=== PATIENT | male | born 1950 | race Caucasian/White ===

== ENCOUNTER → 2020-05-18 11:05 | Outpatient (BNVA) | payer MEDICARE, SELFPAY | PROVIDERS: PCP Physician Assistant; Visit Provider Internal Medicine | DX: G47.33 Obstructive sleep apnea (adult) (pediatric) (principal); E66.9 Obesity, unspecified; Z68.29 Body mass index [BMI] 29.0-29.9, adult; T88.8XXA Other specified complications of surgical and medical care, not elsewhere classified, initial encounter | CPT/HCPCS: 99213 ==

== ENCOUNTER 2020-06-15 12:21 | Outpatient (REF) | payer MEDICARE, SELFPAY ==
[2020-06-15 12:59] LABS: MANUAL DIFF FLAG NO
[2020-06-15 13:19] LABS: Basophils Percent Auto 0.3 % (0-2); Eosinophils Absolute Auto 0.1 X10*3/uL (0.0-0.4); Eosinophils Percent Auto 1.5 % (0-4); Hematocrit 42.6 % (42-52); Hemoglobin 13.9 g/dl (14.0-18.0); Imm Gran Abs Auto 0.02 X10*3/uL (0.00-0.03); Imm Gran Pct Auto 0.3 % (0.0-0.4); Lymphocytes Absolute Auto 1.6 X10*3/uL (1.2-4.9); Lymphocytes Percent Auto 21.9 % (20-40); Mean Corpuscular HGB Conc 32.6 g/dl (31.0-36.0); Mean Corpuscular Hemoglobin 27.3 pg (27.0-33.0); Mean Corpuscular Volume 83.7 fL (80-98); Mean Platelet Volume 10.2 fL (9.4-12.4); Monocytes Absolute Auto 0.9 X10*3/uL (0.1-1.2); Monocytes Percent Auto 12.4 % (2-11); Neutrophils Absolute Auto 4.8 X10*3/uL (2.0-8.3); Neutrophils Percent Auto 63.6 % (45-73); Platelet Count 249 X10*3/uL (160-400); Red Blood Count 5.09 X10*6/uL (4.60-5.80); Red Cell Distribution Width 13.2 % (11.0-16.0); White Blood Count 7.5 X10*3/uL (4.8-10.8)
[2020-06-15 13:34] LABS: Alanine Aminotransferase 20 U/L (0-40); Albumin Level 4.5 g/dL (3.5-5.0); Alkaline Phosphatase 122 U/L (39-117); Anion Gap 14 (12-20); Aspartate Amino Transferase 20 U/L (5-37); Bilirubin Total 0.6 mg/dL (0.0-1.0); Blood Urea Nitrogen 17 mg/dL (9-16); Carbon Dioxide 28 mmol/L (22-29); Chloride 106 mmol/L (96-108); Cholesterol 199 mg/dL; Estimated Glomerular Filt Rate > 60; Glucose Fasting 91 mg/dL (60-99); HDL Cholesterol 59 mg/dL; LDL Cholesterol Calculated 85 mg/dl; Potassium 4.2 mmol/l (3.3-5.1); Sodium 144 mmol/L (135-145); Total Protein 7.2 g/dL (6.5-8.0); Triglycerides 276 mg/dL
[2020-06-15 14:27] LABS: Creatinine Urine 320.39 mg/dL; Microalbum/Creatinine Ratio Ur 9.3 ug/mg cr
[2020-06-15 14:43] LABS: Folate > 20.0 ng/mL (> or = 4.0); Vitamin B12 > 2000 pg/mL (200-900)
== END 2020-06-15 12:22 | disposition home or self-care (01) ==
LOC: HO.LAB 12:21
PROVIDERS: Visit Provider Physician Assistant
DX: G70.00 Myasthenia gravis without (acute) exacerbation (principal); E78.2 Mixed hyperlipidemia; I10 Essential (primary) hypertension; D51.0 Vitamin B12 deficiency anemia due to intrinsic factor deficiency
CPT/HCPCS: 36415; 80053; 80061; 82043; 82550; 82607; 82746; 85025

== ENCOUNTER → 2020-06-22 11:05 | Outpatient (REF) | payer MEDICARE, SELFPAY | LOC: HO.SL 11:05 | PROVIDERS: Visit Provider Internal Medicine | DX: G47.33 Obstructive sleep apnea (adult) (pediatric) (principal) | CPT/HCPCS: 95806 ==

== ENCOUNTER → 2020-08-17 11:09 | Outpatient (BNVA) | payer MEDICARE, OTHER, SELFPAY | PROVIDERS: PCP Physician Assistant; Visit Provider Internal Medicine Gastroenterology | DX: K59.01 Slow transit constipation (principal); G70.00 Myasthenia gravis without (acute) exacerbation | CPT/HCPCS: Q3014 ==

== ENCOUNTER 2020-11-21 09:19 | Outpatient (REF) | payer MEDICARE, OTHER, SELFPAY ==
[2020-11-21 10:53] LABS: MANUAL DIFF FLAG NO
[2020-11-21 11:02] LABS: Basophils Percent Auto 0.3 % (0-2); Eosinophils Absolute Auto 0.3 X10*3/uL (0.0-0.4); Eosinophils Percent Auto 4.4 % (0-4); Imm Gran Abs Auto 0.03 X10*3/uL (0.00-0.03); Imm Gran Pct Auto 0.5 % (0.0-0.4); Lymphocytes Absolute Auto 1.6 X10*3/uL (1.2-4.9); Lymphocytes Percent Auto 23.7 % (20-40); Mean Corpuscular HGB Conc 33.3 g/dl (31.0-36.0); Mean Corpuscular Hemoglobin 27.2 pg (27.0-33.0); Mean Corpuscular Volume 81.6 fL (80-98); Mean Platelet Volume 9.8 fL (9.4-12.4); Monocytes Absolute Auto 0.9 X10*3/uL (0.1-1.2); Monocytes Percent Auto 14.1 % (2-11); Neutrophils Absolute Auto 3.7 X10*3/uL (2.0-8.3); Platelet Count 289 X10*3/uL (160-400); Red Blood Count 4.41 X10*6/uL (4.60-5.80); Red Cell Distribution Width 13.9 % (11.0-16.0); White Blood Count 6.5 X10*3/uL (4.8-10.8)
[2020-11-21 11:25] LABS: Alanine Aminotransferase 21 U/L (0-40); Albumin Level 4.3 g/dL (3.5-5.0); Alkaline Phosphatase 107 U/L (39-117); Anion Gap 14 (12-20); Aspartate Amino Transferase 20 U/L (5-37); Bilirubin Total 0.6 mg/dL (0.0-1.0); Blood Urea Nitrogen 19 mg/dL (9-16); Calcium 9.2 mg/dL (8.4-10.2); Carbon Dioxide 25 mmol/L (22-29); Chloride 107 mmol/L (96-108); Estimated Glomerular Filt Rate > 60; Gamma Glutamyl Transpeptidase 31 U/L (11-51); Glucose Random 103 mg/dL (60-115); Magnesium 2.2 mg/dL (1.6-2.6); Potassium 4.1 mmol/L (3.3-5.1); Sodium 142 mmol/L (135-145); Total Protein 7.1 g/dL (6.5-8.0)
[2020-11-21 11:34] LABS: TSH reflex Free T4 0.54 uIU/mL (0.32-4.0); Vitamin D 25-OH Total 25.7 ng/mL (>30)
== END 2020-11-21 09:20 | disposition home or self-care (01) ==
LOC: HO.LAB 09:19
PROVIDERS: PCP Physician Assistant; Visit Provider Internal Medicine Gastroenterology
DX: K59.01 Slow transit constipation (principal); G47.33 Obstructive sleep apnea (adult) (pediatric); Z86.16 Personal history of COVID-19; Z87.01 Personal history of pneumonia (recurrent)
CPT/HCPCS: 36415; 80053; 82306; 82977; 83735; 84443; 85025; 99212

== ENCOUNTER → 2020-12-21 14:02 | Outpatient (BNVA) | payer MEDICARE, OTHER, SELFPAY | PROVIDERS: PCP Physician Assistant; Visit Provider Internal Medicine | DX: G47.33 Obstructive sleep apnea (adult) (pediatric) (principal); Z86.16 Personal history of COVID-19; Z99.81 Dependence on supplemental oxygen; Z99.89 Dependence on other enabling machines and devices | CPT/HCPCS: 99212 ==

== ENCOUNTER → 2021-05-23 10:55 | Outpatient (BNVA) | payer MEDICARE, OTHER, SELFPAY | PROVIDERS: PCP Physician Assistant; Visit Provider Internal Medicine | DX: G47.33 Obstructive sleep apnea (adult) (pediatric) (principal); U07.1 COVID-19; J12.82 Pneumonia due to coronavirus disease 2019; Z86.16 Personal history of COVID-19 | CPT/HCPCS: 99212 ==

== ENCOUNTER → 2021-09-25 12:13 | Outpatient (BNVA) | payer MEDICARE, OTHER, SELFPAY | PROVIDERS: PCP Physician Assistant; Referring Provider Physician Assistant; Visit Provider Internal Medicine Cardiovascular Disease | DX: G47.33 Obstructive sleep apnea (adult) (pediatric) (principal); E66.9 Obesity, unspecified; Z68.31 Body mass index [BMI] 31.0-31.9, adult; R06.02 Shortness of breath | CPT/HCPCS: 93005; 99202; 99212 ==

== ENCOUNTER → 2021-11-02 07:26 | Outpatient (REF) | payer MEDICARE, OTHER, SELFPAY ==
--- NOTE | ~2021-11-02 | NM_ITS ---
Myocardial perfusion study Indication: Shortness of breath evaluate for myocardial ischemia Technique: The patient was brought in for a Lexiscan perfusion study on 11/02/2021. Patient performed low-level exercise and was injected 0.4 mg of Lexiscan intravenously. Within a minute of injection, 30 mCi of sestamibi was given intravenously. Images were obtained using the SPECT gamma camera interlaced with the gating device. Images were obtained in supine position. Resting perfusion study was performed on 11/03/2021. Patient was administered 30 mCi of sestamibi intravenously at rest. Images were then obtained in supine position. Images obtained with and without CT attenuation. Total DLP 158 mGy-cm. Images were processed with the software and compared side to side in short axis, horizontal long axis and vertical long axis views. Findings: The stress perfusion study showed non attenuated images show normal uptake of radiotracer in all segments of LV myocardium. Attenuation corrected images show mildly reduced uptake in the apex of the LV myocardium.. The gated study shows normal LV systolic function with visually estimated LVEF of greater than 60%. LV cavity is normal in size. The gated study shows normal systolic wall thickening and contraction of segments. Resting study shows no change in perfusion pattern compared to stress perfusion study. Gating at rest reveals normal systolic wall motion with ejection fraction at 71%. The findings are consistent with normal myocardial perfusion. NM/NM melida perf SPECT rest & str Impression: 1. Myocardial perfusion imaging study shows normal myocardial perfusion 2. Gated LVEF is 71% 3. Transient ischemic dilatation not present EKG is nondiagnostic for ischemia
--- NOTE | 2021-11-02 07:29 | CA_ITS ---
Transthoracic Echocardiogram Patient (Last, First, Middle): Kareem Fletcher M Gender: Male Date of : 1950 Age: 70 Procedure Date: 11/02/2021 Procedure Type: Transthoracic Echocardiogram Location: OP Height: 170.18 cm Weight: 88.45 kg BSA: 2.00 m2 Heart Rate: bpm BP: 150 / 100 mmHg Color Consultant: VIJAY Lugo MD: Geovanni Haq MD Warp Yarn Sorter: Geovanni Haq MD Symptoms: R06.02 - Shortness of breath Study Quality: Fair ECG Rhythm: Sinus Conclusions: - 1. Normal LV systolic function with impaired relaxation filling pattern 2. Heavily calcified mitral valve with moderate mitral stenosis 3. Normal RV systolic pressure 4. No gross pericardial effusion Findings Left Ventricle Normal left ventricular size, thickness, and systolic function. The visually estimated ejection fraction is between 60-65%. Spectral Doppler is indicative of an impaired relaxation filling pattern. Right Ventricle Normal right ventricular cavity size and systolic function. Atria The left atrium is normal in size. There is no evidence of interatrial shunt. The right atrium is normal in size. Aortic Valve There is moderate calcification of the aortic valve. There is mild thickening of the aortic valve. There is no aortic valve stenosis. There is no aortic valve regurgitation. Mitral Valve There is moderate anterior and severe posterior mitral leaflet thickening. The anterior mitral leaflet has restricted mobility and the posterior mitral leaflet has restricted mobility. There is moderate mitral annular calcification. There is no mitral valve regurgitation. There is moderate mitral valve stenosis. The calculated mitral valve area by pressure half time is 1.75 cm2. Pulmonic Valve The pulmonic valve was not well visualized. Tricuspid Valve Likely normal tricuspid valve structure and function. There is trace tricuspid valve regurgitation. The right ventricular systolic pressure is normal. The right ventricular systolic pressure is 15 mmHg. Normal right atrial pressure. There is no evidence of pulmonary hypertension. Great Vessels All visible segments of the aorta are normal in size. The pulmonary artery was not well visualized. Venous The inferior vena cava is normal in size and collapses greater than 50% with inspiration. Pericardium/Pleural There is no evidence of pericardial effusion. Prior Study Comparison no previous study in the last 5 years for comparison Measurements 2D Linear Measurements IVSd: 1.18 0.6-0.9/0.6-1.0 cm LVIDd: 3.68 3.9-5.3/4.2-5.9 cm LVIDd Index: 1.84 2.4-3.2/2.2-3.1 cm/m2 LVIDs: 2.40 2.0-3.6 cm LVPWd: 1.04 0.7-1.1 cm LA Diam: 3.80 2.7-3.8/3.0-4.0 cm LAIDs Index: 1.90 1.5-2.3 cm/m2 LV Mass: 161.76 67-162/88-224 g LV Mass Index: 80.88 43-95/49-115 g/m2 LVOT Diam: 2.10 3.0+(-)1.3 cm 2D Systolic Function EF 4C: 63.90 >55% EF 2C: 66.50 >55% EF BiP: 63.10 >55% Mitral Valve MV VTI: 0.55 MV Pk Colt: 1.95 MV Mn Colt: 1.14 MV Pk Grad: 15.00 MV Mn Grad: 6.00 MV Pk E: 1.26 MV PK A: 1.55 MV Decel Time: 372.00 E/A: 0.80 E'Lateral: 3.92 E'Medial: 4.13 E/E' Med: 30.50 E/E' Lat: 32.10 PHT: 126.00 MVA PHT: 1.75 MVA Continuity: 1.43 Decel [place]: 3.55 Aortic Valve AoV Pk Colt: 2.01 AoV Mn Colt: 1.36 AoV VTI: 0.38 AoV Pk Grad: 16.00 Aov Mn Grad: 8.00 PENNY Cont.VTI: 2.10 LVOT LVOT Pk Colt: 1.19 LVOT Mn Colt: 0.78 LVOT VTI: 0.23 LVOT Pk Grad: 6.00 LVOT Mn Grad: 3.00 LVOT Diam: 2.10 LVOT Area: 3.46 Diastolic Function MV Pk E: 1.26 MV Pk A: 1.55 E/A: 0.80 E'Medial: 4.13 E/E' Med: 30.50 E' Laterial: 3.92 E/E' Lat: 32.10 Right Ventricle TAPSE (mm): 19.50 TVS' Colt: 13.30 Tricuspid Valve TR Pk Colt: 1.74 TR Pk Grad: 12.00 RA Press: 3.00 RVSP: 15.00 Great Vessels Aorta Sinus of Valsalva: 3.49 2.0-3.[address] [place]: 3.20 1.7-3.4 cm Ao Asc: 3.20 2.1-3.4 cm Ao Arch: 3.00 Updated in Other Vendor System with Status of Final Geovanni Haq MD electronically signed on 11/03/2021 1:54:01 PM with status of Final
--- NOTE | 2021-11-02 07:29 | CA_ITS ---
Acquisition Time: 2021-11-02 08:18:47 Total Exercise Time: 00:02:00 Test Indications: Dyspnea Medications: ASA ATORVASTATIN CLOPIDOGREL LEVOTHYROXINE OLMESARTAN PYRIDOSTIGMINE BROMIDE Protocol: LEXISCAN Max HR: 139 BPM 93% of Pred: 148 BPM Max BP: 152/084 mmHG Max Work Load: 1.6 METS Pharmacological stress test with Lexiscan injection, while walking on treadmill without anginal symptoms, without arrythmia, with normotensive response to injection, with nondiagnostic EKG for ischemia. In recovery he had nausea and headache which was treated with Aminophylline 75mg IVP to reverse Lexiscan with resolution of symptoms. Nuclear images pending. Test reviewed with Dr Melo. Referred By: Geovanni Haq Overread By: EDITH MCDONNELL
== END ==
LOC: HO.CARD 07:26
PROVIDERS: PCP Physician Assistant; Visit Provider Internal Medicine Cardiovascular Disease
DX: R06.02 Shortness of breath (principal)
CPT/HCPCS: 78452; 93017; 93306; A9500; J0280; J2785

== ENCOUNTER → 2021-11-28 13:58 | Outpatient (BNVA) | payer MEDICARE, OTHER, SELFPAY | PROVIDERS: PCP Physician Assistant; Referring Provider Physician Assistant; Visit Provider Internal Medicine Cardiovascular Disease | DX: R06.02 Shortness of breath (principal); I05.0 Rheumatic mitral stenosis; I10 Essential (primary) hypertension; G47.33 Obstructive sleep apnea (adult) (pediatric); Z79.82 Long term (current) use of aspirin; Z99.89 Dependence on other enabling machines and devices | CPT/HCPCS: 99212 ==

== ENCOUNTER → 2021-12-27 10:50 | Outpatient (REF) | payer MEDICARE, OTHER, SELFPAY ==
--- NOTE | 2021-12-27 10:53 | CA_ITS ---
Acquisition Time: 2021-12-27 11:12:22 Total Exercise Time: 00:03:58 Test Indications: sob Medications: see chart Protocol: ECHO Max HR: 166 BPM 112% of Pred: 147 BPM Max BP: 144/080 mmHG Max Work Load: 5.7 METS Exercise stress test with exercise 3 min 58 sec of Echo protocol, achieving 102% MPHR, with moderate shortness of breath, no chest discomfort, with frequent isolated PACs, with normotensive resposne to exercise, without EKG changes meeting criteria for ischemia. Echo images obtained by tech at rest and immediately post peak exercise. In recovery his breathing normalized. Test reviewed with Dr Marin. Referred By: Geovanni Haq Overread By: EDITH MCDONNELL
== END ==
LOC: HO.CARD 10:50
PROVIDERS: PCP Physician Assistant; Visit Provider Internal Medicine Cardiovascular Disease
DX: R06.02 Shortness of breath (principal)
CPT/HCPCS: 93017; 93350; Q9957

== ENCOUNTER → 2022-02-06 12:40 | Outpatient (BNVA) | payer MEDICARE, OTHER, SELFPAY | PROVIDERS: PCP Physician Assistant; Referring Provider Physician Assistant; Visit Provider Internal Medicine Cardiovascular Disease | DX: I05.0 Rheumatic mitral stenosis (principal) | CPT/HCPCS: 99212 ==

== ENCOUNTER → 2022-03-14 13:11 | Outpatient (BNVA) | payer MEDICARE, OTHER, SELFPAY | PROVIDERS: PCP Physician Assistant; Referring Provider Physician Assistant; Visit Provider Internal Medicine Cardiovascular Disease | DX: I25.10 Atherosclerotic heart disease of native coronary artery without angina pectoris (principal); I05.0 Rheumatic mitral stenosis | CPT/HCPCS: 99212 ==

== ENCOUNTER 2022-03-30 11:26 | Day surgery (SDC) | payer MEDICARE, OTHER, SELFPAY ==
[2022-03-26 13:19] VITALS: BMI 30.7
--- NOTE | 2022-03-29 08:53 | HO.ANESPROP2 ---
Documented by User: Beth Awan NP 03/29/22 09:12 HPI - Anesthesia Eval Consult details Narrative: 71yo M for Transesophageal Echocardiogram Significant CAD, referred for CABG after cardiac cath. Need to assess degree of preop. *Myesthenia Gravis - Occular* PMFSH Active Problems Active Problems: All Active Problems (Updated 03/26/22 @ 13:16 by Izabela Parra, FIORELLA) Pernicious anemia (Acute) HTN (hypertension) (Acute) HLD (hyperlipidemia) (Acute) Ocular myasthenia (Acute) Carotid stenosis (Acute) DMII (diabetes mellitus, type 2) (Acute) Pneumonia due to COVID-19 virus (Acute) Hospital discharge follow-up (Acute) Lower extremity edema (Acute) Prostate cancer screening (Acute) SOB (shortness of breath) on exertion (Acute) Memory impairment (Acute) Mitral stenosis (Acute) Atherosclerosis of coronary artery (Acute) Obesity (BMI 30.0-34.9) (Acute) BARRY (obstructive sleep apnea) (Acute) Malfunction of continuous positive airway pressure (CPAP) or bilevel positive airway pressure (BPAP) machine (Acute) BARRY (obstructive sleep apnea) (Acute) Constipation by delayed colonic transit (Acute) Myasthenia gravis (Acute) Personal history of COVID-19 (Acute) Diabetes mellitus screening (Acute) Past Medical History Medical History Atherosclerosis of coronary artery Constipation by delayed colonic transit Diabetes mellitus screening Malfunction of continuous positive airway pressure (CPAP) or bilevel positive airway pressure (BPAP) machine Mitral stenosis Myasthenia gravis Obesity (BMI 30.0-34.9) BARRY (obstructive sleep apnea) BARRY (obstructive sleep apnea) Personal history of COVID-19 Family History Family History Father No problems noted. Mother No problems noted. Maternal Grandmother Medical history unknown Brother AA (aortic aneurysm) Maternal Grandmother No problems noted. Mother AA (aortic aneurysm) Sister Primary cancer of shoulder Other Family history of hypercholesterolemia Family history of hypertension Surgical History Surgical History History of appendectomy History of cholecystectomy History of shoulder surgery History of tonsillectomy and adenoidectomy Hx of colonoscopy Total knee replacement status Social History Social History Household Members: Significant Other Housing: House Alcohol intake: never Patient Tobacco Use Status: Never used Tobacco Use of substances other than those prescribed or required for medical reasons: No Are you DNR?: No Advance Directives: No Advance Directives Information Provided: Yes Recently lost weight without trying: No Nutrition Risks: No Nutritional Risk service: Yes Current occupational status: retired Meds Allergies Allergy/AdvReac Type Severity Reaction Status Date / Time codeine [CODEINE] Allergy Intermediate VOMITING Verified 09/25/21 16:06 Home Medications Medication Instructions Recorded Confirmed Last Taken Type aspirin 81 mg tablet,delayed 81 mg PO DAILY 06/15/20 03/26/22 Unknown History release pyridostigmine bromide 60 mg tablet 60 mg PO TID 06/15/20 03/26/22 03/30/22 History nitroglycerin 0.4 mg sublingual 0.4 mg sublingual TID PRN angina 07/14/20 03/26/22 Unknown History tablet levothyroxine 125 mcg tablet 125 mcg PO DAILY 03/14/22 03/26/22 03/30/22 History Exam Exam Date and Time: March 29, 2022 0853 Height,Weight and Vital Signs: Height 5 ft 7 in Weight 89 kg Narrative Narrative: Cardiac Cath Significant three-vessel coronary artery disease along with presence of mitral stenosis and also gradient across aortic valve which was not expected suggestive aortic stenosis. EKG 09/2021 normal sinus rhythm with minimal voltage criteria for LVH, without acute changes ECHO 10/2021 Conclusions: - 1.? Normal LV systolic function with impaired relaxation ? ? ? filling pattern? 2. Heavily calcified mitral valve with moderate mitral stenosis? 3.? Normal RV systolic pressure? 4. No gross pericardial effusion ?? NM melida perf SPECT rest & str 10/2021 Impression: ? 1.? Myocardial perfusion imaging study shows normal myocardial perfusion 2.? Gated LVEF is 71% 3. Transient ischemic dilatation not present ? EKG is nondiagnostic for ischemia Stress ECHO 12/2021 Protocol: BUDDY ? Max HR: 166 BPM? 112% of? Pred: 147 BPM Max BP: 144/080 mmHG Max Work Load: 5.7 METS ? Exercise stress test with exercise 3 min 58 sec of Buddy protocol, achieving ?102% MPHR, with moderate shortness of breath, no chest discomfort, with ?frequent isolated PACs, with normotensive resposne to exercise, without EKG ?changes meeting criteria for ischemia. Echo images obtained by tech at rest and ?immediately post peak exercise. In recovery his breathing normalized. Test ?reviewed with Dr Marin. Exercise echocardiogram was performed to assess mitral valve gradients with exercise. Baseline echocardiogram shows normal? LVEF, normal RV systolic function. Mitral annulus appears moderately calcified.? Resting mean gradient across the mitral? valve was 5mmHg (peak 13mmHg)? at 82/min.? Immediately post exercise, the gradient increased to mean 11mmHg (peak 21mmHg) at? 96/min. This could? indicate calcific mitral stenosis as potential etiology for patient's shortness of breath with activity.? Assessment and Plan Assessment Anesthesia Assessment: Chart Reviewed Documented by User: Garcia Ferris MD 03/30/22 12:27 [facility] [place] Active Problems Active Problems: All Active Problems (Updated 03/26/22 @ 13:16 by Izabela Parra RN) Pernicious anemia (Acute) HTN (hypertension) (Acute) HLD (hyperlipidemia) (Acute) Ocular myasthenia (Acute) Carotid stenosis (Acute) DMII (diabetes mellitus, type 2) (Acute) Pneumonia due to COVID-19 virus (Acute) Hospital discharge follow-up (Acute) Lower extremity edema (Acute) Prostate cancer screening (Acute) SOB (shortness of breath) on exertion (Acute) Memory impairment (Acute) Mitral stenosis (Acute) Atherosclerosis of coronary artery (Acute) Obesity (BMI 30.0-34.9) (Acute) BARRY (obstructive sleep apnea) (Acute) Malfunction of continuous positive airway pressure (CPAP) or bilevel positive airway pressure (BPAP) machine (Acute) BARRY (obstructive sleep apnea) (Acute) Constipation by delayed colonic transit (Acute) Myasthenia gravis (Acute) Personal history of COVID-19 (Acute) Diabetes mellitus screening (Acute) hypothyroidism Past Medical History Medical History Atherosclerosis of coronary artery Constipation by delayed colonic transit Diabetes mellitus screening Malfunction of continuous positive airway pressure (CPAP) or bilevel positive airway pressure (BPAP) machine Mitral stenosis Myasthenia gravis Obesity (BMI 30.0-34.9) BARRY (obstructive sleep apnea) BARRY (obstructive sleep apnea) Personal history of COVID-19 Family History Family History Father No problems noted. Mother No problems noted. Maternal Grandmother Medical history unknown Brother AA (aortic aneurysm) Maternal Grandmother No problems noted. Mother AA (aortic aneurysm) Sister Primary cancer of shoulder Other Family history of hypercholesterolemia Family history of hypertension Family history of problems with anesthesia: No Surgical History Surgical History History of appendectomy History of cholecystectomy History of shoulder surgery History of tonsillectomy and adenoidectomy Hx of colonoscopy Total knee replacement status History of Problems with Anesthesia: No Social History Social History Household Members: Significant Other Housing: House Alcohol intake: never Patient Tobacco Use Status: Never used Tobacco Use of substances other than those prescribed or required for medical reasons: No Are you DNR?: No Advance Directives: No Advance Directives Information Provided: Yes Recently lost weight without trying: No Nutrition Risks: No Nutritional Risk service: Yes Current occupational status: retired [employer] Allergies Allergy/AdvReac Type Severity Reaction Status Date / Time codeine [CODEINE] Allergy Intermediate VOMITING Verified 09/25/21 16:06 Home Medications Medication Instructions Recorded Confirmed Last Taken Type aspirin 81 mg tablet,delayed 81 mg PO DAILY 06/15/20 03/26/22 Unknown History release pyridostigmine bromide 60 mg tablet 60 mg PO TID 06/15/20 03/26/22 03/30/22 History nitroglycerin 0.4 mg sublingual 0.4 mg sublingual TID PRN angina 07/14/20 03/26/22 Unknown History tablet levothyroxine 125 mcg tablet 125 mcg PO DAILY 03/14/22 03/26/22 03/30/22 History Assessment and Plan Final Anesthetic Review Family History of Problems with Anesthesia: No History of Problems with Anesthesia: No
[2022-03-30 12:01] VITALS: BP 134/76; PULSE 75; RESP 16; TEMP 36.2; O2SAT 97
[2022-03-30 12:07] LABS: Hematocrit 40.8 % (42.0-52.0); Hemoglobin 13.4 g/dl (14.0-18.0); Mean Corpuscular HGB Conc 32.8 g/dl (31.0-36.0); Mean Corpuscular Hemoglobin 26.3 pg (27.0-33.0); Platelet Count 255 X10*3/uL (160-400); Red Cell Distribution Width 13.7 % (11.0-16.0); White Blood Count 8.1 X10*3/uL (4.8-10.8)
[2022-03-30] MEDS: Lactated Ringers 1,000 ML 50 ML IVCONT (12:36)
[2022-03-30 13:07] LABS: Anion Gap 17 (12-20); Blood Urea Nitrogen 17 mg/dL (9-16); Calcium 9.5 mg/dL (8.4-10.2); Carbon Dioxide 22 mmol/L (22-29); Chloride 109 mmol/L (96-108); Creatinine Clr Calc Pharmacy 59.8; Estimated Glomerular Filt Rate > 60; Glucose Fasting 93 mg/dL (60-99); Potassium 4.4 mmol/L (3.3-5.1); Sodium 144 mmol/L (135-145)
--- NOTE | 2022-03-30 13:16 | CA_ITS ---
Transesophageal Echocardiogram Patient (Last, First, Middle): Kareem Fletcher M Gender: Male Date of : 1950 Age: 71 Procedure Date: 03/30/2022 Procedure Type: Transesophageal Echocardiogram Location: OP Height: 170.18 cm Weight: 88.91 kg BSA: 2.00 m2 Heart Rate: 90 bpm BP: 114 / 75 mmHg Sba Underwriter: ALIYAH Referring MD: Geovanni Haq MD Peripheral Equipment Operator: Geovanni Haq MD Symptoms: Evaluate mitral valve Conclusion: ??? 1. Normal LV systolic function with impaired relaxation filling pattern next 2. At worst mild aortic stenosis 3. Severe mitral calcification with [id number] mitral stenosis 4. No intracardiac shunting 5. No intracardiac thrombi or masses or vegetations 6. [id number]-[id number] atherosclerotic changes noted in the descending thoracic an arch of the aorta Findings Procedure Information Consent was obtained prior to the procedure. Pre BINA oral cavity was checked and revealed no overcrowding. The adult 3D probe was passed with no difficulty. Left Ventricle Normal left ventricular size and systolic function. The visually estimated ejection fraction is between 55-60%. There is no systolic anterior motion of the mitral valve. Spectral Doppler is indicative of an impaired relaxation filling pattern. There is no evidence of a thrombus in the left ventricle. parts of lateral left ventricular wall were not well visualized due to shadowing artifact due to heavy mitral calcification. Right Ventricle Normal right ventricular cavity size and systolic function. Atria The left atrium is mildly dilated. There is lipomatous hypertrophy of the interatrial septum. There is no evidence of interatrial shunt by color Doppler. the left atrial appendage was identified in multiple views. There are no clots or thrombi seen with the left atrial appendage. The left upper, right upper and right lower pulmonary vein drain normally into the left atrium. The right atrium is normal in size. Right atrium was normal size. IVC and SVC drain normally into the right atrium. The of normal size with normal collapsibility suggestive of normal filling pressures. Aortic Valve There is mild calcification of the aortic valve. There is mild thickening of the aortic valve. There is mild aortic valve stenosis. There is no evidence of a mass on the aortic valve. There is no aortic valve regurgitation. gradients across aortic wall could not be obtained however direct planimetry of the valve suggest at worst mild stenosis. Mitral Valve There is mild anterior and severe posterior mitral leaflet thickening. There is severe mitral annular calcification. There is mild mitral valve regurgitation. There is mild mitral valve stenosis. the posterior leaflet is heavily calcified with limited mobility, although anterior leaflet is widely open. at worst there is luyx-ie-guxwvwmu mitral stenosis. Pulmonic Valve The pulmonic valve is normal. There is no mass noted on the pulmonic valve. There is trace pulmonic valve regurgitation. Tricuspid Valve Normal tricuspid valve structure. There is trace tricuspid valve regurgitation. There is no evidence of a mass on the tricuspid valve. Great Vessels All visible segments of the aorta are normal in size. The visualized portions of the pulmonary artery and branches are normal. [id number] atherosclerotic changes noted in the descending thoracic as well as arch of the aorta Venous The inferior vena cava is normal in size and collapses greater than 50% with inspiration. Pericardium/Pleural There is no evidence of pericardial effusion. Measurements Mitral Valve MV VTI: 0.35 MV Pk Colt: 1.59 MV Mn Colt: 1.13 MV Pk Grad: 10.00 MV Mn Grad: 6.00 MV Pk E: 1.30 MV PK A: 1.63 MV Decel Time: 312.00 E/A: 0.80 PHT: 98.00 MVA PHT: 2.24 Decel [place]: 3.77 Diastolic Function MV Pk E: 1.30 MV Pk A: 1.63 E/A: 0.80 Great Vessels Aorta Ao Asc: 3.20 2.1-3.4 cm Pulmonary Veins Pulm Vein S/D 1.90 Updated by Geovanni Haq on 02:06 PM with Status of Final Geovanni Haq MD electronically signed on 04/05/2022 2:06:46 PM with status of Final
--- NOTE | 2022-03-30 13:17 | MHC.SHP ---
Pre-Procedural Eval Section A Date of Service: 03/30/22 The patient is an INPATIENT: No Changes since office visit: Yes Patient answered all questions; No Cold of Flu in the past 2 weeks, No New Medical Problems and No Changes in Medication The History & Physical has been completed within 30 days and I have reviewed it.: Yes Section B Chief Complaint: mitral stenosis Allergies: Allergies Allergy/AdvReac Type Severity Reaction Status Date / Time codeine [CODEINE] Allergy Intermediate VOMITING Verified 09/25/21 16:06 Plan I have reviewed the history and physical and performed a pertinent physical examination on my patient. No changes have occurred unless specified.
[2022-03-30 14:26] VITALS: BP 124/72; PULSE 84; RESP 20; TEMP 36.6; O2SAT 97
[2022-03-30 14:41] VITALS: BP 138/78; PULSE 68; RESP 16; O2SAT 96
== END 2022-03-30 15:12 | disposition home or self-care (01) ==
PROVIDERS: Nurse Practitioner; PCP Physician Assistant; Visit Provider Internal Medicine Cardiovascular Disease
PROC: (CPT 93312; principal; 2022-03-30 13:30)
DX: I05.0 Rheumatic mitral stenosis (principal); I25.10 Atherosclerotic heart disease of native coronary artery without angina pectoris; R06.02 Shortness of breath; G70.00 Myasthenia gravis without (acute) exacerbation; G47.33 Obstructive sleep apnea (adult) (pediatric); Z79.82 Long term (current) use of aspirin; Z88.8 Allergy status to other drugs, medicaments and biological substances; Z79.899 Other long term (current) drug therapy; Z86.16 Personal history of COVID-19; Z96.653 Presence of artificial knee joint, bilateral
CPT/HCPCS: 93312; 36415; 80048; 85027; J2250

== ENCOUNTER 2022-06-26 10:33 | Outpatient (REF) | payer MEDICARE, OTHER, SELFPAY ==
[2022-06-26 11:56] LABS: Hemoglobin 10.9 g/dl (14.0-18.0); Mean Corpuscular HGB Conc 31.1 g/dl (31.0-36.0); Mean Corpuscular Hemoglobin 25.8 pg (27.0-33.0); Mean Corpuscular Volume 82.7 fL (80.0-98.0); Mean Platelet Volume 10.6 fL (9.4-12.4); Platelet Count 290 X10*3/uL (160-400); Red Blood Count 4.23 X10*6/uL (4.60-5.80); White Blood Count 7.9 X10*3/uL (4.8-10.8)
[2022-06-26 12:49] LABS: Alanine Aminotransferase 37 U/L (0-40); Albumin Level 4.1 g/dL (3.5-5.0); Alkaline Phosphatase 128 U/L (39-117); Anion Gap 15 (12-20); Aspartate Amino Transferase 46 U/L (5-37); Bilirubin Total 0.5 mg/dL (0.0-1.0); Blood Urea Nitrogen 27 mg/dL (9-16); Calcium 9.7 mg/dL (8.4-10.2); Carbon Dioxide 25 mmol/L (22-29); Chloride 107 mmol/L (96-108); Cholesterol 175 mg/dL; Estimated Glomerular Filt Rate 48; Glucose Fasting 88 mg/dL (60-99); Glucose Random 87 mg/dL (60-115); HDL Cholesterol 46 mg/dL; LDL Cholesterol Calculated 77 mg/dl; Potassium 4.3 mmol/L (3.3-5.1); Prostate Specific Antigen Scr < 0.10 ng/mL (<0.05-4.0); Sodium 143 mmol/L (135-145); TSH reflex Free T4 0.14 uIU/mL (0.32-4.0); Triglycerides 263 mg/dL
[2022-06-26 13:38] LABS: Free T4 (Free Thyroxine) 1.83 ng/dL (0.71-1.85)
[2022-06-26 15:26] LABS: Vitamin B12 720 pg/mL (200-900)
== END 2022-06-26 10:34 | disposition home or self-care (01) ==
LOC: HO.HMGCLDS 10:33
PROVIDERS: Absent Provider Internal Medicine Cardiovascular Disease; PCP Physician Assistant; Visit Provider Physician Assistant
DX: Z12.5 Encounter for screening for malignant neoplasm of prostate (principal); D51.0 Vitamin B12 deficiency anemia due to intrinsic factor deficiency; I05.0 Rheumatic mitral stenosis; I25.118 Atherosclerotic heart disease of native coronary artery with other forms of angina pectoris
CPT/HCPCS: 36415; 80048; 80053; 80061; 82607; 82746; 84153; 84439; 84443; 85027; 85610; 99212

== ENCOUNTER 2022-07-09 11:22 | Outpatient (REF) | payer MEDICARE, OTHER, SELFPAY ==
[2022-07-09 14:29] LABS: Cholesterol 200 mg/dL; HDL Cholesterol 49 mg/dL; LDL Cholesterol Calculated 104 mg/dl; Triglycerides 239 mg/dL
== END 2022-07-09 11:23 | disposition home or self-care (01) ==
LOC: HO.HMGCLDS 11:22
PROVIDERS: PCP Physician Assistant; Visit Provider Internal Medicine Cardiovascular Disease
DX: I25.10 Atherosclerotic heart disease of native coronary artery without angina pectoris (principal)
CPT/HCPCS: 36415; 80061

== ENCOUNTER 2022-07-10 11:38 | Outpatient (REF) | payer MEDICARE, OTHER, SELFPAY ==
--- NOTE | ~2022-07-10 | XR_ITS ---
EXAMINATION: XR SHOULDER, RIGHT CLINICAL INFORMATION: Unspecified disorder COMPARISON: 07/23/2018 TECHNIQUE: AP external rotation, Grashey, scapular Y, and axillary views of the right shoulder. FINDINGS: No acute fracture or dislocation. Severe glenohumeral arthrosis with flattening of the humeral head and bulky marginal osteophytes. Chronic ossific density projects superior to the glenohumeral joint, possibly an intra-articular body versus calcification associated with the rotator cuff tendon. Orthopedic screws present in the anterior-inferior glenoid. Soft tissues unremarkable. XR/XR shoulder RT min 2V IMPRESSION: Stable exam showing severe degenerative change of the glenohumeral joint with flattening of the humeral head and likely intra-articular debris.
== END 2022-07-10 11:39 | disposition home or self-care (01) ==
LOC: HO.XRAY 11:38
PROVIDERS: PCP Physician Assistant; Visit Provider Physician Assistant
DX: M67.911 Unspecified disorder of synovium and tendon, right shoulder (principal)
CPT/HCPCS: 73030

== ENCOUNTER 2022-09-25 08:31 | Outpatient (REF) | payer MEDICARE, OTHER, SELFPAY ==
--- NOTE | ~2022-09-25 | XR_ITS ---
EXAMINATION: XR SHOULDER, LEFT CLINICAL INFORMATION: Shoulder pain. COMPARISON: Chest radiograph 03/18/2018, right shoulder radiographs 07/10/2022. TECHNIQUE: Three views of the left shoulder. FINDINGS: The left humeral head is deformed and there are marked degenerative change is seen with sclerosis, osteophytes and subchondral cyst formation. Intra-articular osseous bodies are probably present as well. There is no glenohumeral dislocation. Very similar appearances were seen at the right shoulder joint on 07/10/2022. The AC joint is unremarkable. No calcifications are seen in the supraspinatus tendon. Incidental note made of median sternotomy and clips denoting a CABG. XR/XR shoulder LT min 2V IMPRESSION: Marked degenerative changes in the left shoulder with deformity of the humeral head and intra-articular osseous bodies.
== END 2022-09-25 08:32 | disposition home or self-care (01) ==
LOC: HO.HOSX 08:31
PROVIDERS: Visit Provider Physician Assistant
DX: M19.011 Primary osteoarthritis, right shoulder (principal); M19.012 Primary osteoarthritis, left shoulder; I10 Essential (primary) hypertension; I25.118 Atherosclerotic heart disease of native coronary artery with other forms of angina pectoris
CPT/HCPCS: 20610; 73030; 99202; 99212; J1040

== ENCOUNTER 2022-12-19 07:05 | Outpatient (REF) | payer MEDICARE, OTHER, SELFPAY ==
[2022-12-19 11:42] LABS: Hematocrit 38.6 % (42.0-52.0); Hemoglobin 12.8 g/dl (14.0-18.0); Mean Corpuscular HGB Conc 33.2 g/dl (31.0-36.0); Mean Corpuscular Hemoglobin 26.3 pg (27.0-33.0); Mean Corpuscular Volume 79.4 fL (80.0-98.0); Mean Platelet Volume 11.4 fL (9.4-12.4); Platelet Count 225 X10*3/uL (160-400); Red Blood Count 4.86 X10*6/uL (4.60-5.80); Red Cell Distribution Width 16.1 % (11.0-16.0); White Blood Count 12.5 X10*3/uL (4.8-10.8)
[2022-12-19 12:36] LABS: Alanine Aminotransferase 32 U/L (0-40); Albumin Level 3.7 g/dL (3.5-5.0); Alkaline Phosphatase 104 U/L (39-117); Anion Gap 13 (12-20); Aspartate Amino Transferase 17 U/L (5-37); Bilirubin Total 0.7 mg/dL (0.0-1.0); Blood Urea Nitrogen 30 mg/dL (9-16); Calcium 9.7 mg/dL (8.4-10.2); Carbon Dioxide 29 mmol/L (22-29); Chloride 102 mmol/L (96-108); Cholesterol 188 mg/dL; Estimated Glomerular Filt Rate 55; Folate 10.6 ng/mL (> or = 4.0); Glucose Fasting 394 mg/dL (60-99); HDL Cholesterol 64 mg/dL; LDL Cholesterol Calculated 70 mg/dl; Sodium 139 mmol/L (135-145); TSH reflex Free T4 0.15 uIU/mL (0.32-4.0); Total Protein 6.4 g/dL (6.5-8.0); Triglycerides 270 mg/dL; Vitamin B12 1409 pg/mL (200-900)
[2022-12-19 12:41] LABS: Creatinine Urine 121.55 mg/dL; Microalbum/Creatinine Ratio Ur 17.2 ug/mg cr
[2022-12-19 13:30] LABS: Free T4 (Free Thyroxine) 1.26 ng/dL (0.71-1.85)
[2022-12-19 21:49] LABS: Prostate Specific Antigen Scr < 0.10 ng/mL (<0.05-4.0)
== END 2022-12-19 07:06 | disposition home or self-care (01) ==
LOC: HO.HMGCLDS 07:05
PROVIDERS: PCP Physician Assistant; Visit Provider Physician Assistant
DX: Z12.5 Encounter for screening for malignant neoplasm of prostate (principal); I25.118 Atherosclerotic heart disease of native coronary artery with other forms of angina pectoris; I10 Essential (primary) hypertension; D50.9 Iron deficiency anemia, unspecified; E53.8 Deficiency of other specified B group vitamins; E03.9 Hypothyroidism, unspecified; Z95.1 Presence of aortocoronary bypass graft
CPT/HCPCS: 36415; 80053; 80061; 82043; 82607; 82746; 84153; 84439; 84443; 85027

== ENCOUNTER 2022-12-31 10:20 | Outpatient (REF) | payer MEDICARE, OTHER, SELFPAY ==
--- NOTE | ~2022-12-31 | XR_ITS ---
Examination: Right knee, left hand and wrist, right RIBS with chest x-ray. Clinical indications: Fall. Pain. COMPARISON: Right shoulder 07/10/2022. TECHNIQUE: Chest and right RIBS 4 views. Left hand/wrist 3 views. Right knee 4 views. FINDINGS: The right knee: There is a total knee prosthesis with the prosthetic components in satisfactory alignment. No periprosthetic loosening or fracture. No abnormal joint effusion. The soft tissues are normal. Left hand/wrist: There is mild loss of PIP and DIP joint space with periarticular enthesophytes.. No visible acute fracture or dislocation seen. There is mild soft tissue swelling PIP joints all digits. The MCP joints, intercarpal joints and radioulnar carpal joints are preserved. There is moderate loss of first carpometacarpal joint space. Right RIBS and chest: The lungs are well-expanded and clear. The heart size and pulmonary vascularity is normal. There are median sternotomy sutures and mediastinal roddy from previous CABG. There is moderate loss of bilateral shoulders a large enthesophyte along the right inferior right shoulder joint. Multiple views of right ribs reveal no visible rib fracture. XR/XR ribs RT min 3V w CXR1V IMPRESSION: 1. No acute fracture or dislocation right knee. There is a total knee prosthesis in satisfactory alignment. No periprosthetic loosening or fracture. 2. Degenerative arthritic changes PIP and DIP joints left hand with mild soft tissue swelling PIP joints all digits. No visible acute fracture or dislocation. 3. Unremarkable chest exam. No visible right rib fracture seen.
--- NOTE | ~2022-12-31 | XR_ITS ---
Examination: Right knee, left hand and wrist, right RIBS with chest x-ray. Clinical indications: Fall. Pain. COMPARISON: Right shoulder 07/10/2022. TECHNIQUE: Chest and right RIBS 4 views. Left hand/wrist 3 views. Right knee 4 views. FINDINGS: The right knee: There is a total knee prosthesis with the prosthetic components in satisfactory alignment. No periprosthetic loosening or fracture. No abnormal joint effusion. The soft tissues are normal. Left hand/wrist: There is mild loss of PIP and DIP joint space with periarticular enthesophytes.. No visible acute fracture or dislocation seen. There is mild soft tissue swelling PIP joints all digits. The MCP joints, intercarpal joints and radioulnar carpal joints are preserved. There is moderate loss of first carpometacarpal joint space. Right RIBS and chest: The lungs are well-expanded and clear. The heart size and pulmonary vascularity is normal. There are median sternotomy sutures and mediastinal roddy from previous CABG. There is moderate loss of bilateral shoulders a large enthesophyte along the right inferior right shoulder joint. Multiple views of right ribs reveal no visible rib fracture. XR/XR knee RT 4V IMPRESSION: 1. No acute fracture or dislocation right knee. There is a total knee prosthesis in satisfactory alignment. No periprosthetic loosening or fracture. 2. Degenerative arthritic changes PIP and DIP joints left hand with mild soft tissue swelling PIP joints all digits. No visible acute fracture or dislocation. 3. Unremarkable chest exam. No visible right rib fracture seen.
--- NOTE | ~2022-12-31 | XR_ITS ---
Examination: Right knee, left hand and wrist, right RIBS with chest x-ray. Clinical indications: Fall. Pain. COMPARISON: Right shoulder 07/10/2022. TECHNIQUE: Chest and right RIBS 4 views. Left hand/wrist 3 views. Right knee 4 views. FINDINGS: The right knee: There is a total knee prosthesis with the prosthetic components in satisfactory alignment. No periprosthetic loosening or fracture. No abnormal joint effusion. The soft tissues are normal. Left hand/wrist: There is mild loss of PIP and DIP joint space with periarticular enthesophytes.. No visible acute fracture or dislocation seen. There is mild soft tissue swelling PIP joints all digits. The MCP joints, intercarpal joints and radioulnar carpal joints are preserved. There is moderate loss of first carpometacarpal joint space. Right RIBS and chest: The lungs are well-expanded and clear. The heart size and pulmonary vascularity is normal. There are median sternotomy sutures and mediastinal roddy from previous CABG. There is moderate loss of bilateral shoulders a large enthesophyte along the right inferior right shoulder joint. Multiple views of right ribs reveal no visible rib fracture. XR/XR hand wrist LT IMPRESSION: 1. No acute fracture or dislocation right knee. There is a total knee prosthesis in satisfactory alignment. No periprosthetic loosening or fracture. 2. Degenerative arthritic changes PIP and DIP joints left hand with mild soft tissue swelling PIP joints all digits. No visible acute fracture or dislocation. 3. Unremarkable chest exam. No visible right rib fracture seen.
== END 2022-12-31 10:21 | disposition home or self-care (01) ==
LOC: HO.HMGCX 10:20
PROVIDERS: PCP Physician Assistant; Visit Provider Nurse Practitioner Family
DX: I25.10 Atherosclerotic heart disease of native coronary artery without angina pectoris (principal); I05.0 Rheumatic mitral stenosis; R07.81 Pleurodynia; M25.561 Pain in right knee; M25.532 Pain in left wrist; M79.642 Pain in left hand; W19.XXXA Unspecified fall, initial encounter
CPT/HCPCS: 71101; 73110; 73130; 73564; 99212

== ENCOUNTER 2023-01-23 12:15 | Outpatient (REF) | payer MEDICARE, OTHER, SELFPAY ==
--- NOTE | ~2023-01-23 | XR_ITS ---
EXAMINATION: XR CHEST CLINICAL INFORMATION: Shortness of breath COMPARISON: Shoulder 07/10/2022, chest radiograph 12/31/2022 and 03/18/2018 TECHNIQUE: 2 views of the chest were obtained. FINDINGS: Again seen are changes of median sternotomy. Severe bilateral degenerative changes are present in the shoulders, right greater than left with 2 orthopedic screws overlying the glenoid. Heart size is normal. No infiltrates, effusions or lung masses. No pneumothorax. XR/XR chest 2V IMPRESSION: No acute intrathoracic disease. Cause for the patient's acute shortness of breath has not been found.
[2023-01-23 14:08] LABS: Basophils Percent Auto 0.1 % (0-2); Eosinophils Percent Auto 0.1 % (0-4); Hematocrit 35.7 % (42.0-52.0); Hemoglobin 11.4 g/dl (14.0-18.0); Imm Gran Abs Auto 0.04 X10*3/uL (0.00-0.03); Imm Gran Pct Auto 0.5 % (0.0-0.4); Lymphocytes Absolute Auto 0.9 X10*3/uL (1.2-4.9); Lymphocytes Percent Auto 12.2 % (20-40); MANUAL DIFF FLAG SCAN; Mean Corpuscular HGB Conc 31.9 g/dl (31.0-36.0); Mean Corpuscular Hemoglobin 26.9 pg (27.0-33.0); Mean Corpuscular Volume 84.2 fL (80.0-98.0); Monocytes Absolute Auto 0.3 X10*3/uL (0.1-1.2); Monocytes Percent Auto 3.9 % (2-11); Neutrophils Absolute Auto 6.4 x10*3/uL (2.0-8.3); Neutrophils Percent Auto 83.2 % (45-73); PLT CLUMP 1; Red Blood Count 4.24 X10*6/uL (4.60-5.80); Red Cell Distribution Width 15.3 % (11.0-16.0); SCAN SMEAR FLAG 1
[2023-01-23 14:14] LABS: White Blood Count 7.7 X10*3/uL (4.8-10.8)
[2023-01-23 14:26] LABS: Alanine Aminotransferase 18 U/L (0-40); Alkaline Phosphatase 94 U/L (39-117); Anion Gap 13 (12-20); Aspartate Amino Transferase 23 U/L (5-37); Bilirubin Total 0.7 mg/dL (0.0-1.0); Blood Urea Nitrogen 23 mg/dL (9-16); Calcium 9.8 mg/dL (8.4-10.2); Carbon Dioxide 25 mmol/L (22-29); Chloride 110 mmol/L (96-108); Estimated Glomerular Filt Rate > 60; Glucose Fasting 189 mg/dL (60-99); Glucose Random 188 mg/dL (60-115); Potassium 4.3 mmol/L (3.3-5.1); Sodium 144 mmol/L (135-145); Total Protein 7.1 g/dL (6.5-8.0)
[2023-01-23 14:41] LABS: Mean Platelet Volume 11.5 fL (9.4-12.4); Platelet Count 234 X10*3/uL (160-400)
[2023-01-23 14:42] LABS: SLIDE REVIEW VERIFIED
== END 2023-01-23 12:16 | disposition home or self-care (01) ==
LOC: HO.HMGCX 12:15
PROVIDERS: PCP Physician Assistant; Visit Provider Nurse Practitioner Family
DX: E11.9 Type 2 diabetes mellitus without complications (principal); R53.83 Other fatigue; R06.02 Shortness of breath
CPT/HCPCS: 36415; 71046; 80048; 80053; 85025; 85027

== ENCOUNTER 2023-01-31 09:16 | Outpatient (REF) | payer MEDICARE, OTHER, SELFPAY ==
--- NOTE | ~2023-01-31 | XR_ITS ---
EXAMINATION: XR KNEE, RIGHT XR KNEE, LEFT XR KNEES, STANDING BILATERAL CLINICAL INFORMATION: Bilateral knee pain. COMPARISON: Right knee 12/31/2022. TECHNIQUE: [place] right knee, sunrise and lateral left knee and AP standing view of bilateral knee presented for interpretation. FINDINGS: Right Knee: Right total knee prosthesis with prosthetic components in satisfactory alignment. Hardware appears intact. Left Knee: Left total knee prosthesis with prosthetic components in satisfactory alignment. Hardware appears intact. XR/XR knee standing BI IMPRESSION: Bilateral total knee prosthesis. Hardware appears intact.
--- NOTE | ~2023-01-31 | XR_ITS ---
EXAMINATION: XR KNEE, RIGHT XR KNEE, LEFT XR KNEES, STANDING BILATERAL CLINICAL INFORMATION: Bilateral knee pain. COMPARISON: Right knee 12/31/2022. TECHNIQUE: [place] right knee, sunrise and lateral left knee and AP standing view of bilateral knee presented for interpretation. FINDINGS: Right Knee: Right total knee prosthesis with prosthetic components in satisfactory alignment. Hardware appears intact. Left Knee: Left total knee prosthesis with prosthetic components in satisfactory alignment. Hardware appears intact. XR/XR knee LT 2V IMPRESSION: Bilateral total knee prosthesis. Hardware appears intact.
--- NOTE | ~2023-01-31 | XR_ITS ---
EXAMINATION: XR KNEE, RIGHT XR KNEE, LEFT XR KNEES, STANDING BILATERAL CLINICAL INFORMATION: Bilateral knee pain. COMPARISON: Right knee 12/31/2022. TECHNIQUE: [place] right knee, sunrise and lateral left knee and AP standing view of bilateral knee presented for interpretation. FINDINGS: Right Knee: Right total knee prosthesis with prosthetic components in satisfactory alignment. Hardware appears intact. Left Knee: Left total knee prosthesis with prosthetic components in satisfactory alignment. Hardware appears intact. XR/XR knee RT 1V IMPRESSION: Bilateral total knee prosthesis. Hardware appears intact.
== END 2023-01-31 09:17 | disposition home or self-care (01) ==
LOC: HO.HOSX 09:16
PROVIDERS: Visit Provider Physician Assistant
DX: S80.01XA Contusion of right knee, initial encounter (principal); M25.562 Pain in left knee; S63.502A Unspecified sprain of left wrist, initial encounter
CPT/HCPCS: 73560; 73565; 99212

== ENCOUNTER 2023-02-01 07:28 | Outpatient (REF) | payer MEDICARE, OTHER, SELFPAY ==
[2023-02-01 11:38] LABS: Hematocrit 35.5 % (42.0-52.0); Hemoglobin 11.4 g/dl (14.0-18.0); Mean Corpuscular HGB Conc 32.1 g/dl (31.0-36.0); Mean Corpuscular Hemoglobin 27.5 pg (27.0-33.0); Mean Corpuscular Volume 85.7 fL (80.0-98.0); Mean Platelet Volume 11.1 fL (9.4-12.4); Platelet Count 274 X10*3/uL (160-400); Red Blood Count 4.14 X10*6/uL (4.60-5.80); Red Cell Distribution Width 14.9 % (11.0-16.0); White Blood Count 10.3 X10*3/uL (4.8-10.8)
[2023-02-01 12:01] LABS: Estimated Average Glucose 157 mg/dL; Hemoglobin A1c % 7.1 %
[2023-02-01 12:45] LABS: Alanine Aminotransferase 18 U/L (0-40); Albumin Level 3.8 g/dL (3.5-5.0); Alkaline Phosphatase 93 U/L (39-117); Anion Gap 10 (12-20); Aspartate Amino Transferase 20 U/L (5-37); Bilirubin Total 0.5 mg/dL (0.0-1.0); Blood Urea Nitrogen 22 mg/dL (9-16); Calcium 9.6 mg/dL (8.4-10.2); Carbon Dioxide 28 mmol/L (22-29); Chloride 111 mmol/L (96-108); Estimated Glomerular Filt Rate > 60; Glucose Fasting 76 mg/dL (60-99); Potassium 3.8 mmol/L (3.3-5.1); Sodium 145 mmol/L (135-145); Total Protein 6.7 g/dL (6.5-8.0)
[2023-02-01 13:03] LABS: TSH reflex Free T4 0.02 uIU/mL (0.32-4.0)
== END 2023-02-01 07:29 | disposition home or self-care (01) ==
LOC: HO.HMGCLDS 07:28
PROVIDERS: PCP Physician Assistant; Visit Provider Physician Assistant
DX: I10 Essential (primary) hypertension (principal); E11.9 Type 2 diabetes mellitus without complications; E03.9 Hypothyroidism, unspecified
CPT/HCPCS: 36415; 80053; 83036; 84439; 84443; 85027

== ENCOUNTER 2023-03-19 14:33 | Outpatient (AMB) | payer MEDICARE, OTHER, SELFPAY ==
--- NOTE | 2023-03-19 14:35 | MHC.PC.OV ---
Vital Signs 03/19/23 14:41 Height 5 ft 7 in Weight 178 lb BMI 27.9 BP 128/70 Blood Pressure Location Lt brachial Position Sitting Pulse 82 Pulse Source Pulse Oximeter Pulse Oximetry (%) 98 Intake Visit Reasons: Med review Intake Note: pt is here for med review Steam Room Attendant Required: No Accompanied by: Self / Same As Patient Allergies codeine [CODEINE] Allergy (Intermediate, Verified 03/19/23 14:47) VOMITING Medication List - Last Reconciled 03/19/23 by Clement Alaniz PA-C albuterol sulfate 90 mcg/actuation 2 puffs inhalation QID PRN amlodipine 5 mg PO QPM 90 days aspirin 81 mg PO DAILY atorvastatin 80 mg PO DAILY blood sugar diagnostic (FreeStyle Lite Strips) As directed blood-glucose meter (FreeStyle Lite Meter kit) As directed cholecalciferol (vitamin D3) 50 mcg PO DAILY 90 days ezetimibe (Zetia) 10 mg PO DAILY ferrous sulfate 325 mg PO DAILY fluticasone propionate 50 mcg/actuation (Flonase Allergy Relief) 1 spray intranasal BID 30 days lancets (FreeStyle Lancets) As directed levothyroxine 100 mcg PO DAILY 90 days loratadine 10 mg PO DAILY PRN metformin 500 mg PO BID 90 days metoprolol tartrate 25 mg PO BID 90 days pyridostigmine bromide 60 mg PO TID spirometers and accessories As directed Tobacco use date assessed: 09/04/22 Fall risk assessment: No Falls in past year Last assessed Fall Risk: 03/19/23 Dental Screening Dental Screen Date: 03/19/23 Did you have a dental visit in the last 12 months?: Yes Did you have a dental problem in the last 6 months where you did not have access to dental care?: No Was dental information given to patient?: Patient has dentist HPI Med review HPI Details Patient is a 72 year-old male here today for follow-up visit.? Patient has a past medical history significant for hypertension, hyperlipidemia, CVA, BARRY, ocular myasthenia, carotid stenosis, type 2 diabetes,, , CAD CAD :? Still in [facility] therapy in [place] . Patient is status post 4 vessel bypass.? 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 Continues to were medical compression socks. He reports he is still due for valve replacements as well. .. Type 2 diabetes: Patient now on metformin 500 b.i.d. and blood sugars have improved. Most recent A1c at 7.1. Unfortunately on steroid taper at this time due to ocular myasthenia flare. Will continue to follow fasting blood sugars and A1c and consider disc continuing metformin in near future. .. CHRONIC MEDICAL CONDITIONS--> Hypertension:? Patient is followed by Cardiology is started patient on? olmesartan and hydrochlorothiazide.? Today's blood pressure appropriate today in office. .. Ocular myasthenia:? Followed by neurologist at [facility].? Continues pyridostigmine with good effect on reducing his ptosis. .. Hyperlipidemia:? Patient continues on high potency statin and Zetia. .? Most recent LDL slightly above 100. Will continue working on lifestyle modifications to reduce his cholesterol .. BARRY: IS followed by pulmonology, uses CPAP on a nightly basis with good effect. .. History of CVA:? Was on dual anti-platelet therapy for many years.? Recently taken off of clopidogrel due to skilled nursing bleeding risk.? Continues on aspirin daily .. Hypothyroid:? Continues on levothyroxine 100 mcg.? Most recent TSH low thus we decreased her is levothyroxine dose Laboratory Tests 02/01/23 02/01/23 02/01/23 07:35 07:35 07:35 RBC 4.14 L Hgb 11.4 L Creatinine 0.83 Fasting Glucose 76 Hemoglobin A1c % 7.1 TSH 0.02 L [facility] Medical History (Updated 03/20/23 @ 07:46 by Clement Alaniz PA-C) Atherosclerosis of coronary artery Carotid stenosis Constipation by delayed colonic transit Hypokalemia Mitral stenosis Myasthenia gravis Obesity (BMI 30.0-34.9) BARRY (obstructive sleep apnea) BARRY (obstructive sleep apnea) Osteoarthritis of left shoulder Pernicious anemia Personal history of COVID-19 Surgical History History of appendectomy History of cholecystectomy History of shoulder surgery History of tonsillectomy and adenoidectomy Hx of colonoscopy S/P CABG x 4 Total knee replacement status Family History Father No problems noted. Mother No problems noted. Maternal Grandmother Medical history unknown Brother AA (aortic aneurysm) Maternal Grandmother No problems noted. Mother AA (aortic aneurysm) Sister Primary cancer of shoulder Other Family history of hypercholesterolemia Family history of hypertension Social History Household Members: Significant Other Housing: House Alcohol intake: never Patient Tobacco Use Status: Never used Tobacco e-Cigarette/Vaping Use: Never Used Second Hand Smoke Exposure: No service: Yes Current occupational status: retired Cognitive needs: No Hearing needs: No Vision needs: No Questionnaire Thrive Questionnaire Date Thrive assessed: 09/04/22 DISHA-7 AMB Questionnaire DISHA-7 Date DISHA - 7 assessed: 09/04/22 Source: Developed by Drs. Ken Bagley, Tarsha Grant, Maikel Nation and colleagues, with an educational kellie from [email or web address]. Review of Systems Const Denies headache(s) Eyes Denies loss of vision ENT Denies vertigo, Denies dizziness, Denies headache(s) and Denies sore throat Card Denies chest pain, Denies leg edema and Denies lightheadedness Resp Denies cough, Denies hemoptysis and Denies wheezing GI Denies abdominal pain, Denies melena, Denies constipation, Denies diarrhea and Denies vomiting Denies dysuria, Denies urinary frequency and Denies urinary urgency Musc Denies arthralgias, Denies joint swelling, Denies numbness and Denies tingling Neuro Denies Abnormal speech present, Denies behavioral changes, Denies vertigo, Denies dizziness, Denies headache(s), Denies loss of vision, Denies memory loss, Denies numbness and Denies tingling Psych Denies anxiety, Denies behavioral changes, Denies depression, Denies memory loss and Denies panic attacks David/Lymph Denies easy bleeding and Denies easy bruising Aller/Immun Denies wheezing Physical exam (Primary Care) Vital Signs: Last Vital Signs Pulse 82 03/19/23 14:41 BP 128/70 03/19/23 14:41 Pulse Ox 98 03/19/23 14:41 BMI result Body Mass Index 27.9 Tobacco/Smoking Status: Tobacco use Status Tobacco use date assessed 09/04/22 03/19/23 14:37 Patient Tobacco Use Status Never used Tobacco 03/19/23 14:37 e-Cigarette/Vaping Use Never Used 03/19/23 14:37 Thrive Assessment: Date of Thrive Assessment Date Thrive assessed 09/04/22 03/19/23 14:37 Const General: healthy appearing, no acute distress, alert and awake Nutritional Appearance: well nourished Orientation/consciousness: oriented to person, oriented to place and oriented to time HENMT Ears: TM's normal bilaterally General nose exam: Normal nasal mucous membranes and turbinates present Eyes Conjunctivae: conjunctivae normal Sclerae: sclerae normal Pupils: Equal, round and reactive pupils present Neck Neck: Yes no lymphadenopathy and Yes no JVD Thyroid: Thyroid normal Carotids: no bruits Resp Effort & Inspection: normal respiratory effort and not tachypneic Auscultation: no crackles, no rales, no rhonchi and no wheezes Cardio Rate: regular rate Rhythm: regular rhythm Heart sounds: no murmurs and normal S1 and S2 GI Palpation (GI): Soft to palpation, nontender, no hepatomegaly and no splenomegaly Auscultation: normal bowel sounds Skin General skin exam: no rashes or lesions noted and dry skin Neuro General: oriented to person, oriented to place and oriented to time Cranial nerves: Yes Equal, round and reactive pupils present Speech: No Abnormal speech present Gait exam (Neuro): Normal gait present Motor exam (neuro): no tremor noted Extrem Right upper extremity: full ROM Left upper extremity: full ROM Right lower extremity: full ROM; no edema Left lower extremity: full ROM; no edema Psych Mental Status: mental status grossly normal Speech and movement: Normal speech and movement present Affect: normal affect Attitude: cooperative Thought process: Normal thought process present Assessment and Plan Assessment & Plan (1) HTN (hypertension): Code(s): I10 - Essential (primary) hypertension Qualifiers: Hypertension type: essential hypertension Qualified Code(s): I10 - Essential (primary) hypertension Plan: Patient's blood pressure acceptable today in office. Will continue his current dose of antihypertensive medication with goal blood pressure to be below 140/90 (2) HLD (hyperlipidemia): Code(s): E78.5 - Hyperlipidemia, unspecified Qualifiers: Hyperlipidemia type: mixed hyperlipidemia Qualified Code(s): E78.2 - Mixed hyperlipidemia Plan: Patient continues on high potency statin and most recent lipid panel showing proper it total cholesterol and LDL. 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 Currently type 2 diabetes suboptimally controlled with A1c slightly above 7.0. No side effect reported by his metformin. Goal A1c is to be below 7.0. Will continue working on lifestyle modifications to reduce his high carbohydrate foods in being more physically active. (4) Coronary artery disease: Code(s): I25.10 - Atherosclerotic heart disease of [place] coronary artery without angina pectoris Qualifiers: Coronary Disease-Associated Artery/Lesion type: [place] artery [place] vs. transplanted heart: [place] heart Associated angina: with stable angina Qualified Code(s): I25.118 - Atherosclerotic heart disease of [place] coronary artery with other forms of angina pectoris Plan: Patient continues to follow cardiology. He is status post triple bypass open heart surgery. He reports he does need valve replacement as well. He continues on high potency statin with acetamide, aspirin at this time. Most recent lipid panel showing appropriate LDL at 70. (5) BARRY (obstructive sleep apnea): Comment: Continue to use CPAP regularly . Code(s): G47.33 - Obstructive sleep apnea (adult) (pediatric) Plan: Continues on CPAP on a nightly basis with good effect. (6) Hypothyroid: Code(s): E03.9 - Hypothyroidism, unspecified Qualifiers: Hypothyroidism type: unspecified Qualified Code(s): E03.9 - Hypothyroidism, unspecified Plan: Patient continues on levothyroxine 100 mcg. Most recent TSH slightly low thus had reduce his dose of levothyroxine. Orders: Orders Comprehensive [place]. Panel Fast 2 Months I10 - Essential (primary) hypertension Lipid Panel 2 Months E78.2 - Mixed hyperlipidemia TSH reflex Free T4 2 Months E03.9 - Hypothyroidism, unspecified Hemoglobin A1c 2 Months E11.9 - Type 2 diabetes mellitus without complications Medications: Changed From albuterol sulfate 90 mcg/actuation 2 puffs inhalation QID PRN 8.5 ea 1RF for wheezing J12.82 - Pneumonia due to coronavirus disease 2019, U07.1 - COVID-19 To albuterol sulfate 90 mcg/actuation 2 puffs inhalation QID 30 days PRN 8.5 ea 3RF for wheezing J12.82 - Pneumonia due to coronavirus disease 2019, U07.1 - COVID-19 Coding Level of Care Code Est Pt Level 4 (34269) Diagnoses HTN (hypertension) I10 Hypertension type: essential hypertension HLD (hyperlipidemia) E78.2 Hyperlipidemia type: mixed hyperlipidemia DMII (diabetes mellitus, type 2) E11.9 Diabetes mellitus complication status: without complication Diabetes mellitus long wall mining machine tender insulin use: without long wall mining machine tender use Coronary artery disease I25.118 Coronary Disease-Associated Artery/Lesion type: [place] artery [place] vs. transplanted heart: [place] heart Associated angina: with stable angina BARRY (obstructive sleep apnea) G47.33 Hypothyroid E03.9 Hypothyroidism type: unspecified
[2023-03-19 14:41] VITALS: BP 128/70; PULSE 82; O2SAT 98; BMI 27.9
== END 2023-03-19 15:01 | disposition home or self-care (01) ==
PROVIDERS: PCP Physician Assistant; Visit Provider Physician Assistant
DX: I10 Essential (primary) hypertension (principal); E11.9 Type 2 diabetes mellitus without complications; I25.118 Atherosclerotic heart disease of native coronary artery with other forms of angina pectoris; E03.9 Hypothyroidism, unspecified; E78.2 Mixed hyperlipidemia; G47.33 Obstructive sleep apnea (adult) (pediatric)
CPT/HCPCS: 99214

== ENCOUNTER 2023-05-18 08:13 | Outpatient (REF) | payer MEDICARE, OTHER, SELFPAY | END 2023-05-18 08:14 | disposition home or self-care (01) | LOC: HO.HMGCLDS 08:13 | PROVIDERS: PCP Physician Assistant; Visit Provider Physician Assistant | DX: E78.2 Mixed hyperlipidemia (principal); E03.9 Hypothyroidism, unspecified; I10 Essential (primary) hypertension; E11.9 Type 2 diabetes mellitus without complications | CPT/HCPCS: 36415; 80053; 80061; 83036; 84443 ==

== ENCOUNTER 2023-06-10 10:56 | Outpatient (AMB) | payer MEDICARE, OTHER, SELFPAY ==
--- NOTE | 2023-06-10 10:59 | A.OFFPC_ITS ---
Vital Signs 06/10/23 11:00 Height 5 ft 7 in Weight 168 lb 6 oz BMI 26.4 BP 120/64 Blood Pressure Location Lt brachial Position Sitting Pulse 70 Pulse Source Pulse Oximeter Pulse Oximetry (%) 97 Oxygen Delivery Method Room Air Intake Visit Reasons: f/u CAD/ HTN Intake Note: Patient is here to follow up on CAD, HTN. Wide Area Network Engineer Required: No Carpet Technician: Not Required per policy Accompanied by: Self / Same As Patient Allergies codeine [CODEINE] Allergy (Intermediate, Verified 06/10/23 11:35) VOMITING Medication List - Last Reconciled 06/10/23 by Clement Alaniz PA-C albuterol sulfate 90 mcg/actuation 2 puffs inhalation QID PRN 30 days amlodipine 5 mg PO QPM 90 days aspirin 81 mg PO DAILY atorvastatin 80 mg PO DAILY blood sugar diagnostic (FreeStyle Lite Strips) As directed blood-glucose meter (FreeStyle Lite Meter kit) As directed cholecalciferol (vitamin D3) 50 mcg PO DAILY 90 days ezetimibe (Zetia) 10 mg PO DAILY ferrous sulfate 325 mg PO DAILY fluticasone propionate 50 mcg/actuation (Flonase Allergy Relief) 1 spray intranasal BID 30 days lancets (FreeStyle Lancets) As directed levothyroxine 100 mcg PO DAILY 90 days loratadine 10 mg PO DAILY PRN metformin 1,000 mg PO BID 30 days metoprolol tartrate 25 mg PO BID 90 days prednisone 10 mg PO BID pyridostigmine bromide 60 mg PO TID spirometers and accessories As directed Tobacco use date assessed: 06/10/23 Fall risk assessment: No Falls in past year Last assessed Fall Risk: 06/10/23 Dental Screening Dental Screen Date: 06/10/23 Did you have a dental visit in the last 12 months?: Yes Did you have a dental problem in the last 6 months where you did not have access to dental care?: No Was dental information given to patient?: Patient has dentist HPI f/u CAD/ HTN HPI Details Patient is a 72 year-old male here today for follow-up visit.? Patient has a past medical history significant for hypertension, hyperlipidemia, CVA, BARRY, ocular myasthenia, carotid stenosis, type 2 diabetes,, , CAD CAD :? Still in CArdiac therapy in [place] . Patient is status post 4 vessel bypass.? 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 Continues to were medical compression socks. He reports he is still due for valve replacements as well. .. Type 2 diabetes: Patient now on metformin 1000 b.i.d., unfortunately has been taking prednisone 20 mg a day which has increased his blood sugars and A1c-->. Most recent A1c - 10.2 . He does report noting some diarrhea, polydipsia polyuria on some headaches, likely related to hyperglycemia = .. CHRONIC MEDICAL CONDITIONS--> Hypertension:? Patient is followed by Cardiology is started patient on? olmesartan and hydrochlorothiazide.? Today's blood pressure appropriate today in office. .. Ocular myasthenia:? Followed by neurologist at [facility].? Recently had a [place] grav[place] flare was placed on prednisone 10 mg b.i.d. over the past few months. Unfortunately blood sugars elevated in A1c now at 10.2. Also Continues pyridostigmine with good effect on reducing his ptosis. .. Hyperlipidemia:? Patient continues on high potency statin and Zetia. .? Most recent LDL slightly above 100. Will continue working on lifestyle modifications to reduce his cholesterol .. BARRY: IS followed by pulmonology, uses CPAP on a nightly basis with good effect. .. History of CVA:? Was on dual anti-platelet therapy for many years.? Recently taken off of clopidogrel due to long-term bleeding risk.? Continues on aspirin daily .. Hypothyroid:? Continues on levothyroxine 100 mcg.? Most recent TSH low thus we decreased her is levothyroxine dose [facility] Medical History (Updated 03/20/23 @ 07:46 by Clement Alaniz PA-C) Osteoarthritis of left shoulder Hypokalemia Mitral stenosis Atherosclerosis of coronary artery Personal history of COVID-19 Myasthenia gravis Constipation by delayed colonic transit BARRY (obstructive sleep apnea) Carotid stenosis BARRY (obstructive sleep apnea) Obesity (BMI 30.0-34.9) Pernicious anemia Surgical History S/P CABG x 4 Hx of colonoscopy History of appendectomy History of cholecystectomy Total knee replacement status History of shoulder surgery History of tonsillectomy and adenoidectomy Family History Father No problems noted. Mother No problems noted. Maternal Grandmother Medical history unknown Brother AA (aortic aneurysm) Maternal Grandmother No problems noted. Mother AA (aortic aneurysm) Sister Primary cancer of shoulder Other Family history of hypercholesterolemia Family history of hypertension Social History Household Members: Significant Other Housing: House Alcohol intake: never Patient Tobacco Use Status: Never used Tobacco e-Cigarette/Vaping Use: Never Used Second Hand Smoke Exposure: No service: Yes Current occupational status: retired Cognitive needs: No Hearing needs: No Vision needs: No Questionnaire Thrive Questionnaire Date Thrive assessed: 09/04/22 DISHA-7 AMB Questionnaire DISHA-7 Date DISHA - 7 assessed: 09/04/22 Source: Developed by Drs. Kne Bagley, Tarsha Grant, Maikel Nation and colleagues, with an educational kellie from [employer]. Review of Systems Const Denies headache(s) Eyes Denies loss of vision ENT Denies vertigo, Denies dizziness, Denies headache(s) and Denies sore throat Card Denies chest pain, Denies leg edema and Denies lightheadedness Resp Denies cough, Denies hemoptysis and Denies wheezing GI Denies abdominal pain, Denies melena, Denies constipation, Denies diarrhea and Denies vomiting Denies dysuria, Denies urinary frequency and Denies urinary urgency Musc Denies arthralgias, Denies joint swelling, Denies numbness and Denies tingling Neuro Denies Abnormal speech present, Denies behavioral changes, Denies vertigo, Denies dizziness, Denies headache(s), Denies loss of vision, Denies memory loss, Denies numbness and Denies tingling Psych Denies anxiety, Denies behavioral changes, Denies depression, Denies memory loss and Denies panic attacks David/Lymph Denies easy bleeding and Denies easy bruising Aller/Immun Denies wheezing Physical exam (Primary Care) Vital Signs: Last Vital Signs Pulse 70 06/10/23 11:00 BP 120/64 06/10/23 11:00 Pulse Ox 97 06/10/23 11:00 Oxygen Delivery Method Room Air 06/10/23 11:00 BMI result Body Mass Index 26.4 Tobacco/Smoking Status: Tobacco use Status Tobacco use date assessed 06/10/23 06/10/23 11:06 Patient Tobacco Use Status Never used Tobacco 06/10/23 11:06 e-Cigarette/Vaping Use Never Used 06/10/23 11:06 Thrive Assessment: Date of Thrive Assessment Date Thrive assessed 09/04/22 06/10/23 11:06 Const General: healthy appearing, no acute distress, alert and awake Nutritional Appearance: well nourished Orientation/consciousness: oriented to person, oriented to place and oriented to time HENMT Ears: TM's normal bilaterally General nose exam: Normal nasal mucous membranes and turbinates present Eyes Conjunctivae: conjunctivae normal Sclerae: sclerae normal Pupils: Equal, round and reactive pupils present Neck Neck: Yes no lymphadenopathy and Yes no JVD Thyroid: Thyroid normal Carotids: no bruits Resp Effort & Inspection: normal respiratory effort and not tachypneic Auscultation: no crackles, no rales, no rhonchi and no wheezes Cardio Rate: regular rate Rhythm: regular rhythm Heart sounds: no murmurs and normal S1 and S2 GI Palpation (GI): Soft to palpation, nontender, no hepatomegaly and no splenomegaly Auscultation: normal bowel sounds Skin General skin exam: no rashes or lesions noted and dry skin Neuro General: oriented to person, oriented to place and oriented to time Cranial nerves: Yes Equal, round and reactive pupils present Speech: No Abnormal speech present Gait exam (Neuro): Normal gait present Motor exam (neuro): no tremor noted Extrem Right upper extremity: full ROM Left upper extremity: full ROM Right lower extremity: full ROM; no edema Left lower extremity: full ROM; no edema Psych Mental Status: mental status grossly normal Speech and movement: Normal speech and movement present Affect: normal affect Attitude: cooperative Thought process: Normal thought process present Office Procedures Flu Questionnaire Does the patient have a severe egg allergy?: No Does the patient have severe life threatening allergies?: No Does the patient have a fever or illness today?: No Has the patient ever had Guillain-[place]ox Syndrome?: No Has the patient ever had any past reaction to a flu shot?: No Immunizations flu vacc [id number] 6mos up(PF) 60 mcg(15 mcgx4)/0.5 mL IM syringe Performing Provider: Clement Alaniz PA-C [facility] Administered by: NICOLETTE Vega on 06/10/23 11:08 Dose Route Admin Location Dispensed Lot Number Expiration Date NDC Telemetry Tech 0.5 mL IM Left Deltoid 0.5 mL [id number] 02/09/24 [id number] [employer] VIS Given Date VIS Provided VIS Publication Date 06/10/23 Single Vaccine 21 Eligibility Eligibility Date Funding Source Not [facility] Eligible 06/10/23 Private Assessment and Plan Assessment & Plan (1) DMII (diabetes mellitus, type 2): Code(s): E11.9 - Type 2 diabetes mellitus without complications Qualifiers: Diabetes mellitus complication status: without complication Diabetes mellitus long-term insulin use: without long-term use Qualified Code(s): E11.9 - Type 2 diabetes mellitus without complications Plan: Patient continues on metformin for his type 2 diabetes. Currently type 2 diabetes suboptimally controlled with A1c slightly above 7.0. Now at 10.2. Has suspect that this is due to his prednisone(20 mg daily) for his myasthenia gravis. Will reduce his dose to 10 mg daily and further reduction as per response. No side effect reported by his metformin (a 1000 mg b.i.d.). Goal A1c is to be below 7.0. Will continue working on lifestyle modifications to reduce his high carbohydrate foods in being more physically active. (2) HLD (hyperlipidemia): Code(s): E78.5 - Hyperlipidemia, unspecified Qualifiers: Hyperlipidemia type: mixed hyperlipidemia Qualified Code(s): E78.2 - Mixed hyperlipidemia Plan: Patient continues on high potency statin and most recent lipid panel showing proper it total cholesterol and LDL. Goal LDL to remain below 70 (3) Coronary artery disease: Code(s): I25.10 - Atherosclerotic heart disease of [place] coronary artery without angina pectoris Qualifiers: Associated angina: with stable angina Coronary Disease-Associated Artery/Lesion type: [place] artery [place] vs. transplanted heart: [place] heart Qualified Code(s): I25.118 - Atherosclerotic heart disease of [place] coronary artery with other forms of angina pectoris Plan: Patient continues to follow cardiology. He is status post triple bypass open heart surgery. He reports he does need valve replacement as well. He continues on high potency statin with acetamide, aspirin at this time. Most recent lipid panel showing appropriate LDL at 70. (4) BARRY (obstructive sleep apnea): Comment: Continue to use CPAP regularly . Code(s): G47.33 - Obstructive sleep apnea (adult) (pediatric) Plan: Continues on CPAP on a nightly basis with good effect. (5) Hypothyroid: Code(s): E03.9 - Hypothyroidism, unspecified Qualifiers: Hypothyroidism type: unspecified Qualified Code(s): E03.9 - Hypothyroidism, unspecified Plan: Patient continues on levothyroxine 100 mcg. Most recent TSH slightly low thus had reduce his dose of levothyroxine. (6) Ocular myasthenia: Code(s): G70.00 - Myasthenia gravis without (acute) exacerbation Plan: As above patient recently placed on steroid for his myasthenia gravis flare. Has now continued for a few months on 20 mg prednisone daily. Unfortunately exp eriencing hyperglycemia and A1c now opted 10.2. In the setting of coronary artery disease hypertension hyperlipidemia he is at higher risk for reinfarction due to his uncontrolled diabetes. Will take the liberty on reducing his prednisone to 5 mg b.i.d. and thus continue reducing dose. Orders: Orders Hemoglobin A1c 3 Months E11.9 - Type 2 diabetes mellitus without complications Influenza [id number] Immunization Today Z23 - Encounter for immunization Comprehensive [place]. Panel Fast 3 Months E11.9 - Type 2 diabetes mellitus without complications Lipid Panel 3 Months E78.2 - Mixed hyperlipidemia Medications: New prednisone 5 mg PO BID 21 days 42 tabs 0RF G70.00 - Myasthenia gravis without (acute) exacerbation Coding Level of Care Code Est Pt Level 4 (74719) Diagnoses Type 2 diabetes mellitus without complication, without long-term current use of insulin E11.9 Diabetes mellitus complication status: without complication Diabetes mellitus terminal worker insulin use: without long-term use Mixed hyperlipidemia E78.2 Hyperlipidemia type: mixed hyperlipidemia Coronary artery disease of [place] artery of [place] heart with stable angina pectoris I25.118 Associated angina: with stable angina Coronary Disease-Associated Artery/Lesion type: [place] artery [place] vs. transplanted heart: [place] heart BARRY (obstructive sleep apnea) G47.33 Hypothyroidism, unspecified type E03.9 Hypothyroidism type: unspecified Ocular myasthenia G70.00
[2023-06-10 11:00] VITALS: BP 120/64; PULSE 70; O2SAT 97; BMI 26.4
== END 2023-06-10 11:56 | disposition home or self-care (01) ==
PROVIDERS: Visit Provider Physician Assistant
DX: E11.9 Type 2 diabetes mellitus without complications (principal); I25.118 Atherosclerotic heart disease of native coronary artery with other forms of angina pectoris; G70.00 Myasthenia gravis without (acute) exacerbation; E78.2 Mixed hyperlipidemia; Z23 Encounter for immunization; G47.33 Obstructive sleep apnea (adult) (pediatric); E03.9 Hypothyroidism, unspecified
CPT/HCPCS: 90471; 90686; 99214

== ENCOUNTER → 2023-06-12 12:40 | Outpatient (REF) | payer MEDICARE, OTHER, SELFPAY ==
--- NOTE | 2023-06-12 12:45 | CA_ITS ---
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 Normal LV ejection fraction of 60 65% with impaired relaxation filling pattern 2. Mildly dilated left atrium 3. Moderate calcific mitral stenosis and early mild aortic stenosis 4. Normal RV systolic pressure 5. No gross pericardial effusion Findings Left Ventricle Normal left ventricular size, thickness, and systolic function. The visually estimated ejection fraction is between 60-65%. Spectral Doppler is indicative of an impaired relaxation filling pattern. Right Ventricle Normal right ventricular cavity size and systolic function. Atria The left atrium is mildly dilated. There is no evidence of interatrial shunt. The right atrium is likely dilated. Aortic Valve There is mild calcification of the aortic valve. There is mild aortic valve stenosis. The mean gradient is 9 mmHg. The aortic valve area is 2.02 cm2. There is mild aortic valve regurgitation. Mitral Valve There is moderate anterior and posterior mitral leaflet thickening. The anterior mitral leaflet has restricted mobility and the posterior mitral leaflet has restricted mobility. There is moderate mitral annular calcification. There is trace mitral valve regurgitation. There is moderate mitral valve stenosis. calculated mitral valve area of 1.29 centimeters sq Pulmonic Valve The pulmonic valve is likely normal. Tricuspid Valve Normal tricuspid valve structure. There is mild tricuspid valve regurgitation. The right ventricular systolic pressure is normal. The right ventricular systolic pressure is 24 mmHg. Normal right atrial pressure. There is no evidence of pulmonary hypertension. Great Vessels All visible segments of the aorta are normal in size. The pulmonary artery was not well visualized. There is no dilatation of the ascending aorta measuring 3.40 cm. Venous The inferior vena cava is normal in size and collapses greater than 50% with inspiration. Pericardium/Pleural There is no evidence of pericardial effusion. Prior Study Comparison No significant change compared to prior study dated: 03/30/2022. Measurements 2D Linear Measurements IVSd: 1.28 0.6-0.9/0.6-1.0 cm LVIDd: 3.69 3.9-5.3/4.2-5.9 cm LVIDd Index: 1.97 2.4-3.2/2.2-3.1 cm/m2 LVIDs: 2.13 2.0-3.6 cm LVPWd: 1.00 0.7-1.1 cm LA Diam: 4.00 2.7-3.8/3.0-4.0 cm LAIDs Index: 2.14 1.5-2.3 cm/m2 LV Mass: 168.81 67-162/88-224 g LV Mass Index: 90.27 43-95/49-115 g/m2 LVOT Diam: 2.00 3.0+(-)1.3 cm 2D Systolic Function EF 2C: 66.80 >55% Mitral Valve MV VTI: 0.69 MV Pk Colt: 1.85 MV Mn Colt: 1.13 MV Pk Grad: 14.00 MV Mn Grad: 6.00 MV Pk E: 1.66 MV PK A: 1.28 MV Decel Time: 436.00 E/A: 1.30 E'Lateral: 3.92 E'Medial: 3.37 E/E' Med: 49.30 E/E' Lat: 42.30 PHT: 128.00 MVA PHT: 1.72 MVA Continuity: 1.23 Decel [place]: 3.80 Aortic Valve AoV Pk Colt: 1.90 AoV Mn Colt: 1.40 AoV VTI: 0.42 AoV Pk Grad: 14.00 Aov Mn Grad: 9.00 PENNY Cont.VTI: 2.02 LVOT LVOT Pk Colt: 1.13 LVOT Mn Colt: 0.76 LVOT VTI: 0.27 LVOT Pk Grad: 5.00 LVOT Mn Grad: 3.00 LVOT Diam: 2.00 LVOT Area: 3.14 Diastolic Function MV Pk E: 1.66 MV Pk A: 1.28 E/A: 1.30 E'Medial: 3.37 E/E' Med: 49.30 E' Laterial: 3.92 E/E' Lat: 42.30 Right Ventricle TAPSE (mm): 17.80 TVS' Colt: 9.03 Tricuspid Valve TR Pk Colt: 2.28 TR Pk Grad: 21.00 RA Press: 3.00 RVSP: 24.00 Great Vessels Aorta Sinus of Valsalva: 3.42 2.0-3.[address] [place]: 2.88 1.7-3.4 cm Ao Asc: 3.40 2.1-3.4 cm Updated in Other Vendor System with Status of Final Geovanni Haq MD electronically signed on 06/13/2023 12:26:30 PM with status of Final
== END ==
LOC: HO.CARD 12:40
PROVIDERS: PCP Physician Assistant; Visit Provider Internal Medicine Cardiovascular Disease
DX: I05.0 Rheumatic mitral stenosis (principal)
CPT/HCPCS: 93306

== ENCOUNTER → 2023-06-12 12:45 | Outpatient (BNV) | payer MEDICARE, OTHER, SELFPAY | PROVIDERS: PCP Physician Assistant; Visit Provider Internal Medicine Cardiovascular Disease | DX: I35.0 Nonrheumatic aortic (valve) stenosis (principal) | CPT/HCPCS: 93306 ==

== ENCOUNTER 2023-06-21 13:48 | Outpatient (REF) | payer MEDICARE, OTHER, SELFPAY ==
--- NOTE | ~2023-06-21 | US_ITS ---
EXAMINATION: US EXTRACRANIAL CAROTID DUPLEX, BILATERAL CLINICAL INFORMATION: Atherosclerotic disease COMPARISON: Carotid duplex on 09/15/2019 TECHNIQUE: Real-time ultrasound and Doppler techniques (integrating B-mode 2-D vascular images, Doppler spectral analysis and color-flow Doppler imaging) were utilized to interrogate the extracranial carotid arteries, the vertebral arteries and proximal subclavian arteries bilaterally. The degree of stenosis is determined by criteria similar to NASCET. FINDINGS: Right Side: 1. There is no significant atherosclerotic plaque seen in the bifurcation/proximal ICA region. 2. The common carotid artery PSV proximally is 81 cm/s and distally 66 cm/s. 3. The proximal internal carotid artery velocities are 211 cm/s systolic and 57 cm/s diastolic. 4. The proximal external carotid artery PSV is 70 cm/s. 5. The vertebral artery shows antegrade flow. 6. The subclavian artery waveforms are normal. Left Side: 1. There is mild atherosclerotic plaque seen in the bifurcation/proximal ICA region. 2. The common carotid artery PSV proximally is 102 cm/s and distally 75 cm/s. 3. The proximal internal carotid artery velocities are 109 cm/s systolic and 28 cm/s diastolic. 4. The proximal external carotid artery PSV is 64 cm/s. 5. The vertebral artery shows antegrade flow. 6. The subclavian artery waveforms are normal. US/US carotid duplex BI IMPRESSION: 1. RIGHT: Normal right internal carotid artery without atherosclerotic plaque or hemodynamically significant stenosis. Elevated velocities in the proximal internal carotid artery are likely artifact secondary to vessel tortuosity. 2. LEFT: Minimal, non-hemodynamically significant stenosis of the proximal left internal carotid artery corresponding to a 0-49% stenosis by velocity criteria. 3. Mild progression in category of disease on the left compared to 2020.
== END 2023-06-21 13:49 | disposition home or self-care (01) ==
LOC: HO.HMGCX 13:48
PROVIDERS: PCP Physician Assistant; Visit Provider Internal Medicine Cardiovascular Disease
DX: I25.118 Atherosclerotic heart disease of native coronary artery with other forms of angina pectoris (principal); I65.22 Occlusion and stenosis of left carotid artery
CPT/HCPCS: 93880

== ENCOUNTER 2023-07-09 13:03 | Outpatient (AMB) | payer MEDICARE, OTHER, SELFPAY ==
--- NOTE | 2023-07-09 13:23 | MHC.OFFVIS ---
Intake Vital Signs 07/09/23 13:24 Height 5 ft 7 in Weight 165 lb 5.547 oz BMI 25.9 BP 116/66 Blood Pressure Location Lt brachial Position Sitting Pulse 65 Intake Visit Reasons: 6 month follow up after echo Intake Note: 6 month follow-up after echo and carotid u/s c/o sob Corporate Administrator Required: No Metal Alloy Scientist: Metal Alloy Scientist Present Accompanied by: Spouse Allergies codeine [CODEINE] Allergy (Intermediate, Verified 06/10/23 11:35) VOMITING Medication List - Last Reconciled 07/09/23 by Geovanni Haq MD albuterol sulfate 90 mcg/actuation 2 puffs inhalation QID PRN 30 days amlodipine 5 mg PO QPM 90 days aspirin 81 mg PO DAILY atorvastatin 80 mg PO DAILY blood sugar diagnostic (FreeStyle Lite Strips) As directed blood-glucose meter (FreeStyle Lite Meter kit) As directed cholecalciferol (vitamin D3) 50 mcg PO DAILY 90 days ezetimibe 10 mg PO DAILY ferrous sulfate 325 mg PO DAILY fluticasone propionate 50 mcg/actuation (Flonase Allergy Relief) 1 spray intranasal BID 30 days lancets (FreeStyle Lancets) As directed levothyroxine 125 mcg PO DAILY loratadine 10 mg PO DAILY PRN metformin 250 mg PO BID metoprolol tartrate 25 mg PO BID 90 days prednisone 2.5 mg PO BID 21 days pyridostigmine bromide 60 mg PO TID spirometers and accessories As directed HPI HPI Comments History of Present Illness Details Kareem comes for follow-up. He has been doing very well overall. Denies any worsening symptoms of shortness of breath. He says when he goes up and down stairs he does get short of breath. However he does not exercise on a regular basis as per the . Recent carotid duplex suggest mild carotid disease. Echocardiogram shows moderate calcific mitral stenosis. Normal LV ejection fraction. He denies any shortness of breath, orthopnea, PND. No lightheadedness, syncope. Takes all his medications. Most recent LDL in the 50s. COUNTS INCLUDE 234 BEDS AT THE [facility] Medical History Osteoarthritis of left shoulder Hypokalemia Mitral stenosis Atherosclerosis of coronary artery Personal history of COVID-19 Myasthenia gravis Constipation by delayed colonic transit BARRY (obstructive sleep apnea) Carotid stenosis BARRY (obstructive sleep apnea) Obesity (BMI 30.0-34.9) Pernicious anemia Surgical History S/P CABG x 4 Hx of colonoscopy History of appendectomy History of cholecystectomy Total knee replacement status History of shoulder surgery History of tonsillectomy and adenoidectomy Family History Father No problems noted. Mother No problems noted. Maternal Grandmother Medical history unknown Brother AA (aortic aneurysm) Maternal Grandmother No problems noted. Mother AA (aortic aneurysm) Sister Primary cancer of shoulder Other Family history of hypercholesterolemia Family history of hypertension Social History Household Members: Significant Other Housing: House Alcohol intake: never Patient Tobacco Use Status: Never used Tobacco e-Cigarette/Vaping Use: Never Used Second Hand Smoke Exposure: No service: Yes Current occupational status: retired Cognitive needs: No Hearing needs: No Vision needs: No Review of Systems Const Denies chills, Denies fatigue, Denies fever(s), Denies frequent falls, Denies weakness, Denies weight gain and Denies weight loss ENT Denies dizziness Card Denies chest pain, Denies leg edema, Denies lightheadedness, Denies palpitations, Denies dyspnea, Denies dyspnea on exertion, Denies orthopnea and Denies other (loss of consciousness) Resp Denies cough, Denies dyspnea and Denies dyspnea on exertion GI Denies hematochezia and Denies change in stool character Musc Denies abnormal gait, Denies muscle weakness, Denies numbness, Denies radiating pain into limb and Denies tingling Neuro Denies abnormal gait, Denies dizziness, Denies frequent falls, Denies numbness, Denies tingling and Denies weakness Endo Denies fatigue and Denies palpitations Physical Exam Vital Signs: Last Vital Signs Pulse 65 07/09/23 13:24 BP 116/66 07/09/23 13:24 BMI result Body Mass Index 25.9 Const General: cooperative, comfortable, no acute distress, alert and awake Nutritional Appearance: overweight Orientation/consciousness: patient oriented x3 Neck Neck: Yes trachea midline, Yes supple and Yes no JVD Chest Chest palpation & inspection: other (Well-healed sternotomy scar) Resp Effort & Inspection: normal respiratory effort Auscultation: clear to auscultation bilaterally and diminished lung sounds Cardio Jugular venous distension: no JVD Palpation: normal PMI Rate: regular rate Rhythm: regular rhythm Heart sounds: S1 normal heart sound present, S2 normal heart sound present, no click, no gallops and Murmur heart sound present systolic early GI Auscultation: normal bowel sounds Neuro General: patient oriented x3 Extrem General: Yes no clubbing, cyanosis or edema Office Procedures EKG Details: EKG shows normal sinus rhythm with normal EKG 92155-[id number], Complete Assessment & Plan Assessment & Plan (1) Coronary artery disease: Code(s): I25.10 - Atherosclerotic heart disease of [place] coronary artery without angina pectoris Qualifiers: Coronary Disease-Associated Artery/Lesion type: [place] artery [place] vs. transplanted heart: [place] heart Associated angina: with stable angina Qualified Code(s): I25.118 - Atherosclerotic heart disease of [place] coronary artery with other forms of angina pectoris Plan: Diffuse atherosclerotic disease in patient with coronary disease requiring coronary artery bypass grafting. No current symptoms. Doing extremely well since coronary artery bypass grafting with improved symptoms we discussed about improving his exercise activity and participate in regular physical activity at least half an are aerobic activity on a daily basis. His LDL is extremely well optimized on current therapy. Blood pressure is well optimized. Continue low-dose aspirin therapy for life. (2) Mitral stenosis: Code(s): I05.0 - Rheumatic mitral stenosis Qualifiers: Cardiac valve disease etiology: rheumatic Qualified Code(s): I05.0 - Rheumatic mitral stenosis Plan: Moderate mitral stenosis, due to calcified mitral valve. Clinically not likely to cause any symptoms. Will continue monitor by echocardiogram in near daily basis. Continue aggressive risk factor modification aspirin therapy as above. Will follow up in the clinic in 1 year's time, sooner p.r.n.. Thank you for allowing me to partake in his care Orders: Orders CA echo transthoracic complete 50 Weeks I05.0 - Rheumatic mitral stenosis US carotid duplex BI 50 Weeks I65.29 - Occlusion and stenosis of unspecified carotid artery Medications: Changed From metformin 1,000 mg PO BID 30 days 60 tabs 3RF E11.9 - Type 2 diabetes mellitus without complications To metformin 250 mg PO BID E11.9 - Type 2 diabetes mellitus without complications Coding Level of Care Code Est Pt Level 4 (50882) Diagnoses Coronary artery disease of [place] artery of [place] heart with stable angina pectoris I25.118 Coronary Disease-Associated Artery/Lesion type: [place] artery [place] vs. transplanted heart: [place] heart Associated angina: with stable angina Rheumatic mitral stenosis I05.0 Cardiac valve disease etiology: rheumatic CPT Codes EKG - CPT: 39423-[id number], Complete ([id number])
[2023-07-09 13:24] VITALS: BP 116/66; PULSE 65; BMI 25.9
== END 2023-07-09 13:52 | disposition home or self-care (01) ==
PROVIDERS: Visit Provider Internal Medicine Cardiovascular Disease
DX: I25.118 Atherosclerotic heart disease of native coronary artery with other forms of angina pectoris (principal); I05.0 Rheumatic mitral stenosis
CPT/HCPCS: 93010; 99214

== ENCOUNTER → 2023-07-09 13:03 | Outpatient (BNVA) | payer MEDICARE, OTHER, SELFPAY | PROVIDERS: Visit Provider Internal Medicine Cardiovascular Disease | DX: I05.0 Rheumatic mitral stenosis (principal); I25.118 Atherosclerotic heart disease of native coronary artery with other forms of angina pectoris; I10 Essential (primary) hypertension | CPT/HCPCS: 93005; 99212 ==

== ENCOUNTER 2023-09-10 11:22 | Outpatient (AMB) | payer MEDICARE, OTHER, SELFPAY ==
--- NOTE | 2023-09-10 11:30 | MHC.PC.OV ---
Vital Signs 09/10/23 11:31 Height 5 ft 7 in Weight 167 lb 2 oz BMI 26.2 BP 122/72 Blood Pressure Location Lt brachial Position Sitting Pulse 62 Pulse Source Pulse Oximeter Pulse Oximetry (%) 98 Oxygen Delivery Method Room Air Intake Visit Reasons: f/u DMII Intake Note: Patient is here to follow up on DMII. Pain Medicine Physician Required: No Accompanied by: Self / Same As Patient Allergies codeine [CODEINE] Allergy (Intermediate, Verified 09/11/23 07:49) VOMITING Medication List - Last Reconciled 09/11/23 by Clement Alaniz PA-C albuterol sulfate 90 mcg/actuation 2 puffs inhalation QID PRN 30 days amlodipine 5 mg PO QPM 90 days aspirin 81 mg PO DAILY atorvastatin 80 mg PO DAILY blood sugar diagnostic (FreeStyle Lite Strips) As directed blood-glucose meter (FreeStyle Lite Meter kit) As directed cholecalciferol (vitamin D3) 50 mcg PO DAILY 90 days ezetimibe 10 mg PO DAILY ferrous sulfate 325 mg PO DAILY fluticasone propionate 50 mcg/actuation (Flonase Allergy Relief) 1 spray intranasal BID 30 days lancets (FreeStyle Lancets) As directed levothyroxine 125 mcg PO DAILY loratadine 10 mg PO DAILY PRN metformin 500 mg (1/2 x 1,000 mg) PO BID 90 days metoprolol tartrate 25 mg PO BID 90 days prednisone 1 mg PO BID 90 days pyridostigmine bromide 60 mg PO TID spirometers and accessories As directed Tobacco use date assessed: 09/10/23 HPI f/u DMII HPI Details Patient is a 72 year-old male here today for follow-up visit.? Patient has a past medical history significant for hypertension, hyperlipidemia, CVA, BARRY, ocular myasthenia, carotid stenosis, type 2 diabetes,, , CAD CAD :? Still in CArdiac therapy in [place] . Patient is status post 4 vessel bypass.? He has followed up with his air brush decorator and has been taken off of olmesartan and furosemide.? Continues to were medical compression socks. He reports he is still due for valve replacements as well. .. Type 2 diabetes: Most recent A1c is 6.6 which has much improved. Has been reducing his dose of prednisone down to 2.5 mg b.i.d.. Continues on metformin 500 b.i.d.. PLAN: Will further reduce his prednisone to 1 mg b.i.d. = .. CHRONIC MEDICAL CONDITIONS--> Hypertension:? Patient is followed by Cardiology is started patient on? olmesartan and hydrochlorothiazide.? Today's blood pressure appropriate today in office. .. 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 Recently had a [place] gravis flare was placed on prednisone 10 mg b.i.d. over the past few months. Unfortunately he was noted to have uncontrolled diabetes. Also Continues pyridostigmine with good effect on reducing his ptosis. .. Hyperlipidemia:? Patient continues on high potency statin and Zetia. .? Most recent LDL slightly above 100. Will continue working on lifestyle modifications to reduce his cholesterol .. BARRY: IS followed by pulmonology, uses CPAP on a nightly basis with good effect. .. History of CVA:? Was on dual anti-platelet therapy for many years.? Recently taken off of clopidogrel due to ad terminal makeup operator bleeding risk.? Continues on aspirin daily .. Hypothyroid:? Continues on levothyroxine 100 mcg.? Most recent TSH low thus we decreased her is levothyroxine dose [facility] Medical History (Updated 09/11/23 @ 07:53 by Clement Alaniz PA-C) Osteoarthritis of left shoulder Hypokalemia Mitral stenosis Atherosclerosis of coronary artery Personal history of COVID-19 Constipation by delayed colonic transit BARRY (obstructive sleep apnea) Carotid stenosis BARRY (obstructive sleep apnea) Obesity (BMI 30.0-34.9) Pernicious anemia Surgical History S/P CABG x 4 Hx of colonoscopy History of appendectomy History of cholecystectomy Total knee replacement status History of shoulder surgery History of tonsillectomy and adenoidectomy Family History Father No problems noted. Mother No problems noted. Maternal Grandmother Medical history unknown Brother AA (aortic aneurysm) Maternal Grandmother No problems noted. Mother AA (aortic aneurysm) Sister Primary cancer of shoulder Other Family history of hypercholesterolemia Family history of hypertension Social History Household Members: Significant Other Housing: House Alcohol intake: never Patient Tobacco Use Status: Never used Tobacco e-Cigarette/Vaping Use: Never Used Second Hand Smoke Exposure: No service: Yes Current occupational status: retired Cognitive needs: No Hearing needs: No Vision needs: No Questionnaire PHQ-9 Over the last 2 weeks, how often have you been bothered by any of the following problems? 1. Little interest or pleasure in doing things: not at all 2. Feeling down, depressed, or hopeless: not at all 3. Trouble falling or staying asleep, or sleeping too much: not at all 4. Feeling tired or having little energy: not at all 5. Poor appetite or overeating: not at all 6. Feeling bad about yourself - or that you are a failure or have let yourself or your family down: not at all 7. Trouble concentrating on things, such as reading the newspaper or watching television: not at all 8. Moving or speaking so slowly that other people could have noticed. Or the opposite - being so fidgety or restless that you have been moving around a lot more than usual: not at all 9. Thoughts that you would be better off or of hurting yourself in some way: not at all Total score: 0 Depression Screening Interpretation: Negative Depression Screening Done: Yes 53465 - PHQ-9 Billing: Yes Source: Developed by Drs. Ken Bagley, Tarsha Grant, Maikel Nation and colleagues, with an educational kellie from [employer]. Thrive Questionnaire Date Thrive assessed: 09/10/23 I am a: Patient What is your living situation today?: I have a steady place to live Within the past 12 months, did the food you bought not last and you didn't have the money to get more?: Never true Within the past 12 months, did you worry whether your food would run out before you got money to buy more?: Never true Do you have trouble paying for medicines?: No Do you have trouble getting transportation to medical appointments?: No Do you have trouble paying your heating and electricity bill?: No Do you have trouble taking care of your child, family member or friend?: No Do you have trouble with day-to-day activities such as bathing, preparing meals, shopping, managing finances, etc.?: No Are you currently unemployed and looking for a job?: No Are you interested in more education?: No Please select the resources that you would like help with: None Currently or been in a relationship where the following occur: no concerns reported THRIVE Score: 0 AUDIT C Alcohol Use Questionnaire (AUDIT-C) 1. How often do you have a drink containing alcohol?: Never 3. How often do you have six or more drinks on one occasion?: Never Total Score: 0 DISHA-7 AMB Questionnaire DISHA-7 Date DISHA - 7 assessed: 09/10/23 Feeling nervous, anxious, or on edge: 0 = Not at all Not being able to stop or control worryin = Not at all Worrying too much about different things: 0 = Not at all Trouble relaxin = Not at all Being so restless that it is hard to sit still: 0 = Not at all Becoming easily annoyed or irritable: 0 = Not at all Feeling afraid as if something awful might happen: 0 = Not at all Total DISHA-7 score (0-4 normal; 5-9 mild; 10-14 moderate; 15-21 severe): 0 Source: Developed by Drs. Ken Bagley, Tarsha Grant, Maikel Nation and colleagues, with an educational kellie from [employer]. DISHA-7 Assessment Billing DISHA-7 Assessment Tool: DISHA-7 Assessment 17375 Review of Systems Const Denies headache(s) Eyes Denies loss of vision ENT Denies vertigo, Denies dizziness, Denies headache(s) and Denies sore throat Card Denies chest pain, Denies leg edema and Denies lightheadedness Resp Denies cough, Denies hemoptysis and Denies wheezing GI Denies abdominal pain, Denies melena, Denies constipation, Denies diarrhea and Denies vomiting Denies dysuria, Denies urinary frequency and Denies urinary urgency Musc Denies arthralgias, Denies joint swelling, Denies numbness and Denies tingling Neuro Denies Abnormal speech present, Denies behavioral changes, Denies vertigo, Denies dizziness, Denies headache(s), Denies loss of vision, Denies memory loss, Denies numbness and Denies tingling Psych Denies anxiety, Denies behavioral changes, Denies depression, Denies memory loss and Denies panic attacks David/Lymph Denies easy bleeding and Denies easy bruising Aller/Immun Denies wheezing Physical exam (Primary Care) Vital Signs: Last Vital Signs Pulse 62 09/10/23 11:31 BP 122/72 09/10/23 11:31 Pulse Ox 98 09/10/23 11:31 Oxygen Delivery Method Room Air 09/10/23 11:31 BMI result Body Mass Index 26.2 Tobacco/Smoking Status: Tobacco use Status Tobacco use date assessed 09/10/23 09/10/23 11:39 Patient Tobacco Use Status Never used Tobacco 09/10/23 11:31 e-Cigarette/Vaping Use Never Used 09/10/23 11:31 PHQ-9: PHQ-9 Score PHQ-9: Total score 0 09/10/23 11:47 Depression Screening Interpretation: Negative Thrive Assessment: Date of Thrive Assessment Date Thrive assessed 09/10/23 09/10/23 11:39 Currently or been in a relationship where the following occur: no concerns reported Const General: healthy appearing, no acute distress, alert and awake Nutritional Appearance: well nourished Orientation/consciousness: oriented to person, oriented to place and oriented to time HENMT Ears: TM's normal bilaterally General nose exam: Normal nasal mucous membranes and turbinates present Eyes Conjunctivae: conjunctivae normal Sclerae: sclerae normal Pupils: Equal, round and reactive pupils present Neck Neck: Yes no lymphadenopathy and Yes no JVD Thyroid: Thyroid normal Carotids: no bruits Resp Effort & Inspection: normal respiratory effort and not tachypneic Auscultation: no crackles, no rales, no rhonchi and no wheezes Cardio Rate: regular rate Rhythm: regular rhythm Heart sounds: no murmurs and normal S1 and S2 GI Palpation (GI): Soft to palpation, nontender, no hepatomegaly and no splenomegaly Auscultation: normal bowel sounds Skin General skin exam: no rashes or lesions noted and dry skin Neuro General: oriented to person, oriented to place and oriented to time Cranial nerves: Yes Equal, round and reactive pupils present Speech: No Abnormal speech present Gait exam (Neuro): Normal gait present Motor exam (neuro): no tremor noted Extrem Right upper extremity: full ROM Left upper extremity: full ROM Right lower extremity: full ROM; no edema Left lower extremity: full ROM; no edema Psych Mental Status: mental status grossly normal Speech and movement: Normal speech and movement present Affect: normal affect Attitude: cooperative Thought process: Normal thought process present Results AMB Hemoglobin A1c AMB Hemoglobin A1c 6.3 % Last Edit by CLAUDIA Jamison on 09/10/23 11:39 Results Reviewed Results Reviewed: Laboratory Last Values Hgb A1c (Clinic) 6.3 % (4.0-6.0) H 09/10/23 11:28 Assessment and Plan Assessment & Plan (1) DMII (diabetes mellitus, type 2): Code(s): E11.9 - Type 2 diabetes mellitus without complications Qualifiers: Diabetes mellitus complication status: without complication Diabetes mellitus ad terminal makeup operator insulin use: without ad terminal makeup operator use Qualified Code(s): E11.9 - Type 2 diabetes mellitus without complications Plan: Patient continues on metformin for his type 2 diabetes. Patient's type 2 diabetes much better controlled. Today's A1c is 6.6 from 10.2. Has been reducing his prednisone dose. Will reduce his prednisone to 1 mg b.i.d. the next 90 days. He will continue metformin 500 b.i.d.. Goal A1c is to remain below 7.0 (2) HLD (hyperlipidemia): Code(s): E78.5 - Hyperlipidemia, unspecified Qualifiers: Hyperlipidemia type: mixed hyperlipidemia Qualified Code(s): E78.2 - Mixed hyperlipidemia Plan: Patient continues on high potency statin and most recent lipid panel showing proper it total cholesterol and LDL. Goal LDL to remain below 70 He is wondering about the cost/ need for ezetimibe , the discuss the need to keep his LDL below 70 due to his coronary artery disease. (3) Coronary artery disease: Code(s): I25.10 - Atherosclerotic heart disease of [place] coronary artery without angina pectoris Qualifiers: Associated angina: with stable angina Coronary Disease-Associated Artery/Lesion type: [place] artery [place] vs. transplanted heart: [place] heart Qualified Code(s): I25.118 - Atherosclerotic heart disease of [place] coronary artery with other forms of angina pectoris Plan: Patient continues to follow cardiology. He is status post triple bypass open heart surgery. He reports he does need valve replacement as well. He continues on high potency statin with acetamide, aspirin at this time. Most recent lipid panel showing appropriate LDL at 70. (4) Hypothyroid: Code(s): E03.9 - Hypothyroidism, unspecified Qualifiers: Hypothyroidism type: unspecified Qualified Code(s): E03.9 - Hypothyroidism, unspecified Plan: Patient continues on levothyroxine 100 mcg. Most recent TSH slightly low thus had reduce his dose of levothyroxine. (5) Ocular myasthenia: Code(s): G70.00 - Myasthenia gravis without (acute) exacerbation Plan: As above patient recently placed on steroid for his myasthenia gravis flare. We have been reducing his prednisone dose due to losing control over his diabetes. Diabetes much improved since reducing prednisone dose and will continue to further reduce his dose down to 1 mg b.i.d. for the next 90 days. He does have follow-up with his neurologist in near future. (6) Right hip pain: Code(s): M25.551 - Pain in right hip Plan: Reports having right groin/hip pain. Will get x-ray to evaluate for any advanced arthritis. Orders: Orders AMB Hemoglobin A1c 09/10/23 E11.9 - Type 2 diabetes mellitus without complications XR hip RT 1V 09/10/23 M25.551 - Pain in right hip Medications: New prednisone 1 mg PO BID 180 tabs 0RF 90 days G70.00 - Myasthenia gravis without (acute) exacerbation Changed From metformin 250 mg (1/4 x 1,000 mg) PO BID 60 tabs 0RF E11.9 - Type 2 diabetes mellitus without complications To metformin 500 mg (1/2 x 1,000 mg) PO BID 90 tabs 1RF 90 days E11.9 - Type 2 diabetes mellitus without complications Discontinued prednisone Discontinued Reason: Doctor's Order 2.5 mg PO BID 42 tabs 0RF 21 days G70.00 - Myasthenia gravis without (acute) exacerbation Coding Level of Care Code Est Pt Level 4 (58706) Diagnoses Type 2 diabetes mellitus without complication, without long-term current use of insulin E11.9 Diabetes mellitus complication status: without complication Diabetes mellitus ad terminal makeup operator insulin use: without ad terminal makeup operator use Mixed hyperlipidemia E78.2 Hyperlipidemia type: mixed hyperlipidemia Coronary artery disease of [place] artery of [place] heart with stable angina pectoris I25.118 Associated angina: with stable angina Coronary Disease-Associated Artery/Lesion type: [place] artery [place] vs. transplanted heart: [place] heart Hypothyroidism, unspecified type E03.9 Hypothyroidism type: unspecified Ocular myasthenia G70.00 Right hip pain M25.551 Additional Codes DISHA-7 Assessment Billing - DISHA-7 Assessment Tool: DISHA-7 Assessment 21942 ([id number])
[2023-09-10 11:31] VITALS: BP 122/72; PULSE 62; O2SAT 98; BMI 26.2
== END 2023-09-10 12:06 | disposition home or self-care (01) ==
PROVIDERS: PCP Physician Assistant; Visit Provider Physician Assistant
DX: E11.9 Type 2 diabetes mellitus without complications (principal)
CPT/HCPCS: 83036; 99214

== ENCOUNTER 2023-09-11 07:44 | Outpatient (REF) | payer MEDICARE, OTHER, SELFPAY ==
--- NOTE | ~2023-09-11 | XR_ITS ---
EXAMINATION: XR HIP, RIGHT CLINICAL INFORMATION: Pain. COMPARISON: None available. TECHNIQUE: AP and frog-leg lateral views of the right hip. FINDINGS: Bony alignment and mineralization are normal. There is moderate narrowing of the superior right acetabular joint space. There is mild peripheral osteophyte formation of the articular surfaces of the hip. The right femoral head is smooth. No fracture or dislocation is seen. There are pelvic phleboliths. No foreign body is seen. XR/XR hip RT min 2V IMPRESSION: There is mild to moderate osteoarthritic change of the right hip. No fracture or dislocation is seen.
[2023-09-11 12:00] LABS: Alanine Aminotransferase 16 U/L (0-40); Albumin Level 3.9 g/dL (3.5-5.0); Alkaline Phosphatase 69 U/L (39-117); Anion Gap 12 (12-20); Aspartate Amino Transferase 17 U/L (5-37); Bilirubin Total 0.3 mg/dL (0.0-1.0); Blood Urea Nitrogen 21 mg/dL (9-16); Calcium 9.3 mg/dL (8.4-10.2); Carbon Dioxide 28 mmol/L (22-29); Chloride 110 mmol/L (96-108); Cholesterol 153 mg/dL (<200); Estimated Glomerular Filt Rate > 60; Glucose Fasting 91 mg/dL (60-99); HDL Cholesterol 67 mg/dL (>40); LDL Cholesterol Calculated 61 mg/dL (<100); Potassium 3.8 mmol/L (3.3-5.1); Sodium 146 mmol/L (135-145); Total Protein 6.6 g/dL (6.5-8.0); Triglycerides 126 mg/dL (<150)
[2023-09-11 12:02] LABS: Estimated Average Glucose 131 mg/dL; Hemoglobin A1c % 6.2 % (<6.0)
== END 2023-09-11 07:45 | disposition home or self-care (01) ==
LOC: HO.HMGCX 07:44
PROVIDERS: PCP Physician Assistant; Visit Provider Physician Assistant
DX: E11.9 Type 2 diabetes mellitus without complications (principal); E78.2 Mixed hyperlipidemia; M25.551 Pain in right hip
CPT/HCPCS: 36415; 73502; 80053; 80061; 83036

== ENCOUNTER 2023-11-13 08:51 | Outpatient (REF) | payer MEDICARE, OTHER, SELFPAY ==
[2023-11-13 10:35] LABS: Hematocrit 40.8 % (42.0-52.0); Hemoglobin 13.4 g/dl (14.0-18.0); Mean Corpuscular HGB Conc 32.8 g/dl (31.0-36.0); Mean Corpuscular Hemoglobin 26.9 pg (27.0-33.0); Mean Corpuscular Volume 81.8 fL (80.0-98.0); Mean Platelet Volume 10.6 fL (9.4-12.4); Platelet Count 220 X10*3/uL (160-400); Red Blood Count 4.99 X10*6/uL (4.60-5.80); Red Cell Distribution Width 14.2 % (11.0-16.0); White Blood Count 12.4 X10*3/uL (4.8-10.8)
[2023-11-13 11:13] LABS: Erythrocyte Sedimentation Rate 2 MM/HR (0-15)
[2023-11-13 11:20] LABS: Alanine Aminotransferase 23 U/L (0-40); Albumin Level 3.7 g/dL (3.5-5.0); Alkaline Phosphatase 69 U/L (39-117); Anion Gap 12 (12-20); Aspartate Amino Transferase 14 U/L (5-37); Bilirubin Direct 0.2 mg/dL (0.0-0.5); Bilirubin Total 0.6 mg/dL (0.0-1.0); Blood Urea Nitrogen 24 mg/dL (9-16); Calcium 9.1 mg/dL (8.4-10.2); Carbon Dioxide 27 mmol/L (22-29); Chloride 107 mmol/L (96-108); Estimated Glomerular Filt Rate > 60; Glucose Random 126 mg/dL (60-115); Potassium 3.6 mmol/L (3.3-5.1); Sodium 142 mmol/L (135-145); Total Protein 6.2 g/dL (6.5-8.0)
[2023-11-13 11:21] LABS: TSH reflex Free T4 0.04 uIU/mL (0.32-4.0)
[2023-11-13 11:51] LABS: Free T4 (Free Thyroxine) 1.17 ng/dL (0.71-1.85)
== END 2023-11-13 08:52 | disposition home or self-care (01) ==
LOC: HO.HMGCLDS 08:51
PROVIDERS: PCP Physician Assistant; Visit Provider Physician Assistant
DX: Z13.89 Encounter for screening for other disorder (principal)
CPT/HCPCS: 36415; 80048; 80076; 84439; 84443; 85027; 85652

== ENCOUNTER 2023-11-13 15:53 | Outpatient (REF) | payer MEDICARE, OTHER, SELFPAY ==
[2023-11-14 14:38] LABS: Leukocytes Stool Qualitative NEGATIVE (NEGATIVE)
[2023-11-14 15:06] LABS: CDiff Gene PCR NEGATIVE (Negative)
== END 2023-11-13 15:54 | disposition home or self-care (01) ==
LOC: HO.HMGCLNP 15:53
PROVIDERS: PCP Physician Assistant; Visit Provider Physician Assistant
DX: E03.9 Hypothyroidism, unspecified (principal); K52.9 Noninfective gastroenteritis and colitis, unspecified
CPT/HCPCS: 36415; 80048; 80076; 84439; 84443; 85027; 85652; 87015; 87207; 87329; 87493; 89055

== ENCOUNTER 2023-12-16 14:11 | Outpatient (AMB) | payer MEDICARE, OTHER, SELFPAY ==
[2023-12-16 14:20] VITALS: BP 112/72; PULSE 67; BMI 25.2
--- NOTE | 2023-12-16 14:20 | MHC.OFFVIS ---
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 c/o sob very tried in the last 2 week Examiner Rating Clerk Required: No Gambling Monitor: Gambling Monitor Present Accompanied by: Spouse Allergies codeine [CODEINE] Allergy (Intermediate, Verified 09/11/23 07:49) VOMITING Medication List - Last Reconciled 12/16/23 by Geovanni Haq MD albuterol sulfate 90 mcg/actuation 2 puffs inhalation QID PRN 30 days amlodipine 5 mg PO QPM 90 days aspirin 81 mg PO DAILY atorvastatin 80 mg PO DAILY blood sugar diagnostic (FreeStyle Lite Strips) As directed blood-glucose meter (FreeStyle Lite Meter kit) As directed cholecalciferol (vitamin D3) 50 mcg PO DAILY 90 days ezetimibe 10 mg PO DAILY ferrous sulfate 325 mg PO DAILY fluticasone propionate 50 mcg/actuation (Flonase Allergy Relief) 1 spray intranasal BID 30 days lancets (FreeStyle Lancets) As directed levothyroxine 100 mcg PO DAILY 90 days loperamide (Anti-Diarrheal (loperamide)) 2 mg PO Q6H PRN 10 days metformin 500 mg (1/2 x 1,000 mg) PO BID 90 days metoprolol tartrate 25 mg PO BID 90 days prednisone 1 mg PO BID 90 days pyridostigmine bromide 60 mg PO TID spirometers and accessories As directed HPI Comments Details: Kareem comes for follow-up, accompanied by his . He said more recently over the last few weeks he has been noticing increasing exertional shortness of breath like climbing a flight of stairs. Denies any orthopnea, PND, leg edema. He was at [facility] Emergency room due to significantly elevated sugars. He was told that his EKG was abnormal at that time, do not have the copy of the same. Comes for urgent follow-up visit today. No exertional chest pain. No prolonged palpitations. No lightheadedness, syncope. EKG done today shows normal sinus rhythm with normal EKG. [facility] Medical History Osteoarthritis of left shoulder Hypokalemia Mitral stenosis Atherosclerosis of coronary artery Personal history of COVID-19 Constipation by delayed colonic transit BARRY (obstructive sleep apnea) Carotid stenosis BARRY (obstructive sleep apnea) Obesity (BMI 30.0-34.9) Pernicious anemia Surgical History S/P CABG x 4 Hx of colonoscopy History of appendectomy History of cholecystectomy Total knee replacement status History of shoulder surgery History of tonsillectomy and adenoidectomy Family History Father No problems noted. Mother No problems noted. Maternal Grandmother Medical history unknown Brother AA (aortic aneurysm) Maternal Grandmother No problems noted. Mother AA (aortic aneurysm) Sister Primary cancer of shoulder Other Family history of hypercholesterolemia Family history of hypertension Social History Household Members: Significant Other Housing: House Alcohol intake: never Patient Tobacco Use Status: Never used Tobacco e-Cigarette/Vaping Use: Never Used Second Hand Smoke Exposure: No service: Yes Current occupational status: retired Cognitive needs: No Hearing needs: No Vision needs: No Review of Systems Const Denies chills, Denies fatigue, Denies fever(s), Denies frequent falls, Denies weakness, Denies weight gain and Denies weight loss ENT Denies dizziness Card Denies chest pain, Denies leg edema, Denies lightheadedness, Denies palpitations, Denies dyspnea, Denies dyspnea on exertion, Denies orthopnea and Denies other (loss of consciousness) Resp Denies cough, Denies dyspnea and Denies dyspnea on exertion GI Denies hematochezia and Denies change in stool character Musc Denies abnormal gait, Denies muscle weakness, Denies numbness, Denies radiating pain into limb and Denies tingling Neuro Denies abnormal gait, Denies dizziness, Denies frequent falls, Denies numbness, Denies tingling and Denies weakness Endo Denies fatigue and Denies palpitations Physical Exam Vital Signs: Last Vital Signs Pulse 67 12/16/23 14:20 BP 112/72 12/16/23 14:20 BMI result Body Mass Index 25.2 Const General: cooperative, comfortable, no acute distress, alert and awake Nutritional Appearance: overweight Orientation/consciousness: patient oriented x3 Neck Neck: Yes trachea midline, Yes supple and Yes no JVD Chest Chest palpation & inspection: other (Well-healed sternotomy scar) Resp Effort & Inspection: normal respiratory effort Auscultation: clear to auscultation bilaterally and diminished lung sounds Cardio Jugular venous distension: no JVD Palpation: normal PMI Rate: regular rate Rhythm: regular rhythm Heart sounds: S1 normal heart sound present, S2 normal heart sound present, no click, no gallops and Murmur heart sound present systolic early GI Auscultation: normal bowel sounds Neuro General: patient oriented x3 Extrem General: Yes no clubbing, cyanosis or edema Office Procedures EKG Details: EKG shows normal sinus rhythm with normal EKG [id number], Complete Assessment & Plan Assessment & Plan (1) Short of breath on exertion: Code(s): R06.02 - Shortness of breath Plan: Patient with increasing exertional shortness of breath which was his pre coronary artery bypass grafting symptoms. Concern for graft closure. His echocardiogram done within last 6 months showed normal LV ejection fraction only moderate mitral stenosis and I do not suspect there is significant progression in his mitral stenosis at this point time. Blood pressure is well controlled. Will suggest exercise myocardial perfusion imaging in near future to further assess for presence of significant myocardial ischemia that may require more invasive treatment. (2) Coronary artery disease: Code(s): I25.10 - Atherosclerotic heart disease of [place] coronary artery without angina pectoris Category: Medical Qualifiers: Coronary Disease-Associated Artery/Lesion type: [place] artery [place] vs. transplanted heart: [place] heart Associated angina: with stable angina Qualified Code(s): I25.118 - Atherosclerotic heart disease of [place] coronary artery with other forms of angina pectoris Plan: CAD with diffuse coronary disease status post coronary artery bypass grafting in fall 2021. Patient is currently on good medical therapy. Progressive symptoms of about need to be evaluate for myocardial ischemia. Alternative could be reduced pulmonary capacity related to his myasthenia gravis. Continue lifelong aspirin therapy. Blood pressure is currently well optimized. Continue current high-intensity statin therapy along with ezetimibe therapy to target goal LDL closer to 60 mg/dL. Continue aggressive management of diabetes. (3) Mitral stenosis: Code(s): I05.0 - Rheumatic mitral stenosis Category: Medical Qualifiers: Cardiac valve disease etiology: rheumatic Qualified Code(s): I05.0 - Rheumatic mitral stenosis Plan: Calcific mitral stenosis which is moderate. I do not think this is responsible for patient's current symptoms. Continue aggressive medical therapy as above. Follow-up echocardiogram in 6 months time. Will follow up in the clinic in 6 months time, sooner p.r.n.. Thank you for allowing me to partake in his care Orders: Orders CA stress test Today R06.02 - Shortness of breath, Z95.1 - Presence of aortocoronary bypass graft NM cardiolite stress test 1 Week R06.02 - Shortness of breath, Z95.1 - Presence of aortocoronary bypass graft Coding Level of Care Code Est Pt Level 4 (72477) Diagnoses Short of breath on exertion R06.02 Coronary artery disease of [place] artery of [place] heart with stable angina pectoris I25.118 Coronary Disease-Associated Artery/Lesion type: [place] artery [place] vs. transplanted heart: [place] heart Associated angina: with stable angina Rheumatic mitral stenosis I05.0 Cardiac valve disease etiology: rheumatic CPT Codes EKG - CPT: [id number], Complete ([id number])
== END 2023-12-16 15:00 | disposition home or self-care (01) ==
PROVIDERS: PCP Physician Assistant; Visit Provider Internal Medicine Cardiovascular Disease
DX: R06.02 Shortness of breath (principal); I25.118 Atherosclerotic heart disease of native coronary artery with other forms of angina pectoris; I05.0 Rheumatic mitral stenosis
CPT/HCPCS: 93010; 99214

== ENCOUNTER → 2023-12-16 14:11 | Outpatient (BNVA) | payer MEDICARE, OTHER, SELFPAY | PROVIDERS: PCP Physician Assistant; Visit Provider Internal Medicine Cardiovascular Disease | DX: I25.118 Atherosclerotic heart disease of native coronary artery with other forms of angina pectoris (principal); R06.02 Shortness of breath; I05.0 Rheumatic mitral stenosis | CPT/HCPCS: 93005; 99212 ==

== ENCOUNTER 2023-12-18 10:37 | Outpatient (AMB) | payer MEDICARE, OTHER, SELFPAY ==
--- NOTE | 2023-12-18 10:48 | A.OFFPC_ITS ---
Vital Signs 12/18/23 10:57 12/18/23 11:26 Height 5 ft 7 in Weight 163 lb BMI 25.5 BP 148/80 H 140/80 H Blood Pressure Location Lt brachial Position Sitting Pulse 59 Pulse Source Pulse Oximeter Pulse Oximetry (%) 98 Oxygen Delivery Method Room Air Intake Visit Reasons: 3 MONTH F/U Cafeteria Supervisor Required: No Accompanied by: Self / Same As Patient Allergies codeine [CODEINE] Allergy (Intermediate, Verified 12/18/23 11:08) VOMITING Medication List - Last Reconciled 12/18/23 by Clement Alaniz PA-C albuterol sulfate 90 mcg/actuation 2 puffs inhalation QID PRN 30 days amlodipine 5 mg PO QPM 90 days aspirin 81 mg PO DAILY atorvastatin 80 mg PO DAILY blood sugar diagnostic (FreeStyle Lite Strips) As directed blood-glucose meter (FreeStyle Lite Meter kit) As directed cholecalciferol (vitamin D3) 50 mcg PO DAILY 90 days ezetimibe 10 mg PO DAILY ferrous sulfate 325 mg PO DAILY fluticasone propionate 50 mcg/actuation (Flonase Allergy Relief) 1 spray intranasal BID 30 days lancets (FreeStyle Lancets) As directed levothyroxine 100 mcg PO DAILY 90 days loperamide (Anti-Diarrheal (loperamide)) 2 mg PO Q6H PRN 10 days metformin 500 mg (1/2 x 1,000 mg) PO BID 90 days metoprolol tartrate 25 mg PO BID 90 days prednisone 1 mg PO BID 90 days pyridostigmine bromide 60 mg PO TID spirometers and accessories As directed Tobacco use date assessed: 09/10/23 Fall risk assessment: No Falls in past year Last assessed Fall Risk: 12/18/23 Dental Screening Dental Screen Date: 12/18/23 Did you have a dental visit in the last 12 months?: Yes Did you have a dental problem in the last 6 months where you did not have access to dental care?: No Was dental information given to patient?: Patient has dentist HPI 3 MONTH F/U HPI Details Patient is a 73 year-old male here today for follow-up visit.? Patient has a past medical history significant for hypertension, hyperlipidemia, CVA, BARRY, ocular myasthenia, carotid stenosis, type 2 diabetes,, , CAD Recently seen at a local [facility] due to hyperglycemia and having dizziness. He reports his blood sugars were over 500. He did stop metformin due to diarrhea before his hospital presentation and never restarted metformin. Of note during his hospital stay his pro BNP was above 500. He is now back on metformin 500 b.i.d. today's A1c above 9. He does report some polyuria and polydipsia. Not willing to start insulin therapy at this time. He is willing to try Trulicity once a week CAD :? He has followed up with his rehabilitation therapy aide and has been taken off of olmesartan and furosemide.? Continues to were medical compression socks. He reports he is still due for valve replacements as well. .. Type 2 diabetes: Today's A1c now over 9 which has much improved. Metformin was stopped because of diarrhea. Has been reducing his dose of prednisone down to 2.5 mg b.i.d.. Continues on metformin 500 b.i.d.. PLAN: Will add on Trulicity for better glycemic control. = .. CHRONIC MEDICAL CONDITIONS--> Hypertension:? Patient is followed by Cardiology is started patient on? olmesartan and hydrochlorothiazide.? Today's blood pressure appropriate today in office. .. Ocular myasthenia:? Followed by neurologist at [facility].? Recently had a [place] gravis flare was placed on prednisone 10 mg b.i.d. over the past few months. Unfortunately he was noted to have uncontrolled diabetes. Also Continues pyridostigmine with good effect on reducing his ptosis. .. Hyperlipidemia:? Patient continues on high potency statin and Zetia. .? Most recent LDL slightly above 100. Will continue working on lifestyle modifications to reduce his cholesterol .. BARRY: IS followed by pulmonology, uses CPAP on a nightly basis with good effect. .. History of CVA:? Was on dual anti-platelet therapy for many years.? Recently taken off of clopidogrel due to terminal clerk bleeding risk.? Continues on aspirin daily .. Hypothyroid:? Continues on levothyroxine 100 mcg.? Most recent TSH low thus we decreased her is levothyroxine dose [facility] Medical History Osteoarthritis of left shoulder Hypokalemia Mitral stenosis Atherosclerosis of coronary artery Personal history of COVID-19 Constipation by delayed colonic transit BARRY (obstructive sleep apnea) Carotid stenosis BARRY (obstructive sleep apnea) Obesity (BMI 30.0-34.9) Pernicious anemia Surgical History S/P CABG x 4 Hx of colonoscopy History of appendectomy History of cholecystectomy Total knee replacement status History of shoulder surgery History of tonsillectomy and adenoidectomy Family History Father No problems noted. Mother No problems noted. Maternal Grandmother Medical history unknown Brother AA (aortic aneurysm) Maternal Grandmother No problems noted. Mother AA (aortic aneurysm) Sister Primary cancer of shoulder Other Family history of hypercholesterolemia Family history of hypertension Social History Household Members: Significant Other Housing: House Alcohol intake: never Patient Tobacco Use Status: Never used Tobacco e-Cigarette/Vaping Use: Never Used Second Hand Smoke Exposure: No service: Yes Current occupational status: retired Cognitive needs: No Hearing needs: No Vision needs: No Questionnaire Thrive Questionnaire Date Thrive assessed: 09/10/23 DISHA-7 AMB Questionnaire DISHA-7 Date DISHA - 7 assessed: 09/10/23 Source: Developed by Drs. Ken Bagley, Tarsha Grant, Maikel Nation and colleagues, with an educational kellie from [employer]. Review of Systems Const Denies headache(s) Eyes Denies loss of vision ENT Denies vertigo, Denies dizziness, Denies headache(s) and Denies sore throat Card Denies chest pain, Denies leg edema and Denies lightheadedness Resp Denies cough, Denies hemoptysis and Denies wheezing GI Denies abdominal pain, Denies melena, Denies constipation, Denies diarrhea and Denies vomiting Denies dysuria, Denies urinary frequency and Denies urinary urgency Musc Denies arthralgias, Denies joint swelling, Denies numbness and Denies tingling Neuro Denies Abnormal speech present, Denies behavioral changes, Denies vertigo, Denies dizziness, Denies headache(s), Denies loss of vision, Denies memory loss, Denies numbness and Denies tingling Psych Denies anxiety, Denies behavioral changes, Denies depression, Denies memory loss and Denies panic attacks David/Lymph Denies easy bleeding and Denies easy bruising Aller/Immun Denies wheezing Physical exam (Primary Care) Vital Signs: Last Vital Signs Pulse 59 12/18/23 10:57 BP 148/80 H 12/18/23 10:57 Pulse Ox 98 12/18/23 10:57 Oxygen Delivery Method Room Air 12/18/23 10:57 BMI result Body Mass Index 25.5 Tobacco/Smoking Status: Tobacco use Status Tobacco use date assessed 09/10/23 12/18/23 10:49 Patient Tobacco Use Status Never used Tobacco 12/18/23 10:49 e-Cigarette/Vaping Use Never Used 12/18/23 10:49 Thrive Assessment: Date of Thrive Assessment Date Thrive assessed 09/10/23 12/18/23 10:49 Const General: healthy appearing, no acute distress, alert and awake Nutritional Appearance: well nourished Orientation/consciousness: oriented to person, oriented to place and oriented to time HENMT Ears: TM's normal bilaterally General nose exam: Normal nasal mucous membranes and turbinates present Eyes Conjunctivae: conjunctivae normal Sclerae: sclerae normal Pupils: Equal, round and reactive pupils present Neck Neck: Yes no lymphadenopathy and Yes no JVD Thyroid: Thyroid normal Carotids: no bruits Resp Effort & Inspection: normal respiratory effort and not tachypneic Auscultation: no crackles, no rales, no rhonchi and no wheezes Cardio Rate: regular rate Rhythm: regular rhythm Heart sounds: no murmurs and normal S1 and S2 GI Palpation (GI): Soft to palpation, nontender, no hepatomegaly and no splenomegaly Auscultation: normal bowel sounds Skin General skin exam: no rashes or lesions noted and dry skin Neuro General: oriented to person, oriented to place and oriented to time Cranial nerves: Yes Equal, round and reactive pupils present Speech: No Abnormal speech present Gait exam (Neuro): Normal gait present Motor exam (neuro): no tremor noted Extrem Right upper extremity: full ROM Left upper extremity: full ROM Right lower extremity: full ROM; no edema Left lower extremity: full ROM; no edema Psych Mental Status: mental status grossly normal Speech and movement: Normal speech and movement present Affect: normal affect Attitude: cooperative Thought process: Normal thought process present Results AMB Hemoglobin A1c AMB Hemoglobin A1c 9.6 % Last Edit by CLAUDIA Jamison on 12/18/23 11:06 Results Reviewed Results Reviewed: Laboratory Last Values Hgb A1c (Clinic) 9.6 % (4.0-6.0) H 12/18/23 10:46 Assessment and Plan Assessment & Plan (1) DMII (diabetes mellitus, type 2): Code(s): E11.9 - Type 2 diabetes mellitus without complications Qualifiers: Diabetes mellitus terminal clerk insulin use: without terminal clerk use Diabetes mellitus complication status: without complication Qualified Code(s): E11.9 - Type 2 diabetes mellitus without complications Plan: Patient continues on metformin for his type 2 diabetes. Patient's type 2 diabetes much better controlled. Today's A1c is 9. His metformin was discontinued in the setting of diarrhea. Never started back. Did have hyperglycemia episode was seen at a local [facility] . Has been reducing his prednisone dose. Will reduce his prednisone to 1 mg b.i.d. the next 90 days. We did discuss the possibility of having to start long-acting insulin daily though patient declines at this time. Will add on Trulicity 0.75 mg once weekly injection for better glycemic control. He will continue metformin 500 b.i.d.. Goal A1c is to remain below 7.0 (2) HLD (hyperlipidemia): Code(s): E78.5 - Hyperlipidemia, unspecified Qualifiers: Hyperlipidemia type: mixed hyperlipidemia Qualified Code(s): E78.2 - Mixed hyperlipidemia Plan: Patient continues on high potency statin and most recent lipid panel showing proper it total cholesterol and LDL. Goal LDL to remain below 70 He is wondering about the cost/ need for ezetimibe , the discuss the need to keep his LDL below 70 due to his coronary artery disease. (3) Coronary artery disease: Code(s): I25.10 - Atherosclerotic heart disease of [place] coronary artery without angina pectoris Qualifiers: Coronary Disease-Associated Artery/Lesion type: [place] artery [place] vs. transplanted heart: [place] heart Associated angina: with stable angina Qualified Code(s): I25.118 - Atherosclerotic heart disease of [place] coronary artery with other forms of angina pectoris Plan: Patient continues to follow [facility]. He is status post triple bypass open heart surgery. He reports he does need valve replacement as well. He continues on high potency statin with acetamide, aspirin at this time. Most recent lipid panel showing appropriate LDL at 70. Has upcoming appointment for nuclear stress test. (4) Hypothyroid: Code(s): E03.9 - Hypothyroidism, unspecified Qualifiers: Hypothyroidism type: unspecified Qualified Code(s): E03.9 - Hypothyroidism, unspecified Plan: Patient continues on levothyroxine 100 mcg. Most recent TSH slightly low thus had reduce his dose of levothyroxine. (5) Ocular myasthenia: Code(s): G70.00 - Myasthenia gravis without (acute) exacerbation Plan: As above patient recently placed on steroid for his myasthenia gravis flare. We have been reducing his prednisone dose due to losing control over his noe betes. Diabetes much improved since reducing prednisone dose and will continue to further reduce his dose down to 1 mg b.i.d.. He does have follow-up with his neurologist in near future. Orders: Orders Comprehensive [place]. Panel Fast Today E11.9 - Type 2 diabetes mellitus without complications AMB Hemoglobin A1c Today E11.9 - Type 2 diabetes mellitus without complications Complete Blood Count no Diff Today E11.9 - Type 2 diabetes mellitus without complications TSH reflex Free T4 Today E03.9 - Hypothyroidism, unspecified Medications: New blood-glucose meter,continuous (FreeStyle [place] 3 [place]) As directed 1 ea 1RF E11.9 - Type 2 diabetes mellitus without complications blood-glucose sensor (FreeStyle [place] 3 Sensor device) As directed 1 ea 6RF E11.9 - Type 2 diabetes mellitus without complications dulaglutide (Trulicity) 0.75 mg (0.5 mL) subcut QWEEK 4 weeks 2 mL 1RF E11.9 - Type 2 diabetes mellitus without complications Discontinued loperamide (Anti-Diarrheal (loperamide)) Discontinued Reason: Doctor's Order 2 mg PO Q6H 10 days PRN 40 caps 0RF loose stool K52.9 - Noninfective gastroenteritis and colitis, unspecified Patient Instructions: Goals: A1c to be below 7.0 Barriers: Adherence to physical activity and healthy eating habits. Coding Level of Care Code Est Pt Level 4 (32619) Diagnoses Type 2 diabetes mellitus without complication, without long-term current use of insulin E11.9 Diabetes mellitus terminal clerk insulin use: without custodial use Diabetes mellitus complication status: without complication Mixed hyperlipidemia E78.2 Hyperlipidemia type: mixed hyperlipidemia Coronary artery disease of [place] artery of [place] heart with stable angina pectoris I25.118 Coronary Disease-Associated Artery/Lesion type: [place] artery [place] vs. transplanted heart: [place] heart Associated angina: with stable angina Hypothyroidism, unspecified type E03.9 Hypothyroidism type: unspecified Ocular myasthenia G70.00
[2023-12-18 10:57] VITALS: BP 148/80; PULSE 59; O2SAT 98; BMI 25.5
[2023-12-18 11:26] VITALS: BP 140/80
== END 2023-12-18 11:34 | disposition home or self-care (01) ==
PROVIDERS: PCP Physician Assistant; Visit Provider Physician Assistant
DX: E11.69 Type 2 diabetes mellitus with other specified complication (principal); I25.118 Atherosclerotic heart disease of native coronary artery with other forms of angina pectoris; G70.00 Myasthenia gravis without (acute) exacerbation; E78.2 Mixed hyperlipidemia; E03.9 Hypothyroidism, unspecified
CPT/HCPCS: 83036; 99214

== ENCOUNTER → 2024-01-22 09:09 | Outpatient (REF) | payer MEDICARE, OTHER, SELFPAY ==
--- NOTE | ~2024-01-22 | NM_ITS ---
Exercise Myocardial perfusion study Indication: Shortness of breath with prior coronary artery bypass grafting to evaluate for myocardial ischemia Technique: The patient was brought in for an exercise perfusion study on 01/22/2024. Patient performed exercise as per Buddy protocol and was injected 25 mCi of sestamibi was given intravenously one target HR was achieved. Images were obtained using the SPECT gamma camera interlaced with the gating device. Images were obtained in supine position. Resting perfusion study was performed on 01/23/2024. Patient was administered 25 mCi of sestamibi intravenously at rest. Images were then obtained in supine position. Images obtained with and without CT attenuation. Total DLP 128 mGy-cm. Images were processed with the software and compared side to side in short axis, horizontal long axis and vertical long axis views. Findings: The stress perfusion study showed non attenuated images show normal uptake of radiotracer in all segments of LV myocardium. Attenuation corrected images show some thinning of the apex of the LV myocardium is suggestion of left ventricle hypertrophy. The gated study shows normal LV systolic function with calculated LVEF of 62%. LV cavity is normal in size. The gated study shows normal systolic wall thickening and contraction of all segments. There is no transient ischemic dilation. Resting study shows no change in perfusion pattern compared to stress perfusion study. Gating at rest reveals normal systolic wall motion with ejection fraction at 52%. The findings are consistent with normal myocardial perfusion. NM/NM cardiolite stress test Impression: 1. Normal myocardial perfusion 2. Gated LVEF is 62% 3. Transient ischemic dilatation not present Stress EKG is negative for ischemia
--- NOTE | 2024-01-22 09:14 | CA_ITS ---
Acquisition Time: 2024-01-22 09:39:50 Total Exercise Time: 00:05:00 Test Indications: Dyspnea CAD Medications: SEE H Protocol: ECHO Max HR: 148 BPM 102% of Pred: 145 BPM Max BP: 154/082 mmHG Max Work Load: 4.6 METS Exercise stress test exercise 5 minof Echo protocol stage 1 (after 3 min decreased incline to 8% achieving 99% MPHR, with mild to moderate SOB, without chest pain, with isolated PVCs, with normotensive response to exercise, without EKG changes. Breathing returned to normal with rest. Nuclear images pending. Tets reviewed with Dr. Marin. Referred By: Geovanni Haq Overread By: Dedra Thompson
== END ==
LOC: HO.CARD 09:09
PROVIDERS: PCP Physician Assistant; Visit Provider Internal Medicine Cardiovascular Disease
DX: R06.02 Shortness of breath (principal); Z95.1 Presence of aortocoronary bypass graft
CPT/HCPCS: 78452; 93017; A9500

== ENCOUNTER → 2024-01-22 09:14 | Outpatient (BNV) | payer MEDICARE, OTHER, SELFPAY | PROVIDERS: PCP Physician Assistant; Visit Provider Nurse Practitioner | DX: R06.02 Shortness of breath (principal) | CPT/HCPCS: 78452; 93016; 93018 ==

== ENCOUNTER 2024-02-26 06:15 | Outpatient (REF) | payer MEDICARE, OTHER, SELFPAY ==
[2024-02-26 10:26] LABS: Hematocrit 37.3 % (42.0-52.0); Hemoglobin 12.1 g/dl (14.0-18.0); Mean Corpuscular HGB Conc 32.4 g/dl (31.0-36.0); Mean Corpuscular Hemoglobin 28.1 pg (27.0-33.0); Mean Corpuscular Volume 86.7 fL (80.0-98.0); Mean Platelet Volume 10.4 fL (9.4-12.4); Platelet Count 221 X10*3/uL (160-400); Red Cell Distribution Width 13.5 % (11.0-16.0); White Blood Count 6.5 X10*3/uL (4.8-10.8)
[2024-02-26 10:40] LABS: Alanine Aminotransferase 14 U/L (0-40); Albumin Level 3.9 g/dL (3.5-5.0); Alkaline Phosphatase 77 U/L (39-117); Anion Gap 13 (12-20); Aspartate Amino Transferase 20 U/L (5-37); Bilirubin Total 0.4 mg/dL (0.0-1.0); Blood Urea Nitrogen 19 mg/dL (9-16); Calcium 9.7 mg/dL (8.4-10.2); Carbon Dioxide 29 mmol/L (22-29); Chloride 108 mmol/L (96-108); Estimated Glomerular Filt Rate > 60; Glucose Fasting 94 mg/dL (60-99); Potassium 4.2 mmol/L (3.3-5.1); Sodium 146 mmol/L (135-145); Total Protein 6.5 g/dL (6.5-8.0)
[2024-02-26 11:04] LABS: TSH reflex Free T4 0.05 uIU/mL (0.32-4.0)
[2024-02-26 14:46] LABS: Free T4 (Free Thyroxine) 1.14 ng/dL (0.71-1.85)
== END 2024-02-26 06:16 | disposition home or self-care (01) ==
LOC: HO.HMGCLDS 06:15
PROVIDERS: PCP Physician Assistant; Visit Provider Physician Assistant
DX: E11.9 Type 2 diabetes mellitus without complications (principal); E03.9 Hypothyroidism, unspecified
CPT/HCPCS: 36415; 80053; 84439; 84443; 85027

== ENCOUNTER 2024-02-26 15:21 | Outpatient (AMB) | payer MEDICARE, OTHER, SELFPAY ==
--- NOTE | 2024-02-26 15:28 | MHC.PC.OV ---
Vital Signs 02/26/24 15:33 02/26/24 16:14 Height 5 ft 7 in Weight 156 lb 8 oz BMI 24.5 BP 142/72 H 128/78 Blood Pressure Location Lt brachial Position Sitting Pulse 66 Pulse Source Pulse Oximeter Pulse Oximetry (%) 100 Oxygen Delivery Method Room Air Intake Visit Reasons: follow up Educational Diagnostician Required: No Accompanied by: Self / Same As Patient Allergies codeine [CODEINE] Allergy (Intermediate, Verified 02/26/24 16:07) VOMITING Medication List - Last Reconciled 02/26/24 by Clement Alaniz PA-C albuterol sulfate 90 mcg/actuation 2 puffs inhalation QID PRN 30 days amlodipine 5 mg PO QPM 90 days aspirin 81 mg PO DAILY atorvastatin 80 mg PO DAILY blood sugar diagnostic (FreeStyle Lite Strips) As directed blood-glucose meter (FreeStyle Lite Meter kit) As directed blood-glucose meter,continuous (FreeStyle Frieda 3 [place]) As directed blood-glucose sensor (FreeStyle Frieda 3 Sensor device) As directed cholecalciferol (vitamin D3) 50 mcg PO DAILY 90 days dulaglutide (Trulicity) 0.75 mg (0.5 mL) subcut QWEEK 4 weeks ezetimibe 10 mg PO DAILY ferrous sulfate 325 mg PO DAILY fluticasone propionate 50 mcg/actuation (Flonase Allergy Relief) 1 spray intranasal BID 30 days lancets (FreeStyle Lancets) As directed levothyroxine 100 mcg PO DAILY 90 days metformin 500 mg (1/2 x 1,000 mg) PO BID 90 days metoprolol tartrate 25 mg PO BID 90 days prednisone 5 mg PO BID 21 days pyridostigmine bromide 60 mg PO TID spirometers and accessories As directed Tobacco use date assessed: 09/10/23 Fall risk assessment: No Falls in past year Last assessed Fall Risk: 02/26/24 Dental Screening Dental Screen Date: 12/18/23 HPI follow up HPI Details Patient is a 73 year-old male here today for follow-up visit.? Patient has a past medical history significant for hypertension, hyperlipidemia, CVA, BARRY, ocular myasthenia, carotid stenosis, type 2 diabetes,, , CAD CAD :? 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 Continues to were medical compression socks. He reports he is still due for valve replacements as well. Recently underwent cardiac stress testing which was essentially normal. Still does have some shortness of breath and diaphoresis on physical exertion. PLAN :Will decrease his metoprolol to 12.5 mg and metoprolol extended release in hopes to increase his energy. .. Type 2 diabetes: Recently started on Trulicity 0.75 mg. He does report better sugar readings. He has lost some weight since last visit. Hypertension:? Patient is followed by Cardiology is started patient on? olmesartan and hydrochlorothiazide.? Today blood pressure acceptable in office. .. Ocular myasthenia:? Followed by neurologist at [facility].? Recently had a [place] gravis flare was placed on prednisone 10 mg b.i.d. over the past few months. Unfortunately he was noted to have uncontrolled diabetes. Also Continues pyridostigmine with good effect on reducing his ptosis. .. Hyperlipidemia:? Patient continues on high potency statin and Zetia. .? Most recent LDL slightly above 100. Will continue working on lifestyle modifications to reduce his cholesterol .. BARRY: IS followed by pulmonology, uses CPAP on a nightly basis with good effect. .. History of CVA:? Was on dual anti-platelet therapy for many years.? Recently taken off of clopidogrel due to long-term bleeding risk.? Continues on aspirin daily .. Hypothyroid:? Most recent TSH remains low at 0.05. Will reduce his levothyroxine to 75 mcg and recheck TSH in 4 weeks. Laboratory Tests 12/19/22 02/01/23 05/18/23 07:20 07:35 08:17 RBC Hgb 11.4 L Sodium Creatinine 0.95 Fasting Glucose 184 H Hgb A1c (Clinic) Hemoglobin A1c % 7.1 10.2 H Cholesterol 168 LDL Cholesterol, C alc 56 TSH Urine Microalbumin 21.0 09/10/23 09/11/23 11/13/23 11:28 07:58 09:08 RBC Hgb Sodium Creatinine Fasting Glucose Hgb A1c (Clinic) 6.3 H Hemoglobin A1c % 6.2 H Cholesterol LDL Cholesterol, C alc TSH 0.04 L Urine Microalbumin 12/18/23 02/26/24 10:46 06:24 RBC 4.30 L Hgb 12.1 L Sodium 146 H Creatinine 0.80 Fasting Glucose Hgb A1c (Clinic) 9.6 H Hemoglobin A1c % Cholesterol LDL Cholesterol, C alc TSH 0.05 L Urine Microalbumin PFSH Medical History Osteoarthritis of left shoulder Hypokalemia Mitral stenosis Atherosclerosis of coronary artery Personal history of COVID-19 Constipation by delayed colonic transit BARRY (obstructive sleep apnea) Carotid stenosis BARRY (obstructive sleep apnea) Obesity (BMI 30.0-34.9) Pernicious anemia Surgical History S/P CABG x 4 Hx of colonoscopy History of appendectomy History of cholecystectomy Total knee replacement status History of shoulder surgery History of tonsillectomy and adenoidectomy Family History Father No problems noted. Mother No problems noted. Maternal Grandmother Medical history unknown Brother AA (aortic aneurysm) Maternal Grandmother No problems noted. Mother AA (aortic aneurysm) Sister Primary cancer of shoulder Other Family history of hypercholesterolemia Family history of hypertension Social History Household Members: Significant Other Housing: House Alcohol intake: never Patient Tobacco Use Status: Never used Tobacco e-Cigarette/Vaping Use: Never Used Second Hand Smoke Exposure: No service: Yes Current occupational status: retired Cognitive needs: No Hearing needs: No Vision needs: No Questionnaire Thrive Questionnaire Date Thrive assessed: 09/10/23 DISHA-7 AMB Questionnaire DISHA-7 Date DISHA - 7 assessed: 09/10/23 Source: Developed by Drs. Ken Bagley, Tarsha Grant, Maikel Nation and colleagues, with an educational kellie from [employer]. Review of Systems Const Denies headache(s) Eyes Denies loss of vision ENT Denies vertigo, Denies dizziness, Denies headache(s) and Denies sore throat Card Denies chest pain, Denies leg edema and Denies lightheadedness Resp Denies cough, Denies hemoptysis and Denies wheezing GI Denies abdominal pain, Denies melena, Denies constipation, Denies diarrhea and Denies vomiting Denies dysuria, Denies urinary frequency and Denies urinary urgency Musc Denies arthralgias, Denies joint swelling, Denies numbness and Denies tingling Neuro Denies Abnormal speech present, Denies behavioral changes, Denies vertigo, Denies dizziness, Denies headache(s), Denies loss of vision, Denies memory loss, Denies numbness and Denies tingling Psych Denies anxiety, Denies behavioral changes, Denies depression, Denies memory loss and Denies panic attacks David/Lymph Denies easy bleeding and Denies easy bruising Aller/Immun Denies wheezing Physical exam (Primary Care) Vital Signs: Last Vital Signs Pulse 66 02/26/24 15:33 BP 128/78 02/26/24 16:14 Pulse Ox 100 02/26/24 15:33 Oxygen Delivery Method Room Air 02/26/24 15:33 BMI result Body Mass Index 24.5 Tobacco/Smoking Status: Tobacco use Status Tobacco use date assessed 09/10/23 02/26/24 15:28 Patient Tobacco Use Status Never used Tobacco 02/26/24 15:28 e-Cigarette/Vaping Use Never Used 02/26/24 15:28 Thrive Assessment: Date of Thrive Assessment Date Thrive assessed 09/10/23 02/26/24 15:28 Const General: healthy appearing, no acute distress, alert and awake Nutritional Appearance: well nourished Orientation/consciousness: oriented to person, oriented to place and oriented to time HENMT Ears: TM's normal bilaterally General nose exam: Normal nasal mucous membranes and turbinates present Eyes Conjunctivae: conjunctivae normal Sclerae: sclerae normal Pupils: Equal, round and reactive pupils present Neck Neck: Yes no lymphadenopathy and Yes no JVD Thyroid: Thyroid normal Carotids: no bruits Resp Effort & Inspection: normal respiratory effort and not tachypneic Auscultation: no crackles, no rales, no rhonchi and no wheezes Cardio Rate: regular rate Rhythm: regular rhythm Heart sounds: no murmurs and normal S1 and S2 GI Palpation (GI): Soft to palpation, nontender, no hepatomegaly and no splenomegaly Auscultation: normal bowel sounds Skin General skin exam: no rashes or lesions noted and dry skin Neuro General: oriented to person, oriented to place and oriented to time Cranial nerves: Yes Equal, round and reactive pupils present Speech: No Abnormal speech present Gait exam (Neuro): Normal gait present Motor exam (neuro): no tremor noted Extrem Right upper extremity: full ROM Left upper extremity: full ROM Right lower extremity: full ROM; no edema Left lower extremity: full ROM; no edema Psych Mental Status: mental status grossly normal Speech and movement: Normal speech and movement present Affect: normal affect Attitude: cooperative Thought process: Normal thought process present Assessment and Plan Assessment & Plan (1) DMII (diabetes mellitus, type 2): Code(s): E11.9 - Type 2 diabetes mellitus without complications Qualifiers: Diabetes mellitus complication status: without complication Diabetes mellitus long-term insulin use: without long-term use Qualified Code(s): E11.9 - Type 2 diabetes mellitus without complications Plan: Has captured some better glycemic control with Trulicity and metformin in combination. Goal A1c is to remain below 7.0 (2) HLD (hyperlipidemia): Code(s): E78.5 - Hyperlipidemia, unspecified Qualifiers: Hyperlipidemia type: mixed hyperlipidemia Qualified Code(s): E78.2 - Mixed hyperlipidemia Plan: Patient continues on high potency statin and most recent lipid panel showing proper it total cholesterol and LDL. Goal LDL to remain below 70 (3) Coronary artery disease: Code(s): I25.10 - Atherosclerotic heart disease of [place] coronary artery without angina pectoris Qualifiers: Associated angina: with stable angina Coronary Disease-Associated Artery/Lesion type: [place] artery [place] vs. transplanted heart: [place] heart Qualified Code(s): I25.118 - Atherosclerotic heart disease of [place] coronary artery with other forms of angina pectoris Plan: Patient continues to follow [place] cardiology. He is status post triple bypass open heart surgery. He reports he does need valve replacement as well. He continues on high potency statin with acetamide, aspirin at this time. Most recent lipid panel showing appropriate LDL at 70. Patient recently underwent cardiac stress test was her since essentially normal. Of note does have valvular heart disease. (4) Hypothyroid: Code(s): E03.9 - Hypothyroidism, unspecified Qualifiers: Hypothyroidism type: unspecified Qualified Code(s): E03.9 - Hypothyroidism, unspecified Plan: Most recent TSH slightly low thus will reduce his levothyroxine down to 75 mcg. Will recheck TSH. (5) Ocular myasthenia: Code(s): G70.00 - Myasthenia gravis without (acute) exacerbation Plan: As above patient recently placed on steroid for his myasthenia gravis flare. We have been reducing his prednisone dose due to losing control over his diabetes. Diabetes much improved since reducing prednisone dose and will continue to further reduce his dose down to 1 mg b.i.d.. Orders: Orders TSH reflex Free T4 02/26/24 E03.9 - Hypothyroidism, unspecified Medications: New levothyroxine 75 mcg PO DAILY 30 tabs 1RF 30 days E03.9 - Hypothyroidism, unspecified metoprolol succinate ER 12.5 mg (1/2 x 25 mg) PO DAILY 15 tabs 3RF 30 days E11.9 - Type 2 diabetes mellitus without complications Discontinued levothyroxine Discontinued Reason: Doctor's Order 100 mcg PO DAILY 90 days 90 tabs 1RF E03.9 - Hypothyroidism, unspecified metoprolol tartrate Discontinued Reason: Doctor's Order 25 mg PO BID 90 days 180 tabs 3RF I10 - Essential (primary) hypertension Coding Level of Care Code Est Pt Level 4 (61259) Diagnoses Type 2 diabetes mellitus without complication, without long-term current use of insulin E11.9 Diabetes mellitus complication status: without complication Diabetes mellitus long-term insulin use: without long-term use Mixed hyperlipidemia E78.2 Hyperlipidemia type: mixed hyperlipidemia Coronary artery disease of [place] artery of [place] heart with stable angina pectoris I25.118 Associated angina: with stable angina Coronary Disease-Associated Artery/Lesion type: [place] artery [place] vs. transplanted heart: [place] heart Hypothyroidism, unspecified type E03.9 Hypothyroidism type: unspecified Ocular myasthenia G70.00
[2024-02-26 15:33] VITALS: BP 142/72; PULSE 66; O2SAT 100; BMI 24.5
[2024-02-26 16:14] VITALS: BP 128/78
== END 2024-02-26 16:23 | disposition home or self-care (01) ==
PROVIDERS: PCP Physician Assistant; Visit Provider Physician Assistant
DX: E11.9 Type 2 diabetes mellitus without complications (principal); I25.118 Atherosclerotic heart disease of native coronary artery with other forms of angina pectoris; G70.00 Myasthenia gravis without (acute) exacerbation; E78.2 Mixed hyperlipidemia; E03.9 Hypothyroidism, unspecified
CPT/HCPCS: 99214

== ENCOUNTER 2024-04-09 13:36 | Outpatient (AMB) | payer MEDICARE, OTHER, SELFPAY ==
[2024-04-09 13:49] VITALS: BP 102/66; PULSE 80; O2SAT 97; BMI 23.9
--- NOTE | 2024-04-09 13:49 | A.OFFVIS_ITS ---
Intake Vital Signs 04/09/24 13:49 Height 5 ft 7 in Weight 152 lb 8 oz BMI 23.9 BP 102/66 Blood Pressure Location Lt brachial Position Sitting Pulse 80 Pulse Source Pulse Oximeter Pulse Oximetry (%) 97 Oxygen Delivery Method Room Air Intake Visit Reasons: Wellness Visit Intake Note: Patient is here for an Initial Wellness Visit code: G0438. 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 Required: No Accompanied by: Self / Same As Patient Allergies codeine [CODEINE] Allergy (Intermediate, Verified 04/09/24 13:57) VOMITING Medication List - Last Reconciled 04/09/24 by Clement Alaniz PA-C albuterol sulfate 90 mcg/actuation 2 puffs inhalation QID PRN 30 days amlodipine 5 mg PO QPM 90 days aspirin 81 mg PO DAILY atorvastatin 80 mg PO DAILY blood sugar diagnostic (FreeStyle Lite Strips) As directed blood-glucose meter (FreeStyle Lite Meter kit) As directed blood-glucose meter,continuous (FreeStyle Frieda 3 [place]) As directed blood-glucose sensor (FreeStyle Frieda 3 Sensor device) As directed cholecalciferol (vitamin D3) 50 mcg PO DAILY 90 days dulaglutide (Trulicity) 0.75 mg (0.5 mL) subcut QWEEK 4 weeks ezetimibe 10 mg PO DAILY ferrous sulfate 325 mg PO DAILY fluticasone propionate 50 mcg/actuation (Flonase Allergy Relief) 1 spray intranasal BID 30 days lancets (FreeStyle Lancets) As directed levothyroxine 75 mcg PO DAILY 30 days metformin 500 mg (1/2 x 1,000 mg) PO BID 90 days metoprolol succinate ER 12.5 mg (1/2 x 25 mg) PO DAILY 30 days prednisone 5 mg PO BID 21 days pyridostigmine bromide 60 mg PO TID spirometers and accessories As directed HPI Wellness Visit HPI Details Patient is a 73 year male here today for annual wellness visit. Today we discussed patient's [place] of care and end of life planning. We also reviewed his comprehensive care plan that was scanned. Colorectal cancer screening: willing to do cologaurd Vaccines: UTD with PCV,, Tdap, Shingles. HPI Comments History of Present Illness Details reviewed past medical history- yes reviewed surgical / hospitalization history- yes reviewed current medications- yes reviewed family history- yes home safety throw rugs? grab bars? raised toilet seat? working smoke detectors? activities of daily living difficulty bathing or showering? difficulty dressing? difficulty using the toilet? difficulty getting in and out of bed? difficulty walking? receives help from other person's with any of the above tasks? instrumental activities of daily living uses telephone - gets to place out of walking distance- go shopping for groceries- repairs own meals- does own minor home maintenance- does own laundry- does own housework- manages own money- currently takes medication- end of life planning discussed advanced directives- yes advanced directives on file? discussed wishes expressed in advanced directives. fall risk have you had any falls with injuries in the past year? have you had 2 or more falls in the past year? fall risk assessment: [facility] Medical History Osteoarthritis of left shoulder Hypokalemia Mitral stenosis Atherosclerosis of coronary artery Personal history of COVID-19 Constipation by delayed colonic transit BARRY (obstructive sleep apnea) Carotid stenosis BARRY (obstructive sleep apnea) Obesity (BMI 30.0-34.9) Pernicious anemia Surgical History S/P CABG x 4 Hx of colonoscopy History of appendectomy History of cholecystectomy Total knee replacement status History of shoulder surgery History of tonsillectomy and adenoidectomy Family History Father No problems noted. Mother No problems noted. Maternal Grandmother Medical history unknown Brother AA (aortic aneurysm) Maternal Grandmother No problems noted. Mother AA (aortic aneurysm) Sister Primary cancer of shoulder Other Family history of hypercholesterolemia Family history of hypertension Social History Household Members: Significant Other Housing: House Alcohol intake: never Patient Tobacco Use Status: Never used Tobacco e-Cigarette/Vaping Use: Never Used Second Hand Smoke Exposure: No service: Yes Current occupational status: retired Cognitive needs: No Hearing needs: No Vision needs: No Questionnaire Medicare Wellness Checkup [age] What gender do you identify with?: male During the past 4 weeks, how much have you been bothered by emotional problems such as feeling anxious, depressed, irritable, sad or downhearted, and blue?: not at all During the past 4 weeks, has your physical & emotional health limited your social activities with family, friends, neighbors, or groups?: quite a bit During the past 4 weeks, how much bodily pain have you generally had?: moderate pain During the past 4 weeks, was someone available to help you if you needed & wanted help?: yes, quite a bit During the past 4 weeks, what was the hardest physical activity you could do for at least 2 minutes?: moderate Can you get to places out of walking distance without help? (For eg., can you travel alone on buses, taxis or drive your car?): Yes Can you go shopping for groceries or clothes without someone's help?: Yes Can you prepare your own meals?: Yes Can you do your housework without help?: Yes Because of any health problems, do you need the help of another person with your personal care needs such as eating, bathing, dressing or getting around the house?: No Can you handle your own money without help?: Yes During the past 4 weeks, how would you rate your health in general?: fair During the past 4 weeks how have things been going for you?: pretty well Are you having difficulties driving your car?: no Do you always fasten your seat belt when you are in a car?: yes, usually During past 4 weeks, have you been bothered by the following: never: Sexual problems? and Trouble eating well?, seldom: Teeth or denture problems? and Problems using the telephone? and sometimes: Falling or dizzy when standing up and Tiredness or fatigue? Have you fallen 2 or more times in the past year?: Yes Are you afraid of falling?: Yes Are you a smoker?: no During the past 4 weeks, how many drinks of wine, beer, or other alcoholic beverages did you have?: 1 drink or less per week Do you exercise for about 20 minutes 3 or more times a week?: yes, most of the time Have you been given information to help with the following?: no: Hazards in your house that might hurt you? and no: Keeping track of your medications? How often do you have trouble taking medicines the way you have been told to take them?: I always take medicine as prescribed What is your race?: White Mini Mental State Exam (MMSE) Orientation What is the (year) (season) (date) (day) (month)?: season Where are we (state) (county) (town or city) (hospital) (floor)?: town or city Attention & Calculation (CHOOSE ONE) Spell WORLD backwards (DLROW): 4 letters Score Score: 6 Activity of Daily Living Bathing - sponge bath, tub bath or shower: receives no assistance (gets in/out by self, if usual bathing means Dressing - getting clothes from closets & drawers, including inner/outer garments & fasteners.: gets clothes & gets completely dressed without help Toileting - going to the 'toilet room' for urine/bowel elimination & cleaning self/arranging clothes: goes to toilet room, cleans self, arranges clothes without help Transfer: moves in & out of bed and chair without help (may use support object) Continence: controls urination/bowel movements completely by self Feeding: feeds self without help Total Score: 0 Information obtained from: patient Using telephone: independent Traveling: independent Shopping: independent Preparing meals: independent Housework: independent Taking medicine: independent Managing money: independent PHQ-9 Over the last 2 weeks, how often have you been bothered by any of the following problems? 1. Little interest or pleasure in doing things: not at all 2. Feeling down, depressed, or hopeless: not at all 3. Trouble falling or staying asleep, or sleeping too much: not at all 4. Feeling tired or having little energy: several days 5. Poor appetite or overeating: not at all 6. Feeling bad about yourself - or that you are a failure or have let yourself or your family down: not at all 7. Trouble concentrating on things, such as reading the newspaper or watching television: not at all 8. Moving or speaking so slowly that other people could have noticed. Or the opposite - being so fidgety or restless that you have been moving around a lot more than usual: not at all 9. Thoughts that you would be better off or of hurting yourself in some way: not at all Total score: 1 Depression Screening Interpretation: Negative Depression Screening Done: Yes 53784 - PHQ-9 Billing: Yes Source: Developed by Drs. Ken Bagley, Tarsha Grant, Maikel Nation and colleagues, with an educational kellie from [employer]. Physical Exam Vital Signs: Last Vital Signs Pulse 80 04/09/24 13:49 BP 102/66 04/09/24 13:49 Pulse Ox 97 04/09/24 13:49 Oxygen Delivery Method Room Air 04/09/24 13:49 BMI result Body Mass Index 23.9 HEENT Other: hearing screening whisper test- failed Eyes Other: vision screening- 20/ 20 / OS OD OU Other: urinary incontinence? no Neuro Other: balance Romberg- normal tandem walk test- able walk-in turned test- able rise from sit to stand- within 2 seconds Assessment & Plan Assessment & Plan (1) Annual wellness visit: Code(s): Z00.00 - Encounter for general adult medical examination without abnormal findings Plan: As per HPI (2) Impairment of balance: Code(s): R26.89 - Other abnormalities of gait and mobility Plan: Willing to do physical therapy for has been. Balance. Plan As per HPI Orders: Orders Complete Blood Count no Diff 04/10/24 E11.9 - Type 2 diabetes mellitus without complications Lipid Panel 04/10/24 E78.2 - Mixed hyperlipidemia PT Evaluation and Treatment 04/09/24 R26.89 - Other abnormalities of gait and mobility, Z96.653 - Presence of artificial knee joint, bilateral TSH reflex Free T4 04/10/24 E03.9 - Hypothyroidism, unspecified Comprehensive [place]. Panel Fast 04/10/24 I10 - Essential (primary) hypertension Quality Reporting (2019) Depression/Bipolar (159/160/161/177) PHQ-9: Total score: 1 Coding Level of Care Code Medicare First (G0438) Diagnoses Annual wellness visit Z00.00 Impairment of balance R26.89 CPT Codes Advance Care Planning - Time spent: 1-15 minutes, on File ([id number]) Advance Care Planning Advance Care Planning discussion: Completed/Scanned Date of discussion: 04/09/24 Forms completed: MOLST Time spent: 1-15 minutes, on File Actual minutes spent: 5
== END 2024-04-09 14:36 | disposition home or self-care (01) ==
PROVIDERS: PCP Physician Assistant; Visit Provider Physician Assistant
DX: Z00.00 Encounter for general adult medical examination without abnormal findings (principal); R26.89 Other abnormalities of gait and mobility
CPT/HCPCS: 1123F; 99213; G0438

== ENCOUNTER 2024-04-10 08:00 | Outpatient (REF) | payer MEDICARE, OTHER, SELFPAY ==
[2024-04-10 10:10] LABS: Hematocrit 41.1 % (42.0-52.0); Hemoglobin 13.3 g/dl (14.0-18.0); Mean Corpuscular HGB Conc 32.4 g/dl (31.0-36.0); Mean Corpuscular Hemoglobin 27.1 pg (27.0-33.0); Mean Corpuscular Volume 83.7 fL (80.0-98.0); Platelet Count 244 X10*3/uL (160-400); Red Blood Count 4.91 X10*6/uL (4.60-5.80); Red Cell Distribution Width 13.9 % (11.0-16.0); White Blood Count 9.8 X10*3/uL (4.8-10.8)
[2024-04-10 10:33] LABS: Alanine Aminotransferase 19 U/L (0-40); Alkaline Phosphatase 70 U/L (39-117); Anion Gap 10 (12-20); Aspartate Amino Transferase 17 U/L (5-37); Bilirubin Total 0.6 mg/dL (0.0-1.0); Blood Urea Nitrogen 25 mg/dL (9-16); Calcium 10.1 mg/dL (8.4-10.2); Carbon Dioxide 31 mmol/L (22-29); Chloride 107 mmol/L (96-108); Cholesterol 159 mg/dL (<200); Estimated Glomerular Filt Rate > 60; Glucose Fasting 92 mg/dL (60-99); HDL Cholesterol 72 mg/dL (>40); LDL Cholesterol Calculated 67 mg/dL (<100); Potassium 4.2 mmol/L (3.3-5.1); Sodium 144 mmol/L (135-145); Total Protein 6.5 g/dL (6.5-8.0); Triglycerides 101 mg/dL (<150)
[2024-04-10 10:51] LABS: TSH reflex Free T4 0.16 uIU/mL (0.32-4.0)
[2024-04-10 11:25] LABS: Free T4 (Free Thyroxine) 1.06 ng/dL (0.71-1.85)
== END 2024-04-10 08:01 | disposition home or self-care (01) ==
LOC: HO.HMGCLDS 08:00
PROVIDERS: PCP Physician Assistant; Visit Provider Physician Assistant
DX: E11.9 Type 2 diabetes mellitus without complications (principal); E03.9 Hypothyroidism, unspecified; E78.2 Mixed hyperlipidemia; I10 Essential (primary) hypertension
CPT/HCPCS: 36415; 80053; 80061; 84439; 84443; 85027

== ENCOUNTER → 2024-05-29 08:14 | Outpatient (REF) | payer MEDICARE, OTHER, SELFPAY ==
--- NOTE | ~2024-05-29 | US_ITS ---
EXAMINATION: US EXTRACRANIAL CAROTID DUPLEX, BILATERAL CLINICAL INFORMATION: occlusion and stenosis of carotid artery COMPARISON: Carotid duplex 06/21/2023 TECHNIQUE: Real-time ultrasound and Doppler techniques (integrating B-mode 2-D vascular images, Doppler spectral analysis and color-flow Doppler imaging) were utilized to interrogate the extracranial carotid arteries, the vertebral arteries and proximal subclavian arteries bilaterally. The degree of stenosis is determined by criteria similar to NASCET. FINDINGS: Right Side: 1. There is mild atherosclerotic plaque seen in the bifurcation/proximal ICA region. 2. The common carotid artery PSV proximally is 65 cm/s and distally 55 cm/s. 3. The proximal internal carotid artery velocities are 139 cm/s systolic and 43 cm/s diastolic. 4. The proximal external carotid artery PSV is 58 cm/s. 5. The vertebral artery shows antegrade flow. 6. The subclavian artery waveforms are normal. Left Side: 1. There is mild atherosclerotic plaque seen in the bifurcation/proximal ICA region. 2. The common carotid artery PSV proximally is 99 cm/s and distally 61 cm/s. 3. The proximal internal carotid artery velocities are 85 cm/s systolic and 31 cm/s diastolic. 4. The proximal external carotid artery PSV is 41 cm/s. 5. The vertebral artery shows antegrade flow. 6. The subclavian artery waveforms are normal. US/US carotid duplex BI IMPRESSION: 1. RIGHT: Moderate, hemodynamically significant stenosis of the proximal right internal carotid artery corresponding to a 50-79% stenosis by velocity criteria. 2. LEFT: Minimal, non-hemodynamically significant stenosis of the proximal left internal carotid artery corresponding to a 0-49% stenosis by velocity criteria. 3. There is no change in the category severity of disease when compared to the previous study dated 06/21/2023. Electronically signed by: Macario Bell MD 06/15/2024 12:02 PM [facility] [place]
--- NOTE | 2024-05-29 08:51 | CA_ITS ---
Transthoracic Echocardiogram Patient (Last, First, Middle): Kareem Fletcher M Gender: Male Date of : 1950 Age: 73 Procedure Date: 05/29/2024 Procedure Type: Transthoracic Echocardiogram Location: OP Height: 170.18 cm Weight: 68.95 kg BSA: 1.80 m2 Heart Rate: bpm BP: 140 / 80 mmHg Assisted Living Associate: TO Referring MD: Geovanni Haq MD Symptoms: I05.0 - Rheumatic mitral stenosis Study Quality: Adequate w contrast Conclusions: - The left ventricular systolic function is normal. The visually estimated ejection fraction is between 60-65%. - The left atrium is severely dilated. - There is mild aortic valve stenosis. - There is severe mitral annular calcification. There is moderate mitral valve stenosis. Findings Procedure Information Contrast agent, definity, is being given per protocol without apparent complications. Left Ventricle Normal left ventricular cavity size. There is mildly increased left ventricular wall thickness. The left ventricular systolic function is normal. The visually estimated ejection fraction is between 60-65%. There is no evidence of regional wall motion abnormalities. There is moderate septal asymmetric hypertrophy. Right Ventricle Mildly increased right ventricular cavity size. There is mildly decreased right ventricular systolic function. Atria The left atrium is severely dilated. The right atrium is normal in size. Aortic Valve There is moderate calcification of the aortic valve. There is mild aortic valve stenosis. There is no aortic valve regurgitation. Mitral Valve There is severe mitral annular calcification. There is no mitral valve regurgitation. There is moderate mitral valve stenosis. Pulmonic Valve The pulmonic valve is likely normal. Tricuspid Valve There is mild tricuspid valve regurgitation. There is no evidence of pulmonary hypertension. Great Vessels The asc aorta is normal in size. Moderate plaque is seen in the sino tubular ridge. Venous The inferior vena cava is normal in size and collapses greater than 50% with inspiration. Pericardium/Pleural There is no evidence of pericardial effusion. Prior Study Comparison No significant change compared to prior study dated: 06/12/2023. Measurements 2D Linear Measurements IVSd: 1.40 0.6-0.9/0.6-1.0 cm LVIDd: 3.30 3.9-5.3/4.2-5.9 cm LVIDd Index: 1.83 2.4-3.2/2.2-3.1 cm/m2 LVIDs: 2.16 2.0-3.6 cm LVPWd: 1.15 0.7-1.1 cm LA Diam: 4.30 2.7-3.8/3.0-4.0 cm LAIDs Index: 2.39 1.5-2.3 cm/m2 LV Mass: 170.84 67-162/88-224 g LV Mass Index: 94.91 43-95/49-115 g/m2 LVOT Diam: 2.00 3.0+(-)1.3 cm 2D Systolic Function EF 4C: 59.40 >55% Mitral Valve MV VTI: 0.66 MV Pk Colt: 1.76 MV Mn Colt: 1.19 MV Pk Grad: 12.00 MV Mn Grad: 6.00 MV Pk E: 1.59 MV PK A: 1.50 MV Decel Time: 422.00 E/A: 1.10 E'Lateral: 3.26 E'Medial: 2.72 E/E' Med: 58.50 E/E' Lat: 48.80 PHT: 124.00 MVA PHT: 1.77 MVA Continuity: 1.30 Decel [place]: 3.76 Aortic Valve AoV Pk Colt: 2.05 AoV Mn Colt: 1.50 AoV VTI: 0.49 AoV Pk Grad: 17.00 Aov Mn Grad: 10.00 PENNY Cont.VTI: 1.76 LVOT LVOT Pk Colt: 1.15 LVOT Mn Colt: 0.75 LVOT VTI: 0.27 LVOT Pk Grad: 5.00 LVOT Mn Grad: 3.00 LVOT Diam: 2.00 LVOT Area: 3.14 Diastolic Function MV Pk E: 1.59 MV Pk A: 1.50 E/A: 1.10 E'Medial: 2.72 E/E' Med: 58.50 E' Laterial: 3.26 E/E' Lat: 48.80 Right Ventricle TAPSE (mm): 17.90 TVS' Colt: 9.25 Tricuspid Valve TR Pk Colt: 1.51 TR Pk Grad: 9.00 RA Press: 3.00 RVSP: 12.00 Great Vessels Aorta Sinus of Valsalva: 3.30 2.0-3.5 cm Ao Asc: 3.50 2.1-3.4 cm Updated in Other Vendor System with Status of Final Kurtis Marin MD electronically signed on 05/31/2024 9:18:15 AM with status of Final
== END ==
LOC: HO.CARD 08:14
PROVIDERS: PCP Physician Assistant; Visit Provider Internal Medicine Cardiovascular Disease
DX: Z01.818 Encounter for other preprocedural examination (principal); I65.29 Occlusion and stenosis of unspecified carotid artery; I05.0 Rheumatic mitral stenosis; Z95.1 Presence of aortocoronary bypass graft; G47.33 Obstructive sleep apnea (adult) (pediatric)
CPT/HCPCS: 93306; 93880; Q9957

== ENCOUNTER → 2024-05-29 08:51 | Outpatient (BNV) | payer MEDICARE, OTHER, SELFPAY | PROVIDERS: PCP Physician Assistant; Visit Provider Internal Medicine | DX: I08.3 Combined rheumatic disorders of mitral, aortic and tricuspid valves (principal); I42.2 Other hypertrophic cardiomyopathy | CPT/HCPCS: 93306 ==

== ENCOUNTER 2024-07-13 12:35 | Outpatient (AMB) | payer MEDICARE, OTHER, SELFPAY ==
[2024-07-13 12:45] VITALS: BP 132/80; PULSE 75; O2SAT 97; BMI 24.4
--- NOTE | 2024-07-13 12:45 | MHC.PC.OV ---
Vital Signs 07/13/24 12:45 Height 5 ft 7 in Weight 155 lb 8 oz BMI 24.4 BP 132/80 Blood Pressure Location Lt brachial Position Sitting Pulse 75 Pulse Source Pulse Oximeter Pulse Oximetry (%) 97 Oxygen Delivery Method Room Air Intake Visit Reasons: L total hip arthroplasty-07/22/24 Intake Note: Patient is here for a Pre-op for L total hip arthroplasty scheduled with Dr. Harris on 07/22/24. 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: No Accompanied by: Self / Same As Patient Allergies codeine [CODEINE] Allergy (Intermediate, Verified 07/13/24 12:58) VOMITING Medication List - Last Reconciled 07/13/24 by Clement Alaniz PA-C albuterol sulfate 90 mcg/actuation 2 puffs inhalation QID PRN 30 days amlodipine 5 mg PO QPM 90 days aspirin 81 mg PO DAILY atorvastatin 80 mg PO DAILY blood sugar diagnostic (FreeStyle Lite Strips) As directed blood-glucose meter (FreeStyle Lite Meter kit) As directed blood-glucose meter,continuous (FreeStyle [place] 3 [place]) As directed blood-glucose sensor (FreeStyle Fried[place] 3 Sensor device) As directed cholecalciferol (vitamin D3) 50 mcg PO DAILY 90 days dulaglutide (Trulicity) 0.75 mg (0.5 mL) subcut QWEEK 4 weeks ezetimibe 10 mg PO DAILY ferrous sulfate 325 mg PO DAILY fluticasone propionate 50 mcg/actuation (Flonase Allergy Relief) 1 spray intranasal BID 30 days lancets (FreeStyle Lancets) As directed levothyroxine 50 mcg PO DAILY 30 days metformin 500 mg (1/2 x 1,000 mg) PO BID 90 days metoprolol succinate ER 12.5 mg (1/2 x 25 mg) PO DAILY 30 days prednisone 5 mg PO BID 21 days pyridostigmine bromide 60 mg PO TID spirometers and accessories As directed Tobacco use date assessed: 09/10/23 Fall risk assessment: No Falls in past year Last assessed Fall Risk: 07/13/24 Dental Screening Dental Screen Date: 12/18/23 HPI L total hip arthroplasty-07/22/24 HPI Details Patient is a 73 year-old male here today for preop visit he is due for left total hip arthroplasty on 07/22/2024. ? Patient has a past medical history significant for hypertension, hyperlipidemia, CVA, BARRY, ocular myasthenia, carotid stenosis, type 2 diabetes,, , CAD. CHRONIC MEDICAL CONDITIONS-- > CAD :? He is status post coronary artery bypass Continues to follow cardiology. Most recent echocardiogram stable Recently underwent cardiac stress testing which was essentially normal. .. Type 2 diabetes: Recently started on Trulicity 0.75 mg. He does report better sugar readings. TODAY'S A1C IS 7.1 . He has lost some weight since last visit. Hypertension:? Kareem continues on amlodipine 5 mg daily with good effect on his blood pressure..? Today blood pressure acceptable in office. .. Ocular myasthenia:? Followed by neurologist at [facility] CONTINUES ON PREDNISONE 5 MG without any acute ocular myasthenia gravis flares. Also Continues pyridostigmine with good effect on reducing his ptosis. .. Hyperlipidemia:? Patient continues on high potency statin and Zetia. .? Most recent LDL slightly above 100. Will continue working on lifestyle modifications to reduce his cholesterol .. BARRY: IS followed by pulmonology, uses CPAP on a nightly basis with good effect. .. Hypothyroid:? Most recent TSH remains low at 0.05. Will reduce his levothyroxine to 75 mcg and recheck TSH in 4 weeks. [facility] Medical History Osteoarthritis of left shoulder Hypokalemia Mitral stenosis Atherosclerosis of coronary artery Personal history of COVID-19 Constipation by delayed colonic transit BARRY (obstructive sleep apnea) Carotid stenosis BARRY (obstructive sleep apnea) Obesity (BMI 30.0-34.9) Pernicious anemia Surgical History S/P CABG x 4 Hx of colonoscopy History of appendectomy History of cholecystectomy Total knee replacement status History of shoulder surgery History of tonsillectomy and adenoidectomy Family History Father No problems noted. Mother No problems noted. Maternal Grandmother Medical history unknown Brother AA (aortic aneurysm) Maternal Grandmother No problems noted. Mother AA (aortic aneurysm) Sister Primary cancer of shoulder Other Family history of hypercholesterolemia Family history of hypertension Social History Household Members: Significant Other Housing: House Alcohol intake: never Patient Tobacco Use Status: Never used Tobacco e-Cigarette/Vaping Use: Never Used Second Hand Smoke Exposure: No service: Yes Current occupational status: retired Cognitive needs: No Hearing needs: No Vision needs: No Questionnaire Thrive Questionnaire Date Thrive assessed: 09/10/23 DISHA-7 AMB Questionnaire DISHA-7 Date DISHA - 7 assessed: 09/10/23 Source: Developed by Drs. Ken Bagley, Tarsha Grant, Maikel Nation and colleagues, with an educational kellie from [employer]. Review of Systems Const Denies headache(s) Eyes Denies loss of vision ENT Denies vertigo, Denies dizziness, Denies headache(s) and Denies sore throat Card Denies chest pain, Denies leg edema and Denies lightheadedness Resp Denies cough, Denies hemoptysis and Denies wheezing GI Denies abdominal pain, Denies melena, Denies constipation, Denies diarrhea and Denies vomiting Denies dysuria, Denies urinary frequency and Denies urinary urgency Musc Denies arthralgias, Denies joint swelling, Denies numbness and Denies tingling Neuro Denies Abnormal speech present, Denies behavioral changes, Denies vertigo, Denies dizziness, Denies headache(s), Denies loss of vision, Denies memory loss, Denies numbness and Denies tingling Psych Denies anxiety, Denies behavioral changes, Denies depression, Denies memory loss and Denies panic attacks David/Lymph Denies easy bleeding and Denies easy bruising Aller/Immun Denies wheezing Physical exam (Primary Care) Vital Signs: Last Vital Signs Pulse 75 07/13/24 12:45 BP 132/80 07/13/24 12:45 Pulse Ox 97 07/13/24 12:45 Oxygen Delivery Method Room Air 07/13/24 12:45 BMI result Body Mass Index 24.4 Tobacco/Smoking Status: Tobacco use Status Tobacco use date assessed 09/10/23 07/13/24 12:45 Patient Tobacco Use Status Never used Tobacco 07/13/24 12:45 e-Cigarette/Vaping Use Never Used 07/13/24 12:45 Thrive Assessment: Date of Thrive Assessment Date Thrive assessed 09/10/23 07/13/24 12:45 Const General: healthy appearing, no acute distress, alert and awake Nutritional Appearance: well nourished Orientation/consciousness: oriented to person, oriented to place and oriented to time HENMT Ears: TM's normal bilaterally General nose exam: Normal nasal mucous membranes and turbinates present Eyes Conjunctivae: conjunctivae normal Sclerae: sclerae normal Pupils: Equal, round and reactive pupils present Neck Neck: Yes no lymphadenopathy and Yes no JVD Thyroid: Thyroid normal Carotids: no bruits Resp Effort & Inspection: normal respiratory effort and not tachypneic Auscultation: no crackles, no rales, no rhonchi and no wheezes Cardio Rate: regular rate Rhythm: regular rhythm Heart sounds: no murmurs and normal S1 and S2 GI Palpation (GI): Soft to palpation, nontender, no hepatomegaly and no splenomegaly Auscultation: normal bowel sounds Skin General skin exam: no rashes or lesions noted and dry skin Neuro General: oriented to person, oriented to place and oriented to time Cranial nerves: Yes Equal, round and reactive pupils present Speech: No Abnormal speech present Gait exam (Neuro): Normal gait present Motor exam (neuro): no tremor noted Extrem Right upper extremity: full ROM Left upper extremity: full ROM Right lower extremity: full ROM; no edema Left lower extremity: full ROM; no edema Psych Mental Status: mental status grossly normal Speech and movement: Normal speech and movement present Affect: normal affect Attitude: cooperative Thought process: Normal thought process present Results AMB Hemoglobin A1c AMB Hemoglobin A1c 7.1 % Last Edit by CLAUDIA Jamison on 07/13/24 13:22 Results Reviewed Results Reviewed: Laboratory Last Values Hgb A1c (Clinic) 7.1 % (4.0-6.0) H 07/13/24 13:21 Coding Level of Care Code Est Pt Level 4 (39616) Diagnoses Pre-op evaluation Z01.818 Right hip pain M25.551 Type 2 diabetes mellitus without complication, without long-term current use of insulin E11.9 Diabetes mellitus complication status: without complication Diabetes mellitus skilled nursing insulin use: without terminal operator use Coronary artery disease of [place] artery of [place] heart with stable angina pectoris I25.118 Associated angina: with stable angina Coronary Disease-Associated Artery/Lesion type: [place] artery [place] vs. transplanted heart: [place] heart Assessment & Plan Assessment & Plan (1) Pre-op evaluation: Code(s): Z01.818 - Encounter for other preprocedural examination Category: Medical Plan: Patient's vitals and most recent labs are stable. Today's A1c is 7.1. 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 Patient is medically clear for needed total hip arthroplasty. (2) Right hip pain: Code(s): M25.551 - Pain in right hip Category: Medical Plan: As above (3) DMII (diabetes mellitus, type 2): Code(s): E11.9 - Type 2 diabetes mellitus without complications Category: Medical Qualifiers: Diabetes mellitus complication status: without complication Diabetes mellitus skilled nursing insulin use: without skilled nursing use Qualified Code(s): E11.9 - Type 2 diabetes mellitus without complications Plan: Patient's A1c today is 7.1. Continues with Trulicity weekly with good effect on his blood sugar control. (4) Coronary artery disease: Code(s): I25.10 - Atherosclerotic heart disease of [place] coronary artery without angina pectoris Category: Medical Qualifiers: Associated angina: with stable angina Coronary Disease-Associated Artery/Lesion type: [place] artery [place] vs. transplanted heart: [place] heart Qualified Code(s): I25.118 - Atherosclerotic heart disease of [place] coronary artery with other forms of angina pectoris Plan: Patient followed by Cardiology and has gotten clearance for his total hip arthroplasty surgery. Orders: Orders AMB Hemoglobin A1c Today E11.9 - Type 2 diabetes mellitus without complications
== END 2024-07-13 13:21 | disposition home or self-care (01) ==
PROVIDERS: PCP Physician Assistant; Visit Provider Physician Assistant
DX: Z01.818 Encounter for other preprocedural examination (principal); M25.551 Pain in right hip; E11.9 Type 2 diabetes mellitus without complications; I25.118 Atherosclerotic heart disease of native coronary artery with other forms of angina pectoris

== ENCOUNTER → 2024-07-13 12:35 | Outpatient (BNVA) | payer MEDICARE, OTHER, SELFPAY | PROVIDERS: PCP Physician Assistant; Visit Provider Physician Assistant | DX: Z01.818 Encounter for other preprocedural examination (principal); M25.551 Pain in right hip; E11.9 Type 2 diabetes mellitus without complications; I25.118 Atherosclerotic heart disease of native coronary artery with other forms of angina pectoris | CPT/HCPCS: 83036; 99212 ==

== ENCOUNTER 2024-10-24 08:32 | Outpatient (REF) | payer MEDICARE, OTHER, SELFPAY ==
--- OUTSIDE RECORDS SUMMARY | 2024-10-24 08:39 | XMS_ITS ---
Author Name [facility] Organization Unknown History of Medication Use Medication Directions Dispensed Refills Start Date End Date Stat us TAKE 1 TABLET BY WILLIAM TH EVERY DAY 07/10/2022 active 04/09/2022 active Problems Problem Status Onset Date Problem Type Date of Resoluti on Source Snoring (R06.83) active 2022-09-07 ProblemAct C T_[facility]MN[facility] Morbid Severe Obesity Due To Excess Calories (E66.01) active 2022-09-07 ProblemAct [facility] Other Forms Of Dyspnea (R06.09) active 2022-09-07 ProblemAct [facility] Cough Variant Asthma (J45.991) active 2022-09-07 ProblemAct [facility] Obstructive Sleep Apnea Adult Pediatric (G47.33) active 2022-09-07 ProblemAct [facility] Encounters Encounter Type Encounter Reason Primary Diagnosis Location Date Ambulatory [facility] 07/17/2024 [facility] 12/13/2023 Ambulatory [email or web address] 08/16/2022 Care Team Organization Name Specialty Phone Email Start Date End [facility] 03/17/2024 [facility] 08/16/2022 [facility] 08/02/2022 08/16/2022
--- OUTSIDE RECORDS SUMMARY | 2024-10-24 08:39 | XMS_ITS | Data Portability ---
Author Organization [place] - [facility] - IP Address [address] [place] [address] Care Team Providers Care Php Web Developer Name Role Phone DANIAL QAMAR Primary Care Provider Assessment Encounter Date Assessment Date Assessment LastModified by Organization Details LastModified Time 06/25/2024 06/25/2024 Patient is a 73-year-old gentleman who is approximately 2 years following CABG x 4 for coronary disease who recently had a stress test showing no ischemia and has mild to moderate valvular disease. He does not have any concerning cardiac symptoms and functions at a high level. Apparently is scheduled for an elective hip replacement in July. Per the ACC guidelines he can proceed with that surgery. We strongly suggest that he continue on his risk factor modifying blood pressure and cholesterol medications. He is also on medications for his diabetes. 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 In the spring we can reassess his valvular disease which does not seem significant on exam or by recent echocardiogram. He was pleased with the plan. melisa Not available 06/25/2024 12:07:17 08/21/2024 08/21/2024 Patient experiencing some lower extremity edema following his hip replacement. He offers it is mostly resolved now. Does not appear he had an acute cardiac event as there is no signs of left heart failure and his cardiac exam and EKG are unchanged from previous. At this point we certainly suggested continuing his normal postoperative care with physical therapy and keeping his legs elevated. Will continue to follow his cardiac conditions chronically as we planned with a note office visit in the spring time. melisa Not available 08/21/2024 10:53:20 Plan of Treatment Reminders Order Date Submit Date Provider Last Modified By Organization Details Last Modified Time Details Appointments FOLLOW UP 2024 10:30A M Charly Sims MD Not available Not available Not available Lab None recorded. Referral None recorded. Procedures None recorded. Surgeries None recorded. Imaging electroca rdiogram [address], [place], [address], 08/21/2024 11:55:25 electroca rdiogram 2023 [address] [place] [address] [place] [address], [address], 06/25/2024 14:11:54 Medication Orders None recorded. Patient TargetsNo targets recorded. Patient InstructionsNo instructions recorded. Reason for Referral None Reported. Results Created Date Observation Date Name Description Value Unit Range Abnormal Flag Note LastModifiedBy Organization Detail LastModifiedTime 06/25/2006/25/2024 elect rocar diogr am No observ ation record [place], [address], 06/25/2024 12:34:39 06/29/20 24 06/25/2024 elect rocar diogr am No observ ation record ed. [email or web address] [place], [address], 06/29/2024 12:54:03 08/21/19 25 08/21/2024 elect rocar diogr am No observ ation record [place]. [place], [address], 08/21/2024 11:55:25 08/28/19 25 08/21/2024 elect rocar diogr am No observ ation record [place]. [place], [address], 08/28/2024 10:42:19 Result Notes None recorded. Procedures Surgical History None recorded. Imaging Results Imaging Date Name Status LastModified by Organization Details LastModified Time 06/25/2024 electrocardiogram completed tmasiello [facility] [address] [place], [address], 06/25/2024 12:34:39 06/25/2024 electrocardiogram completed [email or web address] [facility] [address] [place], [address], 06/29/2024 12:54:03 08/21/2024 electrocardiogram completed tmasiello [facility] [address] [place], [address], 08/21/2024 11:55:25 08/21/2024 electrocardiogram completed tmaello [facility] [address] [place], [address], 08/28/2024 10:42:19 Procedure Notes None recorded. Medical Equipment None Reported. Medications Name Sig Start Date Stop Date Status Note LastModified by Organization Details LastModified Time amoxicillin 500 mg capsule TAKE 4 CAPSULES BY MOUTH AN HOUR BEFORE DENAL APPT 08/21 completed Not Available Not Available Not Available atorvastati n 80 mg tablet active Not Available Not Available Not Available prednisone 10 mg tablet TAKE 6 FOR ONE DAY THEN 5 FOR ONE DAY THEN 4 FOR ONE DAY THEN 3 FOR ONE DAY THEN 2 DAILY 08/21 completed Not Available Not Available Not Available doxycycline hyclate 100 mg capsule TAKE 1 CAPSULE BY MOUTH TWICE A DAY 08/21 completed Not Available Not Available Not Available loperamide 2 mg capsule TAKE 1 CAPSULE (2 MG) ORALLY EVERY 6 HOURS NEEDED FOR LOOSE STOOL FOR 10 DAYS active Not Available Not Available No t Available azithromyci n 250 mg tablet TAKE 2 TABLETS BY MOUTH TODAY, THEN TAKE 1 TABLET DAILY FOR 4 DAYS DIRECTED 08/21 completed Not Available Not Available Not Available FreeStyle Lancets 28 gauge TEST ONCE DAILY 08/21 completed Not Available Not Available Not Available prednisone 5 mg tablet PLEASE SEE ATTACHED FOR DETAILED DIRECTION S 08/21 completed Not Available Not Available Not Available amlodipine 5 mg tablet TAKE 1 TABLET BY MOUTH EVERY DAY IN THE EVENING active Not Available Not Available No t Available omeprazole 40 mg capsule,del ayed release TAKE 1 CAPSULE BY MOUTH EVERY DAY 08/21 completed Not Available Not Available Not Available aspirin 81 mg tablet,jocelyn yed release TAKE 1 TABLET BY MOUTH TWICE A DAY active Not Available Not Available No t Available acetaminoph en 500 mg tablet TAKE 2 TABLETS BY MOUTH EVERY 6 HOURS 08/21 completed Not Available Not Available Not Available levothyroxi ne 75 mcg tablet TAKE 1 TABLET BY MOUTH EVERY DAY 08/21 completed Not Available Not Available Not Available cyclopentol ate 1 % eye drops PUT 1 DROP IN AFFECTED EYE TWICE A DAY DNC 08/21 completed Not Available Not Available Not Available meloxicam 7.5 mg tablet TAKE 1 TABLET BY MOUTH EVERY DAY 08/21 completed Not Available Not Available Not Available levothyroxi ne 100 mcg tablet TAKE 1 TABLET BY MOUTH EVERY DAY 08/21 completed Not Available Not Available Not Available prednisolon e acetate 1 % eye drops,suspe nsion INSTILL 1 DROP IN RIGHT EYE FOUR TIMES A DAY 08/21 completed Not Available Not Available Not Available levothyroxi ne 50 mcg tablet 50 MCG ORALLY DAILY FOR 30 DAYS active Not Available Not Available No t Available prednisone 2.5 mg tablet TAKE 1 TABLET BY MOUTH TWICE DAILY X21 DAYS active Not Available Not Available No t Available erythromyci n 5 mg/gram (0.5 %) eye ointment PLEASE SEE ATTACHED FOR DETAILED DIRECTION S 08/21 completed Not Available Not Available Not Available ferrous sulfate 325 mg (65 mg iron) tablet TAKE 1 TABLET BY MOUTH EVERY DAY active Not Available Not Available No t Available metformin 1,000 mg tablet TAKE 1 TABLET BY MOUTH TWICE A DAY active Not Available Not Available No t Available pyridostigm ine bromide 60 mg tablet TAKE 2 TABLETS 3 TIMES A DAY active Not Available Not Available No t Available metoprolol succinate ER 25 mg tablet,exte nded release 24 hr TAKE 1/2 TAB BY MOUTH ONCE A DAY active Not Available Not Available No t Available cefuroxime axetil 500 mg tablet TAKE 1 TABLET BY MOUTH EVERY 12 HOURS 08/21 completed Not Available Not Available Not Available albuterol sulfate HFA 90 mcg/actuati on aerosol inhaler INHALE 2 PUFF INHALED 4 TIMES A DAY NEEDED FOR FOR WHEEZING FOR 30 DAYS 08/21 completed Not Available Not Available Not Available amoxicillin 875 mg-potassiu m clavulanate 125 mg tablet TAKE 1 TABLET BY MOUTH TWICE A DAY 08/21 completed Not Available Not Available Not Available oxycodone 5 mg tablet TAKE 1 TABLET BY MOUTH 4 TIMES A DAY NEEDED FOR PAIN 08/21 completed Not Available Not Available Not Available neomycin 3.5 mg/g-polymy luis daniel B 10,000 unit/g-dexa meth 0.1 % eye oint APPLY SMALL AMOUNT TO AFFECTED AREA THREE TIMES DAILY 08/21 completed Not Available Not Available Not Available ezetimibe 10 mg tablet TAKE 1 TABLET DAILY active Not Available Not Available No t Available Restasis active Not Available Not Avai lable Not Available FreeStyle Lite Strips USE DIRECTED TO TEST ONCE A DAY 08/21 completed Not Available Not Available Not Available Senexon-S 8.6 mg-50 mg tablet TAKE 2 TABLETS BY MOUTH AT BEDTIME 08/21 completed Not Available Not Available Not Available tranexamic acid 650 mg tablet TAKE 2 TABLETS BY MOUTH THE MORNING OF SURGERY DIRECTED 08/21 completed Not Available Not Available Not Available Antiseptic Skin Cleanser (chlorhexid ine) 4 % liquid APPLY 1 APPLICATI ON DIRECTED APPLY ONCE THE NIGHT BEFORE SURGERY AND ONCE THE MORNING OF SURGERY. 08/21 completed Not Available Not Available Not Available Trulicity 0.75 mg/0.5 mL subcutaneou s pen injector INJECT 0.75 MG (0.5 ML) SUBCUTANE OUSLY EVERY WEEK FOR 4 WEEKS active Not Available Not Available No t Available Vitals Date Recorded Respiratory rate Heart rate Systolic blood pressure Diastolic blood pressure Provider Name and Address Organization Details Last Updated DateTime 06/25/2024 12 /min 60 /min 120 mm[Hg] 70 mm[Hg] Charly Sims MD [address] [facility],[address], [place], [address], [place] - [facility] 12:03:46 Date Recorded Body weight Provider Name an d Address Organization Details Last Updated DateTime 08/21/2024 92484.78 g Jocelyn Frank [place] - [facility] 08/21/2024 10:31:55 Date Recorded Heart rate Respiratory rate Systolic blood pressure Diastolic blood pressure Provider Name and Address Organization Details Last Updated DateTime 08/21/2024 70 /min 12 /min 120 mm[Hg] 80 mm[Hg] Charly Sims MD [address] [facility],[address], [place], [address], [place] - [facility] 10:51:16 Social History None recorded. Functional Status None recorded. Mental Status None recorded. Family History Relationship Description Onset Age of this Age Resolved Age Notes LastModified by Organization Details LastModified Time Father No current problems or disability tlanna Not available 06/25 12:05:11 Mother No current problems or disability tlanna Not available 06/25 12:05:11 Medical History No medical history recorded. Past Encounters Encounter ID Performer Location Encounter Start Date Encounter Closed Date Diagnosis/Indication Diagnosis SNOMED-CT Code Diagnosis ICD10 Code Diagnosis Note [id number] Charly Sims MD [address] [address] 06/25/2024 11:24:23 06/25/2024 14:11:54 Preoperative cardiovascular examination 429038892 Z01.810 Atheroscle rosis of coronary artery without angina pectoris 1406168670 49679 I25.10 Aortic valve stenosis 60 900354 I35.0 Non-rheuma tic mitral valve stenosis 060350847 I34.2 [id number] Charly Sims MD [address] [address] 08/21/2024 10:22:16 08/21/2024 11:09:25 Edema of lower extremity 525193882 R60.0 Atheroscle rosis of coronary artery without angina pectoris 1074233249 44351 I25.10 Essential hypertension 61576998 I10 Health Concerns Section Related Observation LastModified by Organization Detai ls LastModified Time None Recorded Concern Status LastModified by Organization Details LastModified Time None Recorded Advance Directives Directive None Recorded Payers Encounter Date Sequence Insurance Name Policy Number Policy Dai Covered Member ID Dai Member ID Guarantor Name 06/25/2024 2 [facility] (MEDICARE SUPPLEMENT) Kareem Fletcher [id number] Kareem Fletcher 06/25/2024 1 MED[place]: MEDICARE SERVICES - NATIONAL GOVERNMENT SERVICES Kareem Fletcher [id number] Kareem Fletcher 08/21/2024 2 [facility] (MEDICARE SUPPLEMENT) Kareem Fletcher [id number] Kareem Fletcher 08/21/2024 1 MED[place]: MEDICARE SERVICES - NATIONAL GOVERNMENT SERVICES Kareem Fletcher [id number] Kareem Fletcher Notes Date Note Type Note Provider Name and Address Organization Details Recorded Time 06/25/2024 text/html Patient is refer red for cardiac assessment prior to elective hip replacement surgery. As you are aware he is a 73-year-old gentleman we have most of his care in [place] at [place] where he underwent a four-vessel bypass in 2021. Since that time they have been following some valvular abnormalities. He offers he has not had any chest pains since his surgery. In January of this year he had a normal myocardial perfusion study. In May of this year he had an echocardiogram that showed normal LV function. He had mild aortic stenosis with a mean gradient of 10 and mild to moderate mitral stenosis with a mean gradient of 6. 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 He offers are somewhat limited to hip pain and is scheduled for hip replacement on July 22. For that reason were asked to see him from a cardiac standpoint. He reports no chest pains palpitations or dyspnea. He denies any paroxysmal internal dyspnea lower extremity edema. Charly Sims MD [address] [facility],[address], [place], [address], [facility] - [facility] 06/25/2024 12:07:51 08/21/2024 text/html Patient comes in as a sick visit. He is approximately 3 weeks following a left total hip replacement. He reports no cardiac issues around the time of surgery but he did have elevated blood sugars. He returned home and his physical therapist noticed he had some edema more prominently in the left leg where he had the surgery but also on the right leg. He offers referred for lower extremity ultrasounds which were negative. He kept his legs elevated and it significantly improved and is undergoing physical therapy. He is walking with a cane. He denies any associated chest pains palpitations or dyspnea. As you recall we recently met him and he has a history of coronary disease with a CABG with normal LV function with mild valvular abnormalities. He has not had any angina. Charly Sims MD [address] [facility],[address], [place], [address], [place] - [facility] 08/21/2024 11:04:18
--- OUTSIDE RECORDS SUMMARY | 2024-10-24 08:39 | XMS_ITS ---
Author Organization [facility] Address [address] [place] [address] Care Team Providers Care Laboratory Engineer Name Role Phone Clement Alaniz Primary Care Provider Unavailab Maciej John Unavailable [phone] REASON FOR VISIT Purchased Biofreeze roll on Encounters Encounter Location Date Provider Diagnosis [facility] [address] [place] [address] 02/26/2024 Maciej Whitaker Plan Of Treatment No Information Progress Notes * Kareem FLETCHER MDOB:[birth year] (73 yo M)Acc No.[id number]:02/26/2024 Patient:?Kareem Fletcher :1950???Age:73 Y???Sex:Male Address:[address] [place], [place] [address], [address] * true * Date:? Generated for Ferchoi astrid/Gray/eTransmitting on:?10/24/2024 08:38 AM EDT
--- OUTSIDE RECORDS SUMMARY | 2024-10-24 08:39 | XMS_ITS | Patient Health Record ---
Author Organization [facility] Verena Del Real Address [address] [place] [address] Care Team Providers Care Banquet Captain Name Role Phone Clement Alaniz Primary Care Provider Unavailab Maciej John Unavailable [phone] Allergies Allergen (clinical drug ingredient) Drug/Non Drug Allergy documented on EMR Reaction Allergy Type Onset Date Status Bee Sting Unknown Allergy Active codeine Codeine Unknown Drug Allergy Active Reason For Referral No Information Medications Medication SIG (Take, Route, Frequency, Duration) Notes Start Date End Date Status Clopidogrel Bisulfate 75 MG Orally Once a day Active Plavix 75 MG Orally Once a day Not-Taking Levothyroxine Sodium 100 MCG 1 tablet in the morning on an empty stomach Orally Once a day for 30 day(s) Active Mobic 15 mg qd Not-Taki ng aspirin baby every night Activ e Synthroid 112 MCG 1 tablet every morning on an empty stomach Orally Once a day Not-Taking Ciclopirox 0.77 % 1 application to affected area Externally Twice a day to effected nails for 30 days 06/30/2021 Active Lidoderm 5 % 1 patch to skin remove after 12 hours Externally Once a day for 30 days 12/17/2017 Not-Taking Restasis Active Lipitor 80 MG 1 tablet Orally Once a day for 30 day(s) Active pyRIDostigmine Jbphh Active Lasix 20 MG 1 tablet Orally Once a day for 30 day(s) Not-Taking Amoxicillin 500 MG 1 capsule Orally every 8 hrs for 10 day(s) Before Dentist/Foot appt - PRN 07/22/2013 Active Juana 5-20 MG Orally Once a day for high BP Not-Taking Travatan Z Active Vitamin B 12 injection once a week Active Immunizations Vaccine Route Administration Date Status Comme nts COVID-19 [employer] Beltran/Caden Unknown 07/06/2021 Administered 1st 11/10/2020 Influenza Unknown 05/19/2019 Pending Influenza Unknown 04/13/2021 Administered Social History Tobacco Use: Social History Observation Description Date Details (start date - stop date) Never Smoker NA - NA Tobacco Use/Smoking Question Answer Notes Are you a: nonsmoker Alcohol Screen Question Answer Notes Did you have a drink containing alcohol in the p ast year? No Points 0 Interpretation Negative Tobacco use other than smoking: Question Answer Notes Are you an other tobacco user? 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, Chronic Encounters Encounter Location Date Provider Diagnosis [facility] [place] [address] [place] [address] 02/26/2024 Maciej Whitaker Plan Of Treatment Pending Test Test Name Order Date X ray : Foot, left 3V 06/08/2016 62011-NLRKOSR NAIL, 6 OR MORE 07/08/2018 59581-XINQOQU NAIL, 6 OR MORE 09/09/2018 34111-VDOWYEN NAIL, 6 OR MORE 11/11/2018 18692-PXIVUXT NAIL, 6 OR MORE 01/13/2019 75972-PSWTDDI NAIL, 6 OR MORE 03/17/2019 87759-FZATPGY NAIL, 6 OR MORE 05/19/2019 39663-RHAYBSA NAIL, 6 OR MORE 07/28/2019 14418-IUWLZPE NAIL, 6 OR MORE 09/29/2019 79563-CANHFAC NAIL, 6 OR MORE 12/01/2019 21233-KSTOTWC NAIL, 6 OR MORE 02/02/2020 18817-YXLZJVJ NAIL, 6 OR MORE 04/05/2020 02624-MORAFFF NAIL, 6 OR MORE 06/14/2020 64200-VBFEGLE NAIL, 6 OR MORE 08/16/2020 65323-GGRXRVS NAIL, 6 OR MORE 11/22/2020 22628-XWUZAKI NAIL, 6 OR MORE 01/31/2021 40100-ELTLDSD NAIL, 6 OR MORE 04/25/2021 48896-GFZNDPT NAIL, 6 OR MORE 06/30/2021 61554-DFWEHQL NAIL, 6 OR MORE 10/31/2021 24048-Zlfl Destruction, 1-12/28/2011 64997-Ehdi Destruction, 1-02/29/2012 88214-Vijywiiu Plate 02/29/2012 34639-Ehevvqoj Plate 05/09/2012 64136-Bmcyyzwk Plate 07/18/2012 57193-Awcslqif Plate 05/04/2011 91670-Fahgstwd Plate 06/29/2011 86057-Orkenyly Plate 08/24/2011 76124-Slrmpdur Plate 10/30/2011 21998-Jcnjfame Plate 12/28/2011 91537-Twjutdvo Plate 10/10/2012 84740-Jucdnphi Plate 01/16/2013 75779-Uzknrypm Plate 04/24/2013 50213-Wvwajpvm Plate 07/24/2013 16952-Wcgamirr Plate 10/06/2013 12546-Fzpnslhu Plate 01/12/2014 32619-Qmlwrqov Plate 04/16/2014 75585-Jbgruykc Plate 07/16/2014 23669-Dvgouiar Plate 08/17/2016 38356-Iebywacy Plate 10/19/2016 70918-Yanmsbbv Plate 03/27/2016 18783-Quyxbfmg Plate 06/08/2016 45569-Udlifhuj Plate 01/08/2017 96572-Ofndhsxq Plate 03/26/2017 39074-Iwgphlht Plate 05/28/2017 92340-Lcyuxrwt Plate 07/30/2017 94922-Jsigrczs Plate 07/20/2014 38629-Emmxthsv Plate 09/21/2014 07153-Ifvxvmpp Plate 11/26/2014 33715-Gxharfbd Plate 02/04/2015 81704-Pamyrbwf Plate 04/15/2015 50297-Fjtklpvk Plate 06/24/2015 03280-Yuhbgqpb Plate 09/16/2015 93782-Rnoegqmc Plate 11/18/2015 76260-Mjcotvvk Plate 01/20/2016 65431-Fupnkwra Plate 10/31/2021 10604-Izacghzs Plate 06/30/2021 58649-Ykzcicsx Plate 04/25/2021 59580-Eqlrqwhh Plate 01/31/2021 26560-Xytvtpot Plate 11/22/2020 25733-Bemkgntw Plate 08/16/2020 07900-Louapngj Plate 06/14/2020 26103-Slsjfwgv Plate 04/05/2020 52307-Cxjdahlx Plate 02/02/2020 82067-Zpecezem Plate 12/01/2019 31099-Nscycppu Plate 09/29/2019 73160-Qkivmpwy Plate 07/28/2019 21011-Gsfwipjf Plate 05/19/2019 38794-Fhwelrlv Plate 03/17/2019 76266-Flfqtona Plate 01/13/2019 44717-Qrzwhpyg Plate 07/08/2018 07774-Hdmjzgtr Plate 11/11/2018 40902-Iwguzfui Plate 09/09/2018 79279-Uppiptem Plate 05/13/2018 92845-Xecdouoy Plate 10/01/2017 64301-Hdmhbdhp Plate 12/17/2017 04933-Nbnlxndg Plate 02/18/2018 48011-Fjunsqqg Plate Each Additional 09/2017 95422-Gjqcwoml Plate Each Additional 05/2018 29788-Zwqmmxaw Plate Each Additional 03/2018 58594-Alebipov Plate Each Additional 98819-Vidrduqh Plate Each Additional 82018-Woaatksp Plate Each Additional 12795-Nzldtqvk Plate Each Additional 64148-Szmhugbo Plate Each Additional 09/2018 45285-Jxbitmfl Plate Each Additional 11/2018 76923-Turxwcuf Plate Each Additional 01/2019 91598-Skpslsii Plate Each Additional 03/2019 46595-Zxaknjoa Plate Each Additional 83616-Ttrmdxrd Plate Each Additional 55818-Hduzwmfa Plate Each Additional 01117-Igcrjibx Plate Each Additional 08592-Ywtvxttz Plate Each Additional 89060-Vckzgnol Plate Each Additional 10/2019 65441-Ekjwjekc Plate Each Additional 12/2020 37566-Vwfnzblo Plate Each Additional 97419-Eudpgmcw Plate Each Additional 52500-Yqwzbpol Plate Each Additional 57743-Wlcoscxk Plate Each Additional 41314-Mqmxjhzn Plate Each Additional 85886-Gfppiytq Plate Each Additional 05/2016 63963-Ysbrgrhp Plate Each Additional 03/2016 08806-Ruimzrlr Plate Each Additional 12/2015 80149-Nmdvjrrc Plate Each Additional 27096-Ezpmejfv Plate Each Additional 11/2014 56123-Huwkuvxe Plate Each Additional 98120-Jwbcttzk Plate Each Additional 45112-Qkhnwaba Plate Each Additional 05/2015 70869-Ztjhiufc Plate Each Additional 81054-Zxqgadai Plate Each Additional 44462-Htzdgysk Plate Each Additional 04067-Qwezpeop Plate Each Additional 18022-Jgxumwnc Plate Each Additional 99783-Wwmnxefo Plate Each Additional 05/2017 51265-Khgbdusi Plate Each Additional 46544-Vwsxqmwz Plate Each Additional 01/2017 30433-Vgiokhww Plate Each Additional 12/2013 12046-Vntjkzpo Plate Each Additional 12/2013 69464-Sonpjwgn Plate Each Additional 10/2013 75176-Domxuzug Plate Each Additional 42566-Dyumszew Plate Each Additional 28621-Dcxldchj Plate Each Additional 06361-Uqnrrmec Plate Each Additional 02/2013 32361-Nnxbsafr Plate Each Additional 08/2012 82312-Kzrrjoxj Plate Each Additional 35103-Huxnnytm Plate Each Additional 39611-Gcbpmhdj Plate Each Additional 86358-Cfokpvxu Plate Each Additional 69054-Btzjmwiq Plate Each Additional 02/2012 86036-Wdlbhrhi Plate Each Additional 96143-Rruqdaha Plate Each Additional 84061, Y4361-WVHBC/INJECT, JOINT/BURSA 0 10/01/2017 77249,F5538-RXK TENDON SHEATH/LIGAMENT 1 Insurance Providers Payer Name Payer Address Payer Phone Subscriber Number Group Number Insured Name Patient Relationship to Insured Coverage Start Date Coverage End Date Medicare [facility] [address] [place] [address] [id number] Kareem Fletcher Self - patient is the insured [facility] [address] [place] [address] [id number] BrennannoelleKareem Self - patient is the insured Medical (General) History Medical History History ICD Code thyroid disorder mumps measles gall bladder problems chicken pox Cholesterol back, hip, knee pain Arthritis Surgical History Surgery Date(Month/Year) arm 1997 cataract extraction w/IOL OU 2008 cholecystectomy 1998 knee surgery tonsillectomy 1954 oral surgery 01/11/12 laser eyes surgery OD 2011 Total right knee replacement 09/05/2012 MRI 01/27/21 Hospitalization History Reason Date(Month/Year) [facility] pneumonia/ MG 09/12- [facility] ER - heachache 04/24/2021
[2024-10-24 11:26] LABS: Hemoglobin 11.2 g/dl (14.0-18.0); Mean Corpuscular HGB Conc 31.1 g/dl (31.0-36.0); Mean Corpuscular Hemoglobin 26.7 pg (27.0-33.0); Mean Corpuscular Volume 85.7 fL (80.0-98.0); Mean Platelet Volume 10.3 fL (9.4-12.4); Platelet Count 282 X10*3/uL (160-400); Red Cell Distribution Width 14.7 % (11.0-16.0); White Blood Count 7.4 X10*3/uL (4.8-10.8)
[2024-10-24 11:39] LABS: Estimated Average Glucose 163 mg/dL; Hemoglobin A1C 166.9319 umol/L; Hemoglobin A1c % 7.3 % (<6.0); Total Hemoglobin (HGBA1C) 2980.7732 umol/L
[2024-10-24 11:43] LABS: Alanine Aminotransferase 25 U/L (0-40); Albumin Level 3.7 g/dL (3.5-5.0); Alkaline Phosphatase 67 U/L (39-117); Anion Gap 11 (12-20); Aspartate Amino Transferase 21 U/L (5-37); Bilirubin Total 0.3 mg/dL (0.0-1.0); Blood Urea Nitrogen 20 mg/dL (9-16); Calcium 9.1 mg/dL (8.4-10.2); Carbon Dioxide 29 mmol/L (22-29); Chloride 108 mmol/L (96-108); Cholesterol 150 mg/dL (<200); Estimated Glomerular Filt Rate > 60; Glucose Fasting 110 mg/dL (60-99); HDL Cholesterol 70 mg/dL (>40); LDL Cholesterol Calculated 59 mg/dL (<100); Potassium 4.2 mmol/L (3.3-5.1); Sodium 144 mmol/L (135-145); Total Protein 6.5 g/dL (6.5-8.0); Triglycerides 107 mg/dL (<150)
[2024-10-24 11:51] LABS: Creatinine Urine 78.41 mg/dL; Microalbum/Creatinine Ratio Ur 25.5 ug/mg cr (<30)
== END 2024-10-24 08:33 | disposition home or self-care (01) ==
LOC: HO.HMGCLDS 08:32
PROVIDERS: PCP Physician Assistant; Visit Provider Physician Assistant
DX: I10 Essential (primary) hypertension (principal); E78.2 Mixed hyperlipidemia; E11.9 Type 2 diabetes mellitus without complications
CPT/HCPCS: 36415; 80053; 80061; 82043; 82570; 83036; 85027

== ENCOUNTER 2024-11-18 11:04 | Outpatient (AMB) | payer MEDICARE, OTHER, SELFPAY ==
--- NOTE | 2024-11-18 11:40 | A.OFFPC_ITS ---
Vital Signs 11/18/24 11:41 Height 5 ft 7 in Weight 159 lb BMI 24.9 BP 132/70 Blood Pressure Location Lt brachial Position Sitting Pulse 42 L Pulse Source Pulse Oximeter Temp 96.6 F L Temp Source Temporal Artery Scan Pulse Oximetry (%) 98 Oxygen Delivery Method Room Air Intake Visit Reasons: 6 Month Follow up Line Welder Required: No Accompanied by: Self / Same As Patient Allergies codeine [CODEINE] Allergy (Intermediate, Verified 11/18/24 12:01) VOMITING Medication List - Last Reconciled 11/18/24 by Clement Alaniz PA-C albuterol sulfate 90 mcg/actuation 2 puffs inhalation QID PRN 30 days amlodipine 5 mg PO QPM 90 days aspirin 81 mg PO DAILY atorvastatin 80 mg PO DAILY blood sugar diagnostic (FreeStyle Lite Strips) As directed blood-glucose meter (FreeStyle Lite Meter kit) As directed blood-glucose sensor (FreeStyle Frieda 3 Sensor device) As directed blood-glucose,double corner cutter,cont (FreeStyle Frieda 3 Alder) As directed cholecalciferol (vitamin D3) 50 mcg PO DAILY 90 days dulaglutide (Trulicity) 0.75 mg (0.5 mL) subcut QWEEK 4 weeks ezetimibe 10 mg PO DAILY ferrous sulfate 325 mg PO DAILY fluticasone propionate 50 mcg/actuation (Flonase Allergy Relief) 1 spray intranasal BID 30 days furosemide 20 mg PO DAILY lancets (FreeStyle Lancets) As directed levothyroxine 50 mcg PO DAILY 30 days metformin 500 mg (1/2 x 1,000 mg) PO BID 90 days metoprolol succinate ER 12.5 mg (1/2 x 25 mg) PO DAILY 30 days pyridostigmine bromide 60 mg PO TID spirometers and accessories As directed Tobacco use date assessed: 11/18/24 Fall risk assessment: No Falls in past year Last assessed Fall Risk: 11/18/24 Dental Screening Dental Screen Date: 11/18/24 Did you have a dental visit in the last 12 months?: Yes Did you have a dental problem in the last 6 months where you did not have access to dental care?: No Was dental information given to patient?: Patient has dentist HPI 6 Month Follow up HPI Details Patient is a 73 year-old male here today for follow-up visit. ? Patient has a past medical history significant for hypertension, hyperlipidemia, CVA, BARRY, ocular myasthenia, carotid stenosis, type 2 diabetes,, , CAD. Concern--> The patient has expressed symptoms of constant coldness, which may be linked to a marginally low hemoglobin level of 11.2 g/dL. Iron supplementation is in place, but dosage adjustments are needed. Swelling of the lower extremity has persisted, affecting his ability to wear shoes. It could be related to his cardiac valvular disorder, given his history of hypertension and heart concerns. The diuretic therapy of furosemide 20 mg has been ineffective, and compression therapy was considered. Weight gain raising concerns about potential fluid retention and heart failure-related investigations were highlighted. CAD :? He is status post coronary artery bypass [id number]. He is followed by a gettering filament machine operator now in [place] Most recent echocardiogram stable Recently underwent cardiac stress testing which was essentially normal. He also does have mitral valve stenosis to which he is having monitor with regular echocardiogram .. Type 2 diabetes: Unfortunately Trulicity has been too expensive for him thus has not been taking this medication over the last 2-3 months.. Most recent A1c is 7.3 from 7.1. PLAN; will try an alternative GLP 1 in hopes that patient will be able to afford. Hypertension:? Kareem continues on amlodipine 5 mg daily with good effect on his blood pressure..? Today blood pressure acceptable in office. .. Ocular myasthenia:? Followed by neurologist at [facility].? CONTINUES ON PREDNISONE 5 MG without any acute ocular myasthenia gravis flares. Also Continues pyridostigmine with good effect on reducing his ptosis. .. Hyperlipidemia:? Patient continues on high potency statin and Zetia. .? Most recent LDL slightly above 100. Will continue working on lifestyle modifications to reduce his cholesterol .. BARRY: IS followed by pulmonology, uses CPAP on a nightly basis with good effect. .. Hypothyroid:? Most recent TSH remains low at 0.05. Will reduce his levothyroxine to 75 mcg and recheck TSH in 4 weeks. FOR[facility]LY [facility], [facility] Medical History Osteoarthritis of left shoulder Hypokalemia Mitral stenosis Atherosclerosis of coronary artery Personal history of COVID-19 Constipation by delayed colonic transit BARRY (obstructive sleep apnea) Carotid stenosis BARRY (obstructive sleep apnea) Obesity (BMI 30.0-34.9) Pernicious anemia Surgical History S/P CABG x 4 Hx of colonoscopy History of appendectomy History of cholecystectomy Total knee replacement status History of shoulder surgery History of tonsillectomy and adenoidectomy Family History Father No problems noted. Mother No problems noted. Maternal Grandmother Medical history unknown Brother AA (aortic aneurysm) Maternal Grandmother No problems noted. Mother AA (aortic aneurysm) Sister Primary cancer of shoulder Other Family history of hypercholesterolemia Family history of hypertension Social History Household Members: Significant Other Housing: House Alcohol intake: never Patient Tobacco Use Status: Never used Tobacco e-Cigarette/Vaping Use: Never Used Second Hand Smoke Exposure: No service: Yes Current occupational status: retired Cognitive needs: No Hearing needs: No Vision needs: No Questionnaire PHQ-9 Over the last 2 weeks, how often have you been bothered by any of the following problems? 1. Little interest or pleasure in doing things: not at all 2. Feeling down, depressed, or hopeless: not at all 3. Trouble falling or staying asleep, or sleeping too much: not at all 4. Feeling tired or having little energy: not at all 5. Poor appetite or overeating: not at all 6. Feeling bad about yourself - or that you are a failure or have let yourself or your family down: not at all 7. Trouble concentrating on things, such as reading the newspaper or watching television: not at all 8. Moving or speaking so slowly that other people could have noticed. Or the opposite - being so fidgety or restless that you have been moving around a lot more than usual: not at all 9. Thoughts that you would be better off or of hurting yourself in some way: not at all Total score: 0 Depression Screening Interpretation: Negative Depression Screening Done: Yes 14645 - PHQ-9 Billing: Yes Source: Developed by Drs. Ken Bagley, Tarsha Grant, Maikel Nation and colleagues, with an educational kellie from [employer] Thrive Questionnaire Date Thrive assessed: 11/18/24 I am a: Patient What is your living situation today?: I have a steady place to live Within the past 12 months, did the food you bought not last and you didn't have the money to get more?: Never true Within the past 12 months, did you worry whether your food would run out before you got money to buy more?: Never true Do you have trouble paying for medicines?: No Do you have trouble getting transportation to medical appointments?: No Do you have trouble paying your heating and electricity bill?: No Do you have trouble taking care of your child, family member or friend?: No Do you have trouble with day-to-day activities such as bathing, preparing meals, shopping, managing finances, etc.?: No Are you currently unemployed and looking for a job?: No Are you interested in more education?: No Please select the resources that you would like help with: None Currently or been in a relationship where the following occur: No concerns reported THRIVE Score: 0 AUDIT C Alcohol Use Questionnaire (AUDIT-C) 1. How often do you have a drink containing alcohol?: Never 3. How often do you have six or more drinks on one occasion?: Never Total Score: 0 DISHA-7 AMB Questionnaire DISHA-7 Date DISHA - 7 assessed: 11/18/24 Feeling nervous, anxious, or on edge: 0 = Not at all Not being able to stop or control worryin = Not at all Worrying too much about different things: 0 = Not at all Trouble relaxin = Not at all Being so restless that it is hard to sit still: 0 = Not at all Becoming easily annoyed or irritable: 0 = Not at all Feeling afraid as if something awful might happen: 0 = Not at all Total DISHA-7 score (0-4 normal; 5-9 mild; 10-14 moderate; 15-21 severe): 0 Source: Developed by Drs. Ken Bagley, Tarsha Grant, Maikel Nation and colleagues, with an educational kellie from [employer]. DISHA-7 Assessment Billing DISHA-7 Assessment Tool: DISHA-7 Assessment 12058 Review of Systems Const Denies headache(s) Eyes Denies loss of vision ENT Denies vertigo, Denies dizziness, Denies headache(s) and Denies sore throat Card Denies chest pain, Denies leg edema and Denies lightheadedness Resp Denies cough, Denies hemoptysis and Denies wheezing GI Denies abdominal pain, Denies melena, Denies constipation, Denies diarrhea and Denies vomiting Denies dysuria, Denies urinary frequency and Denies urinary urgency Musc Denies arthralgias, Denies joint swelling, Denies numbness and Denies tingling Neuro Denies Abnormal speech present, Denies behavioral changes, Denies vertigo, Denies dizziness, Denies headache(s), Denies loss of vision, Denies memory loss, Denies numbness and Denies tingling Psych Denies anxiety, Denies behavioral changes, Denies depression, Denies memory loss and Denies panic attacks David/Lymph Denies easy bleeding and Denies easy bruising Aller/Immun Denies wheezing Physical exam (Primary Care) Vital Signs: Last Vital Signs Temp 96.6 F L 11/18/24 11:41 Pulse 42 L 11/18/24 11:41 BP 132/70 11/18/24 11:41 Pulse Ox 98 11/18/24 11:41 Oxygen Delivery Method Room Air 11/18/24 11:41 BMI result Body Mass Index 24.9 Tobacco/Smoking Status: Tobacco use Status Tobacco use date assessed 11/18/24 11/18/24 11:53 Patient Tobacco Use Status Never used Tobacco 11/18/24 11:43 e-Cigarette/Vaping Use Never Used 11/18/24 11:43 PHQ-9: PHQ-9 Score PHQ-9: Total score 0 11/18/24 11:43 Depression Screening Interpretation: Negative Thrive Assessment: Date of Thrive Assessment Date Thrive assessed 11/18/24 11/18/24 11:43 Currently or been in a relationship where the following occur: No concerns reported Const General: healthy appearing, no acute distress, alert and awake Nutritional Appearance: well nourished Orientation/consciousness: oriented to person, oriented to place and oriented to time HENMT Ears: TM's normal bilaterally General nose exam: Normal nasal mucous membranes and turbinates present Eyes Conjunctivae: conjunctivae normal Sclerae: sclerae normal Pupils: Equal, round and reactive pupils present Neck Neck: Yes no lymphadenopathy and Yes no JVD Thyroid: Thyroid normal Carotids: no bruits Resp Effort & Inspection: normal respiratory effort and not tachypneic Auscultation: no crackles, no rales, no rhonchi and no wheezes Cardio Rate: regular rate Rhythm: regular rhythm Heart sounds: no murmurs and normal S1 and S2 GI Palpation (GI): Soft to palpation, nontender, no hepatomegaly and no splenomegaly Auscultation: normal bowel sounds Skin General skin exam: no rashes or lesions noted and dry skin Neuro General: oriented to person, oriented to place and oriented to time Cranial nerves: Yes Equal, round and reactive pupils present Speech: No Abnormal speech present Gait exam (Neuro): Normal gait present Motor exam (neuro): no tremor noted Extrem Other: RIGHT LOWER EXTREMITY: NOTED PITTING EDEMA TO THE LEVEL OF MID RUSHING LEFT LOWER EXTREMITY: TRACE EDEMA TO THE LEVEL OF MID RUSHING Right upper extremity: full ROM Left upper extremity: full ROM Right lower extremity: full ROM and edema Left lower extremity: full ROM and edema Psych Mental Status: mental status grossly normal Speech and movement: Normal speech and movement present Affect: normal affect Attitude: cooperative Thought process: Normal thought process present Coding Level of Care Code Est Pt Level 4 (43962) Diagnoses Type 2 diabetes mellitus without complication, without long-term current use of insulin E11.9 Diabetes mellitus nursing home insulin use: without rn long term care use Diabetes mellitus complication status: without complication Coronary artery disease of [place] artery of [place] heart with stable angina pectoris I25.118 Coronary Disease-Associated Artery/Lesion type: [place] artery [place] vs. transplanted heart: [place] heart Associated angina: with stable angina Ocular myasthenia G70.00 Essential hypertension I10 Hypertension type: essential hypertension Mixed hyperlipidemia E78.2 Hyperlipidemia type: mixed hyperlipidemia Hypothyroidism, unspecified type E03.9 Hypothyroidism type: unspecified Edema of right lower extremity R60.0 Additional Codes DISHA-7 Assessment Billing - DISHA-7 Assessment Tool: DISHA-7 Assessment 66984 ([id number]) PHQ-9 - 52737 - PHQ-9 Billing: Yes ([id number]) Assessment & Plan Assessment & Plan (1) DMII (diabetes mellitus, type 2): Code(s): E11.9 - Type 2 diabetes mellitus without complications Category: Medical Qualifiers: Diabetes mellitus rn long term care insulin use: without rn long term care use Diabetes mellitus complication status: without complication Qualified Code(s): E11.9 - Type 2 diabetes mellitus without complications Plan: Patient's most recent A1c is at 7.3 from 7.1. He has not been to expense. Will try alternative GLP 1 in hopes that it will be cheaper for him. Goal A1c is to be below 7.0 (2) Coronary artery disease: Code(s): I25.10 - Atherosclerotic heart disease of [place] coronary artery without angina pectoris Category: Medical Qualifiers: Coronary Disease-Associated Artery/Lesion type: [place] artery [place] vs. transplanted heart: [place] heart Associated angina: with stable angina Qualified Code(s): I25.118 - Atherosclerotic heart disease of [place] coronary artery with other forms of angina pectoris Plan: He is now followed by gettering filament machine operator in [place]. Continues on statin therapy with good effect. Most recent lipid panel showing excellent control of his total cholesterol and LDL. Goal LDL to be optimally below 70 (3) Ocular myasthenia: Code(s): G70.00 - Myasthenia gravis without (acute) exacerbation Category: Medical Plan: Continues to follow Neurology. Continues on medication for his ocular myasthenia (4) HTN (hypertension): Code(s): I10 - Essential (primary) hypertension Category: Medical Qualifiers: Hypertension type: essential hypertension Qualified Code(s): I10 - Essential (primary) hypertension Plan: Patient's blood pressure acceptable today in office. Will continue his current dose of antihypertensive medication with goal blood pressure to be below 140/90 (5) HLD (hyperlipidemia): Code(s): E78.5 - Hyperlipidemia, unspecified Category: Medical Qualifiers: Hyperlipidemia type: mixed hyperlipidemia Qualified Code(s): E78.2 - Mixed hyperlipidemia Plan: As above goal LDL to be optimally below 70 due to his coronary artery disease. (6) Hypothyroid: Code(s): E03.9 - Hypothyroidism, unspecified Category: Medical Qualifiers: Hypothyroidism type: unspecified Qualified Code(s): E03.9 - H ypothyroidism, unspecified Plan: Most recent TSH low, will recheck TSH to assure normal. He does report feeling some cold intolerance and wonders if his thyroid is off. He continues with levothyroxine 50 mcg on an empty stomach every morning (7) Edema of right lower extremity: Code(s): R60.0 - Localized edema Category: Medical Plan: Have noted right lower extremity edema, advised to increase his Lasix to 40 mg. Patient did have an evaluation in his right lower extremity swelling with ultrasound in July of 2024 which was negative for DVT. Of note patient does have valvular heart disease as well to which he is followed by a gettering filament machine operator. He does report there has been discussions about mitral valve replacement. Orders: Orders IRON PROFILE Today D50.9 - Iron deficiency anemia, unspecified Vitamin B12 and Folate Today D50.9 - Iron deficiency anemia, unspecified, E53.8 - Deficiency of other specified B group vitamins TSH reflex Free T4 Today E03.9 - Hypothyroidism, unspecified Medications: New tirzepatide (Mounjaro) for 4 weeks 2.5 mg (0.5 mL) subcut QWEEK 4 weeks 2 mL 2RF E11.9 - Type 2 diabetes mellitus without complications Refilled amlodipine 5 mg PO QPM 90 days 90 tabs 3RF atorvastatin 80 mg PO DAILY 90 tabs 2RF cholecalciferol (vitamin D3) 50 mcg PO DAILY 90 days 90 caps 2RF D51.0 - Vitamin B12 deficiency anemia due to intrinsic factor deficiency, E55.9 - Vitamin D deficiency, unspecified fluticasone propionate 50 mcg/actuation (Flonase Allergy Relief) administer into each nostril 1 spray intranasal BID 30 days 16 grams 3RF J34.89 - Other specified disorders of nose and nasal sinuses levothyroxine 50 mcg PO DAILY 30 days 30 tabs 2RF E03.9 - Hypothyroidism, unspecified Patient Instructions: Goal: Blood pressure to be below 140/90, A1c to be below 7.0, LDL optimally below 70 Barriers: Adherence to physical activity and healthy eating habits
[2024-11-18 11:41] VITALS: BP 132/70; PULSE 42; TEMP 35.9; O2SAT 98; BMI 24.9
--- OUTSIDE RECORDS SUMMARY | 2024-11-18 13:05 | XMS_ITS | Encounter Summary ---
Author Organization [facility] Address [address] [place] [id number] Care Team Providers Care Shipfitters Supervisor Name Role Phone Evan Mauricio MD Primary Care Provider Encounter Details Date Type Department Care Team (Late st Contact Info) Description 10/20/2020 Transcribed Orders [facility] Specimens [address] [place] [address] Evan Mauricio MD [address] [place] [address] Encntr for obs for susp expsr to oth biolg agents ruled out (Primary Dx); Acute respiratory disease Social History Tobacco Use Types Packs/Day Years Used Date Smoking Tobacco: Never Assessed Sex and Gender Information Value Date Recorded Sex Assigned at Male 07/04/2022 1:37 AM EST Legal Sex Male 11:31 AM EST Gender Identity Male 07/04/2022 1:37 AM EST Sexual Orientation Not on file COVID-19 Exposure Response Date Recorded In the last month, have you been in contact with someone who was confirmed or suspected to have Coronavirus / COVID-19? No / Unsure 10/13/2020 4:01 PM EST documented as of this encounter Plan of Treatment Not on file documented as of this encounter Results * SARS CoV-2 (COVID-19) RNA-[facility] ([facility]) (10/22/2020 10:31 AM EST) SARS-CoV-2 RNA (COVID-19) Negative Negative 10/22/2020 3:21 PM EST [facility] Comment: A negative result does not preclude SARS-CoV-2 infections and should not be used as the sole basis for treatment or other management decisions. ?? This assay is a Nucleic Acid Amplification Test (NAAT)/RT-PCR or TMA ([employer] System). This is run on the Bantr system. It has been validated for clinical use by the [facility] (CLIA #: [id number]). It has been granted Emergency Use Authorization by the [place] FDA. Note that falsely negative results can be due to poor sample quality, suboptimal sample type, low viral load, and viral genome variability. This test has not been evaluated for use in asymptomatic individuals. Test ordering and interpretation is at the discretion of the ordering provider. Patient Information: https://www.fda.gov/media/308241/download ?? Provider Information: https://www.fda.gov/media/319259/download Test performance has not been evaluated in asymptomatic patients. Test ordering and result interpretation is at the discretion of the ordering provider. Viral NASOPHARYNGEAL STRUCTURE / Unknown Collection / Unknown 10/22/2020 10:31 AM EST 10/22/2020 10:58 AM EST Evan Mauricio MD MICROBIOLOGY - GENERAL ORDERA [place]LE [place] [address], [facility] [phone] documented in this encounter Visit Diagnoses Diagnosis [facility]cn[facility] biol agents ruled out- Primary Acute respiratory disease Acute upper respiratory infections of unspecified site documented in this encounter Additional Health Concerns Infection Onset Date Last Indicated Resolved Time R/O COVID-19 10/20/2020 10/22/2020 10/22/2020 3:21 PM EST R/O COVID-19 07/19/2022 07/19/2022 07/19/2022 1:10 PM EST R/O Influenza 07/19/2022 07/19/2022 07/19/2022 1:1 0 PM EST Influenza A 07/19/2022 07/19/2022 07/20/2022 7:18 PM EST R/O Influenza 12/24/2023 12/24/2023 12/24/2023 2:2 6 PM EDT R/O RSV 12/24/2023 12/24/2023 12/24/2023 2:26 PM EDT R/O Respiratory Virus 12/24/2023 12/24/20232023 2:26 PM EDT R/O COVID-19 12/24/2023 12/24/2023 12/24/2023 2:26 PM EDT R/O Influenza 01/07/2024 01/07/2024 01/07/2024 4:0 7 PM EDT R/O RSV 01/07/2024 01/07/2024 01/07/2024 4:07 PM EDT R/O Respiratory Virus 01/07/2024 01/07/20242023 4:07 PM EDT R/O COVID-19 01/07/2024 01/07/2024 01/07/2024 4:07 PM EDT documented as of this encounter Care Teams Shipfitters Supervisor Relationship Specialty Start Date End Date Evan Mauricio MD [address] [place] [address] PCP - General Internal Medicine 12/04/20 documented as of this encounter
--- OUTSIDE RECORDS SUMMARY | 2024-11-18 13:05 | XMS_ITS | Encounter Summary ---
Author Organization [facility] Address [address] [place] [address] Care Team Providers Care Textiles Sales Representative Name Role Phone Evan Mauricio MD Primary Care Provider Encounter Details Date Type Department Care Team (Late st Contact Info) Description 12/24/2023 Transcribed Orders [address] [phone] Evan Mauricio MD [address] [place] [address] Hyperthermia-induce d defect (Primary Dx); Acute cough Social History Tobacco Use Types Packs/Day Years Used Date Smoking Tobacco: Never Alcohol Use Standard Drinks/Week Comments Not Currently 0 (1 standard drink = 0.6 oz pur e alcohol) PHQ-2 Answer Date Recorded PHQ-2 Total Score 0 12/22/2023 Interpersonal Safety Answer Date Record ed Is there anyone in your life that is hurting or threatening you in anyway? no 12/22/2023 Physical Indicators of Abuse No evidence of phys ical abuse 12/22/2023 Sex and Gender Information Value Date Recorded Sex Assigned at Male 07/04/2022 1:37 AM EST Legal Sex Male 11:31 AM EST Gender Identity Male 07/04/2022 1:37 AM EST Sexual Orientation Not on file documented as of this encounter Plan of Treatment Not on file documented as of this encounter Procedures Procedure Name Priority Date/Time Associated Diagnosis Comments SARS-COV-2 (COVID-19)/INFLUENZ A A+B/RSV BY RT-PCR ([facility]) Routine 12/24/2023 1:14 PM EDT Hyperthermia-induce d defect Acute cough documented in this encounter Results * Blood culture (12/24/2023 1:48 PM EDT) Blood Culture No Growth after 5 days of incubation 12/30/2023 12:00 AM EDT [facility] Blood PERIPHERAL BLOOD SPECIMEN / Unknown Venipuncture / Unknown 12/24/2023 1:48 PM EDT 12/24/2023 1:52 PM EDT Narrative [facility] - 12/30/2023 12:00 AM EDT All blood culture bottles with growth will be reported. Evan Mauricio MD MICROBIOLOGY - GENERAL ORDERA BLES Final Result Performing Organization Address [facility] Co de Phone Number [facility]ICINE [address] [place] [address] * Blood culture (12/24/2023 1:48 PM EDT) Pathologist [facility] Blood Culture No Growth after 5 days of incubation 12/30/2023 12:00 AM EDT [facility] Blood PERIPHERAL BLOOD SPECIMEN / Unknown Venipuncture / Unknown 12/24/2023 1:48 PM EDT 12/24/2023 1:52 PM EDT [facility] DEPARTMENT OF LABORATORY MEDICINE - 12/30/2023 12:00 AM EDT All blood culture bottles with growth will be reported. Evan Mauricio MD MICROBIOLOGY - GENERAL ORDERA BLES Final Result Performing Organization Address City/[facility]/ZIP Co de Phone Number [facility]INE [address] [place] [address] * SARS-CoV-2 (COVID-19)/Influenza A+B/RSV by RT-PCR ([facility]) (12/24/2023 1:14 PM EDT) Influenza A Negative Negative 12/24/2023 2:26 PM T [facility] Comment:Negative results do not preclude infection from influenza or other respiratory viruses and should not be used as the sole basis for treatment or management. Influenza may exhibit genomic variation among circulating and newly emerging strains that may lead to unexpected falsely negative results for some tests. For all respiratory pathogens, falsely negative results may also arise from poorly collected specimens. If concerns remain high, providers should contact the laboratory for potential testing by an alternative testing method and/or submit a new well-collected nasopharyngeal specimen. Influenza B Negative Negative 12/24/2023 2:26 PM EDT [facility] Respiratory Syncytial Virus Negative Negative 12/24/2023 2:26 PM [facility] SARS-CoV-2 RNA (COVID-19) Negative Negative 12/24/2023 2:26 PM [facility] Comment: SARS-CoV-2 target nucleic acids not detected. Depending on assay used, testing was performed using one of the following tests. Contact the laboratory if the specific assay used impacts clinical care. Fact Sheet for Healthcare Providers: Cepheid Xpert Xpress SARS-CoV-2: https://www.fda.gov/media/482894/download Cepheid Xpert Xpress CoV-2 plus: https://www.fda.gov/media/133764/download Cepheid Xpert Xpress SARS-CoV-2/Flu/RSV plus: https://www.fda.gov/media/973004/download Fact Sheet for Patients: Cepheid Xpert Xpress SARS-CoV-2: https://www.fda.gov/media/290997/download Cepheid Xpert Xpress CoV-2 plus: https://www.fda.gov/media/147338/download Cepheid Xpert Xpress SARS-CoV-2/Flu/RSV plus: https://www.fda.gov/media/526811/download Test performed using the GeneXpert real-time RT-PCR assay. Test performance has not been evaluated in asymptomatic patients. Test ordering and result interpretation is at the discretion of the ordering provider. Test performed at: [place] [address] Director: Naomi Pack MD CLIA: [id number] Viral NASOPHARYNGEAL STRUCTURE / Unknown Collection / Unknown 12/24/2023 1:14 PM EDT 12/24/2023 1:15 PM EDT Evan Mauricio MD MICROBIOLOGY - GENERAL ORDERA BLES Final Result Performing Organization Address City/State/[facility] [place] [address], [facility] [phone] documented in this encounter Visit Diagnoses Diagnosis Hyperthermia-induced defect- Primary Fever, unspecified Acute cough documented in this encounter Additional Health Concerns Infection Onset Date Last Indicated Resolved Time R/O Influenza 12/24/2023 12/24/2023 12/24/2023 2:2 6 [...] COVID-19 01/07/2024 01/07/2024 01/07/2024 4:07 PM EDT Assessment Noted Time PHQ-9 Depression Total Score: 0 12/22/19 24 5:57 PM EDT documented as of this encounter Care Teams Textiles Sales Representative Relationship Specialty Start Date End Date Evan Mauricio MD [address] [place] [address] PCP - General Internal Medicine 12/04/20 documented as of this encounter
--- OUTSIDE RECORDS SUMMARY | 2024-11-18 13:05 | XMS_ITS | Patient Health Record ---
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, Chronic Encounters Encounter Location Date Provider Diagnosis [facility] [place] [address] [place] [address] 02/26/2024 Maciej Whitaker Plan Of Treatment Pending Test Test Name Order Date X ray : Foot, left 3V 06/08/2016 15439-IZPMFPW NAIL, 6 OR MORE 11/11/2018 67698-TYPYXWC NAIL, 6 OR MORE 01/13/2019 68348-EVKOTMR NAIL, 6 OR MORE 05/19/2019 55159-WGETKEK NAIL, 6 OR MORE 07/28/2019 20083-CVSJUID NAIL, 6 OR MORE 09/29/2019 86955-YNDEKCP NAIL, 6 OR MORE 12/01/2019 54058-JOTJLMX NAIL, 6 OR MORE 02/02/2020 84203-EZMEPVF NAIL, 6 OR MORE 04/05/2020 53734-QEHKUQV NAIL, 6 OR MORE 06/14/2020 21959-JTHCCSZ NAIL, 6 OR MORE 08/16/2020 17642-VJWALTC NAIL, 6 OR MORE 11/22/2020 81056-QPAEAOH NAIL, 6 OR MORE 01/31/2021 33106-IJSDYBT NAIL, 6 OR MORE 04/25/2021 15073-TXLXEPD NAIL, 6 OR MORE 06/30/2021 84841-NEBGGDU NAIL, 6 OR MORE 10/31/2021 59810-GSPFDBL NAIL, 6 OR MORE 03/17/2019 75522-SLWIRWT NAIL, 6 OR MORE 09/09/2018 68533-JCEVTOH NAIL, 6 OR MORE 07/08/2018 54702-Qigu Destruction, 1-02/29/2012 15481-Grdz Destruction, -12/28/2011 74056-Bzigvkjm Plate 10/30/2011 52482-Sdpqazrn Plate 12/28/2011 83786-Iwbqynew Plate 02/29/2012 77171-Wnatlbnj Plate 01/12/2014 30591-Bbmwskhh Plate 07/08/2018 99436-Dvjyvred Plate 03/17/2019 49906-Elxiztcu Plate 11/11/2018 11841-Libijwfs Plate 09/09/2018 87813-Cbvgvfoe Plate 10/31/2021 35239-Iaudyfto Plate 08/17/2016 82046-Ynueuorm Plate 11/18/2015 14816-Uwauhhes Plate 06/24/2015 50292-Bdbmjpyn Plate 06/30/2021 45848-Qrerlgks Plate 04/25/2021 76347-Isevycjm Plate 01/31/2021 74918-Jyzysmvk Plate 11/22/2020 93407-Lmjukhde Plate 08/16/2020 21826-Tstihupx Plate 06/14/2020 36915-Tgehxymm Plate 04/05/2020 62607-Dbwrehte Plate 02/02/2020 29223-Mfbojmbo Plate 12/01/2019 34782-Gpdaniym Plate 09/29/2019 71701-Kpiagnqw Plate 07/28/2019 24512-Hofnomjj Plate 05/19/2019 82639-Uvrzulqb Plate 01/13/2019 57297-Fqadvstk Plate 02/18/2018 23273-Lnpsdnzs Plate 05/13/2018 83992-Uhawbvyv Plate 07/30/2017 39005-Areatffc Plate 10/01/2017 67796-Zmvgrqkw Plate 12/17/2017 71159-Pslfholc Plate 10/19/2016 57629-Asluydlx Plate 01/20/2016 04470-Nfhtozjj Plate 03/27/2016 02250-Iddxozbg Plate 06/08/2016 09995-Azpukwki Plate 01/08/2017 55065-Chazdmhq Plate 03/26/2017 94420-Gktzslsv Plate 05/28/2017 64029-Vzbzjeei Plate 05/04/2011 02859-Xeeyhmzb Plate 06/29/2011 74135-Awqggmva Plate 08/24/2011 44256-Nnvmzcch Plate 05/09/2012 45526-Eqppfdsj Plate 07/18/2012 01030-Uwwqatgj Plate 10/10/2012 92073-Agfxczlx Plate 01/16/2013 08774-Yuvnxytr Plate 04/24/2013 78325-Pqlyisum Plate 07/24/2013 00465-Hvfjsitw Plate 10/06/2013 12676-Ecsqgshj Plate 04/16/2014 23663-Yhznffkq Plate 07/16/2014 49712-Zlppwkhi Plate 07/20/2014 63946-Gxythhsp Plate 09/21/2014 70265-Koxwlxos Plate 11/26/2014 59101-Oaedujop Plate 02/04/2015 94098-Udcbyscl Plate 04/15/2015 08158-Feylqlkg Plate 09/16/2015 81844-Liduhlfq Plate Each Additional 12/2015 98101-Eyzlbksv Plate Each Additional 11/2014 03624-Zmptfiwz Plate Each Additional 79658-Kkjuekro Plate Each Additional 76919-Ujiejqbz Plate Each Additional 05/2015 65055-Axucwwwa Plate Each Additional 12/2013 61110-Lyyhecri Plate Each Additional 12/2013 94189-Afprvbfk Plate Each Additional 91107-Pyvjfjsb Plate Each Additional 16552-Qpbvjnnq Plate Each Additional 91430-Wxmzdhua Plate Each Additional 02/2013 66790-Vjjhrolz Plate Each Additional 08/2012 43902-Seyjpgdq Plate Each Additional 02/2012 12792-Qyomhwbe Plate Each Additional 34186-Hynqxjkm Plate Each Additional 00130-Grqheiac Plate Each Additional 78728-Nzktkajg Plate Each Additional 30138-Dnjismnj Plate Each Additional 82734-Wdjpcgpn Plate Each Additional 66343-Gifacmrj Plate Each Additional 22945-Ulklwxjc Plate Each Additional 24650-Jaxvzjju Plate Each Additional 05/2016 40814-Fbzymsqi Plate Each Additional 05/2017 08448-Yxwjcopu Plate Each Additional 66179-Eithodxd Plate Each Additional 05/2018 38592-Maugxeya Plate Each Additional 03/2018 37191-Pevduzvx Plate Each Additional 52486-Dpfxhvcn Plate Each Additional 10063-Qmuotojh Plate Each Additional 09/2018 62818-Iakcowju Plate Each Additional 09/2017 59356-Dmvwooqg Plate Each Additional 11/2018 95506-Rikgfucl Plate Each Additional 03/2019 67124-Vmozvaim Plate Each Additional 31734-Ailpexsr Plate Each Additional 51056-Cttswfoa Plate Each Additional 20404-Jwfxlqlc Plate Each Additional 77259-Zvxawscf Plate Each Additional 47606-Xtiizcnm Plate Each Additional 10/2019 71850-Pwvxnkya Plate Each Additional 12/2020 75313-Zlvvhciz Plate Each Additional 03978-Rekjkwsi Plate Each Additional 71242-Irxjxtgn Plate Each Additional 13489-Fofipjpi Plate Each Additional 13046-Cprksatp Plate Each Additional 62320-Kndjgivz Plate Each Additional 03/2016 88003-Hzdiobdr Plate Each Additional 01/2017 94213-Knaxpeiu Plate Each Additional 05307-Ewafmxjp Plate Each Additional 01/2019 46731-Okjejlll Plate Each Additional 03140-Cxqexlqc Plate Each Additional 17670-Vienkylp Plate Each Additional 10/2013 05276-Hwktpyzs Plate Each Additional 85102-Gzfeqfyu Plate Each Additional 43597-Vdjhkssk Plate Each Additional 38436, L8629-CJCGI/INJECT, JOINT/BURSA 0 10/01/2017 11799,N5948-KXC TENDON SHEATH/LIGAMENT 1 Insurance Providers Payer Name Payer Address Payer Phone Subscriber Number Group Number Insured Name Patient Relationship to Insured Coverage Start Date Coverage End Date Medicare [facility] [address] [place] [address] [id number] Kareem Fletcher Self - patient is the insured [facility] [address] [place] [phone] [id number] BrennannoelleKareem Self - patient is the insured [...] 09/05/2012 MRI 01/27/21 Hospitalization History Reason Date(Month/Year) [facility] pneumonia/ MG 09/12- [facility] ER - heachache 04/24/2021
--- OUTSIDE RECORDS SUMMARY | 2024-11-18 13:05 | XMS_ITS | Encounter Summary ---
Author Organization [facility] Address [address] [place] [address] Care Team Providers Care Sequins Spooler Name Role Phone Evan Mauricio MD Primary Care Provider [phone] Encounter Details Date Type Department Care Team (Late st Contact Info) Description 02/06/2024 Transcribed Orders [facility] [address] [place] [address] Evan Mauricio MD [address] [facility] [place] [id number] Diabetes mellitus without complication (HC Code) (HC CODE) (HC Code) (Primary Dx) Social History Tobacco Use Types Packs/Day Years [...] documented as of this encounter Results * (ABNORMAL) Albumin/creatinine panel, urine, random (08/03/2024 11:15 AM EST) Albumin, Urine, Random 48.9(H) <30.0 mg/L 08/03/2024 1:37 PM [facility] Creatinine, Urine, Random 94 No reference range established mg/dL 08/03/2024 1:37 PM [facility] Microalbumin/Cr eatinine Ratio, Urine, Random 52.2(H) <30.0 mg/g Cr 08/03/2024 1:37 PM [facility] Comment: Moderately increased albuminuria (formerly microalbuminuria): ??30-300 mg/g Cr Significantly increased albuminuria (overt albuminuria): ? >300 mg/g Cr Urine Collection / Unknown 08/03/2024 11:15 AM EST 08/03/2024 11:15 AM EST Evan Mauricio MD URINE ORDERABLES Final Result Performing Organization Address City/State/[facility] de Phone Number [address] [phone] * (ABNORMAL) Lipid panel (08/03/2024 11:10 AM EST) Cholesterol 187 See Comment mg/dL 08/03/2024 12:43 PM [facility] Comment: Cholesterol Reference Range: ? Desirable: ?? <200 mg/dL ? Borderline: ??200-240 mg/dL ? High Risk: ?? >240 mg/dL HDL 86(H) See Comment mg/dL 08/03/2024 12:43 PM [facility] Comment: HDL Reference Range: Low: <40 High: > or = 60 Triglycerides 386(H) See Comment mg/dL 08/03/2024 12:43 PM [facility] Comment: Triglyceride Reference Range: ?Normal: ? <150 mg/dL ?Borderline High: ??150-199 mg/dL ?High: ? 200-499 mg/dL ?Very High: ?>or= 500 mg/dL LDL Calculated 45 See Comment mg/dL 08/03/2024 12:43 PM EST [facility] Comment: Effective 01/17/2022, LDL is calculated using the Abdi-NIH equation, which is more accurate than the Friedewald and Lucio-Patel equations. LDL Reference Range: Optimal: ? <100 mg/dL Near/Above Optimal: ??100-129 mg/dL Borderline High: ? 130-159 mg/dL High: ?160-189 mg/dL Very High: ? >or= 190 mg/dL Blood Venipuncture / Unknown 08/03/2024 11:10 AM EST 08/03/2024 11:10 AM EST us Evan Mauricio MD LAB BLOOD ORDERABLES Final Re sult Performing Organization Address City/State/[facility] [place] [address], [facility] [phone] documented in this encounter Visit Diagnoses Diagnosis Diabetes mellitus without complication (HC Code) (HC CODE) (HC Code)- Primary Type II or unspecified type diabetes mellitus without mention of complication, not stated as uncontrolled documented in this encounter Additional Health Concerns Assessment Noted Time PHQ-9 Depression Total Score: 0 12/22/19 24 5:57 PM EDT documented as of this encounter Care Teams Sequins Spooler Relationship Specialty Start Date End Date Evan Mauricio MD [address] [place] [place] [address] PCP - General Internal Medicine 12/04/20 documented as of this encounter
--- OUTSIDE RECORDS SUMMARY | 2024-11-18 13:05 | XMS_ITS | Encounter Summary ---
Author Organization [facility] Address [address] [place] [address] Care Team Providers Care Chairman And Chief Executive Officer Name Role Phone Evan Mauricio MD Primary Care Provider Encounter Details Date Type Department Care Team (Late st Contact Info) Description 12/13/2023 Scanned Document [address] [address] Evan Mauricio MD [address] [place] [address] [place] [address] Social History Tobacco Use Types Packs/Day Years Used Date Smoking Tobacco: Never PHQ-2 Answer Date Recorded PHQ-2 Total Score 0 07/19/2022 Interpersonal Safety Answer Date Record ed Is there anyone in your life that is hurting or threatening you in anyway? no 12/09/2023 Physical Indicators of Abuse No evidence of phys ical abuse 12/09/2023 Sex and Gender Information Value Date Recorded Sex Assigned at Male 07/04/2022 1:37 AM EST Legal Sex Male 11:31 AM EST Gender Identity Male 07/04/2022 1:37 AM EST Sexual Orientation Not on file documented as of this encounter Plan of Treatment Not on file documented as of this encounter Visit Diagnoses Not on filedocumented in this encounter Additional Health Concerns Infection [...] Noted Time PHQ-9 Depression Total Score: 0 07/19/20 22 9:30 AM EST documented as of this encounter Care Teams Chairman And Chief Executive Officer Relationship Specialty Start Date End Date Evan Mauricio MD [address] [place] [address] PCP - General Internal Medicine 12/04/20 documented as of this encounter
--- OUTSIDE RECORDS SUMMARY | 2024-11-18 13:05 | XMS_ITS | Encounter Summary ---
Author Organization [facility] Address [address] [place] [address] Care Team Providers Care Bulk Pallet Builder Name Role Phone Evan Mauricio MD Primary Care Provider Encounter Details Date Type Department Care Team (Late st Contact Info) Description 08/01/2024 Transcribed Orders [address] [phone] Evan Mauricio MD [address] [place] [address] Diabetes mellitus (HC Code) (Primary Dx) Social History Tobacco [...] documented as of this encounter Results * T4 (08/03/2024 11:10 AM EST) T4, Total 5.3 4.5 - 12.1 ug/dL 08/03/2024 12:43 PM [facility] Blood Venipuncture / Unknown 08/03/2024 11:10 AM EST 08/03/2024 11:10 AM EST Evan Mauricio MD LAB BLOOD ORDERABLES Final Re sult Performing Organization Address [facility] Phone Number [address] [phone] * (ABNORMAL) TSH (08/03/2024 11:10 AM EST) TSH 9.26(H) 0.36 - 3.74 uIU/mL 08/03/2024 12:43 PM [facility] Comment:As TSH is known to n aturally increase in winter, with age and due to certain non-thyroidal illnesses, please consider retesting adults with mild abnormalities (ie, TSH <10 ??IU/mL) after 2-3 months prior to initiating therapy. Blood Venipuncture / Unknown 08/03/2024 11:10 AM EST 08/03/2024 11:10 AM EST Evan Mauricio MD LAB BLOOD ORDERABLES [facility] Performing Organization Address [facility] Phone Number [address] [phone] * (ABNORMAL) Hemoglobin A1c (08/03/2024 11:10 AM EST) Hemoglobin A1c 8.0(H) 4.2 - 6.3 % 08/03/2024 12:53 PM [facility] Comment: ??>=6.5% Diabetes* 5.7-6.4% Pre-Diabetes *These results must be confirmed by repeat testing in the absence of unequivocal hypoglycemia. Diabetes Care 2015 38 s8-16 ?? NOTE: This A1c assay is accurate in HbC, HbS, HbE, or HbD.?A1c results are not reliable in the presence of HbF or in patients with chronic blood loss. Any cause of shortened red blood cell survival (eg, hemolytic anemia,??hemolysis, ,??recent significant blood loss) will reduce the exposure of red blood cells to glucose with a consequent decrease in A1c values.?? Blood Venipuncture / Unknown 08/03/2024 11:10 AM EST 08/03/2024 11:10 AM EST us Evan Mauricio MD LAB BLOOD ORDERABLES Final Re sult Performing Organization Address City/State/[facility] [place] [address], [facility] [phone] documented in this encounter Visit Diagnoses Diagnosis Diabetes mellitus (HC Code)- Primary Type II or unspecified type diabetes mellitus without mention of complication, not stated as uncontrolled documented in this encounter Additional Health Concerns Assessment Noted Time PHQ-9 Depression Total Score: 0 12/22/19 24 5:57 PM EDT documented as of this encounter Care Teams Bulk Pallet Builder Relationship Specialty Start Date End Date Evan Mauricio MD [address] [place] [address] PCP - General Internal Medicine 12/04/20 documented as of this encounter
--- OUTSIDE RECORDS SUMMARY | 2024-11-18 13:05 | XMS_ITS ---
Author Organization [facility] Address [address] [place] [address] Care Team Providers Care Plastic Fabricator Name Role Phone Clement Alaniz Primary Care Provider Unavailab Maciej John Unavailable [phone] REASON FOR VISIT Purchased Biofreeze roll on Encounters Encounter Location Date Provider Diagnosis [facility] [address] [place] [address] 02/26/2024 Maciej Whitaker Plan Of Treatment No Information Progress Notes * Kareem FLETCHER MDOB:[birth year] (73 yo M)Acc No.[id number]:02/26/2024 Patient:?Kareem Fletcher :1950???Age:73 Y???Sex:Male Address:[address] [place], [place] [address], [address] * true * Date:? Generated for Ferchoi astrid/Gray/eTransmitting on:?11/18/2024 01:05 PM EDT
--- OUTSIDE RECORDS SUMMARY | 2024-11-18 13:05 | XMS_ITS | Clinical Summary ---
Author Organization [address] Address [address] [place] [phone] Phone Care Team Providers Care Revenue Cycle Analyst Name Role Phone Evan Mauricio MD Primary Care Provider [phone] Allergies Active Allergy Reactions Criticality Noted Date Comments Bee Venom Protein (Honey Bee) Swelling Medium 2023 Codeine Nausea Low 09/13/2020 Medications atorvastatin (LIPITOR) 80 mg tablet Take 1 tablet (80 mg total) by mouth daily. Active levothyroxine (SYNTHROID, LEVOTHROID) 100 MCG tablet Take 1 tablet (100 mcg total) by mouth daily. Active aspirin 81 mg EC delayed release tablet Take 1 tablet (81 mg total) by mouth at bedtime. Active cycloSPORINE (RESTASIS) 0.05 % ophthalmic emulsion Place 1 drop into both eyes 2 (two) times daily. Active pyridostigmine (MESTINON) 60 mg Immediate Release tablet Take 1 tablet (60 mg total) by mouth 3 (three) times daily. Active metoprolol succinate XL (TOPROL-XL) 25 mg 24 hr tablet Take 1 tablet (25 mg total) by mouth daily. Take with or immediately following a meal. Active amLODIPine (NORVASC) 5 mg tablet Take 1 tablet (5 mg total) by mouth daily. 30 tablet Active Additional Information Patient taking differently:5 mg OralAt bedtime, Reported on 01/11/2024 albuterol (PROVENTIL, VENTOLIN) 2.5 mg /3 mL (0.083 %) nebulizer solution Take 3 mLs by nebulization every 6 (six) hours as needed for shortness of breath. 75 mL 1 Active ezetimibe (ZETIA) 10 mg tablet Take 1 tablet (10 mg total) by mouth daily with lunch. 4 Active ferrous sulfate (FEOSOL) 325 mg (65 mg iron) tablet Take 1 tablet (325 mg total) by mouth daily. 4 Active metFORMIN (GLUCOPHAGE) 1000 mg tablet Take 0.5 tablets (500 mg total) by mouth 2 (two) times daily with breakfast and dinner. 4 Active predniSONE (DELTASONE) 10 mg tablet Take 1 tablet (10 mg total) by mouth 2 (two) times daily. 4 Active TRULICITY 0.75 mg/0.5 mL Pen Injector Inject 0.5 mLs (0.75 mg total) under the skin once a week. 4 Active mecobalamin (B12 ACTIVE ORAL) Take 1 Gum by mouth daily. Active APPLE CIDER VINEGAR ORAL Take 1 Gum by mouth daily. Active ascorbic acid, vitamin C, (VITAMIN C) 500 mg tablet Take 1 tablet (500 mg total) by mouth daily. Active magnesium oxide (MAG-OX) 400 mg (241.3 mg magnesium) tablet Take 1 tablet (400 mg total) by mouth daily with lunch. Active ergocalciferol, vitamin D2, (VITAMIN D ORAL) Take 1 tablet by mouth daily. Active Active Problems Problem Noted Date Diagnosed Date COVID-19 09/24/2020 Pneumonia of both lungs due to infectious organism, unspecified part of lung 09/13/2020 Resolved Problems Problem Noted Date Diagnosed Date Resolved Date Left wrist pain 03/05/2023 05/23/2023 Left hand weakness 03/05/2023 3 Impaired instrumental activi ties of daily living 03/05/2023 05/23/2023 Encounters Date Type Department Care Team Description 11/13/2024 2:41 PM EDT - 11/13/2024 11:59 PM EDT Hospital Encounter [facility] CT Scan [address] [place] [phone] Sampson Junior MD Lung nodule Discharge Disposition: Home or Self Care from Last 3 Months Social History Tobacco Use Types Packs/Day Years [...] AM EST Sexual Orientation Not on file Last Filed Vital Signs Vital Sign Reading Time Taken Comments Blood Pressure 147/85 04/17/2024 9:51 AM EDT Pulse 66 04/17/2024 9:51 AM EDT Temperature 35.8 ??C (96.5 ??F) 04/17/2024 9:51 AM ED T Respiratory Rate 16 04/17/2024 9:51 AM EDT Oxygen Saturation 100% 04/17/2024 9:51 AM EDT Inhaled Oxygen Concentration - - Weight 68 kg (150 lb) 04/17/2024 9:51 AM EDT Height 170.2 cm (5' 7 ) 04/17/2024 9:51 AM EDT Body Mass Index 23.49 04/17/2024 9:51 AM EDT Plan of Treatment Health Maintenance Due Date Last Done Comments Diabetic eye exam 1958 Diabetic foot exam 1958 HIV screening 1961 Hepatitis C screening 1966 Tetanus adult (Td q 10,TDAP once) 1968 Colon cancer screening, Colonoscopy 1993 Shingles vaccine (Shingrix) (1 of 2 - Shingrix (RZV) 2 Dose Standard Series) 1998 Pneumococcal Vaccine (50+ years) (2 of 2 - PCV) 12/20/2013 12/20/2012 RSV Immunization (1 - 1-dose 75+ series) 11/29/2023 Covid-19 vaccine series (4 - season) 2024 07/10/2021, 07/06/2021, 11/16/2020 Hemoglobin A1C 02/01/2025 08/03/2024, 12/13/2023, 09/16/2020 Influenza vaccine 04/12/2025 05/31/2021, 04/13/2021 LDL monitoring 08/03/2025 08/03/2024, 06/08/2021, 11/07/2020 Urine Microalbumin 08/03/2025 08/03/2024 Meningococcal Vaccine Aged Out No ahsan mikayla eligible based on patient's age to complete this topic Procedures Procedure Name Priority Date/Time Associated Diagnosis Comments CT CHEST WO IV CONTRAST Routine 11/13/2024 2:51 PM EDT Lung nodule ALBUMIN/CREATININE PANEL, URINE, RANDOM Routine 08/03/2024 11:15 AM EST Diabetes mellitus without complication (HC Code) (HC CODE) (HC Code) HEMOGLOBIN A1C Routine 08/03/2024 11:10 AM EST Diabetes mellitus (HC Code) LIPID PANEL Routine 08/03/2024 11:10 AM EST Diabetes mellitus without complication (HC Code) (HC CODE) (HC Code) from Last 3 Months or Most Recently Relevant to Health Maintenance Results * CT Chest wo IV Contrast (11/13/2024 2:51 PM EDT) Anatomical Region Laterality Modality Chest Computed Tomogra phy 11/13/2024 3:39 PM EDT Impressions 11/13/2024 3:47 PM EDT No evidence for an acute or neoplastic process. Reticular densities in the left lung suspected related to scarring. G9637 - RADIATION DOSE ACQUIRED DURING SCAN: 57.38mGy/cm. [facility] Imaging Department strives for high quality imaging with the lowest possible radiation dose. For more information on medical radiation exposure please visit: [email or web address]. [facility] Radiology Notification System Classification: Routine. Reported and signed by: ??Isak Pablo MD Narrative 11/13/2024 3:47 PM EDT PROCEDURE: ??CT CHEST WO IV CONTRAST CLINICAL INDICATION: lung nodule TECHNIQUE: ??Volumetric imaging was obtained from thoracic inlet through the level of the diaphragm. Imaging reviewed in the coronal, axial, and sagittal planes. COMPARISONS: CT chest 04/09/2024 FINDINGS: Lungs are well expanded. There is relatively gracile reticular densities projecting vertically within the lateral aspect of the left lung. These changes are slightly more pronounced than prior study. There is a punctate granuloma within the left lower lobe. Lungs otherwise appear clear. ??No pleural effusion noted. No mediastinal mass or axillary adenopathy noted. ??Heart size is within normal limits. Sequela of coronary artery bypass noted. ??No pericardial effusion noted. ??Aorta demonstrates normal caliber. ??No significant aortic atherosclerotic disease noted. No acute osseous fracture noted. ??No destructive osseous process noted. ??No vertebral body subluxation noted. Large anterolateral osteophytic spurring is noted involving mid thoracic through included upper lumbar spine. No acute process noted within the included upper abdomen. Stable appearing estimated 6.5 cm mass is seen arising from the superior pole of the included left kidney consistent with cyst. Procedure Note Isak Pablo MD - 11/13/2024 PROCEDURE: CT CHEST WO IV CONTRAST CLINICAL INDICATION: lung nodule TECHNIQUE: Volumetric imaging was obtained from thoracic inlet throughthe level of the diaphragm. Imaging reviewed in the coronal, axial, andsagittal planes. COMPARISONS: CT chest 04/09/2024 FINDINGS: Lungs are well expanded. There is relatively gracile reticular densitiesprojecting vertically within the lateral aspect of the left lung. Thesechanges are slightly more pronounced than prior study. There is a punctategranuloma within the left lower lobe. Lungs otherwise appear clear. Nopleural effusion noted. No mediastinal mass or axillary adenopathy noted. Heart size is withinnormal limits. Sequela of coronary artery bypass noted. No pericardialeffusion noted. Aorta demonstrates normal caliber. No significant aorticatherosclerotic disease noted. No acute osseous fracture noted. No destructive osseous process noted.No vertebral body subluxation noted. Large anterolateral osteophyticspurring is noted involving mid thoracic through included upper lumbarspine. No acute process noted within the included upper abdomen. Stable appearingestimated 6.5 cm mass is seen arising from the superior pole of theincluded left kidney consistent with cyst. IMPRESSION: No evidence for an acute or neoplastic process. Reticular densities in the left lung suspected related to scarring. G9637 - RADIATION DOSE ACQUIRED DURING SCAN: 57.38mGy/cm. [facility] Imaging Department strives for high qualityimaging with the lowest possible radiation dose. For more information onmedical radiation exposure please visit: [email or web address]. [facility] Radiology Notification System Classification: Routine. Reported and signed by: Isak Pablo MD us Sampson Junior MD IMG CT ORDERABLES Final Result * (ABNORMAL) Albumin/creatinine panel, urine, random (08/03/2024 11:15 AM EST) Albumin, Urine, Random 48.9(H) <30.0 mg/L 08/03/2024 1:37 PM [facility] Creatinine, Urine, Random 94 No reference range established mg/dL 08/03/2024 1:37 PM [facility] Microalbumin/Cr eatinine Ratio, Urine, Random 52.2(H) <30.0 mg/g Cr 08/03/2024 1:37 PM [facility] Comment: Moderately increased albuminuria (formerly microalbuminuria): ??30-300 mg/g Cr Significantly increased albuminuria (overt albuminuria): ? >300 mg/g Cr Urine Collection / Unknown 08/03/2024 11:15 AM EST 08/03/2024 11:15 AM EST us Evan Mauricio MD URINE ORDERABLES Final Result Performing Organization Address City/State/[facility] [place] [address], [facility] [phone] * (ABNORMAL) Hemoglobin A1c (08/03/2024 11:10 AM EST) Hemoglobin A1c 8.0(H) 4.2 - 6.3 % 08/03/2024 12:53 PM [facility] Comment: ??>=6.5% Diabetes* 5.7-6.4% Pre-Diabetes *These results [...] MD LAB BLOOD ORDERABLES [place] [address], [facility] [phone] * (ABNORMAL) Lipid panel (08/03/2024 11:10 AM EST) Cholesterol 187 See Comment mg/dL 08/03/2024 12:43 PM [facility] Comment: Cholesterol Reference Range: ? Desirable: ?? <200 mg/dL ? Borderline: ??200-240 mg/dL ? High Risk: ?? >240 mg/dL HDL 86(H) See Comment mg/dL 08/03/2024 12:43 PM [facility] Comment: HDL Reference Range: Low: <40 High: > or = 60 Triglycerides 386(H) See Comment mg/dL 08/03/2024 12:43 PM [facility] Comment: Triglyceride Reference Range: ?Normal: ? <150 mg/dL ?Borderline High: ??150-199 mg/dL ?High: ? 200-499 mg/dL ?Very High: ?>or= 500 mg/dL LDL Calculated 45 See Comment mg/dL 08/03/2024 12:43 PM [facility] Comment: Effective 01/17/2022, LDL is calculated using [...] MD LAB BLOOD ORDERABLES [place] [address], [facility] [phone] from Last 3 Months or Most Recently Relevant to Health Maintenance Insurance MEDICARE [facility] MEDICARE [facility] MEDICARE [facility] Advance Directives * Full ACLS (Latest Code Status on File) Date Activated Date Inactivated Comments 09/13/2020 4:47 PM 09/29/2020 6:59 PM Question Answer Comments With Whom was the Code Status Discussed? Patient Care Teams Revenue Cycle Analyst Relationship Specialty Start Date End Date Evan Mauricio MD [address] [place] [address] PCP - General Internal Medicine 12/04/20
--- OUTSIDE RECORDS SUMMARY | 2024-11-18 13:05 | XMS_ITS | Encounter Summary ---
Author Organization [facility] and [facility] Address [address] [place] [phone] Care Team Providers Care Inventory Planner Name Role Phone Evan Mauricio MD Primary Care Provider Encounter Details Date Type Department Care Team (Late st Contact Info) Description 12/13/2023 Transcribed Orders [address] [phone] Evan Mauricio MD [address] [place] [address] Disease of thyroid gland (Primary Dx); Abnormal respiratory rate; Special screening for malignant neoplasm of prostate; Diabetes mellitus (HC Code) Social History Tobacco Use Types Packs/Day Years [...] as of this encounter Results * T4 (12/13/2023 1:36 PM EDT) T4, Total 7.2 4.5 - 12.1 ug/dL 12/13/2023 2:50 PM EDT [facility] Blood Venipuncture / Unknown 12/13/2023 1:36 PM EDT 12/13/2023 1:36 PM EDT Evan Mauricio MD LAB BLOOD ORDERABLES Final Re sult Performing Organization Address City/[facility]/[place] [address], [facility] [phone] * TSH, 3rd generation w/reflex to FT4 ([facility] LMW Q YH) (12/13/2023 1:36 PM EDT) TSH 0.40 0.36 - 3.74 uIU/mL 12/13/2023 2:50 PM EDT [facility] Blood Venipuncture / Unknown 12/13/2023 1:36 PM EDT 12/13/2023 1:36 PM EDT Evan Mauricio MD LAB BLOOD ORDERABLES Final Re sult Performing Organization Address [facility] [place] [address], [facility] [phone] * PSA, total (screening) ([facility] L LMW YH) (12/13/2023 1:36 PM EDT) Prostate Specific Antigen, Screening <0.010 <4.000 ng/mL 12/13/2023 2:50 PM EDT [facility] Comment: Results cannot be interpreted as absolute evidence of presence or absence of malignant disease.?? Values obtained from different instruments cannot be used interchangeably.?? This test was performed on the Siemens Dimension [place] using an electrochemiluminescence immunoassay. A total PSA value of 4ng/mL may not be an appropriate actionable threshold in all clinical situations. For healthcare providers, see institutional care pathway via [employer] Tools > Integrated Care Models > Abnormal Prostate http://webhs.[facility].org/uploads/abnormal%20Prostate%20stewardship%20ICM%20algorith m.pdf Blood Venipuncture / Unknown 12/13/2023 1:36 PM EDT 12/13/2023 1:36 PM EDT Evan Mauricio MD LAB BLOOD ORDERABLES Final Re sult Performing Organization Address [facility] [place] [address], [facility] [phone] * (ABNORMAL) NT-proBrain natriuretic peptide (12/13/2023 1:36 PM EDT) NT-proBNP 645.0(H) <450.0 pg/mL 12/13/2023 2:50 PM EDT [facility] Blood Venipuncture / Unknown 12/13/2023 1:36 PM EDT 12/13/2023 1:36 PM EDT Evan Mauricio MD LAB BLOOD ORDERABLES Final Re sult Performing Organization Address [facility] de Phone Number [address] [phone] * (ABNORMAL) Hemoglobin A1c (12/13/2023 1:36 PM EDT) Hemoglobin A1c 9.8(H) 4.2 - 6.3 % 12/13/2023 2:37 PM EDT [facility] Comment: ??>=6.5% Diabetes* 5.7-6.4% Pre-Diabetes *These [...] in A1c values.?? Blood Venipuncture / Unknown 12/13/2023 1:36 PM EDT 12/13/2023 1:36 PM EDT us Evan Mauricio MD LAB BLOOD ORDERABLES Final Re sult [address] [address], [facility] [phone] documented in this encounter Visit Diagnoses Diagnosis Disease of thyroid gland- Primary Unspecified disorder of thyroid Abnormal respiratory rate Other dyspnea and respiratory abnormality Special screening for malignant neoplasm of prostate Diabetes mellitus (HC Code) Type II or unspecified type diabetes mellitus [...] documented as of this encounter Care Teams Inventory Planner Relationship Specialty Start Date End Date Evan Mauricio MD [address] [facility] [place] [address] PCP - General Internal Medicine 12/04/20 documented as of this encounter
--- OUTSIDE RECORDS SUMMARY | 2024-11-18 13:05 | XMS_ITS | Encounter Summary ---
Author Organization [facility] and [facility] Address [address] [place] [phone] Care Team Providers Care Rattle Leak And Squeak Repairer Name Role Phone Evan Mauricio MD Primary Care Provider Encounter Details Date Type Department Care Team (Latest Contact Info) Description 11/07/2020 Transcribed Orders [facility] - [address] [phone] Evan Mauricio MD [address] [place] [address] Edema (Primary Dx); History of 2019 novel coronavirus disease (COVID-19); Essential hypertension, malignant; Myxedema heart disease; Impending cerebrovascular accident (HC Code); Myasthenia gravis without exacerbation (HC Code) Social History Tobacco Use Types [...] documented as of this encounter Results * T3, free (11/07/2020 12:24 PM EDT) T3, Free 3.4 2.3 - 4.2 pg/mL 11/07/2020 3:46 PM EDT [facility] Blood Venipuncture / Unknown 11/07/2020 12:24 PM EDT 11/07/2020 12:24 PM EDT Evan Mauricio MD LAB BLOOD ORDERABLES Final Re sult Performing Organization Address City/[facility]/ZIP Co de Phone Number [facility] [address] [place] [address] * T4, free (11/07/2020 12:24 PM EDT) Free T4 0.90 0.76 - 1.46 ng/dL 11/07/2020 1:46 PM EDT [facility] Blood Venipuncture / Unknown 11/07/2020 12:24 PM EDT 11/07/2020 12:24 PM EDT Evan Mauricio MD LAB BLOOD ORDERABLES Final Re sult Performing Organization Address [facility] Co de Phone Number [address] [phone] * NT-proBrain natriuretic peptide (11/07/2020 12:24 PM EDT) NT-proBNP 94.0 <125.0 pg/mL 11/07/2020 1:46 PM EDT [facility] Blood Venipuncture / Unknown 11/07/2020 12:24 PM EDT 11/07/2020 12:24 PM EDT Evan Mauricio MD LAB BLOOD ORDERABLES Final Re sult Performing Organization Address [facility] Co de Phone Number [address] [phone] * (ABNORMAL) Lipid panel (11/07/2020 12:24 PM EDT) Cholesterol 192 See Comment mg/dL 11/07/2020 1:46 PM [facility] Comment: Cholesterol Reference Range: ? Desirable: ?? <200 mg/dL ? Borderline: ??200-240 mg/dL ? High Risk: ?? >240 mg/dL HDL 71(H) See Comment mg/dL 11/07/2020 1:46 PM [facility] Comment: HDL Reference Range: Low: <40 High: > or = 60 Triglycerides 238(H) See Comment mg/dL 11/07/2020 1:46 PM [facility] Comment: Triglyceride Reference Range: ?Normal: ? <150 mg/dL ?Borderline High: ??150-199 mg/dL ?High: ? 200-499 mg/dL ?Very High: ?>or= 500 mg/dL LDL Calculated 73 See Comment mg/dL 11/07/2020 1:46 PM [facility] Comment: LDL Reference Range: Optimal: ? <100 mg/dL Near/Above Optimal: ??100-129 mg/dL Borderline High: ? 130-159 mg/dL High: ?160-189 mg/dL Very High: ? >or= 190 mg/dL Blood Venipuncture / Unknown 11/07/2020 12:24 PM EDT 11/07/2020 12:24 PM EDT us Evan Mauricio MD LAB BLOOD ORDERABLES [place] [address], [facility] [phone] * Protime and INR (11/07/2020 12:24 PM EDT) Prothrombin Time 10.3 9.9 - 11.8 seconds 11/07/2020 1:28 PM [facility] INR 1.0 0.9 - 1.1 11/07/2020 1:28 PM EDT [facility] Comment: RECOMMENDED INR THERAPEUTIC RANGES: ?STANDARD INTENSITY......2.0-3.0 ?HIGH INTENSITY..........2.5-3.5 Blood Venipuncture / Unknown 11/07/2020 12:24 PM EDT 11/07/2020 12:24 PM EDT [facility] - 11/07/2020 1:28 PM EDT As of September 29, 2019 this assay is being performed on new instrumentation. Please note that the reference ranges may have changed. us Evan Mauricio MD LAB BLOOD ORDERABLES [place] [address], [facility] [phone] documented in this encounter Visit Diagnoses Diagnosis Edema- Primary History of 2019 novel coronavirus disease (COVID-19) Essential hypertension, malignant Myxedema heart disease Unspecified hypothyroidism Impending cerebrovascular accident (HC Code) Unspecified transient cerebral ischemia Myasthenia gravis without exacerbation (HC Code) Myasthenia gravis without exacerbation documented in this encounter Additional Health Concerns Infection Onset Date Last Indicated Resolved Time R/O COVID-19 07/19/2022 07/19/2022 07/19/2022 1:10 PM [...] documented as of this encounter Care Teams Rattle Leak And Squeak Repairer Relationship Specialty Start Date End Date Evan Mauricio MD [address] [place] [address] PCP - General Internal Medicine 12/04/20 documented as of this encounter
--- OUTSIDE RECORDS SUMMARY | 2024-11-18 13:05 | XMS_ITS | Encounter Summary ---
Author Organization [facility] and [facility] Address [address] [place] [phone] Care Team Providers Care Outside Sales Representative Insurance Name Role Phone Evan Mauricio MD Primary Care Provider [phone] Encounter Details Date Type Department Care Team (Late st Contact Info) Description 01/07/2024 Transcribed Orders [facility] - [address] [phone] Evan Mauricio MD [address] [place] [address] Hyperthermia-induce d defect (Primary Dx); Acute cough; Unresolved pneumonia Social History Tobacco Use Types Packs/Day Years [...] Name Priority Date/Time Associated Diagnosis Comments SARS-COV-2 (COVID-19)/INFLUENZA A+B/RSV BY RT-PCR ([facility]) Routine 01/07/2024 3:15 PM EDT Hyperthermia-induce d defect Acute cough Unresolved pneumonia LEGIONELLA AND S. PNEUMONIAE ANTIGEN, URINE ([facility]) Routine 01/07/2024 3:15 PM EDT Hyperthermia-induce d defect Acute cough Unresolved pneumonia BLOOD CULTURE ([facility] L LMW [facility]) Routine 01/07/2024 3:15 PM EDT Hyperthermia-induce d defect Acute cough Unresolved pneumonia BLOOD CULTURE ([facility] L LMW [facility]) Routine 01/07/2024 3:14 PM EDT Hyperthermia-induce d defect Acute cough Unresolved pneumonia documented in this encounter Results * Legionella and S. pneumoniae antigen, urine ([facility]) (01/07/2024 3:15 PM EDT) Legionella Antigen Negative Negative 01/07/2024 10:55 PM EDT [facility] DEPARTMENT OF LABORATORY MEDICINE S. pneumoniae Urine Antigen Negative Negative 01/07/2024 10:55 PM EDT [facility]PARTMENT OF LABORATORY MEDICINE Urine URINE SPECIMEN OBTAINED BY CLEAN CATCH PROCEDURE / Unknown Collection / Unknown 01/07/2024 3:15 PM EDT 01/07/2024 3:31 PM EDT Narrative [facility] DEPARTMENT OF LABORATORY MEDICINE - 01/07/2024 10:55 PM EDT Presumptive negative for L.pneumophila serogroup 1 antigen in urine, suggesting no recent or current infection. Infection due to Legionella cannot be ruled out since other serogroups and species may cause disease, antigens may not be present in urine in early infection, and the level of antigen present in the urine may be below the detection limit of the test. Presumptive negative for pneumococcal pneumonia, suggesting no recent or current pneumococcal infection. Infection due to S.pneumoniae cannot be ruled out since the antigen present in the sample may be below detection limit of the test. us Evan Mauricio MD MICROBIOLOGY - GENERAL ORDERA BLES Final Result [facility] DEPARTMENT OF LABORATORY MEDICINE [address] [place] [address] * Blood culture (01/07/2024 3:15 PM EDT) Pathologist [facility] Blood Culture No Growth after 5 days of incubation 01/12/2024 11:00 PM EDT [facility] OF LABORATORY MEDICINE Blood PERIPHERAL BLOOD SPECIMEN / Unknown Venipuncture / Unknown 01/07/2024 3:15 PM EDT 01/07/2024 3:31 PM EDT Narrative [facility] DEPARTMENT OF LABORATORY MEDICINE - 01/12/2024 11:00 PM EDT All blood culture bottles with growth will be reported. Evan Mauricio MD MICROBIOLOGY - GENERAL ORDERA BLES Final Result [facility] DEPARTMENT OF LABORATORY MEDICINE [address] [place] [id number] [place] [address] * SARS-CoV-2 (COVID-19)/Influenza A+B/RSV by RT-PCR ([facility]) (01/07/2024 3:15 PM EDT) [facility] Influenza A Negative Negative 01/07/2024 4:07 PM T [facility] Comment:Negative results do not preclude infection [...] well-collected nasopharyngeal specimen. Influenza B Negative Negative 01/07/2024 4:07 PM EDT [facility] Respiratory Syncytial Virus Negative Negative [facility] SARS-CoV-2 RNA (COVID-19) Negative Negative 01/07/2024 4:07 PM T [facility] Comment: SARS-CoV-2 target nucleic acids not detected. Depending on assay used, testing was performed using one of the following tests. Contact the laboratory if the specific assay used impacts clinical care. Fact Sheet for Healthcare Providers: Cepheid Xpert Xpress SARS-CoV-2: https://www.fda.gov/media/495097/download Cepheid Xpert Xpress CoV-2 plus: https://www.fda.gov/media/504210/download Cepheid Xpert Xpress SARS-CoV-2/Flu/RSV plus: https://www.fda.gov/media/121528/download Fact Sheet for Patients: Cepheid Xpert Xpress SARS-CoV-2: https://www.fda.gov/media/642297/download Cepheid Xpert Xpress CoV-2 plus: https://www.fda.gov/media/061804/download Cepheid Xpert Xpress SARS-CoV-2/Flu/RSV plus: https://www.fda.gov/media/304513/download Test performed using the GeneXpert real-time RT-PCR assay. Test performance has not been evaluated in asymptomatic patients. Test ordering and result interpretation is at the discretion of the ordering provider. Test performed at: [place] [address] Director: Naomi Pack MD CLIA: [id number] Viral NASOPHARYNGEAL STRUCTURE / Unknown Collection / Unknown 01/07/2024 3:15 PM EDT 01/07/2024 3:18 PM EDT Evan Mauricio MD MICROBIOLOGY - GENERAL [facility] [place] [address], [facility] [phone] * Blood culture (01/07/2024 3:14 PM EDT) Blood Culture No Growth after 5 days of incubation 01/12/2024 11:00 PM EDT [facility] DEPARTMENT OF LABORATORY MEDICINE Blood PERIPHERAL BLOOD SPECIMEN / Unknown Venipuncture / Unknown 01/07/2024 3:14 PM EDT 01/07/2024 3:15 PM EDT Narrative [facility] DEPARTMENT OF LABORATORY MEDICINE - 01/12/2024 11:00 PM EDT All blood culture bottles with growth will be reported. Evan Mauricio MD MICROBIOLOGY - GENERAL [facility] Final Result [facility] DEPARTMENT OF LABORATORY MEDICINE [address] [place] [id number], [facility] [phone] documented in this encounter Visit Diagnoses Diagnosis Hyperthermia-induced defect- Primary Fever, unspecified Acute cough Unresolved pneumonia Pneumonia, organism unspecified documented in this encounter Additional Health Concerns Infection Onset Date Last Indicated Resolved Time R/O Influenza 01/07/2024 01/07/2024 01/07/2024 4:0 7 PM EDT R/O RSV 01/07/2024 01/07/2024 01/07/2024 4:07 PM EDT R/O Respiratory Virus 01/07/2024 01/07/20242023 4:07 PM EDT R/O COVID-19 01/07/2024 01/07/2024 01/07/2024 4:07 PM EDT Assessment Noted Time PHQ-9 Depression Total Score: 0 12/22/19 24 5:57 PM EDT documented as of this encounter Care Teams Outside Sales Representative Insurance Relationship Specialty Start Date End Date Evan Mauricio MD [address] [place] [address] PCP - General Internal Medicine 12/04/20 documented as of this encounter
--- OUTSIDE RECORDS SUMMARY | 2024-11-18 13:05 | XMS_ITS | Encounter Summary ---
Author Organization [facility] and [facility] Address [address] [place] [phone] Care Team Providers Care Stretcher Operator Name Role Phone Evan Mauricio MD Primary Care Provider Encounter Details Date Type Department Care Team (Late st Contact Info) Description 12/24/2023 Transcribed Orders [address] [phone] Evan Mauricio MD [address] [place] [address] Social History Tobacco Use Types Packs/Day Years [...] documented as of this encounter Care Teams Stretcher Operator Relationship Specialty Start Date End Date Evan Mauricio MD [address] [place] [address] PCP - General Internal Medicine 12/04/20 documented as of this encounter
--- OUTSIDE RECORDS SUMMARY | 2024-11-18 13:06 | XMS_ITS | Encounter Summary ---
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 more than 3 months. eGFR is only valid if creatinine is at steady state. eGFR (NON -Hollie n) >60 >60 mL/min/1.7 3m2 08/26/2021 10:29 AM [facility] Comment: Values under 60mL/min/1.73m2 may indicate CKD if noted for ?? more than 3 months. eGFR is only valid if creatinine is at steady state. Blood Venipuncture / Unknown 08/26/2021 9:34 AM EST 08/26/2021 9:37 AM EST us Jonah Nieto MD LAB BLOOD ORDERABLES Fi nal Result Performing Organization Address City/State/[facility] [place] [address], [facility] [phone] documented in this encounter Visit Diagnoses Diagnosis Other diseases of mediastinum, not elsewhere classified- Primary documented in this encounter Additional Health Concerns [...] documented as of this encounter Care Teams Team Assembly Line Machine Operator Relationship Specialty Start Date End Date Evan Mauricio MD [address] [place] [address] PCP - General Internal Medicine 12/04/20 documented as of this encounter
--- OUTSIDE RECORDS SUMMARY | 2024-11-18 13:06 | XMS_ITS | Encounter Summary ---
Author Organization [facility] and [facility] Address [address] [place] [phone] Care Team Providers Care Computer Numerical Control Operator Name Role Phone Evan Mauricio MD Primary Care Provider [phone] Encounter Details Date Type Department Care Team (Latest Contact Info) Description 02/16/2022 Transcribed Orders [address] [phone] Geovanni Haq MD [address] [place] [phone] Mitral stenosis (Primary Dx) Social History Tobacco Use Types [...] documented as of this encounter Results * PT/INR and PTT ([facility]) (02/16/2022 8:56 AM EDT) Prothrombin Time 10.1 9.3 - 11.6 seconds 02/16/2022 10:23 AM [facility] PTT 25.2 21.0 - 32.0 seconds 02/16/2022 10:23 AM [facility] Comment: RECOMMENDED THERAPEUTIC RANGE: 40-80 SECONDS INR 0.99 0.87 - 1.14 02/16/2022 10:23 AM EDT [facility] Comment: RECOMMENDED INR THERAPEUTIC RANGES: ?STANDARD INTENSITY......2.0-3.0 ?HIGH INTENSITY..........2.5-3.5 Blood Venipuncture / Unknown 02/16/2022 8:56 AM EDT 02/16/2022 8:57 AM EDT us Geovanni Haq MD LAB BLOOD [place] [address], [facility] [phone] documented in this encounter Visit Diagnoses Diagnosis Mitral stenosis- Primary documented in this encounter Additional Health [...] documented as of this encounter Care Teams Computer Numerical Control Operator Relationship Specialty Start Date End Date Evan Mauricio MD [address] [place] [address] PCP - General Internal Medicine 12/04/20 documented as of this encounter
--- OUTSIDE RECORDS SUMMARY | 2024-11-18 13:06 | XMS_ITS | Encounter Summary ---
Author Organization [facility] and [facility] Address [address] [place] [phone] Care Team Providers Care Aerodynamics Teacher Name Role Phone Evan Mauricio MD Primary Care Provider [phone] Encounter Details Date Type Department Care Team (Late st Contact Info) Description 06/08/2021 Orders Only [facility] - [address] [phone] Evan Mauricio MD [address] [place] [address] Screening examination for poliomyelitis; Post-COVID syndrome resolved Social History Tobacco Use Types Packs/Day Years [...] Name Priority Date/Time Associated Diagnosis Comments SARS-COV-2 (COVID-19) SPIKE-RBD ANTIBODY (TOTAL IG), SEMI-QUANTITATIVE ( [facility]) Routine 06/08/2021 9:02 AM EDT Screening examination for poliomyelitis Post-COVID syndrome resolved documented in this encounter Results * (ABNORMAL) SARS-CoV-2 (COVID-19) Jakub-RBD Antibody (Total Ig), Semi- Quantitative ( [facility]) (06/08/2021 9:02 AM EDT) SARS-CoV-2 (COVID-19) Jakub-RBD Ab, Total Interpretation Positive( A) Negative 06/08/2021 5:36 PM EDT [facility] DEPARTMENT OF LABORATORY MEDICINE SARS-CoV-2 (COVID-19) Jakub-RBD Ab, Total >2,500.00 (H) <0.80 U/mL 06/08/2021 5:36 PM EDT [facility] DEPARTMENT OF LABORATORY MEDICINE Blood Venipuncture / Unknown 06/08/2021 9:02 AM EDT 06/08/2021 9:54 AM EDT us Evan Mauricio MD LAB BLOOD ORDERABLES Final Re sult Performing Organization Address City/State/[facility] Co de Phone Number [facility] DEPARTMENT OF LABORATORY MEDICINE [address] [place] [address] documented in this encounter Visit Diagnoses Diagnosis Screening examination for poliomyelitis Post-COVID syndrome resolved documented in this encounter Additional Health Concerns [...] documented as of this encounter Care Teams Aerodynamics Teacher Relationship Specialty Start Date End Date Evan Mauricio MD [address] [place] [address] PCP - General Internal Medicine 12/04/20 documented as of this encounter
--- OUTSIDE RECORDS SUMMARY | 2024-11-18 13:06 | XMS_ITS | Encounter Summary ---
Author Organization [facility] and [facility] Address [address] [place] [phone] Care Team Providers Care Cook Seafood Name Role Phone Evan Mauricio MD Primary Care Provider Encounter Details Date Type Department Care Team (Late st Contact Info) Description 10/09/2021 Transcribed Orders [facility] - [address] [phone] Evan Mauricio MD [address] [place] [address] Shortness of breath (Primary Dx); Edema Social History Tobacco Use Types Packs/Day Years [...] as of this encounter Results * (ABNORMAL) NT-proBrain natriuretic peptide (10/09/2021 11:52 AM EST) NT-proBNP 201.0(H) <125.0 pg/mL 10/09/2021 12:55 PM EST [facility] Blood Venipuncture / Unknown 10/09/2021 11:52 AM EST 10/09/2021 11:52 AM EST us Evan Mauricio MD LAB BLOOD ORDERABLES Final Re sult [address] [place], [facility] [phone] documented in this encounter Visit Diagnoses Diagnosis Shortness of breath- Primary Edema documented in this encounter Additional Health Concerns [...] documented as of this encounter Care Teams Cook Seafood Relationship Specialty Start Date End Date Evan Mauricio MD [address] [place] PCP - General Internal Medicine 12/04/20 documented as of this encounter
--- OUTSIDE RECORDS SUMMARY | 2024-11-18 13:06 | XMS_ITS | Encounter Summary ---
Author Organization [facility] and [facility] Address [address] [place] [phone] Care Team Providers Care Race And Sports Book Writer Name Role Phone Evan Mauricio MD Primary Care Provider [phone] Encounter Details Date Type Department Care Team (Late st Contact Info) Description 06/08/2021 Transcribed Orders [address] [phone] Evan Mauricio MD [address] [place] [address] Screening examination for poliomyelitis (Primary Dx); Post-COVID syndrome resolved Social History Tobacco Use [...] as of this encounter Results * (ABNORMAL) SARS-CoV-2 (COVID-19) Jakub-RBD Antibody (Total Ig), Semi- Quantitative ([facility] LM[facility] ) (06/08/2021 9:02 AM EDT) SARS-CoV-2 (COVID-19) Jakub-RBD Ab, Total Interpretation Positive( A) Negative 06/08/2021 5:36 PM EDT [facility] DEPARTMENT OF LABORATORY MEDICINE SARS-CoV-2 (COVID-19) Jakub-RBD Ab, Total >2,500.00 (H) <0.80 U/mL 06/08/2021 5:36 PM EDT [facility] DEPARTMENT OF LABORATORY MEDICINE Blood Venipuncture / Unknown 06/08/2021 9:02 AM EDT 06/08/2021 9:54 AM EDT us Evan Mauricio MD LAB BLOOD ORDERABLES Final Re sult Performing Organization Address City/State/[facility] Co de Phone Number [facility] DEPARTMENT OF LABORATORY MEDICINE [address] [place] [address] documented in this encounter Visit Diagnoses Diagnosis Screening examination for poliomyelitis- Primary Post-COVID syndrome resolved documented in this encounter [...] documented as of this encounter Care Teams Race And Sports Book Writer Relationship Specialty Start Date End Date Dotolo, Evan R, MD [address] [place] [address] PCP - General Internal Medicine 12/04/20 documented as of this encounter
--- OUTSIDE RECORDS SUMMARY | 2024-11-18 13:06 | XMS_ITS | Data Portability ---
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 melisa Not available 08/21/2024 10:53:20 11/05/2024 11/05/2024 Patient seems to have developed some lower extremity edema. He seems to be spilling protein in his urine and he is a diabetic. At this point we have suggested a trial of Lasix 20 mg a day. We pointed out there were no signs of left heart failure. He likely would benefit from an SG inhibitor and certainly suggested discussing that with you after he is further evaluated for his presumed proteinuria. Otherwise he is not having any concerning heart symptoms and his blood pressure and cholesterol are at goal. We did offer him a follow-up visit in a month's time and will continue to follow him longitudinally. He offers he is due to see you in the interim and have his blood work performed. [email or web address] Not available 11/05/2024 12:50:32 Plan of Treatment Reminders Order Date Submit Date Provider Last Modified By Organization Details Last Modified Time Details Appointments FOLLOW UP 15 2024 10:45A Tayla Sims MD Not available Not available Not available Lab None recorded. Referral None recorded. Procedures None recorded. Surgeries None recorded. Imaging electroca rdiogram [address], [address], 08/21/2024 11:55:25 electroca rdiogram [address], [address], 06/25/2024 14:11:54 Medication Orders None recorded. Patient TargetsNo targets recorded. Patient InstructionsNo instructions recorded. Reason for Referral None Reported. Results Created Date Observation Date Name Description Value Unit Range Abnormal Flag Note LastModifiedBy Organization Detail LastModifiedTime 06/25/2006/25/2024 elect rocar diogr am No observ ation record ed. [email or web address] [facility] [address] [place], [address], 06/25/2024 12:34:39 06/29/20 24 06/25/2024 elect rocar diogr am No observ ation record ed. [email or web address] [facility] [address] [place], [address], 06/29/2024 12:54:03 08/21/1908/21/2024 elect [facility] diogr am No observ ation record ed. [email or web address] [facility] [address] [place], [address], 08/21/2024 11:55:25 08/28/19 25 08/21/2024 elect tyler diogr am No observ ation record ed. [facility] [address] [place], [address], 08/28/2024 10:42:19 10/30/1908/03/2024 US, duple x, venou s, lower extre mity No observ ation record ed. [email or web address] Not Available 2024 14:46:15 Result Notes None recorded. Procedures Surgical History None recorded. Imaging Results Imaging Date Name Status LastModified by Organization Details LastModified Time 06/25/2024 electrocardiogram completed [address], [address], 06/25/2024 12:34:39 06/25/2024 electrocardiogram completed [address] y [address] [place] [address], [address], 06/29/2024 12:54:03 08/21/2024 electrocardiogram completed [address], [address], 08/21/2024 11:55:25 08/21/2024 electrocardiogram completed [facility] y [address] [place] [address], [address], 08/28/2024 10:42:19 08/03/2024 US, duplex, venous, lower extremity completed [email or web address] Information not available 10/29/2024 14:46:15 Procedure Notes None recorded. Medical Equipment None Reported. Medications Name Sig Start Date Stop Date Status Note LastModified by Organization Details LastModified Time amoxicillin 500 mg capsule TAKE 4 CAPSULES BY MOUTH 30-60 MINUTES BEFORE DENTAL APPOINTME NT active Not Available Not Available No t Available atorvastati n 80 mg tablet active [...] Not Available levothyroxi ne 50 mcg tablet TAKE 1 TABLET BY MOUTH [...] Not Available Not Available No t Available furosemide 20 mg tablet TAKE 1 TABLET BY MOUTH EVERY DAY active Not Available Not Available No t Available metoprolol succinate ER 25 mg tablet,exte nded release 24 hr TAKE 1/2 TABLET BY MOUTH EVERY DAY active Not [...] mm[Hg] 70 mm[Hg] Charly Sims MD 6 [facility] [place], , [address] 12:03:46 Date Recorded Body weight Provider Name an d Address Organization Details Last Updated DateTime 08/21/2024 57966.78 g Jocelyn Frank [facility] 08/21/2024 10:31:55 Date Recorded Heart rate Respiratory rate Systolic blood pressure Diastolic blood pressure Provider Name and Address Organization Details Last Updated DateTime 08/21/2024 70 /min 12 /min 120 mm[Hg] 80 mm[Hg] Charly Sims MD 6 [facility] [place] [address], , [address] 10:51:16 Date Recorded Body weight Provider Name an d Address Organization Details Last Updated DateTime 11/05/2024 64881.19 g Jocelyn Frank [facility] 11/05/2024 10:37:04 Date Recorded Heart rate Respiratory rate Systolic blood pressure Diastolic blood pressure Provider Name and Address Organization Details Last Updated DateTime 11/05/2024 68 /min 12 /min 130 mm[Hg] 80 mm[Hg] Charly Sims MD 6 [facility] [address], , [address] 12:45:56 Social History None recorded. Functional Status None [...] SNOMED-CT Code Diagnosis ICD10 Code Diagnosis Note [id number] Charly Sims MD [address] [address] 06/25/2024 11:24:23 06/25/2024 14:11:54 Preoperative cardiovascular examination 196865520 Z01.810 Atheroscle rosis of coronary artery without angina pectoris 1517602036 73785 I25.10 Aortic valve stenosis 60 099751 I35.0 Non-rheuma tic mitral valve stenosis 180526605 I34.2 [id number] Charly Sims MD [address] [address] 08/21/2024 10:22:16 08/21/2024 11:09:25 Edema of lower extremity 659179509 R60.0 Atheroscle rosis of coronary artery without angina pectoris 8522530265 83222 I25.10 Essential hypertension 53565783 I10 [id number] Charly Sims MD [address] [address] 11/05/2024 10:17:35 11/05/2024 14:45:27 Edema of lower extremity 537857862 R60.0 Atheroscle rosis of coronary artery without angina pectoris 5871960896 14496 I25.10 Essential hypertension 36059415 I10 Aortic valve stenosis 60 962026 I35.0 Health Concerns Section Related Observation LastModified by Organization Detai ls LastModified Time None Recorded Concern Status LastModified by Organization Details LastModified Time None Recorded Advance Directives Directive None Recorded Payers Encounter Date Sequence Insurance Name Policy Number Policy Dai Covered Member ID Dai Member ID Guarantor Name 06/25/2024 2 [facility] (MEDICARE SUPPLEMENT) Kareem Fletcher [id number] Kareem Fletcher 06/25/2024 1 MEDICARE B-[place]: MEDICARE SERVICES - NATIONAL GOVERNMENT SERVICES Kareem Fletcher [id number] Kareem Fletcher 08/21/2024 2 [facility] (MEDICARE SUPPLEMENT) Kareem Fletcher [id number] Kareem Fletcher 08/21/2024 1 MEDICARE [place]: MEDICARE SERVICES - [facility] Kareem Fletcher [id number] Kareem Fletcher 11/05/2024 2 [facility] (MEDICARE SUPPLEMENT) Kareem Fletcher [id number] Kareem Fletcher 11/05/2024 1 MEDICARE [place]: MEDICARE SERVICES - [facility] Kareem Fletcher [id number] 2 Kareem Fletcher Notes Date Note Type Note Provider Name and Address Organization Details Recorded Time 4 text/html Patient is referred for cardiac assessment prior to elective hip replacement surgery. As you are aware he is a 73-year-old gentleman we have most of his care in [place] at [place] where he underwent a four-vessel bypass in [...] quite active volunteering his time at the [facility]. He offers are somewhat limited to hip pain and is scheduled for hip replacement on July 22. For that reason were asked to see him from a cardiac standpoint. He reports no chest pains palpitations or dyspnea. He denies any paroxysmal internal dyspnea lower extremity edema. Charly Sims MD 6 [facility],[address], , [address], [place] - [facility] 06/25/2024 12:07:51 5 text/html Patient comes in as a sick [...] had any angina. Charly Sims MD 6 [facility],[address], , [address], [facility] 08/21/2024 11:04:18 5 text/html Patient returns in follow-up for his history of coronary disease and CABG with preserved LV function. He has mild AAS and AI in the setting of hypertension and hyperlipidemia. Since his last visit he underwent hip surgery. Postoperatively he had some edema in his left foot on the side of his hip surgery. More recently it has been more prominent in the right foot. He has no associated chest pains or dyspnea. Charly Sims MD 6 [facility],[address], , [address], [facility] 11/05/2024 12:53:12
--- OUTSIDE RECORDS SUMMARY | 2024-11-18 13:06 | XMS_ITS | Encounter Summary ---
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 Social History Tobacco Use Types Packs/Day Years [...] of this encounter Results * T3, free (06/08/2021 9:02 AM EDT) T3, Free 2.4 2.3 - 4.2 pg/mL 06/08/2021 12:24 PM EDT [facility] Blood Venipuncture / Unknown 06/08/2021 9:02 AM EDT 06/08/2021 9:04 AM EDT us Koko Wahl MD LAB BLOOD ORDERABLES Final Resul t Performing Organization Address [facility] de Phone Number [facility] [address] [place] [address] * Estradiol (06/08/2021 9:02 AM EDT) Estradiol <11.8 =<39.8 pg/mL 06/08/2021 12:24 PM EDT [facility] Comment: Reference ranges (pg/mL): Females (normal menstruating): Folicular phase : 19.5-144.2 Midcycle ?: 63.9-356.7 Luteal phase ?: 55.8-214.2 Postmenopausal ??: 0.0-32.2 If the patient is taking Faslodex (fulvestrant), then this result will be falsely elevated due to the cross-reactivity. Order Estradiol, Ultrasensitive LC/MS instead. Males : 0.0-39.8 Blood Venipuncture / Unknown 06/08/2021 9:02 AM EDT 06/08/2021 9:04 AM EDT us Koko Wahl MD LAB BLOOD ORDERABLES Final Resul t Performing Organization Address [facility] de Phone Number [facility] [address] [place] [address] * (ABNORMAL) DHEA-sulfate (06/08/2021 9:02 AM EDT) DHEA-SO4 46.6(L) 80.0 - 560.0 ug/dL 06/08/2021 5:08 PM EDT [facility]ORATORY MEDICINE Comment: Oscar Stage I: Male 7-209 ug/dL Female 7-126 ug/dL Oscar Stage II: Male 28-260 ug/dL Female 13-241 ug/dL Oscar Stage III: Male 39-390 ug/dL Female 32-446 ug/dL Oscar Stage IV & V: Male 81-488 ug/dL Female 65-371 ug/dL Blood Venipuncture / Unknown 06/08/2021 9:02 AM EDT 06/08/2021 9:04 AM EDT us Koko Wahl MD LAB BLOOD ORDERABLES Final Resul t [facility]PART[facility] OF LABORATORY MEDICINE [address] [place] [address] [phone] * TSH (06/08/2021 9:02 AM EDT) Pathologist [facility] TSH 3.21 0.36 - 3.74 uIU/mL 06/08/2021 10:20 AM EDT [facility] Blood Venipuncture / Unknown 06/08/2021 9:02 AM EDT 06/08/2021 9:04 AM EDT us Koko Wahl MD LAB BLOOD ORDERABLES Final Resul t Performing Organization Address City/[facility]/ZIP Co de Phone Number [address] [phone] * (ABNORMAL) Testosterone, free,bio and total, LC/MS/MS ( GH LMW Q YH) (06/08/2021 9:02 AM EDT) Pathologist [facility] Testosterone Total LC/MS/MS 79(L) 250 - 1100 ng/dL 06/12/2021 12:37 PM EDT [facility] Comment: Men with clinically significant hypogonadal symptoms and testosterone values repeatedly in the range of the 200-300 ng/dL or less, may benefit from testosterone treatment after adequate risk and benefits counseling. For additional information, please refer to http://education.[employer]/faq/ [email or web address] (This link is being provided for informational/ educational purposes only.) This test was developed and its analytical performance characteristics have been determined by [facility] [place], [place]. It has not been cleared or approved by the U.S. Food and Drug Administration. This assay has been validated pursuant to the CLIA regulations and is used for clinical purposes. Testosterone, Free 5.4(L) 6.0 - 73.0 pg/mL 06/12/2021 12:37 PM EDT [facility] Testosterone, Bioavailable 10.4(L) 15.0 - 150.0 ng/dL 06/12/2021 12:37 PM EDT [facility] Sex Hormone Binding Globulin 65 22 - 77 nmol/L 06/12/2021 12:37 PM EDT [facility] Albumin 4.2 3.6 - 5.1 g/dL 06/12/2021 12:37 PM EDT [facility] Comment: Test Performed at: [facility] [address] ??[address] Srikanth Grande M.D., Ph.D.,Director of Laboratories Blood Venipuncture / Unknown 06/08/2021 9:02 AM EDT 06/08/2021 9:04 AM EDT us Koko Wahl MD LAB BLOOD ORDERABLES Final Resul t [facility] * T4, free (06/08/2021 9:02 AM EDT) Free T4 0.80 0.76 - 1.46 ng/dL 06/08/2021 10:20 AM EDT [facility] Blood Venipuncture / Unknown 06/08/2021 9:02 AM EDT 06/08/2021 9:04 AM EDT us Koko Wahl MD LAB BLOOD ORDERABLES Final Resul t Performing Organization Address City/[facility] Co de Phone Number [address] [phone] documented in this encounter Visit Diagnoses Diagnosis Other specified endocrine disorders- Primary 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
--- OUTSIDE RECORDS SUMMARY | 2024-11-18 13:06 | XMS_ITS | Encounter Summary ---
Author Organization [facility] and [facility] Address [address] [place] [address] Care Team Providers Care Laborer Turkey [employer] Name Role Phone Evan Mauricio MD Primary Care Provider [phone] Encounter Details Date Type Department Care Team (Latest Contact Info) Description 06/08/2021 Transcribed Orders [address] [phone] System, Provider Not In Pure hypercholesterolemia (Primary Dx); Screening for diabetes mellitus; Mixed hyperlipidemia Social History Tobacco Use Types Packs/Day Years [...] as of this encounter Results * (ABNORMAL) Lipid panel (06/08/2021 9:02 AM EDT) Cholesterol 215(H) See Comment mg/dL 06/08/2021 10:20 AM [facility] Comment: Cholesterol Reference Range: ? Desirable: ?? <200 mg/dL ? Borderline: ??200-240 mg/dL ? High Risk: ?? >240 mg/dL HDL 66(H) See Comment mg/dL 06/08/2021 10:20 AM [facility] Comment: HDL Reference Range: Low: <40 High: > or = 60 Triglycerides 229(H) See Comment mg/dL 06/08/2021 10:20 AM [facility] Comment: Triglyceride Reference Range: ?Normal: ? <150 mg/dL ?Borderline High: ??150-199 mg/dL ?High: ? 200-499 mg/dL ?Very High: ?>or= 500 mg/dL LDL Calculated 103(H) See Comment mg/dL 06/08/2021 10:20 AM [facility] Comment: LDL Reference Range: Optimal: ? <100 mg/dL Near/Above Optimal: ??100-129 mg/dL Borderline High: ? 130-159 mg/dL High: ?160-189 mg/dL Very High: ? >or= 190 mg/dL Blood Venipuncture / Unknown 06/08/2021 9:02 AM EDT 06/08/2021 9:04 AM EDT us Provider Not In System LAB BLOOD ORDERABLES Elvia pittman Result Performing Organization Address City/State/[facility] [place] [address], [facility] [phone] documented in this encounter Visit Diagnoses Diagnosis Pure hypercholesterolemia- Primary Screening for diabetes mellitus Mixed hyperlipidemia documented in this encounter Additional Health Concerns [...] documented as of this encounter Care Teams Laborer [employer] Relationship Specialty Start Date End Date Evan Mauricio MD [address] [place] [address] PCP - General Internal Medicine 12/04/20 documented as of this encounter
--- OUTSIDE RECORDS SUMMARY | 2024-11-18 13:06 | XMS_ITS | Encounter Summary ---
Author Organization [facility] and [facility] Address [address] [place] [address] Care Team Providers Care Fee Clerk Name Role Phone Evan Mauricio MD Primary Care Provider [phone] Reason for Referral * Imaging (Routine) - Closed Specialty Diagnoses / Procedures Referred By Gudelia fisher Referred To Contact Diagnostic Radiology Diagnoses Lung nodule Procedures CT Chest wo IV Contrast Sampson Junior MD [address] [place] [phone] Phone: tel: fax: Referral ID Status Reason Start Date Expiration Date Visits Re quested Visits Authorized [id number] Closed 10/29/2024 10/29/2025 1 1 Reason for Visit * Imaging (Routine) - Closed Specialty Diagnoses / Procedures Referred By Gudelia fisher Referred To Contact Diagnostic Radiology Diagnoses Lung nodule Procedures CT Chest wo IV Contrast Sampson Junior MD [address] [place] [phone] Phone: tel: fax: Referral ID Status Reason Start Date Expiration Date Visits Re quested Visits Authorized [id number] Closed 10/29/2024 10/29/2025 1 1 Encounter Details Date Type Department Care Team (Latest Contact Info) Description 11/13/2024 2:41 PM EDT - 11/13/2024 11:59 PM EDT Hospital Encounter [facility] CT Scan [address] [place] [phone] Sampson Junior MD 79 [facility] [address] [place] [address] Lung nodule Discharge Disposition: Home or Self Care Social History Tobacco Use Types Packs/Day Years [...] on file documented as of this encounter Medications at Time of Discharge albuterol (PROVENTIL, VENTOLIN) 2.5 mg /3 mL (0.083 %) nebulizer solution Take 3 mLs by nebulization every 6 (six) hours as needed for shortness of breath. 75 mL 10/13/2020 APPLE CIDER VINEGAR ORAL Take 1 Gum by mouth daily. ascorbic acid, vitamin C, (VITAMIN C) 500 mg tablet Take 1 tablet (500 mg total) by mouth daily. aspirin 81 mg EC delayed release tablet Take 1 tablet (81 mg total) by mouth at bedtime. atorvastatin (LIPITOR) 80 mg tablet Take 1 tablet (80 mg total) by mouth daily. cycloSPORINE (RESTASIS) 0.05 % ophthalmic emulsion Place 1 drop into both eyes 2 (two) times daily. ergocalciferol, vitamin D2, (VITAMIN D ORAL) Take 1 tablet by mouth daily. ezetimibe (ZETIA) 10 mg tablet Take 1 tablet (10 mg total) by mouth daily with lunch. 12/23/2023 ferrous sulfate (FEOSOL) 325 mg (65 mg iron) tablet Take 1 tablet (325 mg total) by mouth daily. 10/23/2023 levothyroxine (SYNTHROID, LEVOTHROID) 100 MCG tablet Take 1 tablet (100 mcg total) by mouth daily. magnesium oxide (MAG-OX) 400 mg (241.3 mg magnesium) tablet Take 1 tablet (400 mg total) by mouth daily with lunch. mecobalamin (B12 ACTIVE ORAL) Take 1 Gum by mouth daily. metFORMIN (GLUCOPHAGE) 1000 mg tablet Take 0.5 tablets (500 mg total) by mouth 2 (two) times daily with breakfast and dinner. 11/20/2023 metoprolol succinate XL (TOPROL-XL) 25 mg 24 hr tablet Take 1 tablet (25 mg total) by mouth daily. Take with or immediately following a meal. predniSONE (DELTASONE) 10 mg tablet Take 1 tablet (10 mg total) by mouth 2 (two) times daily. 10/26/2023 pyridostigmine (MESTINON) 60 mg Immediate Release tablet Take 1 tablet (60 mg total) by mouth 3 (three) times daily. TRULICITY 0.75 mg/0.5 mL Pen Injector Inject 0.5 mLs (0.75 mg total) under the skin once a week. 01/10/2024 documented as of this encounter Plan of Treatment Not on file documented as of this encounter Procedures Procedure Name Priority Date/Time Associated Diagnosis Comments CT CHEST WO IV CONTRAST Routine 11/13/2024 2:51 PM EDT Lung nodule documented in this encounter Results * CT Chest wo IV Contrast [...] on medical radiation exposure please visit: www.[email or web address].org. [facility] Radiology Notification System Classification: Routine. Reported and [...] information onmedical radiation exposure please visit: [email or web address].org. [facility] Radiology Notification System Classification: Routine. Reported and signed by: Isak Pablo MD Sampson Junior MD IMG CT ORDERABLES Final Result documented in this encounter Visit Diagnoses Diagnosis Lung nodule Solitary pulmonary nodule documented in this encounter Additional Health Concerns Assessment Noted Time PHQ-9 Depression Total Score: 0 12/22/19 24 5:57 PM EDT documented as of this encounter Care Teams Fee Clerk Relationship Specialty Start Date End Date Evan Mauricio MD [address] [place] [address] PCP - General Internal Medicine 12/04/20 documented as of this encounter
--- OUTSIDE RECORDS SUMMARY | 2024-11-18 13:06 | XMS_ITS | Encounter Summary ---
Author Organization [facility] Address [address] [place] [address] Care Team Providers Care Truck Hopper Name Role Phone Evan Mauricio MD Primary Care Provider Encounter Details Date Type Department Care Team (Latest Contact Info) Description 09/28/2021 Transcribed Orders [facility] - [address] [phone] Clement Alaniz PA [address] [place] [address] Dr Britton [address] [place] [phone] Coronary atherosclerosis of [place] coronary artery (Primary Dx); Special screening for malignant neoplasm of prostate Social History Tobacco Use Types Packs/Day Years [...] documented as of this encounter Results * PSA, total (screening) ([facility] L LMW YH) (09/28/2021 8:24 AM EST) Prostate Specific Antigen, Screening <0.010 <4.000 ng/mL 09/28/2021 9:47 AM EST [facility] Comment: This test was performed using the Siemens NetEffect assay. ??Results obtained with different assay methods cannot be used interchangeably. A total PSA value of 4ng/mL may not be an appropriate actionable threshold in all clinical situations. For healthcare providers, see institutional care pathway via Epic Tools > Integrated Care Models > Abnormal Prostate http://[email or web address].[facility].org/uploads/abnormal%20Prostate%20stewardship%20ICM%20algorith m.pdf Blood Venipuncture / Unknown 09/28/2021 8:24 AM EST 09/28/2021 8:24 AM EST Clement BERTRAND LAB BLOOD ORDERABLES Fin al Result Performing Organization Address [facility] [place] [address], [facility] [phone] * TSH (09/28/2021 8:24 AM EST) TSH 3.15 0.36 - 3.74 uIU/mL 09/28/2021 9:47 AM EST [facility] Blood Venipuncture / Unknown 09/28/2021 8:24 AM EST 09/28/2021 8:24 AM EST Clement BERTRAND LAB BLOOD ORDERABLES Fin al Result Performing Organization Address [facility] de Phone Number [address] [phone] documented in this encounter Visit Diagnoses Diagnosis Coronary atherosclerosis of [place] coronary artery- Primary Special screening for malignant neoplasm of prostate documented in this encounter Additional Health Concerns [...] documented as of this encounter Care Teams Truck Hopper Relationship Specialty Start Date End Date Evan Mauricio MD [address] [place] [address] PCP - General Internal Medicine 12/04/20 documented as of this encounter
== END 2024-11-18 12:24 | disposition home or self-care (01) ==
LOC: HO.HMCH 11:05
PROVIDERS: PCP Physician Assistant; Visit Provider Physician Assistant
DX: E11.9 Type 2 diabetes mellitus without complications (principal); I25.118 Atherosclerotic heart disease of native coronary artery with other forms of angina pectoris; G70.00 Myasthenia gravis without (acute) exacerbation; I10 Essential (primary) hypertension; E78.2 Mixed hyperlipidemia; E03.9 Hypothyroidism, unspecified; R60.0 Localized edema

== ENCOUNTER → 2024-11-18 11:04 | Outpatient (BNVA) | payer MEDICARE, OTHER, SELFPAY | PROVIDERS: PCP Physician Assistant; Visit Provider Physician Assistant | DX: E11.9 Type 2 diabetes mellitus without complications (principal); I25.118 Atherosclerotic heart disease of native coronary artery with other forms of angina pectoris; G70.00 Myasthenia gravis without (acute) exacerbation; I10 Essential (primary) hypertension; E78.2 Mixed hyperlipidemia; E03.9 Hypothyroidism, unspecified; R60.0 Localized edema; D50.9 Iron deficiency anemia, unspecified; E53.8 Deficiency of other specified B group vitamins | CPT/HCPCS: 96127; 99212 ==

== ENCOUNTER 2024-12-22 07:33 | Outpatient (REF) | payer MEDICARE, OTHER, SELFPAY ==
--- OUTSIDE RECORDS SUMMARY | 2024-12-22 07:36 | XMS_ITS | Encounter Summary ---
Author Organization [facility] and [facility] Address [address] [place] [address] Care Team Providers Care Records Supervisor Name Role Phone Evan Mauricio MD Primary Care Provider Encounter Details Date Type Department Care Team (Late st Contact Info) Description 06/08/2021 Orders Only [facility] - [address] [phone] Evan Mauricio MD [address] [place] [address] Screening examination for poliomyelitis; Post-COVID syndrome resolved [...] Positive( A) Negative 06/08/2021 5:36 PM EDT [facility] SARS-CoV-2 (COVID-19) Jakub-RBD Ab, Total >2,500.00 (H) <0.80 U/mL 06/08/2021 5:36 PM EDT [facility] Blood Venipuncture / Unknown 06/08/2021 9:02 AM EDT 06/08/2021 9:54 AM EDT us Evan Mauricio MD LAB BLOOD ORDERABLES Final Re sult Performing Organization Address City/State/[facility] Co de Phone Number [facility] [address] [place] [address] documented in this encounter Visit Diagnoses Diagnosis [...] documented as of this encounter Care Teams Records Supervisor Relationship Specialty Start Date End Date Evan Mauricio MD [address] [place] [address] PCP - General Internal Medicine 12/04/20 documented as of this encounter
--- OUTSIDE RECORDS SUMMARY | 2024-12-22 07:36 | XMS_ITS | Data Portability ---
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 Imaging electroca rdiogram [address], [address], 08/21/2024 11:55:25 electroca rdiogram [address], [address], 06/25/2024 14:11:54 Medication Orders None recorded. Patient TargetsNo targets recorded. Patient InstructionsNo instructions recorded. Reason for Referral None Reported. Results Created Date Observation Date Name Description Value Unit Range Abnormal Flag Note LastModifiedBy Organization Detail LastModifiedTime 06/25/2006/25/2024 elect rocar diogr am No observ ation record ed. [email or web address] [facility] [address] [place], [address], 06/25/2024 12:34:39 06/29/20 24 06/25/2024 elect rocar diogr am No observ ation record ed. [email or web address] [facility] [address] [place], [address], 06/29/2024 12:54:03 01/10/20 25 08/21/2024 elect rocar diogr am No observ ation record ed. [email or web address] [facility] [address] [place], [address], 08/21/2024 11:55:25 08/28/19 25 08/21/2024 elect rocar diogr am No observ ation record ed. [facility] [address] [place], [address], 08/28/2024 10:42:19 10/30/19 25 08/03/2024 US, duple x, venou s, lower extre mity No observ ation record ed. Not Available 2024 14:46:15 12/22/1911/13/2024 CT, angio gram, chest , w/o contr ast No observ ation record ed. [email or web address] Not Available 2024 09:23:02 Result Notes None recorded. Procedures Surgical History None recorded. Imaging Results Imaging Date Name Status LastModified by Organization Details LastModified Time 06/25/2024 electrocardiogram completed [address], [address], 06/25/2024 12:34:39 06/25/2024 electrocardiogram completed [address] [place] [address], [phone], 06/29/2024 12:54:03 08/21/2024 electrocardiogram completed [facility] y [address] [place] [address], [phone], 08/21/2024 11:55:25 08/21/2024 electrocardiogram completed [facility] y [address] [place] [address], [address], 08/28/2024 10:42:19 08/03/2024 US, duplex, venous, lower extremity completed [email or web address] Information not available 10/29/2024 14:46:15 11/13/2024 CT, angiogram, chest, w/o contrast completed [email or web address] Information not available 12/21/2024 09:23:02 Procedure Notes None recorded. Medical Equipment None [...] TAKE 1 TABLET BY MOUTH EVERY DAY 2024 active Not Available Not Available Not Avai lable metoprolol succinate ER 25 mg tablet,exte nded [...] mm[Hg] 70 mm[Hg] Charly Sims MD [address] [facility] [address], [place], [address] 12:03:46 Date Recorded Body weight Provider Name an d Address Organization Details Last Updated DateTime 08/21/2024 73209.78 g Jocelyn Frank [facility] 08/21/2024 10:31:55 Date Recorded Heart rate Respiratory rate Systolic blood pressure Diastolic blood pressure Provider Name and Address Organization Details Last Updated DateTime 08/21/2024 70 /min 12 /min 120 mm[Hg] 80 mm[Hg] Charly Sims MD 6 [facility] [place],[facility] [address], [place], [address] 10:51:16 Date Recorded Body weight Provider Name an d Address Organization Details Last Updated DateTime 11/05/2024 49631.19 g Jocelyn Frank [facility] 11/05/2024 10:37:04 Date Recorded Heart rate Respiratory rate Systolic blood pressure Diastolic blood pressure Provider Name and Address Organization Details Last Updated DateTime 11/05/2024 68 /min 12 /min 130 mm[Hg] 80 mm[Hg] Charly Sims MD 6 [facility] [place],[address], [place], [address], [place] [facility] 12:45:56 Social History None recorded. Functional Status [...] SNOMED-CT Code Diagnosis ICD10 Code Diagnosis Note [id number] Charly Sims MD [address] [address] 06/25/2024 11:24:23 06/25/2024 14:11:54 Preoperative cardiovascular examination 949269007 Z01.810 Atheroscle rosis of coronary artery without angina pectoris 9122507715 12084 I25.10 Aortic valve stenosis 60 696584 I35.0 Non-rheuma tic mitral valve stenosis 368915282 I34.2 [id number] Charly Sims MD [address] [address] 08/21/2024 10:22:16 08/21/2024 11:09:25 Edema of lower extremity 225588628 R60.0 Atheroscle rosis of coronary artery without angina pectoris 9172187829 30620 I25.10 Essential hypertension 20033389 I10 [id number] Charly Sims MD [address] [address] 11/05/2024 10:17:35 11/05/2024 14:45:27 Edema of lower extremity 458927758 R60.0 Atheroscle rosis of coronary artery without angina pectoris 5406113004 07797 I25.10 Essential hypertension 84021331 I10 Aortic valve stenosis 60 754279 I35.0 Health Concerns Section Related Observation LastModified by Organization Detai ls LastModified Time None Recorded Concern Status LastModified by Organization Details LastModified Time None Recorded Advance Directives Directive None Recorded Payers Encounter Date Sequence Insurance Name Policy Number Policy Dai Covered Member ID Dai Member ID Guarantor Name 06/25/2024 2 [facility] (MEDICARE SUPPLEMENT) Kareem Fletcher [id number] Kareem Fletcher 06/25/2024 1 MEDICARE [place]: MEDICARE SERVICES - [facility] Kareem Fletcher [id number] Kareem Fletcher 08/21/2024 2 [facility] (MEDICARE SUPPLEMENT) Kareem Fletcher [id number] Kareem Fletcher 08/21/2024 1 MEDICARE [place]: MEDICARE SERVICES - [facility] Kareem Fletcher [id number] Kareem Fletcher 11/05/2024 2 [facility] (MEDICARE SUPPLEMENT) Kareem Fletcher [id number] Kareem Fletcher 11/05/2024 1 MEDICARE [place]: MEDICARE SERVICES - [facility] Kareem Fletcher [id number] 2 Kareem Fletcher Notes Date Note Type Note Provider Name and Address Organization Details Recorded Time 4 text/html Patient is referred for cardiac assessment prior to elective hip replacement surgery. As you are aware he is a 73-year-old gentleman we have most of his care in [place] at [place] where he underwent a four-vessel bypass in [...] quite active volunteering his time at the [facility]. He offers are somewhat limited to hip pain and is scheduled for hip replacement on July 22. For that reason were asked to see him from a cardiac standpoint. He reports no chest pains palpitations or dyspnea. He denies any paroxysmal internal dyspnea lower extremity edema. Charly Sims MD 6 [facility] [place],[address], [place], [address], [place] [facility] 06/25/2024 12:07:51 5 text/html Patient comes in [...] had any angina. Charly Sims MD 6 [facility] [place],[address], [place], [address], [facility] - [facility] 08/21/2024 11:04:18 5 text/html Patient returns in [...] pains or dyspnea. Charly Sims MD 6 [facility] [place],[address], [place], [address], [facility] 11/05/2024 12:53:12
--- OUTSIDE RECORDS SUMMARY | 2024-12-22 07:36 | XMS_ITS | Encounter Summary ---
Author Organization [facility] and [facility] Address [address] [place] [phone] Care Team Providers Care Newborn Hearing Screener Name Role Phone Evan Mauricio MD Primary Care Provider Encounter Details Date Type Department Care Team (Late st Contact Info) Description 12/13/2023 Transcribed Orders [address] [phone] Evan Mauricio MD [address] [place] [address] Disease of thyroid gland (Primary Dx); Abnormal [...] - 12.1 ug/dL 12/13/2023 2:50 PM EDT [facility] Blood Venipuncture / Unknown 12/13/2023 1:36 PM EDT 12/13/2023 1:36 PM EDT Evan Mauricio MD LAB BLOOD ORDERABLES Final Re sult Performing Organization Address City/[facility]/ZIP [place] [address], [facility] [phone] * TSH, 3rd generation w/reflex to FT4 ([facility] LMW Q YH) (12/13/2023 1:36 PM EDT) TSH 0.40 0.36 - 3.74 uIU/mL 12/13/2023 2:50 PM EDT [facility] Blood Venipuncture / Unknown 12/13/2023 1:36 PM EDT 12/13/2023 1:36 PM EDT Evan Mauricio MD LAB BLOOD ORDERABLES Final Re sult Performing Organization Address [facility] [place] [address], [facility] [phone] * PSA, total (screening) ([facility] L LMW YH) (12/13/2023 1:36 PM EDT) Prostate Specific Antigen, Screening <0.010 <4.000 ng/mL 12/13/2023 2:50 PM EDT [facility] Comment: Results cannot be interpreted as absolute evidence of presence or absence of malignant disease.?? Values obtained from different instruments cannot be used interchangeably.?? This test was performed on the Siemens Dimension [place] using an electrochemiluminescence immunoassay. A total PSA value of 4ng/mL may not be an appropriate actionable threshold in all clinical situations. For healthcare providers, see institutional care pathway via [employer] Tools > Integrated Care Models > Abnormal Prostate [email or web address]://[email or web address]/uploads/abnormal%20Prostate%20stewardship%20ICM%20algorith m.pdf Blood Venipuncture / Unknown 12/13/2023 1:36 PM EDT 12/13/2023 1:36 PM EDT Evan Mauricio MD LAB BLOOD ORDERABLES Final Re sult Performing Organization Address [facility] [place] [address], [facility] [phone] * (ABNORMAL) NT-proBrain natriuretic peptide (12/13/2023 1:36 PM EDT) NT-proBNP 645.0(H) <450.0 pg/mL 12/13/2023 2:50 PM EDT [facility] Blood Venipuncture / Unknown 12/13/2023 1:36 PM EDT 12/13/2023 1:36 PM EDT Evan Mauricio MD LAB BLOOD ORDERABLES Final Re sult Performing Organization Address [facility] de Phone Number [address] [phone] * (ABNORMAL) Hemoglobin A1c (12/13/2023 1:36 PM EDT) Hemoglobin A1c 9.8(H) 4.2 - 6.3 % 12/13/2023 2:37 PM EDT [facility] Comment: ??>=6.5% Diabetes* 5.7-6.4% Pre-Diabetes *These [...] MD LAB BLOOD ORDERABLES Final Re sult [address] [address], [facility] [phone] documented in this encounter Visit Diagnoses Diagnosis [...] documented as of this encounter Care Teams Newborn Hearing Screener Relationship Specialty Start Date End Date Evan Mauricio MD [address] [facility] [place] [address] PCP - General Internal Medicine 12/04/20 documented as of this encounter
--- OUTSIDE RECORDS SUMMARY | 2024-12-22 07:36 | XMS_ITS | Encounter Summary ---
Author Organization [facility] Address [address] [place] [address] Care Team Providers Care Machining Associate Name Role Phone Evan Mauricio MD Primary Care Provider Encounter Details Date Type Department Care Team (Latest Contact Info) Description 09/28/2021 Transcribed Orders [facility] - [address] [phone] Clement Alaniz PA [address] [place] [address] Dr Britton [address] [place] [phone] Coronary atherosclerosis of [place] coronary artery (Primary Dx); Special screening for [...] <0.010 <4.000 ng/mL 09/28/2021 9:47 AM EST [facility] Comment: This test was performed using the Siemens [employer] assay. ??Results obtained with different assay methods cannot be used interchangeably. A total PSA value of 4ng/mL may not be an appropriate actionable threshold in all clinical situations. For healthcare providers, see institutional care pathway via Epic Tools > Integrated Care Models > Abnormal Prostate [email or web address]://[email or web address]/uploads/abnormal%20Prostate%20stewardship%20ICM%20algorith m.pdf Blood Venipuncture / Unknown 09/28/2021 8:24 AM EST 09/28/2021 8:24 AM EST Clement BERTRAND LAB BLOOD ORDERABLES Fin al Result Performing Organization Address [facility] [place] [address], [facility] [phone] * TSH (09/28/2021 8:24 AM EST) TSH 3.15 0.36 - 3.74 uIU/mL 09/28/2021 9:47 AM EST [facility] Blood Venipuncture / Unknown 09/28/2021 8:24 AM EST 09/28/2021 8:24 AM EST Clement BERTRAND LAB BLOOD ORDERABLES Fin al Result Performing Organization Address [facility] de Phone Number [address] [phone] documented in this encounter Visit Diagnoses Diagnosis Coronary atherosclerosis of [place] coronary artery- Primary Special screening for malignant [...] documented as of this encounter Care Teams Machining Associate Relationship Specialty Start Date End Date Evan Mauricio MD [address] [place] [address] PCP - General Internal Medicine 12/04/20 documented as of this encounter
--- OUTSIDE RECORDS SUMMARY | 2024-12-22 07:36 | XMS_ITS | Encounter Summary ---
Author Organization [facility] and [facility] Address [address] [place] [address] Care Team Providers Care Floor Sweeper Name Role Phone Evan Mauricio MD Primary Care Provider [phone] Encounter Details Date Type Department Care Team (Latest Contact Info) Description 02/16/2022 Transcribed Orders [address] [phone] Geovanni Haq MD [address] [place] [phone] Mitral stenosis (Primary Dx) Social History [...] 9.3 - 11.6 seconds 02/16/2022 10:23 AM [facility] PTT 25.2 21.0 - 32.0 seconds 02/16/2022 10:23 AM [facility] Comment: RECOMMENDED THERAPEUTIC RANGE: 40-80 SECONDS INR 0.99 0.87 - 1.14 02/16/2022 10:23 AM EDT [facility] Comment: RECOMMENDED INR THERAPEUTIC RANGES: ?STANDARD INTENSITY......2.0-3.0 ?HIGH INTENSITY..........2.5-3.5 Blood Venipuncture / Unknown 02/16/2022 8:56 AM EDT 02/16/2022 8:57 AM EDT us Geovanni Haq MD LAB BLOOD [place] [address], [facility] [phone] documented in this encounter Visit Diagnoses Diagnosis [...] documented as of this encounter Care Teams Floor Sweeper Relationship Specialty Start Date End Date Evan Mauricio MD [address] [place] [address] PCP - General Internal Medicine 12/04/20 documented as of this encounter
--- OUTSIDE RECORDS SUMMARY | 2024-12-22 07:36 | XMS_ITS | Encounter Summary ---
Author Organization [facility] Address [address] [place] [address] Care Team Providers Care Grants Officer Name Role Phone Evan Mauricio MD Primary Care Provider Encounter Details Date Type Department Care Team (Late st Contact Info) Description 06/08/2021 Transcribed Orders [facility] - [address] [phone] Evan Mauricio MD [address] [place] [address] Screening examination for poliomyelitis (Primary Dx); Post-COVID [...] (COVID-19) Jakub-RBD Antibody (Total Ig), Semi- Quantitative ([facility] LMW ) (06/08/2021 9:02 AM EDT) SARS-CoV-2 (COVID-19) Jakub-RBD Ab, Total Interpretation Positive( A) Negative 06/08/2021 5:36 PM EDT [facility] SARS-CoV-2 (COVID-19) Jakub-RBD Ab, Total >2,500.00 (H) <0.80 U/mL 06/08/2021 5:36 PM EDT [facility] Blood Venipuncture / Unknown 06/08/2021 9:02 AM EDT 06/08/2021 9:54 AM EDT us Evan Mauricio MD LAB BLOOD ORDERABLES Final Re sult Performing Organization Address City/State/[facility] Co de Phone Number [facility] [address] [place] [address] documented in this encounter Visit Diagnoses Diagnosis [...] documented as of this encounter Care Teams Grants Officer Relationship Specialty Start Date End Date Dotolo, Evan R, MD [address] [place] [address] PCP - General Internal Medicine 12/04/20 documented as of this encounter
--- OUTSIDE RECORDS SUMMARY | 2024-12-22 07:36 | XMS_ITS | Encounter Summary ---
Author Organization [facility] Address [address] [place] [address] Care Team Providers Care Licensed Insurance Sales Agent Name Role Phone Evan Mauricio MD Primary Care Provider [phone] Encounter Details Date Type Department Care Team (Latest Contact Info) Description 06/08/2021 Transcribed Orders [address] [place] [address] [phone] System, Provider Not In Pure hypercholesterolemia (Primary [...] 215(H) See Comment mg/dL 06/08/2021 10:20 AM [facility] Comment: Cholesterol Reference Range: ? Desirable: ?? <200 mg/dL ? Borderline: ??200-240 mg/dL ? High Risk: ?? >240 mg/dL HDL 66(H) See Comment mg/dL 06/08/2021 10:20 AM [facility] Comment: HDL Reference Range: Low: <40 High: > or = 60 Triglycerides 229(H) See Comment mg/dL 06/08/2021 10:20 AM [facility] Comment: Triglyceride Reference Range: ?Normal: ? <150 mg/dL ?Borderline High: ??150-199 mg/dL ?High: ? 200-499 mg/dL ?Very High: ?>or= 500 mg/dL LDL Calculated 103(H) See Comment mg/dL 06/08/2021 10:20 AM [facility] Comment: LDL Reference Range: Optimal: ? <100 mg/dL Near/Above Optimal: ??100-129 mg/dL Borderline High: ? 130-159 mg/dL High: ?160-189 mg/dL Very High: ? >or= 190 mg/dL Blood Venipuncture / Unknown 06/08/2021 9:02 AM EDT 06/08/2021 9:04 AM EDT us Provider Not In System LAB BLOOD ORDERABLES Elvia pittman Result Performing Organization Address City/State/[facility] [place] [address], [facility] [phone] documented in this encounter Visit Diagnoses Diagnosis [...] documented as of this encounter Care Teams Licensed Insurance Sales Agent Relationship Specialty Start Date End Date Evan Mauricio MD [address] [place] [address] PCP - General Internal Medicine 12/04/20 documented as of this encounter
--- OUTSIDE RECORDS SUMMARY | 2024-12-22 07:36 | XMS_ITS | Encounter Summary ---
Author Organization [facility] and [facility] Address [address] [place] [phone] Care Team Providers Care Cvicu Nurse Name Role Phone Evan Mauricio MD Primary Care Provider Encounter Details Date Type Department Care Team (Late st Contact Info) Description 12/24/2023 Transcribed Orders [address] [phone] Evan Mauricio MD [address] [place] [address] Social History Tobacco Use Types Packs/Day Years [...] documented as of this encounter Care Teams Cvicu Nurse Relationship Specialty Start Date End Date Evan Mauricio MD [address] [place] [address] PCP - General Internal Medicine 12/04/20 documented as of this encounter
--- OUTSIDE RECORDS SUMMARY | 2024-12-22 07:36 | XMS_ITS | Encounter Summary ---
Author Organization [facility] and [facility] Address [address] [place] [phone] Care Team Providers Care Clothespin Drier Operator Name Role Phone Evan Mauricio MD Primary Care Provider Encounter Details Date Type Department Care Team (Late st Contact Info) Description 08/01/2024 Transcribed Orders [address] [phone] Evan Mauricio MD [address] [place] [address] Diabetes mellitus (HC Code) (Primary Dx) Social [...] 4.5 - 12.1 ug/dL 08/03/2024 12:43 PM [facility] Blood Venipuncture / Unknown 08/03/2024 11:10 AM EST 08/03/2024 11:10 AM EST Evan Mauricio MD LAB BLOOD ORDERABLES Final Re sult Performing Organization Address [facility] Phone Number [address] [phone] * (ABNORMAL) TSH (08/03/2024 11:10 AM EST) TSH 9.26(H) 0.36 - 3.74 uIU/mL 08/03/2024 12:43 PM [facility] Comment:As TSH is known to n aturally increase in winter, with age and due to certain non-thyroidal illnesses, please consider retesting adults with mild abnormalities (ie, TSH <10 ??IU/mL) after 2-3 months prior to initiating therapy. Blood Venipuncture / Unknown 08/03/2024 11:10 AM EST 08/03/2024 11:10 AM EST Evan Mauricio MD LAB BLOOD ORDERABLES [facility] Performing Organization Address [facility] Phone Number [address] [phone] * (ABNORMAL) Hemoglobin A1c (08/03/2024 11:10 AM EST) Hemoglobin A1c 8.0(H) 4.2 - 6.3 % 08/03/2024 12:53 PM [facility] Comment: ??>=6.5% Diabetes* [...] ORDERABLES Final Re sult Performing Organization Address City/State/[facility] [place] [address], [facility] [[email or web address]] [phone] documented in this encounter Visit Diagnoses Diagnosis Diabetes mellitus (HC Code)- Primary Type II or unspecified type diabetes mellitus without mention of complication, not stated as uncontrolled documented in this encounter Additional Health Concerns Assessment Noted Time PHQ-9 Depression Total Score: 0 12/22/19 24 5:57 PM EDT documented as of this encounter Care Teams Clothespin Drier Operator Relationship Specialty Start Date End Date Evan Mauricio MD [address] [place] [address] PCP - General Internal Medicine 12/04/20 documented as of this encounter
--- OUTSIDE RECORDS SUMMARY | 2024-12-22 07:36 | XMS_ITS | Encounter Summary ---
Author Organization [facility] and [facility] Address [address] [place] [phone] Care Team Providers Care Certified Court Interpreter Name Role Phone Evan Mauricio MD Primary Care Provider [phone] Encounter Details Date Type Department Care Team (Late st Contact Info) Description 10/20/[address] [facility] Laboratory Specimens [address] [place] [address] Evan Mauricio MD [address] [place] [address] Encntr for obs for susp expsr to [...] this encounter Results * SARS CoV-2 (COVID-19) RNA-[facility] ([facility]) (10/22/2020 10:31 AM EST) SARS-CoV-2 RNA (COVID-19) Negative Negative 10/22/2020 3:21 PM EST [facility] Comment: A negative result does not preclude SARS-CoV-2 infections and should not be used as the sole basis for treatment or other management decisions. ?? This assay is a Nucleic Acid Amplification Test (NAAT)/RT-PCR or TMA ([employer] System). This is run on the Wozityou system. It has been validated for clinical use by the [facility] (CLIA #: [id number]). It has been granted Emergency Use Authorization by the [place] FDA. Note that falsely negative results can be due to poor sample quality, suboptimal sample type, low viral load, and viral genome variability. This test has not been evaluated for use in asymptomatic individuals. Test ordering and interpretation is at the discretion of the ordering provider. Patient Information: https://www.fda.gov/media/853744/download ?? Provider Information: https://www.fda.gov/media/014003/download Test performance has not been evaluated in asymptomatic patients. Test ordering and result interpretation is at the discretion of the ordering provider. Viral NASOPHARYNGEAL STRUCTURE / Unknown Collection / Unknown 10/22/2020 10:31 AM EST 10/22/2020 10:58 AM EST Evan Mauricio MD MICROBIOLOGY - GENERAL [place] [address], [facility] [[email or web address]] [phone] documented in this encounter Visit Diagnoses Diagnosis Encntr for obs for susp expsr to [place] biol agents ruled out- Primary Acute respiratory [...] documented as of this encounter Care Teams Certified Court Interpreter Relationship Specialty Start Date End Date Evan Mauricio MD [address] [place] [address] PCP - General Internal Medicine 12/04/20 documented as of this encounter
--- OUTSIDE RECORDS SUMMARY | 2024-12-22 07:36 | XMS_ITS | Encounter Summary ---
Author Organization [facility] and [facility] Address [address] [place] [phone] Care Team Providers Care Air Bag Curer Name Role Phone Evan Mauricio MD Primary Care Provider Encounter Details Date Type Department Care Team (Late st Contact Info) Description 01/07/2024 Transcribed Orders [facility] - [address] [phone] Evan Mauricio MD [address] [place] [address] Hyperthermia-induce d defect (Primary Dx); Acute cough; [...] pneumonia LEGIONELLA AND S. PNEUMONIAE ANTIGEN, URINE ([facility]) Routine 01/07/2024 3:15 PM EDT Hyperthermia-induce d defect Acute cough Unresolved pneumonia BLOOD CULTURE ([facility]) Routine 01/07/2024 3:15 PM EDT Hyperthermia-induce d defect Acute cough Unresolved pneumonia BLOOD CULTURE ([facility]) Routine 01/07/2024 3:14 PM EDT Hyperthermia-induce d defect Acute cough Unresolved pneumonia documented in this encounter Results * Legionella and S. pneumoniae antigen, urine ([facility]) (01/07/2024 3:15 PM EDT) Legionella Antigen Negative Negative 01/07/2024 10:55 PM EDT [facility] DEPARTMENT OF LABORATORY MEDICINE S. pneumoniae Urine Antigen Negative Negative 01/07/2024 10:55 PM EDT [facility] DEPARTMENT OF LABORATORY MEDICINE Urine URINE SPECIMEN OBTAINED BY CLEAN CATCH PROCEDURE / Unknown Collection / Unknown 01/07/2024 3:15 PM EDT 01/07/2024 3:31 PM EDT Narrative [facility] DEPARTMENT OF LABORATORY MEDICINE - [...] MICROBIOLOGY - GENERAL ORDERA BLES Final Result [facility] DEPARTMENT OF LABORATORY MEDICINE [address] [place] [address] * Blood culture (01/07/2024 3:15 PM EDT) Pathologist [facility] Blood Culture No Growth after 5 days of incubation 01/12/2024 11:00 PM EDT [facility] DEPARTMENT OF LABORATORY MEDICINE Blood PERIPHERAL BLOOD SPECIMEN / Unknown Venipuncture / Unknown 01/07/2024 3:15 PM EDT 01/07/2024 3:31 PM EDT Narrative [facility] DEPARTMENT OF LABORATORY MEDICINE - 01/12/2024 11:00 PM EDT All blood culture bottles with growth will be reported. Evan Mauricio MD MICROBIOLOGY - GENERAL ORDERA BLES Final Result [facility] DEPARTMENT OF LABORATORY MEDICINE [address] [place] [id number] [place] [address] * SARS-CoV-2 (COVID-19)/Influenza A+B/RSV by RT-PCR ([facility]) (01/07/2024 3:15 PM EDT) [facility] Influenza A Negative Negative 01/07/2024 4:07 PM T [facility] Comment:Negative results do [...] B Negative Negative 01/07/2024 4:07 PM EDT [facility] Respiratory Syncytial Virus Negative Negative [facility] SARS-[facility] (COVID-19) Negative Negative 01/07/2024 4:07 PM T [facility] Comment: SARS-CoV-2 target nucleic acids not detected. Depending on assay used, testing was performed using one of the following tests. Contact the laboratory if the specific assay used impacts clinical care. Fact Sheet for Healthcare Providers: Cepheid Xpert Xpress SARS-CoV-2: https://www.fda.gov/media/177884/download Cepheid Xpert Xpress CoV-2 plus: https://www.fda.gov/media/473297/download Cepheid Xpert Xpress SARS-CoV-2/Flu/RSV plus: https://www.fda.gov/media/920147/download Fact Sheet for Patients: Cepheid Xpert Xpress SARS-CoV-2: https://www.fda.gov/media/103677/download Cepheid Xpert Xpress CoV-2 plus: https://www.fda.gov/media/249399/download Cepheid Xpert Xpress SARS-CoV-2/Flu/RSV plus: https://www.fda.gov/media/916192/download Test performed using the GeneXpert real-time RT-PCR assay. Test performance has not been evaluated in asymptomatic patients. Test ordering and result interpretation is at the discretion of the ordering provider. Test performed at: [place] [address] Director: Naomi Pack MD CLIA: [id number] Viral NASOPHARYNGEAL STRUCTURE / Unknown Collection / Unknown 01/07/2024 3:15 PM EDT 01/07/2024 3:18 PM EDT Evan Mauricio MD MICROBIOLOGY - GENERAL [facility] [place] [place] [address], [facility] [phone] * Blood culture (01/07/2024 3:14 PM EDT) Blood Culture No Growth after 5 days of incubation 01/12/2024 11:00 PM EDT [facility] DEPARTMENT OF LABORATORY MEDICINE Blood PERIPHERAL BLOOD SPECIMEN / Unknown Venipuncture / Unknown 01/07/2024 3:14 PM EDT 01/07/2024 3:15 PM EDT Narrative [facility] DEPARTMENT OF LABORATORY MEDICINE - 01/12/2024 11:00 PM EDT All blood culture bottles with growth will be reported. Evan Mauricio MD MICROBIOLOGY - [facility] Final Result [facility] DEPARTMENT OF LABORATORY MEDICINE [address] [place] [address], [facility] [phone] documented in this encounter Visit Diagnoses Diagnosis [...] documented as of this encounter Care Teams Air Bag Curer Relationship Specialty Start Date End Date Evan Mauricio MD [address] [place] [address] PCP - General Internal Medicine 12/04/20 documented as of this encounter
--- OUTSIDE RECORDS SUMMARY | 2024-12-22 07:36 | XMS_ITS | Encounter Summary ---
Author Organization [facility] and [facility] Address [address] [place] [phone] Care Team Providers Care Shim Plug Cutter Name Role Phone Evan Mauricio MD Primary Care Provider [phone] Encounter Details Date Type Department Care Team (Late st Contact Info) Description 02/06/2024 Transcribed Orders [facility] Specimens [address] [place] [phone] Evan Mauricio MD [address] [facility] [place] [phone] Diabetes mellitus without complication (HC Code) (Primary Dx) Social History Tobacco [...] Random 48.9(H) <30.0 mg/L 08/03/2024 1:37 PM [facility] Creatinine, Urine, Random 94 No reference range established mg/dL 08/03/2024 1:37 PM [facility] Microalbumin/Cr eatinine Ratio, Urine, Random 52.2(H) <30.0 mg/g Cr 08/03/2024 1:37 PM [facility] Comment: Moderately increased albuminuria (formerly microalbuminuria): ??30-300 mg/g Cr Significantly increased albuminuria (overt albuminuria): ? >300 mg/g Cr Urine Collection / Unknown 08/03/2024 11:15 AM EST 08/03/2024 11:15 AM EST us Evan Mauricio MD URINE ORDERABLES Final Result Performing Organization Address [facility]/State/[facility] [place] [address], [facility] [phone] * (ABNORMAL) Lipid panel (08/03/2024 11:10 AM EST) Cholesterol 187 See Comment mg/dL 08/03/2024 12:43 PM [facility] Comment: Cholesterol Reference Range: ? Desirable: ?? <200 mg/dL ? Borderline: ??200-240 mg/dL ? High Risk: ?? >240 mg/dL HDL 86(H) See Comment mg/dL 08/03/2024 12:43 PM [facility] Comment: HDL Reference Range: Low: <40 High: > or = 60 Triglycerides 386(H) See Comment mg/dL 08/03/2024 12:43 PM [facility] Comment: Triglyceride Reference Range: ?Normal: ? <150 mg/dL ?Borderline High: ??150-199 mg/dL ?High: ? 200-499 mg/dL ?Very High: ?>or= 500 mg/dL LDL Calculated 45 See Comment mg/dL 08/03/2024 12:43 PM EST [facility] Comment: Effective 01/17/2022, LDL is calculated [...] ORDERABLES Final Re sult Performing Organization Address City/State/[facility] [place] [address], [facility] [phone] documented in this encounter Visit Diagnoses Diagnosis Diabetes mellitus without complication- Primary Type II or unspecified type diabetes mellitus without mention of complication, not stated as uncontrolled documented in this encounter Additional Health Concerns Assessment Noted Time PHQ-9 Depression Total Score: 0 12/22/19 24 5:57 PM EDT documented as of this encounter Care Teams Shim Plug Cutter Relationship Specialty Start Date End Date Evan Mauricio MD [address] [place] [address] PCP - General Internal Medicine 12/04/20 documented as of this encounter
--- OUTSIDE RECORDS SUMMARY | 2024-12-22 07:36 | XMS_ITS | Encounter Summary ---
Author Organization [facility] Address [address] [place] [address] Care Team Providers Care Retort Loader Name Role Phone Evan Mauricio MD Primary Care Provider [phone] Encounter Details Date Type Department Care Team (Late st Contact Info) Description 12/24/2023 Transcribed Orders [address] [phone] Evan Mauricio MD [address] [place] [address] Hyperthermia-induce d defect (Primary Dx); Acute cough [...] days of incubation 12/30/2023 12:00 AM EDT [facility] DEPARTMENT OF LABORATORY MEDICINE Blood PERIPHERAL BLOOD SPECIMEN / Unknown Venipuncture / Unknown 12/24/2023 1:48 PM EDT 12/24/2023 1:52 PM EDT Narrative [facility] DEPARTMENT OF LABORATORY MEDICINE - 12/30/2023 12:00 AM EDT All blood culture bottles with growth will be reported. Evan Mauricio MD MICROBIOLOGY - GENERAL ORDERA BLES Final Result Performing Organization Address [facility] Co de Phone Number [facility] DEPARTMENT OF LABORATORY MEDICINE [address] [place] [address] * Blood culture (12/24/2023 1:48 PM EDT) Pathologist [facility] Blood Culture No Growth after 5 days of incubation 12/30/2023 12:00 AM EDT [facility] DEPARTMENT OF LABORATORY MEDICINE Blood PERIPHERAL BLOOD SPECIMEN / Unknown Venipuncture / Unknown 12/24/2023 1:48 PM EDT 12/24/2023 1:52 PM EDT [facility] DEPARTMENT OF LABORATORY MEDICINE - 12/30/2023 12:00 AM EDT All blood culture bottles with growth will be reported. Evan Mauricio MD MICROBIOLOGY - GENERAL ORDERA BLES Final Result Performing Organization Address City/[facility]/ZIP Co de Phone Number [facility] DEPARTMENT OF LABORATORY MEDICINE [address] [place] [address] * SARS-CoV-2 (COVID-19)/Influenza A+B/RSV by RT-PCR ([facility]) (12/24/2023 1:14 PM EDT) Influenza A Negative Negative 12/24/2023 2:26 PM T [facility] Comment:Negative results do not preclude infection [...] B Negative Negative 12/24/2023 2:26 PM EDT [facility] Respiratory Syncytial Virus Negative Negative 12/24/2023 2:26 PM [facility] SARS-CoV-2 RNA (COVID-19) Negative Negative 12/24/2023 2:26 PM [facility] Comment: SARS-CoV-2 target nucleic acids not detected. Depending on assay used, testing was performed using one of the following tests. Contact the laboratory if the specific assay used impacts clinical care. Fact Sheet for Healthcare Providers: Cepheid Xpert Xpress SARS-CoV-2: https://www.fda.gov/media/033648/download Cepheid Xpert Xpress CoV-2 plus: https://www.fda.gov/media/332312/download Cepheid Xpert Xpress SARS-CoV-2/Flu/RSV plus: https://www.fda.gov/media/709846/download Fact Sheet for Patients: Cepheid Xpert Xpress SARS-CoV-2: https://www.fda.gov/media/434839/download Cepheid Xpert Xpress CoV-2 plus: https://www.fda.gov/media/029709/download Cepheid Xpert Xpress SARS-CoV-2/Flu/RSV plus: https://www.fda.gov/media/336316/download Test performed using the GeneXpert real-time RT-PCR assay. Test performance has not been evaluated in asymptomatic patients. Test ordering and result interpretation is at the discretion of the ordering provider. Test performed at: [place] [address] Director: Naomi Pack MD CLIA: [id number] Viral NASOPHARYNGEAL STRUCTURE / Unknown Collection / Unknown 12/24/2023 1:14 PM EDT 12/24/2023 1:15 PM EDT Evan Mauricio MD MICROBIOLOGY - GENERAL ORDERA BLES Final Result Performing Organization Address City/State/[facility] [place] [address], [facility] [phone] documented in this encounter Visit Diagnoses Diagnosis [...] documented as of this encounter Care Teams Retort Loader Relationship Specialty Start Date End Date Evan Mauricio MD [address] [place] [address] PCP - General Internal Medicine 12/04/20 documented as of this encounter
--- OUTSIDE RECORDS SUMMARY | 2024-12-22 07:36 | XMS_ITS | Encounter Summary ---
Author Organization [facility] Address [address] [place] [phone] Care Team Providers Care Loom Tuner Name Role Phone Evan Mauricio MD Primary Care Provider [phone] Encounter Details Date Type Department Care Team (Latest Contact Info) Description 08/26/2021 Transcribed Orders [facility] - [address] [phone] Jonah Nieto MD [address] [place] [phone] Other diseases of mediastinum, not elsewhere [...] 0.70 - 1.30 mg/dL 08/26/2021 10:29 AM [facility] eGFR (Afr Amer) >60 >60 mL/min/1.7 3m2 08/26/2021 10:29 AM [facility] Comment: Values under 60mL/min/1.73m2 may indicate CKD if noted for ?? more than 3 months. eGFR is only valid if creatinine is at steady state. eGFR (NON -Hollie n) >60 >60 mL/min/1.7 3m2 08/26/2021 10:29 AM [facility] Comment: Values under 60mL/min/1.73m2 may indicate CKD if noted for ?? more than 3 months. eGFR is only valid if creatinine is at steady state. Blood Venipuncture / Unknown 08/26/2021 9:34 AM EST 08/26/2021 9:37 AM EST us Jonah Nieto MD LAB BLOOD ORDERABLES Fi nal Result Performing Organization Address City/State/[facility] [place] [address], [facility] [phone] documented in this encounter Visit Diagnoses Diagnosis [...] documented as of this encounter Care Teams Loom Tuner Relationship Specialty Start Date End Date Evan Mauricio MD [address] [place] [address] PCP - General Internal Medicine 12/04/20 documented as of this encounter
--- OUTSIDE RECORDS SUMMARY | 2024-12-22 07:36 | XMS_ITS | Encounter Summary ---
Author Organization [facility] and [facility] Address [address] [place] [phone] Care Team Providers Care Damage Adjuster Name Role Phone Evan Mauricio MD Primary Care Provider [phone] Encounter Details Date Type Department Care Team (Late st Contact Info) Description 06/08/2021 Transcribed Orders [address] [phone] Koko Wahl MD [address] [place] [phone] Other specified endocrine disorders (Primary Dx); Hypothyroidism [...] ORDERABLES Final Resul t Performing Organization Address [facility] de Phone Number [facility] [address] [place] [address] * Estradiol (06/08/2021 9:02 AM EDT) Estradiol <11.8 =<39.8 pg/mL 06/08/2021 12:24 PM EDT [facility] Comment: Reference ranges (pg/mL): Females (normal [...] ORDERABLES Final Resul t Performing Organization Address [facility] de Phone Number [facility] [address] [place] [address] * (ABNORMAL) DHEA-sulfate (06/08/2021 9:02 AM EDT) DHEA-SO4 46.6(L) 80.0 - 560.0 ug/dL 06/08/2021 5:08 PM EDT [facility] DEPARTMENT OF LABORATORY MEDICINE Comment: Oscar Stage [...] MD LAB BLOOD ORDERABLES Final Resul t [facility] DEPARTMENT OF LABORATORY MEDICINE [address] [place] [address] [phone] * TSH (06/08/2021 9:02 AM EDT) Pathologist [facility] TSH 3.21 0.36 - 3.74 uIU/mL 06/08/2021 10:20 AM EDT [facility] Blood Venipuncture / Unknown 06/08/2021 9:02 AM EDT 06/08/2021 9:04 AM EDT us Koko Wahl MD LAB BLOOD ORDERABLES Final Resul t Performing Organization Address City/[facility]/ZIP Co de Phone Number [address] [phone] * (ABNORMAL) Testosterone, free,bio and total, LC/MS/MS ( GH LMW Q YH) (06/08/2021 9:02 AM EDT) Pathologist [facility] Testosterone Total LC/MS/MS 79(L) 250 - 1100 ng/dL 06/12/2021 12:37 PM EDT [facility] Comment: Men with clinically significant hypogonadal symptoms and testosterone values repeatedly in the range of the 200-300 ng/dL or less, may benefit from testosterone treatment after adequate risk and benefits counseling. For additional information, please refer to http://education.[employer]/faq/ [email or web address] (This link is being provided for informational/ educational purposes only.) This test was developed and its analytical performance characteristics have been determined by [employer] [place], [place]. It has not been cleared or [...] EDT [facility] Comment: Test Performed at: [employer] [address] ??[phone] Srikanth Grande M.D., Ph.D.,Director of Laboratories Blood Venipuncture / Unknown 06/08/2021 9:02 AM EDT 06/08/2021 9:04 AM EDT us Koko Wahl MD LAB BLOOD ORDERABLES Final Resul t [facility] * T4, free (06/08/2021 9:02 AM EDT) Free T4 0.80 0.76 - 1.46 ng/dL 06/08/2021 10:20 AM EDT [facility] Blood Venipuncture / Unknown 06/08/2021 9:02 AM EDT 06/08/2021 9:04 AM EDT us Koko Wahl MD LAB BLOOD ORDERABLES Final Resul t Performing Organization Address City/[facility] Co de Phone Number [address] [phone] documented in this encounter Visit Diagnoses Diagnosis [...] documented as of this encounter Care Teams Damage Adjuster Relationship Specialty Start Date End Date Evan Mauricio MD [address] [place] [address] PCP - General Internal Medicine 12/04/20 documented as of this encounter
--- OUTSIDE RECORDS SUMMARY | 2024-12-22 07:36 | XMS_ITS | Clinical Summary ---
Author Organization [address] Address [address] [place] [phone] Phone Care Team Providers Care Tumbling Barrel Painter Name Role Phone Evan Mauricio MD Primary Care Provider [phone] Allergies Active Allergy Reactions Criticality Noted Date [...] - 11/13/2024 11:59 PM EDT Hospital Encounter [facility] CT Scan [address] [place] [phone] Sampson Junior MD Lung nodule Discharge Disposition: [...] Tetanus adult (Td q 10,TDAP once) 1968 Shingles vaccine (Shingrix) (1 of 2 - Shingrix (RZV) 2 Dose Standard Series) 1998 Pneumococcal Vaccine (50+ years) (2 of 2 - PCV) 12/20/2013 12/20/2012 RSV Immunization (1 - 1-dose 75+ series) 11/29/2023 Covid-19 vaccine series ( - 2023- season) 2024 07/10/2021, 07/06/2021, 11/16/2020 Hemoglobin A1C 02/01/2025 08/03/2024, 12/13/2023, 09/16/2020 Influenza vaccine 04/12/2025 05/31/2021, 04/13/2021 LDL monitoring 08/03/2025 08/03/2024, 06/08/2021, 11/07/2020 Urine Microalbumin 08/03/2025 08/03/2024 Colon cancer screening, Colonoscopy Discontinued Meningococcal Vaccine Aged Out No ahsan mikayla eligible based on patient's age to complete this topic Procedures Procedure Name Priority Date/Time Associated Diagnosis Comments CT CHEST WO IV CONTRAST Routine 11/13/2024 2:51 PM EDT Lung nodule ALBUMIN/CREATININE PANEL, URINE, RANDOM Routine 08/03/2024 11:15 AM EST Diabetes mellitus without complication (HC Code) HEMOGLOBIN A1C Routine 08/03/2024 11:10 AM EST Diabetes mellitus (HC Code) LIPID PANEL Routine 08/03/2024 11:10 AM EST Diabetes mellitus without complication (HC Code) from Last 3 Months or [...] RADIATION DOSE ACQUIRED DURING SCAN: 57.38mGy/cm. The [facility] Imaging Department strives for high quality imaging with the lowest possible radiation dose. For more information on medical radiation exposure please visit: [email or web address]. [facility] Radiology Notification System Classification: Routine. Reported [...] RADIATION DOSE ACQUIRED DURING SCAN: 57.38mGy/cm. The [facility] Imaging Department strives for high qualityimaging with the lowest possible radiation dose. For more information onmedical radiation exposure please visit: [email or web address]. [facility] Radiology Notification System Classification: Routine. Reported and signed by: Isak Pablo MD Sampson Junior MD IMG CT ORDERABLES Final Result * (ABNORMAL) Albumin/creatinine panel, urine, random (08/03/2024 11:15 AM EST) Albumin, Urine, Random 48.9(H) <30.0 mg/L 08/03/2024 1:37 PM [facility] Creatinine, Urine, Random 94 No reference range established mg/dL 08/03/2024 1:37 PM [facility] Microalbumin/Cr eatinine Ratio, Urine, Random 52.2(H) <30.0 mg/g Cr 08/03/2024 1:37 PM [facility] Comment: Moderately increased albuminuria (formerly microalbuminuria): ??30-300 mg/g Cr Significantly increased albuminuria (overt albuminuria): ? >300 mg/g Cr Urine Collection / Unknown 08/03/2024 11:15 AM EST 08/03/2024 11:15 AM EST us Evan Mauricio MD UR[place] [address], [facility] [phone] * (ABNORMAL) Hemoglobin A1c (08/03/2024 11:10 AM EST) Hemoglobin A1c 8.0(H) 4.2 - 6.3 % 08/03/2024 12:53 PM [facility] Comment: ??>=6.5% Diabetes* 5.7-6.4% Pre-Diabetes *These results [...] MD LAB BLOOD ORDERABLES Final Re sult [address] [phone] * (ABNORMAL) Lipid panel (08/03/2024 11:10 AM EST) Cholesterol 187 See Comment mg/dL 08/03/2024 12:43 PM [facility] Comment: Cholesterol Reference Range: ? Desirable: ?? <200 mg/dL ? Borderline: ??200-240 mg/dL ? High Risk: ?? >240 mg/dL HDL 86(H) See Comment mg/dL 08/03/2024 12:43 PM [facility] Comment: HDL Reference Range: Low: <40 High: > or = 60 Triglycerides 386(H) See Comment mg/dL 08/03/2024 12:43 PM [facility] Comment: Triglyceride Reference Range: ?Normal: ? <150 mg/dL ?Borderline High: ??150-199 mg/dL ?High: ? 200-499 mg/dL ?Very High: ?>or= 500 mg/dL LDL Calculated 45 See Comment mg/dL 08/03/2024 12:43 PM [facility] Comment: Effective 01/17/2022, LDL is calculated using [...] MD LAB BLOOD [place] [address], [facility] [phone] from Last 3 Months or Most Recently Relevant to Health Maintenance Insurance [facility]IC[facility] MEDICARE [facility] MEDICARE [facility] Advance Directives * Full ACLS (Latest Code Status on File) Date Activated Date Inactivated Comments 09/13/2020 4:47 PM 09/29/2020 6:59 PM Question Answer Comments With Whom was the Code Status Discussed? Patient Care Teams Tumbling Barrel Painter Relationship Specialty Start Date End Date Evan Mauricio MD [address] [place] [address] PCP - General Internal Medicine 12/04/20
--- OUTSIDE RECORDS SUMMARY | 2024-12-22 07:36 | XMS_ITS | Encounter Summary ---
Author Organization [facility] Address [address] [place] [phone] Care Team Providers Care Entertainment Reporter Name Role Phone Evan Mauricio MD Primary Care Provider [phone] Encounter Details Date Type Department Care Team (Latest Contact Info) Description 11/07/2020 Transcribed Orders [facility] - [address] [address] Evan Mauricio MD [address] [phone] Edema (Primary Dx); History of 2019 novel [...] - 4.2 pg/mL 11/07/2020 3:46 PM EDT [facility] Blood Venipuncture / Unknown 11/07/2020 12:24 PM EDT 11/07/2020 12:24 PM EDT Evan Mauricio MD LAB BLOOD ORDERABLES Final Re sult Performing Organization Address City/[facility]/ZIP Co de Phone Number [facility] [address] [facility] [place] [address] * T4, free (11/07/2020 12:24 PM EDT) Free T4 0.90 0.76 - 1.46 ng/dL 11/07/2020 1:46 PM EDT [facility] Blood Venipuncture / Unknown 11/07/2020 12:24 PM EDT 11/07/2020 12:24 PM EDT Evan Mauricio MD LAB BLOOD ORDERABLES Final Re sult Performing Organization Address [facility] Co de Phone Number [address] [phone] * NT-proBrain natriuretic peptide (11/07/2020 12:24 PM EDT) NT-proBNP 94.0 <125.0 pg/mL 11/07/2020 1:46 PM EDT [facility] Blood Venipuncture / Unknown 11/07/2020 12:24 PM EDT 11/07/2020 12:24 PM EDT Evan Mauricio MD LAB BLOOD ORDERABLES Final Re sult Performing Organization Address [facility] Co de Phone Number [address] [phone] * (ABNORMAL) Lipid panel (11/07/2020 12:24 PM EDT) Cholesterol 192 See Comment mg/dL 11/07/2020 1:46 PM [facility] Comment: Cholesterol Reference Range: ? Desirable: ?? <200 mg/dL ? Borderline: ??200-240 mg/dL ? High Risk: ?? >240 mg/dL HDL 71(H) See Comment mg/dL 11/07/2020 1:46 PM [facility] Comment: HDL Reference Range: Low: <40 High: > or = 60 Triglycerides 238(H) See Comment mg/dL 11/07/2020 1:46 PM [facility] Comment: Triglyceride Reference Range: ?Normal: ? <150 mg/dL ?Borderline High: ??150-199 mg/dL ?High: ? 200-499 mg/dL ?Very High: ?>or= 500 mg/dL LDL Calculated 73 See Comment mg/dL 11/07/2020 1:46 PM [facility] Comment: LDL Reference Range: Optimal: ? <100 mg/dL Near/Above Optimal: ??100-129 mg/dL Borderline High: ? 130-159 mg/dL High: ?160-189 mg/dL Very High: ? >or= 190 mg/dL Blood Venipuncture / Unknown 11/07/2020 12:24 PM EDT 11/07/2020 12:24 PM EDT us Evan Mauricio MD LAB BLOOD [place]AB[place] [address], [facility] [phone] * Protime and INR (11/07/2020 12:24 PM EDT) Prothrombin Time 10.3 9.9 - 11.8 seconds 11/07/2020 1:28 PM [facility] INR 1.0 0.9 - 1.1 11/07/2020 1:28 PM EDT [facility] Comment: RECOMMENDED INR THERAPEUTIC RANGES: ?STANDARD INTENSITY......2.0-3.0 ?HIGH INTENSITY..........2.5-3.5 Blood Venipuncture / Unknown 11/07/2020 12:24 PM EDT 11/07/2020 12:24 PM EDT [facility] - 11/07/2020 1:28 PM EDT As of September 29, 2019 this assay is being performed on new instrumentation. Please note that the reference ranges may have changed. us Evan Mauricio MD LAB BLOOD ORDERAB[place] [address], [facility] [phone] documented in this encounter Visit Diagnoses Diagnosis [...] documented as of this encounter Care Teams Entertainment Reporter Relationship Specialty Start Date End Date Evan Mauricio MD [address] [place] [address] PCP - General Internal Medicine 12/04/20 documented as of this encounter
--- OUTSIDE RECORDS SUMMARY | 2024-12-22 07:36 | XMS_ITS | Encounter Summary ---
Author Organization [facility] Address [address] [place] [address] Care Team Providers Care Electric Meter Tester Name Role Phone Evan Mauricio MD Primary Care Provider Encounter Details Date Type Department Care Team (Late st Contact Info) Description 12/13/2023 Scanned Document [address] [address] Evan Mauricio MD [address] [place] [address] [place] [address] Social History Tobacco Use Types Packs/Day Years [...] documented as of this encounter Care Teams Electric Meter Tester Relationship Specialty Start Date End Date Evan Mauricio MD [address] [place] [address] PCP - General Internal Medicine 12/04/20 documented as of this encounter
--- OUTSIDE RECORDS SUMMARY | 2024-12-22 07:36 | XMS_ITS | Patient Health Record ---
Author Organization [facility] Address [address] [place] [address] Care Team Providers Care Loader Operator/Ground Leader Name Role Phone Clement Alaniz Primary Care Provider Unavailab Maciej John Unavailable [phone] Allergies Allergen (clinical drug ingredient) Drug/Non Drug [...] a day for 30 day(s) Active pyRIDostigmine [place] Active Lasix 20 MG 1 tablet Orally Once a day for 30 day(s) Not-Taking Amoxicillin 500 MG 1 capsule Orally every 8 hrs for 10 day(s) Before Dentist/Foot appt - PRN 07/22/2013 Active Junaa 5-20 MG Orally Once a day for [...] W/U Status Risk Notes Problem Tinea unguium (833189945) Tinea unguium (B35.1) Active confirmed 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, Chronic Encounters Encounter Location Date Provider Diagnosis [facility] [address] [place] [address] 02/26/2024 Maciej Whitaker Plan Of Treatment Pending Test Test Name Order Date X ray : Foot, left 3V 06/08/2016 37586-UYMHIND NAIL, 6 OR MORE 07/08/2018 28667-SSLYUBW NAIL, 6 OR MORE 09/09/2018 17187-GDSMKYE NAIL, 6 OR MORE 11/11/2018 33274-IAJHXZI NAIL, 6 OR MORE 01/13/2019 73388-JOVHSHR NAIL, 6 OR MORE 03/17/2019 62961-IYXUGMQ NAIL, 6 OR MORE 05/19/2019 58959-BCBGEKK NAIL, 6 OR MORE 07/28/2019 03606-UCOICLW NAIL, 6 OR MORE 09/29/2019 77484-TSNHXGE NAIL, 6 OR MORE 12/01/2019 32366-FCFEXOH NAIL, 6 OR MORE 02/02/2020 18961-CXKRPLC NAIL, 6 OR MORE 04/05/2020 66764-RQAUPEG NAIL, 6 OR MORE 06/14/2020 28624-BLBXVDW NAIL, 6 OR MORE 08/16/2020 11254-WINRFOU NAIL, 6 OR MORE 11/22/2020 25532-VPTCZEK NAIL, 6 OR MORE 01/31/2021 72591-ALBQZGC NAIL, 6 OR MORE 04/25/2021 58718-SSAKEFQ NAIL, 6 OR MORE 06/30/2021 33146-SHZXWLU NAIL, 6 OR MORE 10/31/2021 82646-Tonf Destruction, 1-12/28/2011 99242-Cjlh Destruction, 1-02/29/2012 99734-Qiwbgiep Plate 02/29/2012 64484-Ybhdeyrw Plate 05/09/2012 92867-Qaaqblex Plate 07/18/2012 58227-Mytsjxcu Plate 05/04/2011 01079-Ahhgayck Plate 06/29/2011 50384-Ksnxtfsd Plate 08/24/2011 36871-Bovrjddf Plate 10/30/2011 72603-Lkigapqn Plate 12/28/2011 71417-Fajohqvx Plate 10/10/2012 74147-Jjuxagqn Plate 01/16/2013 52164-Tdadijng Plate 04/24/2013 10170-Vqyulunw Plate 07/24/2013 06866-Preesmnb Plate 10/06/2013 38989-Tsrcoaow Plate 01/12/2014 63311-Nhfajonf Plate 04/16/2014 39485-Wqvdmiei Plate 07/16/2014 81009-Rmcjxgvj Plate 08/17/2016 33086-Npskspge Plate 10/19/2016 59808-Gseyvhpy Plate 03/27/2016 85493-Afugcsjd Plate 06/08/2016 62409-Ghqofrdn Plate 01/08/2017 23683-Piumqewa Plate 03/26/2017 43902-Xkmpwwhz Plate 05/28/2017 58954-Qhvfzhwu Plate 07/30/2017 14339-Ikapddni Plate 07/20/2014 92143-Ivjzuqez Plate 09/21/2014 33827-Qwhgimgs Plate 11/26/2014 61795-Czhinrnc Plate 02/04/2015 08925-Hmgbbeaj Plate 04/15/2015 07782-Rkngqvzp Plate 06/24/2015 93806-Egzfjxum Plate 09/16/2015 76730-Lcgvuqtu Plate 11/18/2015 98638-Hktxwkny Plate 01/20/2016 60968-Jlvijzyi Plate 10/31/2021 30777-Tknxlwds Plate 06/30/2021 09277-Jehrarky Plate 04/25/2021 66795-Eublkfpr Plate 01/31/2021 34840-Mxxphyhq Plate 11/22/2020 89778-Kyzkcdgq Plate 08/16/2020 23655-Mheegafc Plate 06/14/2020 44193-Agbjvgvp Plate 04/05/2020 16316-Uncrlwbk Plate 02/02/2020 18269-Glumfrxn Plate 12/01/2019 55420-Kmphtaoe Plate 09/29/2019 02348-Itxymxdj Plate 07/28/2019 14877-Htdyitzj Plate 05/19/2019 24676-Jmlojvzn Plate 03/17/2019 07477-Fwjlpvjn Plate 01/13/2019 79973-Urqmsrts Plate 07/08/2018 34355-Kaxvubhp Plate 11/11/2018 24067-Bleuznzi Plate 09/09/2018 35412-Iuvqkfhn Plate 05/13/2018 66352-Twzbqxex Plate 10/01/2017 65696-Ksjfnccc Plate 12/17/2017 87574-Zexlwqdj Plate 02/18/2018 32415-Qnqfwisp Plate Each Additional 09/2017 38751-Zaxeeiky Plate Each Additional 05/2018 94552-Mqxbgxzt Plate Each Additional 03/2018 05142-Wyytqvmb Plate Each Additional 93054-Zsqbqsfx Plate Each Additional 66315-Qrhexcti Plate Each Additional 43049-Hqokzueo Plate Each Additional 66561-Cnxbdcyk Plate Each Additional 09/2018 40150-Wvgodbri Plate Each Additional 11/2018 70166-Prngstsb Plate Each Additional 01/2019 80886-Lcdwylml Plate Each Additional 03/2019 45912-Sdkgwppg Plate Each Additional 24135-Eozromni Plate Each Additional 61978-Epiwviml Plate Each Additional 60776-Pfezlwlz Plate Each Additional 27560-Dmejkivv Plate Each Additional 40555-Govduxiu Plate Each Additional 10/2019 66817-Ktetsdqp Plate Each Additional 12/2020 53242-Ajplvvxf Plate Each Additional 70823-Klbbrwct Plate Each Additional 05152-Jhewthio Plate Each Additional 54745-Mkvcsbxs Plate Each Additional 14322-Kwqlhjdw Plate Each Additional 15338-Hfkfsivu Plate Each Additional 05/2016 74372-Cavnpinz Plate Each Additional 03/2016 04615-Sbamorit Plate Each Additional 12/2015 14575-Gydmvuzi Plate Each Additional 27827-Mrgeqeln Plate Each Additional 11/2014 94820-Pblbzmqv Plate Each Additional 38685-Rmdmuabx Plate Each Additional 95389-Masyfxxi Plate Each Additional 05/2015 14073-Wbzcaspf Plate Each Additional 19694-Qvvfuvlm Plate Each Additional 47665-Iitkhtkk Plate Each Additional 64526-Ddwalgad Plate Each Additional 02108-Mukpyomy Plate Each Additional 23957-Fcyfdmmv Plate Each Additional 05/2017 77974-Rufswdcs Plate Each Additional 41093-Cczipnby Plate Each Additional 01/2017 37454-Rkvmswtz Plate Each Additional 12/2013 93465-Ahlfrxgo Plate Each Additional 12/2013 77994-Wzbpwpge Plate Each Additional 10/2013 20426-Zotngbjy Plate Each Additional 89436-Qlspwqxf Plate Each Additional 21854-Lngchqas Plate Each Additional 49684-Rhfokxvn Plate Each Additional 02/2013 79712-Urkbpuhx Plate Each Additional 08/2012 56567-Otdqxocr Plate Each Additional 21596-Zfydcekc Plate Each Additional 41234-Ohqtzzoe Plate Each Additional 79095-Wvuayrde Plate Each Additional 32426-Szmmtezx Plate Each Additional 02/2012 40557-Ifzbbkkl Plate Each Additional 48645-Zkuwhyqj Plate Each Additional 87337, E4369-ELOAG/INJECT, JOINT/BURSA 0 10/01/2017 50568,B6892-MHX TENDON SHEATH/LIGAMENT 1 Insurance Providers Payer Name Payer Address Payer Phone Subscriber Number Group Number Insured Name Patient Relationship to Insured Coverage Start Date Coverage End Date Medicare [facility] [address] [place] [address] [id number] Kareem Fletcher Self - patient is the insured [facility] [address] [place] [phone] [id number] BrennannoelleKareem Self - patient is the insured [...] 09/05/2012 MRI 01/27/21 Hospitalization History Reason Date(Month/Year) [facility] pneumonia/ MG 09/12- [facility] ER - heachache 04/24/2021
--- OUTSIDE RECORDS SUMMARY | 2024-12-22 07:36 | XMS_ITS ---
Author Organization [facility] Address [address] [place] [address] Care Team Providers Care Simulation Software Engineer Name Role Phone Clement Alaniz Primary Care Provider Unavailab Maciej John Unavailable [phone] REASON FOR VISIT Purchased Biofreeze roll on Encounters Encounter Location Date Provider Diagnosis [facility] [address] [place] [address] 02/26/2024 Maciej Whitaker Plan Of Treatment No Information Progress Notes * Kareem FLETCHER MDOB:[birth year] (73 yo M)Acc No.[id number]:02/26/2024 Patient:?Kareem Fletcher :1950???Age:73 Y???Sex:Male Address: [place], [address] * true * Date:? Generated for Ferchoi astrid/Gray/eTransmitting on:?12/22/2024 07:35 AM EDT
--- OUTSIDE RECORDS SUMMARY | 2024-12-22 07:36 | XMS_ITS | Encounter Summary ---
Author Organization [facility] Address [address] [place] [phone] Care Team Providers Care Religion Professor Name Role Phone Evan Mauricio MD Primary Care Provider Encounter Details Date Type Department Care Team (Late st Contact Info) Description 10/09/2021 Transcribed Orders [facility] - [address] [id number] Evan Mauricio MD [address] [place] [address] Shortness of breath (Primary Dx); Edema Social [...] 201.0(H) <125.0 pg/mL 10/09/2021 12:55 PM EST [facility] Blood Venipuncture / Unknown 10/09/2021 11:52 AM EST 10/09/2021 11:52 AM EST us Evan Mauricio MD LAB BLOOD ORDERABLES Final Re sult [address] [place], [facility] [phone] documented in this encounter Visit Diagnoses Diagnosis [...] documented as of this encounter Care Teams Religion Professor Relationship Specialty Start Date End Date Evan Mauricio MD [address] [place] [address] PCP - General Internal Medicine 12/04/20 documented as of this encounter
[2024-12-22 11:00] LABS: Iron 41 mcg/dL (45-160); Percent Iron Saturation 11 % (15-50); Total Iron Binding Capacity 374 mcg/dL (228-428); Unsaturated Iron Binding 333 ug/dL
[2024-12-22 11:01] LABS: TSH reflex Free T4 5.63 uIU/mL (0.32-4.0)
[2024-12-22 11:13] LABS: Folate 14.3 ng/mL (> or = 4.0); Vitamin B12 1675 pg/mL (200-900)
[2024-12-22 13:36] LABS: Free T4 (Free Thyroxine) 0.78 ng/dL (0.71-1.85)
== END 2024-12-22 07:34 | disposition home or self-care (01) ==
LOC: HO.HMGCLDS 07:33
PROVIDERS: PCP Physician Assistant; Visit Provider Physician Assistant
DX: E03.9 Hypothyroidism, unspecified (principal); E53.8 Deficiency of other specified B group vitamins; D50.9 Iron deficiency anemia, unspecified
CPT/HCPCS: 36415; 82607; 82746; 83540; 84439; 84443

== ENCOUNTER 2025-01-21 09:40 | Outpatient (REF) | payer MEDICARE, OTHER, SELFPAY ==
[2025-01-21 13:36] LABS: Hematocrit 41.1 % (42.0-52.0); Hemoglobin 13.1 g/dl (14.0-18.0); Mean Corpuscular HGB Conc 31.9 g/dl (31.0-36.0); Mean Corpuscular Hemoglobin 26.5 pg (27.0-33.0); Mean Platelet Volume 10.3 fL (9.4-12.4); Platelet Count 269 X10*3/uL (160-400); Red Blood Count 4.95 X10*6/uL (4.60-5.80); Red Cell Distribution Width 15.1 % (11.0-16.0); White Blood Count 11.4 X10*3/uL (4.8-10.8)
[2025-01-21 13:55] LABS: Estimated Average Glucose 154 mg/dL
[2025-01-21 13:58] LABS: Alanine Aminotransferase 21 U/L (0-40); Albumin Level 4.4 g/dL (3.5-5.0); Alkaline Phosphatase 74 U/L (39-117); Anion Gap 10 (12-20); Aspartate Amino Transferase 20 U/L (5-37); Bilirubin Total 0.6 mg/dL (0.0-1.0); Blood Urea Nitrogen 30 mg/dL (9-16); Calcium 9.6 mg/dL (8.4-10.2); Carbon Dioxide 33 mmol/L (22-29); Chloride 105 mmol/L (96-108); Cholesterol 174 mg/dL (<200); Estimated Glomerular Filt Rate > 60; Glucose Fasting 100 mg/dL (60-99); HDL Cholesterol 82 mg/dL (>40); LDL Cholesterol Calculated 62 mg/dL (<100); Potassium 4.5 mmol/L (3.3-5.1); Sodium 143 mmol/L (135-145); Triglycerides 151 mg/dL (<150)
== END 2025-01-21 09:41 | disposition home or self-care (01) ==
LOC: HO.HMGCLDS 09:40
PROVIDERS: PCP Physician Assistant; Visit Provider Physician Assistant
DX: E11.9 Type 2 diabetes mellitus without complications (principal); E78.2 Mixed hyperlipidemia
CPT/HCPCS: 36415; 80053; 80061; 83036; 85027

== ENCOUNTER 2025-02-17 11:40 | Outpatient (AMB) | payer MEDICARE, OTHER, SELFPAY ==
--- NOTE | 2025-02-17 11:52 | MHC.PC.OV ---
Vital Signs 02/17/25 11:53 Height 5 ft 7 in Weight 155 lb 6 oz BMI 24.3 BP 118/66 Blood Pressure Location Lt brachial Position Sitting Pulse 100 Pulse Source Pulse Oximeter Temp 97.3 F Temp Source Temporal Artery Scan Pulse Oximetry (%) 99 Oxygen Delivery Method Room Air Intake Visit Reasons: f/u DMII/ CAD Allergies codeine (CODEINE) Allergy (Intermediate, Verified 02/17/25 11:59) VOMITING Medication List - Last Reconciled 02/17/25 by Clement Alaniz PA-C albuterol sulfate 90 mcg/actuation 2 puffs inhalation QID PRN 30 days amlodipine 5 mg PO QPM 90 days aspirin 81 mg PO DAILY atorvastatin 80 mg PO DAILY blood sugar diagnostic (FreeStyle Lite Strips) As directed blood-glucose meter (FreeStyle Lite Meter kit) As directed blood-glucose sensor (FreeStyle Frieda 3 Sensor device) As directed blood-glucose,tubular stock glass bulb machine former,cont (FreeStyle Frieda 3 [place]) As directed cholecalciferol (vitamin D3) 50 mcg PO DAILY 90 days ezetimibe 10 mg PO DAILY ferrous sulfate 325 mg PO DAILY fluticasone propionate 50 mcg/actuation (Flonase Allergy Relief) 1 spray intranasal BID 30 days furosemide 20 mg PO DAILY lancets (FreeStyle Lancets) As directed levothyroxine 75 mcg PO DAILY 30 days levothyroxine 50 mcg PO DAILY 30 days Held on 12/23/24. Instructions: Doctor's Order metformin 500 mg (1/2 x 1,000 mg) PO BID 90 days metoprolol succinate ER 12.5 mg (1/2 x 25 mg) PO DAILY 30 days pyridostigmine bromide 60 mg PO TID spirometers and accessories As directed tirzepatide (Mounjaro) 2.5 mg (0.5 mL) subcut QWEEK 4 weeks Tobacco use date assessed: 11/18/24 Dental Screening Dental Screen Date: 11/18/24 HPI f/u DMII/ CAD HPI Details Patient is a 74 year-old male here today for follow-up visit. ? Patient has a past medical history significant for hypertension, hyperlipidemia, CVA, BRARY, ocular myasthenia, carotid stenosis, type 2 diabetes,, , CAD. --> The patient experienced a fall resulting in head trauma while attempting to adjust a pool heater. He managed to avoid severe injury by grabbing a railing, but sustained a significant hematoma on the head. A CT scan confirmed no intracranial injury, and he was advised to use warm compresses for the swelling. CAD :? He is status post coronary artery bypass [id number]. He is followed by a prize jacker now in [place] Most recent echocardiogram stable Recently underwent cardiac stress testing which was essentially normal. He also does have mitral valve stenosis to which he is having monitor with regular echocardiogram .. Type 2 diabetes: Has been on Mounjaro 2.5 mg though feels it is ineffective for MS his blood sugars are 180s to 200. He would like to return back to Trulicity 0.75 weekly which he was managing better glycemic control.. Most recent A1c is 7.0 Hypertension:? Kareem continues on amlodipine 5 mg daily with good effect on his blood pressure..? Today blood pressure acceptable in office. .. 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 CONTINUES ON PREDNISONE 5 MG multiple times a day without any acute ocular myasthenia gravis flares. Also Continues pyridostigmine with good effect on reducing his ptosis. .. Hyperlipidemia:? Patient continues on high potency statin and Zetia. .? Most recent LDL slightly above 100. Will continue working on lifestyle modifications to reduce his cholesterol .. BARRY: IS followed by pulmonology, uses CPAP on a nightly basis with good effect. .. Hypothyroid:? Most recent TSH elevated at 5.6, we have increased his levothyroxine back to 75 mcg. [facility] Medical History Osteoarthritis of left shoulder Hypokalemia Mitral stenosis Atherosclerosis of coronary artery Personal history of COVID-19 Constipation by delayed colonic transit BARRY (obstructive sleep apnea) Carotid stenosis BARRY (obstructive sleep apnea) Obesity (BMI 30.0-34.9) Pernicious anemia Surgical History S/P CABG x 4 Hx of colonoscopy History of appendectomy History of cholecystectomy Total knee replacement status History of shoulder surgery History of tonsillectomy and adenoidectomy Family History Father No problems noted. Mother No problems noted. Maternal Grandmother Medical history unknown Brother AA (aortic aneurysm) Maternal Grandmother No problems noted. Mother AA (aortic aneurysm) Sister Primary cancer of shoulder Other Family history of hypercholesterolemia Family history of hypertension Social History Household Members: Significant Other Housing: House Alcohol intake: never Patient Tobacco Use Status: Never used Tobacco e-Cigarette/Vaping Use: Never Used Second Hand Smoke Exposure: No service: Yes Current occupational status: retired Cognitive needs: No Hearing needs: No Vision needs: No Questionnaire PHQ-9 Over the last 2 weeks, how often have you been bothered by any of the following problems? 1. Little interest or pleasure in doing things: not at all 2. Feeling down, depressed, or hopeless: not at all 3. Trouble falling or staying asleep, or sleeping too much: nearly every day 4. Feeling tired or having little energy: more than half the days 5. Poor appetite or overeating: several days 6. Feeling bad about yourself - or that you are a failure or have let yourself or your family down: nearly every day 7. Trouble concentrating on things, such as reading the newspaper or watching television: several days 8. Moving or speaking so slowly that other people could have noticed. Or the opposite - being so fidgety or restless that you have been moving around a lot more than usual: not at all 9. Thoughts that you would be better off or of hurting yourself in some way: not at all Total score: 10 Depression Screening Interpretation: Positive Depression Screening Follow-up: Existing condition Depression Screening Done: Yes [id number] - PHQ-9 Billing: Yes Source: Developed by Drs. Ken Bagley, Tarsha Grant, Maikel Nation and colleagues, with an educational kellie from [employer]. Thrive Questionnaire Date Thrive assessed: 02/17/25 I am a: Patient What is your living situation today?: I have a steady place to live Within the past 12 months, did the food you bought not last and you didn't have the money to get more?: Never true Within the past 12 months, did you worry whether your food would run out before you got money to buy more?: Never true Do you have trouble paying for medicines?: Yes Do you have trouble getting transportation to medical appointments?: No Do you have trouble paying your heating and electricity bill?: No Do you have trouble taking care of your child, family member or friend?: No Do you have trouble with day-to-day activities such as bathing, preparing meals, shopping, managing finances, etc.?: No Are you currently unemployed and looking for a job?: No Are you interested in more education?: No Please select the resources that you would like help with: None THRIVE Score: 0 DISHA-7 AMB Questionnaire DISHA-7 Date DISHA - 7 assessed: 11/18/24 Source: Developed by Drs. Ken Bagley, Tarsha Grant, Maikel Nation and colleagues, with an educational kellie from [employer]. Review of Systems Const Denies headache(s) Eyes Denies loss of vision ENT Denies vertigo, Denies dizziness, Denies headache(s) and Denies sore throat Card Denies chest pain, Denies leg edema and Denies lightheadedness Resp Denies cough, Denies hemoptysis and Denies wheezing GI Denies abdominal pain, Denies melena, Denies constipation, Denies diarrhea and Denies vomiting Denies dysuria, Denies urinary frequency and Denies urinary urgency Musc Denies arthralgias, Denies joint swelling, Denies numbness and Denies tingling Neuro Denies Abnormal speech present, Denies behavioral changes, Denies vertigo, Denies dizziness, Denies headache(s), Denies loss of vision, Denies memory loss, Denies numbness and Denies tingling Psych Denies anxiety, Denies behavioral changes, Denies depression, Denies memory loss and Denies panic attacks David/Lymph Denies easy bleeding and Denies easy bruising Aller/Immun Denies wheezing Physical exam (Primary Care) Vital Signs: Last Vital Signs Temp 97.3 F 02/17/25 11:53 Pulse 100 02/17/25 11:53 BP 118/66 02/17/25 11:53 Pulse Ox 99 02/17/25 11:53 Oxygen Delivery Method Room Air 02/17/25 11:53 BMI result Body Mass Index 24.3 Tobacco/Smoking Status: Tobacco use Status Tobacco use date assessed 11/18/24 02/17/25 11:57 Patient Tobacco Use Status Never used Tobacco 02/17/25 11:57 e-Cigarette/Vaping Use Never Used 02/17/25 11:57 PHQ-9: PHQ-9 Score PHQ-9: Total score 10 02/17/25 12:01 Depression Screening Interpretation: Positive Depression Screening Follow-up: Existing condition Thrive Assessment: Date of Thrive Assessment Date Thrive assessed 02/17/25 02/17/25 11:57 Const General: healthy appearing, no acute distress, alert and awake Nutritional Appearance: well nourished Orientation/consciousness: oriented to person, oriented to place and oriented to time [facility] Head images:  1. LARGE SOFT HEMATOMA LIKE LESION OVER THE AREA OUTLINED ON HIS SCALP. Ears: TM's normal bilaterally General nose exam: Normal nasal mucous membranes and turbinates present Eyes Conjunctivae: conjunctivae normal Sclerae: sclerae normal Pupils: Equal, round and reactive pupils present Neck Neck: Yes no lymphadenopathy and Yes no JVD Thyroid: Thyroid normal Carotids: no bruits Resp Effort & Inspection: normal respiratory effort and not tachypneic Auscultation: no crackles, no rales, no rhonchi and no wheezes Cardio Rate: regular rate Rhythm: regular rhythm Heart sounds: no murmurs and normal S1 and S2 GI Palpation (GI): Soft to palpation, nontender, no hepatomegaly and no splenomegaly Auscultation: normal bowel sounds Skin General skin exam: no rashes or lesions noted and dry skin Neuro General: oriented to person, oriented to place and oriented to time Cranial nerves: Yes Equal, round and reactive pupils present Speech: No Abnormal speech present Gait exam (Neuro): Normal gait present Motor exam (neuro): no tremor noted Extrem Right upper extremity: full ROM Left upper extremity: full ROM Right lower extremity: full ROM; no edema Left lower extremity: full ROM; no edema Psych Mental Status: mental status grossly normal Speech and movement: Normal speech and movement present Affect: normal affect Attitude: cooperative Thought process: Normal thought process present Coding Level of Care Code Est Pt Level 4 (86603) Diagnoses Type 2 diabetes mellitus without complication, without long-term current use of insulin E11.9 Diabetes mellitus dedicated intermodal truck driver insulin use: without fci use Diabetes mellitus complication status: without complication Coronary artery disease of [place] artery of [place] heart with stable angina pectoris I25.118 Coronary Disease-Associated Artery/Lesion type: [place] artery [place] vs. 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 Essential hypertension I10 Hypertension type: essential hypertension Mixed hyperlipidemia E78.2 Hyperlipidemia type: mixed hyperlipidemia Hypothyroidism, unspecified type E03.9 Hypothyroidism type: unspecified Additional Codes PHQ-9 - 74859 - PHQ-9 Billing: Yes ([id number]) Assessment & Plan Assessment & Plan (1) DMII (diabetes mellitus, type 2): Code(s): E11.9 - Type 2 diabetes mellitus without complications Category: Medical Qualifiers: Diabetes mellitus fci insulin use: without dedicated intermodal truck driver use Diabetes mellitus complication status: without complication Qualified Code(s): E11.9 - Type 2 diabetes mellitus without complications Plan: Patient's most recent A1c at 7.0. He is interested in returning back to Superbly which he feels was working better for his diabetes. Of note Superbly was much too expensive for him in the past Goal A1c is to be below 7.0 (2) Coronary artery disease: Code(s): I25.10 - Atherosclerotic heart disease of [place] coronary artery without angina pectoris Category: Medical Qualifiers: Coronary Disease-Associated Artery/Lesion type: [place] artery [place] vs. transplanted heart: [place] heart Associated angina: with stable angina Qualified Code(s): I25.118 - Atherosclerotic heart disease of [place] coronary artery with other forms of angina pectoris Plan: He is now followed by prize jacker in [place]. Continues on statin therapy with good effect. Most recent lipid panel showing excellent control of his total cholesterol and LDL. Goal LDL to be optimally below 70 (3) Ocular myasthenia: Code(s): G70.00 - Myasthenia gravis without (acute) exacerbation Category: Medical Plan: Continues to follow Neurology. Continues on medication for his ocular myasthenia/. He does continue on prednisone multiple times a day and reports sleeping issues in the afternoons due to the medication prednisone. He will try to use his prednisone more in the morning and earlier afternoon. (4) HTN (hypertension): Code(s): I10 - Essential (primary) hypertension Category: Medical Qualifiers: Hypertension type: essential hypertension Qualified Code(s): I10 - Essential (primary) hypertension Plan: Patient's blood pressure acceptable today in office. Will continue his current dose of antihypertensive medication with goal blood pressure to be below 140/90 (5) HLD (hyperlipidemia): Code(s): E78.5 - Hyperlipidemia, unspecified Category: Medical Qualifiers: Hyperlipidemia type: mixed hyperlipidemia Qualified Code(s): E78.2 - Mixed hyperlipidemia Plan: As above goal LDL to be optimally below 70 due to his coronary artery disease. (6) Hypothyroid: Code(s): E03.9 - Hypothyroidism, unspecified Category: Medical Qualifiers: Hypothyroidism type: unspecified Qualified Code(s): E03.9 - Hypothyroidism, unspecified Plan: Most recent TSH high at 5.6. We have increased his levothyroxine to 75 mcg will recheck TSH to assure normal Orders: Orders Complete Blood Count no Diff Today I10 - Essential (primary) hypertension Comprehensive [place]. Panel Fast Today I10 - Essential (primary) hypertension TSH reflex Free T4 Today E03.9 - Hypothyroidism, unspecified Lipid Panel Today E78.2 - Mixed hyperlipidemia Medications: New dulaglutide (Trulicity) 0.75 mg (0.5 mL) subcut QWEEK 2 mL 3RF 4 weeks E11.9 - Type 2 diabetes mellitus without complications Changed From metoprolol succinate ER 12.5 mg (1/2 x 25 mg) PO DAILY 30 days 15 tabs 1RF E11.9 - Type 2 diabetes mellitus without complications To metoprolol succinate ER returning to 1 full tab daily 25 mg PO DAILY 30 tabs 3RF 30 days E11.9 - Type 2 diabetes mellitus without complications Discontinued tirzepatide (Mounjaro) for 4 weeks Discontinued Reason: Doctor's Order 2.5 mg (0.5 mL) subcut QWEEK 4 weeks 2 mL 2RF E11.9 - Type 2 diabetes mellitus without complications
[2025-02-17 11:53] VITALS: BP 118/66; PULSE 100; TEMP 36.3; O2SAT 99; BMI 24.3
--- OUTSIDE RECORDS SUMMARY | 2025-02-17 12:51 | XMS_ITS ---
Author Name [facility] Organization Unknown History of Medication Use Medication Directions Dispensed Refills Start Date End Date Stat us Take 1 capsule once a day 12/09/2024 active TAKE 1 TABLET BY WILLIAM TH EVERY DAY 07/10/2022 active 04/09/2022 active Problems Problem Status Onset Date Problem Type Date of Resoluti on Source Snoring (R06.83) active 2022-09-07 ProblemAct C T_PLMNORCT Cough Variant Asthma (J45.991) active 2022-09-07 ProblemAct CT_[facility]MN[facility] Obstructive Sleep Apnea Adult Pediatric (G47.33) active 2022-09-07 ProblemAct CT_[facility]MN[facility] Morbid Severe Obesity Due To Excess Calories (E66.01) active 2022-09-07 ProblemAct [facility] Other Forms Of Dyspnea (R06.09) active 2022-09-07 ProblemAct CT_[facility]MN[facility] Encounters Encounter Type Encounter Reason Primary Diagnosis Location Date Ambulatory [facility] 12/09/2024 [facility] 07/17/2024 [facility] 06/10/2024 Amb[facility] 03/16/2024 Ambulatory [facility] 0 12/13/2023 Ambulatory [facility] 08/16/2022 Care Team Organization Name Specialty Phone Email Start Date End [facility] 03/17/2024 [facility] 08/16/2022 [facility] 08/02/2022 08/16/2022
--- OUTSIDE RECORDS SUMMARY | 2025-02-17 12:51 | XMS_ITS | Encounter Summary ---
Author Organization [facility] Address [address] [place] [id number] Care Team Providers Care Hydrological Technical Officer Name Role Phone Clement Alaniz Primary Care Provider + Encounter Details Date Type Department Care Team (Late st Contact Info) Description 12/13/2023 Transcribed Orders [address] [id number] Evan Mauricio MD [address] [place] [address] Disease of thyroid gland (Primary Dx); Abnormal [...] ORDERABLES Final Re sult Performing Organization Address City/[facility]/[place] [address], [facility] [phone] * TSH, 3rd generation w/reflex to FT4 ([facility] LMW Q YH) (12/13/2023 1:36 PM EDT) TSH 0.40 0.36 - 3.74 uIU/mL 12/13/2023 2:50 PM EDT [facility] Blood Venipuncture / Unknown 12/13/2023 1:36 PM EDT 12/13/2023 1:36 PM EDT Evan Mauricio MD LAB BLOOD ORDERABLES Final Re sult Performing Organization Address [facility] [place] [address], [facility] [phone] * PSA, total (screening) ([facility] L LMW YH) (12/13/2023 1:36 PM EDT) Prostate Specific Antigen, Screening <0.010 <4.000 ng/mL 12/13/2023 2:50 PM EDT [facility] Comment: Results cannot be interpreted as absolute evidence of presence or absence of malignant disease. Values obtained from different instruments cannot be used interchangeably. This test was performed on the Siemens Dimension [place] using an electrochemiluminescence immunoassay. A total PSA value of 4ng/mL may not be an appropriate actionable threshold in all clinical situations. For healthcare providers, see institutional care pathway via [employer] > Integrated Care Models > Abnormal Prostate [email or web address] Blood Venipuncture / Unknown 12/13/2023 1:36 PM EDT 12/13/2023 1:36 PM EDT Evan Mauricio MD LAB BLOOD ORDERABLES Final Re sult Performing Organization Address [facility] de Phone Number [address] [phone] * (ABNORMAL) NT-proBrain natriuretic peptide (12/13/2023 1:36 PM EDT) NT-proBNP 645.0(H) <450.0 pg/mL 12/13/2023 2:50 PM EDT [facility] Blood Venipuncture / Unknown 12/13/2023 1:36 PM EDT 12/13/2023 1:36 PM EDT Evan Mauricio MD LAB BLOOD ORDERABLES Final Re sult Performing Organization Address [facility] de Phone Number [address] [phone] * (ABNORMAL) Hemoglobin A1c (12/13/2023 1:36 PM EDT) Hemoglobin A1c 9.8(H) 4.2 - 6.3 % 12/13/2023 2:37 PM EDT [facility] Comment: >=6.5% Diabetes* 5.7-6.4% Pre-Diabetes *These results must be confirmed by repeat testing in the absence of unequivocal hypoglycemia. Diabetes Care 2015 38 s8-16 NOTE: This A1c assay is accurate in HbC, HbS, HbE, or HbD. A1c results are not reliable in the presence of HbF or in patients with chronic blood loss. Any cause of shortened red blood cell survival (eg, hemolytic anemia, hemolysis, , recent significant blood loss) will reduce the exposure of red blood cells to glucose with a consequent decrease in A1c values. Blood Venipuncture / Unknown 12/13/2023 1:36 PM EDT 12/13/2023 1:36 PM EDT us Evan Mauricio MD LAB BLOOD ORDERABLES [place] [address], [facility] [phone] documented in this encounter Visit Diagnoses Diagnosis [...] documented as of this encounter Care Teams Hydrological Technical Officer Relationship Specialty Start Date End Date Clement Alaniz PA [address] [place] [address] [place] [id number] PCP - General 01/29/25 documented as of this encounter
--- OUTSIDE RECORDS SUMMARY | 2025-02-17 12:51 | XMS_ITS | Data Portability ---
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 [email or web address] Not available 11/05/2024 12:50:32 12/25/2024 12/25/2024 Patient continue s free of any concerning heart symptoms. We reviewed his valvular abnormalities continue to clinically be on the mild side. We again suggested discussion with you given history of proteinuria whether he should be on an SG inhibitor. In regards to potential carotid disease we offered him carotid ultrasounds. Will see him after the test to review the severity and see if he needs a referral to a vascular surgeon. [email or web address] Not available 12/25/2024 11:19:15 02/05/2025 02/05/2025 Patient suffered a nonsyncopal fall resulting in a hematoma in his head. He seems to be recovering. Pleased he is not having any cardiac symptoms again. We reviewed his carotid ultrasound does not show significant stenosis. We suggest he continue to treat his atherotic risk factors and follow him longitudinally and periodically for his mild valve disease. We arrange for a visit towards years end. He was pleased with the plan. We of course suggested close follow-up with you and his treating physicians following his fall [email or web address] Not available 02/05/2025 13:21:23 Plan of Treatment Reminders Order Date Submit Date Provider Last Modified By Organization Details Last Modified Time Details Appointments FOLLOW UP 15 2024 02:00P M Charly Sims MD Not available Not available Not available Lab None recorded. Referral None recorded. Procedures None recorded. Surgeries None recorded. Imaging US, duplex, carotid artery 2024 025 ER[facility] [place], [address] [place] [address], [phone], 02/01/2025 15:20:59 electroca rdiogram 2024 025 ERIC [place], [address] [place] [address], [address], 08/21/2024 11:55:25 electroca rdiogram [email or web address], [address], 06/25/2024 14:11:54 Medication Orders None recorded. Patient TargetsNo targets recorded. Patient InstructionsNo instructions recorded. Reason for Referral None Reported. Results Created Date Observation Date Name Description Value Unit Range Abnormal Flag Note LastModifiedBy Organization Detail LastModifiedTime 06/25/20 24 06/25/2024 elect rocar diogr am No observ ation record ed. jeanna [address], [address], 06/25/2024 12:34:39 06/29/20 24 06/25/2024 elect rocar diogr am No observ ation record ed. [email or web address] [address], [address], 06/29/2024 12:54:03 08/21/19 25 08/21/2024 elect rocar diogr am No observ ation record ed. jeanna [address], [address], 08/21/2024 11:55:25 08/28/19 25 08/21/2024 elect rocar diogr am No observ ation record ed. [email or web address], [address], 08/28/2024 10:42:19 10/30/19 25 08/03/2024 US, vianca ortiz s, jake extre mity No observ ation record ed. [email or web address] Not Available 2024 14:46:15 12/22/19 25 11/13/2024 CT, angio gram, chest , w/o contr ast No observ ation record ed. [email or web address] Not Available 2024 09:23:02 02/02/20 25 02/01/2025 cereb rovas cular repor t No observ ation record ed. [facility] Cardiovascula r [facility] ([facility] [address] [place], [address], 02/02/2025 08:45:21 02/02/20 25 02/01/2025 US, duple x, carot id arter y No observ ation record ed. [address], [address], 02/01/2025 15:20:59 02/03/20 25 01/29/2025 CT, head + brain , w/o contr ast No observ ation record ed. [email or web address] Not Available 2024 16:01:39 02/03/20 25 11/13/2024 CT, angio gram, chest , w/o contr ast No observ ation record ed. [email or web address] Not Available 2024 16:02:32 02/03/20 25 01/29/2025 CT, cervi andrez spine , w/o contr ast No observ ation record ed. [email or web address] Not Available 2024 16:04:34 Result Notes None recorded. Medical Equipment None Reported. [...] NEEDED FOR LOOSE STOOL FOR 10 DAYS 12/25 completed Not Available Not Available Not Available azithromyci n 250 mg tablet TAKE 2 TABLETS BY MOUTH TODAY, THEN TAKE 1 TABLET DAILY FOR 4 DAYS DIRECTED 08/21 completed Not Available Not Available Not Available meloxicam 15 mg tablet TAKE 1 TABLET BY MOUTH EVERY DAY WITH FOOD 12/25 completed Not Available Not Available Not Available FreeStyle Lancets 28 gauge TEST ONCE DAILY 08/21 completed Not Available Not Available Not Available prednisone 5 mg tablet PLEASE SEE ATTACHED FOR DETAILED DIRECTION S active Not Available Not Available No t Available amlodipine 5 mg tablet TAKE 1 TABLET BY MOUTH EVERY EVENING active Not Available Not Available No [...] mcg tablet TAKE 1 TABLET BY MOUTH DAILY active Not Available Not Available No t Available cyclopentol ate 1 % eye drops [...] TAKE 1 TABLET BY MOUTH EVERY DAY 02/05 completed Not Available Not Available Not Available prednisone 2.5 mg tablet TAKE 1 TABLET BY MOUTH TWICE DAILY X21 DAYS 02/05 completed Not Available Not Available Not Available erythromyci n 5 mg/gram (0.5 %) [...] bromide 60 mg tablet TAKE 2 TABLETS BY MOUTH 3 TIMES A DAY active Not Available Not Available No t Available furosemide 20 mg tablet TAKE 1 TABLET BY MOUTH EVERY DAY 12/25 completed Not Available Not Available Not Available metoprolol succinate ER 25 mg tablet,exte [...] completed Not Available Not Available Not Available fluticasone propionate 50 mcg/actuati on nasal spray,suspe nsion 1 SPRAY INTRANASA LLY 2 TIMES A DAY FOR 30 DAYS ADMINISTE R INTO EACH NOSTRIL active Not Available Not Available No t Available amoxicillin 875 mg-potassiu m clavulanate 125 [...] Not Available Not Available No t Available cyclosporin e 0.05 % eye drops in a dropperette LOCATION: BOTH EYES. APPLY ONE DROP IN BOTH EYES TWO TIMES PER DAY 02/05 completed Not Available Not Available Not Available Restasis active Not Available Not Avai lable Not Available FreeStyle Lite Strips USE DIRECTED TO TEST ONCE A DAY 08/21 completed Not Available Not Available Not Available Senexon-S 8.6 mg-50 mg tablet TAKE 2 TABLETS BY MOUTH AT BEDTIME 08/21 completed Not Available Not Available Not Available levothyroxi ne 75 mcg capsule Take 1 capsule every day by oral route. 02/05 completed Not Available Not Available Not Available [...] Not Available Not Available No t Available Mounjaro 2.5 mg/0.5 mL subcutaneou s pen injector INJECT 2.5 MG (0.5 ML) SUBCUTANE OUSLY EVERY WEEK FOR 4 WEEKS 02/05 completed Not Available Not Available Not Available Vitals Date Recorded Heart rate Respiratory rate Systolic And Diastolic Provider Name and Address Organization Details Last Updated DateTime 08/21/2024 70 /min 12 /min 120/80 mm[Hg] Charly Sims MD [address] [facility], [place], [address], [facility] 08/21/2024 10:51:16 Date Recorded Body weight Provider Name an d Address Organization Details Last Updated DateTime 08/21/2024 45804.78 g Jocelyn Frank [facility] 08/21/2024 10:31:55 Date Recorded Heart rate Respiratory rate Systolic And Diastolic Provider Name and Address Organization Details Last Updated DateTime 11/05/2024 68 /min 12 /min 130/80 mm[Hg] Charly Sims MD [address] [facility], [place], [address], [facility] 11/05/2024 12:45:56 Date Recorded Body weight Provider Name an d Address Organization Details Last Updated DateTime 11/05/2024 39849.19 g Jocelyn Frank [facility] 11/05/2024 10:37:04 Date Recorded Respiratory rate Heart rate Systolic And Diastolic Provider Name and Address Organization Details Last Updated DateTime 12/25/2024 12 /min 60 /min 120/80 mm[Hg] Charly Sims MD [address] [facility],[address], [place], [address], [facility] 12/25/2024 11:17:00 Date Recorded Body height Body mass index (BMI) Body weight Provider Name and Address Organization Details Last Updated DateTime 12/25/2024 170.18 cm 24.7 kg/m2 94026.59 g [facility] 12/25/2024 10:31:21 Date Recorded Heart rate Respiratory rate Systolic And Diastolic Provider Name and Address Organization Details Last Updated DateTime 02/05/2025 68 /min 12 /min 120/80 mm[Hg] Charly Sims MD [address] [place] [address],[facility], [place], [address] 02/05/2025 13:19:43 Date Recorded Body height Body mass index (BMI) Body weight Provider Name and Address Organization Details Last Updated DateTime 02/05/2025 170.18 cm 24.7 kg/m2 32352.59 g Jocelyn Frank [facility] 02/05/2025 13:05:45 Date Recorded Respiratory rate Heart rate Systolic And Diastolic Provider Name and Address Organization Details Last Updated DateTime 06/25/2024 12 /min 60 /min 120/70 mm[Hg] Charly Sims MD [address] [place] [address],[facility], [place], [address], [facility] 06/25/2024 12:03:46 Social History None recorded. Functional Status None [...] SNOMED-CT Code Diagnosis ICD10 Code Diagnosis Note [id number] Charly Sims MD [address] [address] 06/25/2024 11:24:23 06/25/2024 14:11:54 Preoperative cardiovascular examination 096920995 Z01.810 Atheroscle rosis of coronary artery without angina pectoris 1914139687 36964 I25.10 Aortic valve stenosis 60 097754 I35.0 Non-rheuma tic mitral valve stenosis 943099885 I34.2 [id number] Charly Sims MD [address] [address] 08/21/2024 10:22:16 08/21/2024 11:09:25 Edema of lower extremity 699796480 R60.0 Atheroscle rosis of coronary artery without angina pectoris 9543598731 79838 I25.10 Essential hypertension 27629122 I10 [id number] Charly Sims MD [place] [address] 11/05/2024 10:17:35 11/05/2024 14:45:27 Edema of lower extremity 616612496 R60.0 Atheroscle rosis of coronary artery without angina pectoris 2359872130 83190 I25.10 Essential hypertension 23185801 I10 Aortic valve stenosis 60 523393 I35.0 [id number] Charly Sims MD [address] [address] 12/25/2024 10:27:00 01/15/2025 11:16:39 Coronary arteriosclerosis 30066971 I25.10 Essential hypertension 44806164 I10 Pure hypercholesterolemia 589117781 E78.00 Bilateral stenosis of carotid arteries 218177271 I65.23 [id number] Charly Sims MD [address] [address] 02/05/2025 12:56:26 02/05/2025 13:41:18 Coronary arteriosclerosis 02026324 I25.10 Mild aorti c valve stenosis 057698589 I35.0 Mild javier l valve stenosis 192166295 I05.0 Bilateral stenosis of carotid arteries 984598484 I65.23 Health Concerns Section Related Observation LastModified by Organization Detai ls LastModified Time None Recorded Concern Status LastModified by Organization Details LastModified Time None Recorded Advance Directives Directive None Recorded Payers Insurance Date Sequence Insurance Name Policy Number Policy Dai Covered Member ID Dai Member ID Guarantor Name 02/04/2025 2 [facility] (MEDICARE SUPPLEMENT) Kareem Fletcher [id number] Kareem Fletcher 01/29/2025 1 MEDICARE [place]: MEDICARE SERVICES - NATIONAL GOVERNMENT SERVICES Kareem Fletcher [id number] Kareem Fletcher Notes Date Note Type Note Provider Name and Address Organization Details Recorded Time 4 text/html Patient is referred for cardiac assessment prior to elective hip replacement surgery. 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 He offers are somewhat limited to hip pain and is scheduled for hip replacement on July 22. For that reason were asked to see him from a cardiac standpoint. He reports no chest pains palpitations or dyspnea. He denies any paroxysmal internal dyspnea lower extremity edema. Charly Sims MD [address] [facility], [place], [address], [facility] - [facility] 06/25/2024 12:07:51 5 text/html Patient comes [...] had any angina. Charly Sims MD [address] [facility],[address], [place], [address], [facility] 08/21/2024 11:04:18 5 text/html Patient returns in [...] pains or dyspnea. Charly Sims MD [address] [facility],[address], [place], [address], [facility] 11/05/2024 12:53:12 5 text/html Patient returns in follow-up for his coronary disease with a history of CABG. He has mild aortic stenosis and mild to moderate mitral stenosis. It is in the setting of hypertension diabetes and hyperlipidemia. He offers he continues active denying any chest pains or dyspnea. He brings up that he previously was found to have some carotid disease that was being followed. He believes he had an 80% lesion. At his last visit we gave him Lasix for some lower extremity edema. He offers he only takes it when he has significant edema maybe once every 2 weeks. Charly Sims MD [address] [facility],[address], [place], [address], [facility] 12/25/2024 11:19:52 5 text/html Patient returns in follow-up for his coronary disease with history of CABG he has mild aortic and mitral stenosis and apparently some carotid disease. He continues without any concerning cardio or neurologic symptoms. Unfortunately suffered a nonsyncopal fall from flight of stairs and hit his head resulting in a hematoma. He did not lose consciousness. Charly Sims MD [address] [facility],[address], [place], [address], [facility] 02/05/2025 13:22:03
--- OUTSIDE RECORDS SUMMARY | 2025-02-17 12:51 | XMS_ITS | Patient Health Record ---
Author Organization [facility] Address [address] [place] [address] Care Team Providers Care Sales And Marketing Coordinator Name Role Phone Clement Alaniz Primary Care Provider Unavailab Maciej John Unavailable [phone] Allergies Allergen (clinical drug ingredient) Drug/Non Drug [...] on an empty stomach Orally Once a day; Duration: 30 day(s) Active Mobic 15 mg qd Not-Taki ng aspirin baby every night Activ e Synthroid 112 MCG 1 tablet every morning on an empty stomach Orally Once a day Not-Taking Ciclopirox 0.77 % 1 application to affected area Externally Twice a day to effected nails; Duration: 30 days 06/30/2021 Active Lidoderm 5 % 1 patch to skin remove after 12 hours Externally Once a day; Duration: 30 days 12/17/2017 Not-Taking Restasis Active Lipitor 80 MG 1 tablet Orally Once a day; Duration: 30 day(s) Active pyRIDostigmine [place] Active Lasix 20 MG 1 tablet Orally Once a day; Duration: 30 day(s) Not-Taking Amoxicillin 500 MG 1 capsule Orally every 8 hrs; Duration: 10 day(s) Before Dentist/Foot appt - PRN [...] W/U Status Risk Notes Problem Tinea unguium (650074636) Tinea unguium (B35.1) Active confirmed 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, Chronic Encounters Encounter Location Date Provider Diagnosis [facility] [place] [address] [place] [address] 02/26/2024 Maciej Whitaker Plan Of Treatment Pending Test Test Name Order Date X ray : Foot, left 3V 06/08/2016 10544-UKBHWPC NAIL, 6 OR MORE 07/08/2018 03797-EKYWEEG NAIL, 6 OR MORE 09/09/2018 85205-THSWECA NAIL, 6 OR MORE 11/11/2018 48787-NZRWARX NAIL, 6 OR MORE 01/13/2019 44761-JIGPBQS NAIL, 6 OR MORE 03/17/2019 32314-SSGECUS NAIL, 6 OR MORE 05/19/2019 28022-BCPTZWN NAIL, 6 OR MORE 07/28/2019 22842-MXMRTJE NAIL, 6 OR MORE 09/29/2019 98555-NFXGFMJ NAIL, 6 OR MORE 12/01/2019 53126-GIDYQHW NAIL, 6 OR MORE 02/02/2020 45713-DLCHIGK NAIL, 6 OR MORE 04/05/2020 27483-NQAEAJD NAIL, 6 OR MORE 06/14/2020 90142-QWGGEJW NAIL, 6 OR MORE 08/16/2020 84726-TKYMOXA NAIL, 6 OR MORE 11/22/2020 53048-LGHRANJ NAIL, 6 OR MORE 01/31/2021 01511-VZPMGOL NAIL, 6 OR MORE 04/25/2021 07120-VEDGJAO NAIL, 6 OR MORE 06/30/2021 70627-APEPGUF NAIL, 6 OR MORE 10/31/2021 57296-Vdcc Destruction, 1-12/28/2011 82242-Zbew Destruction, 1-02/29/2012 43555-Scgtpsuf Plate 02/29/2012 27588-Ycbqvdxu Plate 05/09/2012 67163-Imqkhgwo Plate 07/18/2012 83077-Tabrjbkb Plate 05/04/2011 06782-Qpgwylav Plate 06/29/2011 41733-Zpgybjbs Plate 08/24/2011 46183-Ettjtsku Plate 10/30/2011 79871-Sbuvythl Plate 12/28/2011 50825-Ylsesoem Plate 10/10/2012 24393-Mvlqqutx Plate 01/16/2013 30298-Pvsnjfyr Plate 04/24/2013 13280-Vqaaybzf Plate 07/24/2013 46084-Jonqcavl Plate 10/06/2013 14312-Wtommjom Plate 01/12/2014 03220-Wrlefxsk Plate 04/16/2014 64184-Lpnbykwu Plate 07/16/2014 70697-Bsyfxukc Plate 08/17/2016 16091-Xsodmjpu Plate 10/19/2016 87293-Pcphwpcd Plate 03/27/2016 74485-Najnkhrv Plate 06/08/2016 99246-Nucmzjmh Plate 01/08/2017 93914-Lbqibawf Plate 03/26/2017 90435-Pgsdglrt Plate 05/28/2017 65048-Ojvcvdgy Plate 07/30/2017 29917-Svtjbjgs Plate 07/20/2014 67799-Hmlkmcji Plate 09/21/2014 21584-Bofkwqbv Plate 11/26/2014 28575-Rnscwqun Plate 02/04/2015 19595-Nxicpibi Plate 04/15/2015 50019-Gqnpuxmj Plate 06/24/2015 95652-Xvmhsqky Plate 09/16/2015 82488-Rkvgdpet Plate 11/18/2015 80926-Yyltwnrq Plate 01/20/2016 02228-Tyjyreqn Plate 10/31/2021 10011-Jfsbfbev Plate 06/30/2021 61730-Qcyvqrre Plate 04/25/2021 42192-Arypmwru Plate 01/31/2021 47090-Ndfpeeou Plate 11/22/2020 54944-Aqhsgwga Plate 08/16/2020 27154-Kgvdrpvm Plate 06/14/2020 47012-Pxluozin Plate 04/05/2020 81784-Riiozxxb Plate 02/02/2020 81328-Lxtkqhnj Plate 12/01/2019 94785-Bnqupbcp Plate 09/29/2019 90315-Knrweppo Plate 07/28/2019 24917-Gldvjtwd Plate 05/19/2019 27115-Lhsxotjf Plate 03/17/2019 94292-Gjfvxybo Plate 01/13/2019 36450-Avykheia Plate 07/08/2018 40538-Wvbnbcbs Plate 11/11/2018 88441-Pbrcqmzj Plate 09/09/2018 20290-Mdialfzl Plate 05/13/2018 90739-Vkjrkfsb Plate 10/01/2017 84101-Zwgyzywk Plate 12/17/2017 35288-Fafndfhb Plate 02/18/2018 05311-Ycyfiewm Plate Each Additional 09/2017 66840-Tjsfmepf Plate Each Additional 05/2018 42460-Lratbenw Plate Each Additional 03/2018 72327-Yhzngeex Plate Each Additional 15708-Wnlxfxkq Plate Each Additional 06315-Yllqlehq Plate Each Additional 61623-Denxwcnk Plate Each Additional 55598-Lmvbrwgt Plate Each Additional 09/2018 51505-Oyfokhfc Plate Each Additional 11/2018 02263-Tpmxayhf Plate Each Additional 01/2019 70997-Anqcpjbe Plate Each Additional 03/2019 66008-Qpunnfuk Plate Each Additional 95767-Zgnyhjgr Plate Each Additional 80320-Twmtrhcy Plate Each Additional 51954-Mkklauuf Plate Each Additional 87886-Kgxrpxbn Plate Each Additional 72970-Mdepjakl Plate Each Additional 10/2019 83901-Uppwhlza Plate Each Additional 12/2020 23543-Hzfwzjao Plate Each Additional 31474-Twgdraax Plate Each Additional 59297-Efprltwv Plate Each Additional 89875-Yyjredvr Plate Each Additional 93203-Ctidyreq Plate Each Additional 85799-Ngsyckmb Plate Each Additional 05/2016 42362-Uijxzewa Plate Each Additional 03/2016 72633-Inposczt Plate Each Additional 12/2015 56366-Jqzxlpbo Plate Each Additional 05527-Ipepusip Plate Each Additional 11/2014 63030-Bhsisvzw Plate Each Additional 29029-Slfzzjts Plate Each Additional 66008-Hwrnkqhh Plate Each Additional 05/2015 60919-Flwceiiy Plate Each Additional 45019-Wbbctkwo Plate Each Additional 15494-Vmwxrhuo Plate Each Additional 22896-Dqfpnnyk Plate Each Additional 71179-Ujfjszci Plate Each Additional 38762-Zxheoano Plate Each Additional 05/2017 23619-Ptpmwrwu Plate Each Additional 69175-Ngqsvopv Plate Each Additional 01/2017 26914-Ykhiwxyp Plate Each Additional 12/2013 09890-Dymjnvjg Plate Each Additional 12/2013 67440-Lcrssnbj Plate Each Additional 10/2013 58174-Zyjpgokh Plate Each Additional 47832-Yuhblufz Plate Each Additional 87043-Raoobduo Plate Each Additional 30291-Rhvquezc Plate Each Additional 02/2013 64592-Mnkjgqbf Plate Each Additional 08/2012 12939-Dpwobbvf Plate Each Additional 19654-Bgfdljwt Plate Each Additional 66097-Enjxllzc Plate Each Additional 56298-Eosqnvqe Plate Each Additional 02862-Wwywjpez Plate Each Additional 02/2012 14362-Jkwpxmnc Plate Each Additional 84951-Orjhckfq Plate Each Additional 69737, Q5820-BHGSZ/INJECT, JOINT/BURSA 0 10/01/2017 22719,G8895-YNH TENDON SHEATH/LIGAMENT 1 Insurance Providers Payer Name Payer Address Payer Phone Subscriber Number Group Number Insured Name Patient Relationship to Insured Coverage Start Date Coverage End Date Medicare [employer] [facility] [address] [place] [address] [id number] Kareem Fletcher Self - patient is the insured [facility] [address] [place] [address] [phone] [id number] Kareem Fletcher Self - patient is the insured Medical (General) History Medical History History ICD Code thyroid disorder mumps measles gall bladder problems chicken pox Cholesterol back, hip, knee pain Arthritis Surgical History Surgery Date(Month/Year) arm 1998 cataract extraction w/IOL OU 2008 cholecystectomy 1998 knee surgery tonsillectomy 1954 oral surgery 01/11/12 laser eyes surgery OD 2011 Total right knee replacement 09/05/2012 MRI 01/27/21 Hospitalization History Reason Date(Month/Year) [facility] pneumonia/ [place] 09/12- [facility] ER - heachache 04/24/2021
== END 2025-02-17 12:21 | disposition home or self-care (01) ==
LOC: HO.HMCH 11:41
PROVIDERS: PCP Physician Assistant; Visit Provider Physician Assistant
DX: E11.9 Type 2 diabetes mellitus without complications (principal); I25.118 Atherosclerotic heart disease of native coronary artery with other forms of angina pectoris; G70.00 Myasthenia gravis without (acute) exacerbation; I10 Essential (primary) hypertension; E78.2 Mixed hyperlipidemia; E03.9 Hypothyroidism, unspecified

== ENCOUNTER → 2025-02-17 11:40 | Outpatient (BNVA) | payer MEDICARE, OTHER, SELFPAY | PROVIDERS: PCP Physician Assistant; Visit Provider Physician Assistant | DX: E11.9 Type 2 diabetes mellitus without complications (principal); I25.118 Atherosclerotic heart disease of native coronary artery with other forms of angina pectoris; I10 Essential (primary) hypertension; E78.2 Mixed hyperlipidemia; E03.9 Hypothyroidism, unspecified; G47.00 Insomnia, unspecified | CPT/HCPCS: 96127; 99212 ==

== ENCOUNTER 2025-05-06 07:02 | Outpatient (REF) | payer MEDICARE, OTHER, SELFPAY ==
--- OUTSIDE RECORDS SUMMARY | 2025-05-06 07:04 | XMS_ITS | Encounter Summary ---
Author Organization [facility] Address [address] [place] [address] Care Team Providers Care Clerical Administrative Assistant Name Role Phone Clement Alaniz Primary Care Provider + Encounter Details Date Type Department Care Team (Late st Contact Info) Description 12/24/2023 Transcribed Orders [place] [phone] Evan Mauricio MD [address] [place] [address] Social History Tobacco Use Types Packs/Day Years [...] Time PHQ-9 Depression Total Score: 0 12/22/19 5:57 PM EDT documented as of this encounter Care Teams Clerical Administrative Assistant Relationship Specialty Start Date End Date Clement Alaniz PA [address] [place] [address] [place] [address] PCP - General 01/29/25 documented as of this encounter
--- OUTSIDE RECORDS SUMMARY | 2025-05-06 07:04 | XMS_ITS | Encounter Summary ---
Author Organization [facility] and [facility] Address [address] [place] [address] Care Team Providers Care Door Tender Name Role Phone Clement Alaniz Primary Care Provider + Encounter Details Date Type Department Care Team (Late st Contact Info) Description 12/24/2023 Transcribed Orders [place] [phone] Evan Mauricio MD [address] [place] [address] Hyperthermia-induce d defect (Primary Dx); Acute cough [...] days of incubation 12/30/2023 12:00 AM EDT [facility] DEPARTMENT OF LABORATORY MEDICINE Blood PERIPHERAL BLOOD SPECIMEN / Unknown Venipuncture / Unknown 12/24/2023 1:48 PM EDT 12/24/2023 1:52 PM EDT Narrative [facility] DEPARTMENT OF LABORATORY MEDICINE - 12/30/2023 12:00 AM EDT All blood culture bottles with growth will be reported. Evan Mauricio MD MICROBIOLOGY - GENERAL ORDERA BLES Final Result Performing Organization Address [facility] Co de Phone Number [facility] DEPARTMENT OF LABORATORY MEDICINE [address] [place] [address] * Blood culture (12/24/2023 1:48 PM EDT) Pathologist [facility] Blood Culture No Growth after 5 days of incubation 12/30/2023 12:00 AM EDT [facility] DEPARTMENT OF LABORATORY MEDICINE Blood PERIPHERAL BLOOD SPECIMEN / Unknown Venipuncture / Unknown 12/24/2023 1:48 PM EDT 12/24/2023 1:[address] [facility] DEPARTMENT OF LABORATORY MEDICINE - 12/30/2023 12:00 AM EDT All blood culture bottles with growth will be reported. Evan Mauricio MD MICROBIOLOGY - GENERAL ORDERA BLES Final Result Performing Organization Address City/[facility]/ZIP Co de Phone Number [facility] DEPARTMENT OF LABORATORY MEDICINE [address] [place] [address] * SARS-CoV-2 (COVID-19)/Influenza A+B/RSV by RT-PCR ([facility]) (12/24/2023 1:14 PM EDT) Pathologist [facility] Influenza A Negative Negative 12/24/2023 2:26 PM T [facility] Comment:Negative results do not preclude infection from [...] B Negative Negative 12/24/2023 2:26 PM EDT [facility] Respiratory Syncytial Virus Negative Negative 12/24/2023 2:26 PM [facility] SARS-CoV-2 RNA (COVID-19) Negative Negative 12/24/2023 2:26 PM [facility] Comment: SARS-CoV-2 target nucleic acids not detected. Depending on assay used, testing was performed using one of the following tests. Contact the laboratory if the specific assay used impacts clinical care. Fact Sheet for Healthcare Providers: Cepheid Xpert Xpress SARS-CoV-2: https://www.fda.gov/media/195866/download Cepheid Xpert Xpress CoV-2 plus: https://www.fda.gov/media/968416/download Cepheid Xpert Xpress SARS-CoV-2/Flu/RSV plus: https://www.fda.gov/media/158173/download Fact Sheet for Patients: Cepheid Xpert Xpress SARS-CoV-2: https://www.fda.gov/media/787582/download Cepheid Xpert Xpress CoV-2 plus: https://www.fda.gov/media/076224/download Cepheid Xpert Xpress SARS-CoV-2/Flu/RSV plus: https://www.fda.gov/media/128096/download Test performed using the GeneXpert real-time RT-PCR assay. Test performance has not been evaluated in asymptomatic patients. Test ordering and result interpretation is at the discretion of the ordering provider. Test performed at: [place] [address] Director: Naomi Pack MD CLIA: [id number] Viral NASOPHARYNGEAL STRUCTURE / Unknown Collection / Unknown 12/24/2023 1:14 PM EDT 12/24/2023 1:15 PM EDT Evan Mauricio MD MICROBIOLOGY - GENERAL ORDERA BLES Final Result Performing Organization Address City/State/[facility] [place] [address], [facility] [phone] documented in this encounter Visit Diagnoses Diagnosis [...] documented as of this encounter Care Teams Door Tender Relationship Specialty Start Date End Date Clement Alaniz PA [address] [place] [address] [place] [phone] PCP - General 01/29/25 documented as of this encounter
--- OUTSIDE RECORDS SUMMARY | 2025-05-06 07:04 | XMS_ITS | Patient Health Record ---
Author Organization [facility] Address [address] [place] [address] Care Team Providers Care Duplicate Maker Name Role Phone Clement Alaniz Primary Care Provider Unavailab Maciej John Unavailable [phone] Allergies Allergen (clinical drug ingredient) Drug/Non Drug [...] a day; Duration: 30 day(s) Active pyRIDostigmine [place] Active Lasix 20 MG 1 tablet Orally Once a day; Duration: 30 day(s) Not-Taking Amoxicillin 500 MG 1 capsule Orally every 8 hrs; Duration: 10 day(s) Before Dentist/Foot appt - PRN 07/22/2013 Active Juana 5-20 MG Orally Once a day for high BP Not-Taking Travatan Z Active Vitamin B 12 injection once a week Active Immunizations Vaccine Route Administration Date Status Comme nts Influenza Unknown 05/19/2019 Pending Influenza Unknown 04/13/2021 Administered COVID-19 [employer]Caden Unknown 07/06/2021 Administered 1st 11/10/2020 Social History Tobacco Use: Social History Observation [...] W/U Status Risk Notes Problem Tinea unguium (902635027) Tinea unguium (B35.1) Active confirmed 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, Chronic Plan Of Treatment Pending Test Test Name Order Date X ray : Foot, left 3V 06/08/2016 28024-HGYNHYM NAIL, 6 OR MORE 07/08/2018 56548-NGGBHVA NAIL, 6 OR MORE 09/09/2018 70596-NWJBBNE NAIL, 6 OR MORE 11/11/2018 70601-QNNSGPQ NAIL, 6 OR MORE 01/13/2019 56076-BDKSZAV NAIL, 6 OR MORE 03/17/2019 95858-WWVHIYM NAIL, 6 OR MORE 05/19/2019 59120-AEVXHRU NAIL, 6 OR MORE 07/28/2019 53492-WHFQVPC NAIL, 6 OR MORE 09/29/2019 81937-KWZONYQ NAIL, 6 OR MORE 12/01/2019 01430-NLIQQEX NAIL, 6 OR MORE 02/02/2020 85543-WOWYRZS NAIL, 6 OR MORE 04/05/2020 71631-WIKFNTU NAIL, 6 OR MORE 06/14/2020 31898-XLPKLJN NAIL, 6 OR MORE 08/16/2020 94621-JOIAJOU NAIL, 6 OR MORE 11/22/2020 81730-BHDUMGB NAIL, 6 OR MORE 01/31/2021 95322-JINNBUX NAIL, 6 OR MORE 04/25/2021 44991-ZPSRITU NAIL, 6 OR MORE 06/30/2021 73843-GPZBYRZ NAIL, 6 OR MORE 10/31/2021 35773-Bejs Destruction, 1-14 12/28/2011 94677-Xbno Destruction, 1-14 02/29/2012 04286-Itcxwoit Plate 02/29/2012 40645-Jflbcxhd Plate 05/09/2012 99094-Mzwiybqw Plate 07/18/2012 56547-Hxujctyv Plate 05/04/2011 03445-Zoiqvnio Plate 06/29/2011 65470-Tcnnjgiy Plate 08/24/2011 86649-Orcpzmfr Plate 10/30/2011 91866-Iorlkdjm Plate 12/28/2011 68461-Aixuqyrv Plate 10/10/2012 14645-Jmcoavtz Plate 01/16/2013 89490-Ljbgfqxu Plate 04/24/2013 50733-Tjynscaj Plate 07/24/2013 36978-Dxbwgygx Plate 10/06/2013 41602-Zgwyzmbj Plate 01/12/2014 48697-Wfbismdk Plate 04/16/2014 09063-Wdmixydl Plate 07/16/2014 78493-Zfcctncp Plate 08/17/2016 86967-Dflnuwcr Plate 10/19/2016 22633-Qrpbxmgi Plate 03/27/2016 19739-Hgowvbrf Plate 06/08/2016 37427-Hyhklemo Plate 01/08/2017 62278-Tcgovmit Plate 03/26/2017 13194-Ldqcigsf Plate 05/28/2017 54882-Vqyvqtmr Plate 07/30/2017 72377-Somqfjso Plate 07/20/2014 58828-Ylcoixyk Plate 09/21/2014 03011-Tpbrtpwy Plate 11/26/2014 28186-Pggftusc Plate 02/04/2015 18310-Fwoqhfzf Plate 04/15/2015 70106-Etplrxin Plate 06/24/2015 59878-Clfpuaom Plate 09/16/2015 43535-Iwmemgvl Plate 11/18/2015 95684-Gnvylkik Plate 01/20/2016 91755-Xfveijei Plate 10/31/2021 08481-Kmlxkhzk Plate 06/30/2021 73797-Qncrfuqh Plate 04/25/2021 46128-Dicwuqlk Plate 01/31/2021 77723-Htklujax Plate 11/22/2020 77891-Idnmsssy Plate 08/16/2020 69842-Ykzzchcj Plate 06/14/2020 15120-Gvlevcop Plate 04/05/2020 66263-Nksfcgth Plate 02/02/2020 64348-Cmnsqzhb Plate 12/01/2019 80904-Urdfdpfd Plate 09/29/2019 78723-Ziljefvw Plate 07/28/2019 34572-Lgfvzfih Plate 05/19/2019 21912-Ekjptfrn Plate 03/17/2019 18461-Jelwvydu Plate 01/13/2019 92517-Xacmvqgb Plate 07/08/2018 54762-Agzmbger Plate 11/11/2018 04290-Rnsvooqv Plate 09/09/2018 26546-Fiihwycq Plate 05/13/2018 31473-Xhacribg Plate 10/01/2017 20366-Okluyrkl Plate 12/17/2017 93289-Xplxpoxv Plate 02/18/2018 35106-Kzgdvdaz Plate Each Additional 09/2017 80772-Unpkilze Plate Each Additional 05/2018 26072-Kucvajtz Plate Each Additional 03/2018 33764-Ytymxyus Plate Each Additional 02401-Wqinmvgj Plate Each Additional 03466-Csabbmow Plate Each Additional 68811-Nkwofcqe Plate Each Additional 92827-Byuzubpy Plate Each Additional 09/2018 60862-Nanihauz Plate Each Additional 11/2018 32550-Lkslitnp Plate Each Additional 01/2019 93224-Styyxcnt Plate Each Additional 03/2019 25344-Hinceiga Plate Each Additional 99166-Pwewhpmo Plate Each Additional 25773-Dljbhadd Plate Each Additional 85218-Exotgpug Plate Each Additional 03675-Iwjvzbht Plate Each Additional 16845-Iotkfhvq Plate Each Additional 10/2019 69694-Zpiskaml Plate Each Additional 12/2020 80079-Tnkzrbra Plate Each Additional 23490-Gfwrqzev Plate Each Additional 89238-Yrnhrivo Plate Each Additional 28907-Nntfozfu Plate Each Additional 68035-Oyovvaoo Plate Each Additional 07309-Hcyaxqgs Plate Each Additional 05/2016 61575-Bhvqlgwo Plate Each Additional 03/2016 49578-Guzpmxvm Plate Each Additional 12/2015 52278-Axyxqtfc Plate Each Additional 99783-Mooqvmsd Plate Each Additional 11/2014 49089-Islopacm Plate Each Additional 02453-Lemcpmga Plate Each Additional 95464-Avrrbhju Plate Each Additional 05/2015 37167-Slkajcyt Plate Each Additional 83125-Zewwoklq Plate Each Additional 91452-Bjmvylyg Plate Each Additional 44853-Jspicqfd Plate Each Additional 89638-Uegmpnww Plate Each Additional 04401-Lkuerzzi Plate Each Additional 05/2017 94162-Gntkgwad Plate Each Additional 55996-Aeeebbxl Plate Each Additional 01/2017 17072-Ieukcsmd Plate Each Additional 12/2013 05266-Beoazeob Plate Each Additional 12/2013 53558-Risljzss Plate Each Additional 10/2013 01170-Sgjhogah Plate Each Additional 63597-Fupaaocx Plate Each Additional 08304-Wxrllvaz Plate Each Additional 58071-Udkoufsf Plate Each Additional 02/2013 89861-Cdzlgjap Plate Each Additional 08/2012 66625-Fusyoijh Plate Each Additional 60641-Mgvbczlc Plate Each Additional 92176-Pkwmpiai Plate Each Additional 07891-Yptyiaee Plate Each Additional 10373-Xwxgwcin Plate Each Additional 02/2012 30455-Btodbjsh Plate Each Additional 50511-Cebskbbz Plate Each Additional 35290, S0437-CIXTY/INJECT, JOINT/BURSA 0 10/01/2017 05680,Z4652-FXC TENDON SHEATH/LIGAMENT 1 Insurance Providers Payer Name Payer Address Payer Phone Subscriber Number Group Number Insured Name Patient Relationship to Insured Coverage Start Date Coverage End Date Medicare [facility] [address] [place] [address] [id number] Kareem Fletcher Self - patient is the insured [employer] [place] [address] [place] [phone] [id number] Kareem Fletcher Self - patient is the [...] 09/05/2012 MRI 01/27/21 Hospitalization History Reason Date(Month/Year) [facility] pneumonia/ MG 09/12- [facility] ER - heachache 04/24/2021
--- OUTSIDE RECORDS SUMMARY | 2025-05-06 07:04 | XMS_ITS | Encounter Summary ---
Author Organization [facility] and [facility] Address [address] [place] [address] Care Team Providers Care Quality Assurance Assessor Name Role Phone Clement Alaniz Primary Care Provider + Encounter Details Date Type Department Care Team (Late st Contact Info) Description 12/13/2023 Transcribed Orders [place] [phone] Evan Mauricio MD [address] [place] [address] Disease of thyroid gland (Primary Dx); Abnormal [...] - 12.1 ug/dL 12/13/2023 2:50 PM EDT [facility] Blood Venipuncture / Unknown 12/13/2023 1:36 PM EDT 12/13/2023 1:36 PM EDT Evan Mauricio MD LAB BLOOD ORDERABLES Final Re sult Performing Organization Address City/[facility]/[place] [address], [place] [phone] * TSH, 3rd generation w/reflex to FT4 ([facility] LMW Q YH) (12/13/2023 1:36 PM EDT) TSH 0.40 0.36 - 3.74 uIU/mL 12/13/2023 2:50 PM EDT [facility] Blood Venipuncture / Unknown 12/13/2023 1:36 PM EDT 12/13/2023 1:36 PM EDT Evan Mauricio MD LAB BLOOD ORDERABLES Final Re sult Performing Organization Address [facility] [place] [address], [place] [phone] * PSA, total (screening) ([facility] L LMW YH) (12/13/2023 1:36 PM EDT) Prostate Specific Antigen, Screening <0.010 <4.000 ng/mL 12/13/2023 2:50 PM EDT [facility] Comment: Results cannot be interpreted as absolute evidence of presence or absence of malignant disease. Values obtained from different instruments cannot be used interchangeably. This test was performed on the Siemens Dimension [place] using an electrochemiluminescence immunoassay. A total PSA value of 4ng/mL may not be an appropriate actionable threshold in all clinical situations. For healthcare providers, see institutional care pathway via [employer] > Integrated Care Models > Abnormal Prostate [email or web address].[email or web address]/uploads/abnormal%20Prostate%20stewardship%20ICM%20algorith m.pdf Blood Venipuncture / Unknown 12/13/2023 1:36 PM EDT 12/13/2023 1:36 PM EDT Evan Mauricio MD LAB BLOOD ORDERABLES Final Re sult Performing Organization Address [facility] de Phone Number [address] [phone] * (ABNORMAL) NT-proBrain natriuretic peptide (12/13/2023 1:36 PM EDT) NT-proBNP 645.0(H) <450.0 pg/mL 12/13/2023 2:50 PM EDT [facility] Blood Venipuncture / Unknown 12/13/2023 1:36 PM EDT 12/13/2023 1:36 PM EDT Evan Mauricio MD LAB BLOOD ORDERABLES Final Re sult Performing Organization Address [facility] de Phone Number [address] [phone] * (ABNORMAL) Hemoglobin A1c (12/13/2023 1:36 PM EDT) Hemoglobin A1c 9.8(H) 4.2 - 6.3 % 12/13/2023 2:37 PM EDT [facility] Comment: >=6.5% Diabetes* 5.7-6.4% Pre-Diabetes *These results [...] MD LAB BLOOD ORDERABLES [place] [address], [place] [phone] documented in this encounter Visit Diagnoses Diagnosis [...] documented as of this encounter Care Teams Quality Assurance Assessor Relationship Specialty Start Date End Date Clement Alaniz PA [address] [place] [address] [place] [phone] PCP - General 01/29/25 documented as of this encounter
--- OUTSIDE RECORDS SUMMARY | 2025-05-06 07:04 | XMS_ITS | Encounter Summary ---
Author Organization [facility] Address [address] [place] [address] Care Team Providers Care Registration Specialist Name Role Phone Clement Alaniz Primary Care Provider + Encounter Details Date Type Department Care Team (Late st Contact Info) Description 12/13/2023 Scanned Document [address] [address] Evan Mauricio MD [address] [place] [address] Social History Tobacco Use Types Packs/Day Years [...] Time PHQ-9 Depression Total Score: 0 07/19/20 9:30 AM EST documented as of this encounter Care Teams Registration Specialist Relationship Specialty Start Date End Date Clement Alaniz PA [address] [place] [address] [place] [phone] PCP - General 01/29/25 documented as of this encounter
--- OUTSIDE RECORDS SUMMARY | 2025-05-06 07:05 | XMS_ITS | Encounter Summary ---
Author Organization [facility] Address [address] [place] [address] Care Team Providers Care Metrology Technician Name Role Phone Clement Alaniz Primary Care Provider + Encounter Details Date Type Department Care Team (Late st Contact Info) Description 01/07/2024 Transcribed Orders [place] [phone] vEan Mauricio MD [address] [place] [address] Hyperthermia-induce d defect (Primary Dx); Acute cough; [...] pneumonia LEGIONELLA AND S. PNEUMONIAE ANTIGEN, URINE ([facility]) Routine 01/07/2024 3:15 PM EDT Hyperthermia-induce d defect Acute cough Unresolved pneumonia BLOOD CULTURE Routine 01/07/2024 3:15 PM EDT Hyperthermia-induce d defect Acute cough Unresolved pneumonia BLOOD CULTURE Routine 01/07/2024 3:14 PM EDT Hyperthermia-induce d defect Acute cough Unresolved pneumonia documented in this encounter Results * Legionella and S. pneumoniae antigen, urine ([facility]) (01/07/2024 3:15 PM EDT) Legionella Antigen Negative Negative 01/07/2024 10:55 PM EDT [facility] DEPARTMENT OF LABORATORY MEDICINE S. pneumoniae Urine Antigen Negative Negative 01/07/2024 10:55 PM EDT [facility] DEPARTMENT OF LABORATORY MEDICINE Urine URINE SPECIMEN OBTAINED BY CLEAN CATCH PROCEDURE / Unknown Collection / Unknown 01/07/2024 3:15 PM EDT 01/07/2024 3:31 PM EDT Narrative [facility] DEPARTMENT OF LABORATORY MEDICINE - 01/07/2024 10:55 [...] - GENERAL ORDERA BLES Final Result [facility] DEPARTMENT OF LABORATORY MEDICINE [address] [place] [address], [facility] [phone] * Blood culture (01/07/2024 3:15 PM EDT) Blood Culture No Growth after 5 days of incubation 01/12/2024 11:00 PM EDT [facility] DEPARTMENT OF LABORATORY MEDICINE Blood PERIPHERAL BLOOD SPECIMEN / Unknown Venipuncture / Unknown 01/07/2024 3:15 PM EDT 01/07/2024 3:31 PM EDT Narrative [facility] DEPARTMENT OF LABORATORY MEDICINE - 01/12/2024 11:00 PM EDT All blood culture bottles with growth will be reported. Evan Mauricio MD MICROBIOLOGY - GENERAL ORDERA BLES Final Result [facility] DEPARTMENT OF LABORATORY MEDICINE [address] [place] [address], [facility] [phone] * SARS-CoV-2 (COVID-19)/Influenza A+B/RSV by RT-PCR ([facility]) (01/07/2024 3:15 PM EDT) Pathologist [facility] Influenza A Negative Negative 01/07/2024 4:07 PM EDT [facility] Comment:Negative results do not preclude infection from [...] B Negative Negative 01/07/2024 4:07 PM EDT [facility] Respiratory Syncytial Virus Negative Negative 01/07/2024 4:07 PM T [facility] SARS-CoV-2 RNA (COVID-19) Negative Negative 01/07/2024 4:07 PM T [facility] Comment: SARS-CoV-2 target nucleic acids not detected. Depending on assay used, testing was performed using one of the following tests. Contact the laboratory if the specific assay used impacts clinical care. Fact Sheet for Healthcare Providers: CL3VER Xpert Xpress SARS-CoV-2: https://www.fda.gov/media/875148/download Cepheid Xpert Xpress CoV-2 plus: https://www.fda.gov/media/602691/download Cepheid Xpert Xpress SARS-CoV-2/Flu/RSV plus: https://www.fda.gov/media/416627/download Fact Sheet for Patients: Cepheid Xpert Xpress SARS-CoV-2: https://www.fda.gov/media/196366/download Cepheid Xpert Xpress CoV-2 plus: https://www.fda.gov/media/613181/download Cepheid Xpert Xpress SARS-CoV-2/Flu/RSV plus: https://www.fda.gov/media/350094/download Test performed using the GeneXpert real-time RT-PCR assay. Test performance has not been evaluated in asymptomatic patients. Test ordering and result interpretation is at the discretion of the ordering provider. Test performed at: [place] [address] Director: Naomi Pack MD CLIA: [id number] Viral NASOPHARYNGEAL STRUCTURE / Unknown Collection / Unknown 01/07/2024 3:15 PM EDT 01/07/2024 3:18 PM EDT Evan Mauricio MD MICROBIOLOGY - GENERAL [place] [address], [facility] [phone] * Blood culture (01/07/2024 3:14 PM EDT) Blood Culture No Growth after 5 days of incubation 01/12/2024 11:00 PM EDT [facility] DEPARTMENT OF LABORATORY MEDICINE Blood PERIPHERAL BLOOD SPECIMEN / Unknown Venipuncture / Unknown 01/07/2024 3:14 PM EDT 01/07/2024 3:15 PM EDT Narrative [facility] DEPARTMENT OF LABORATORY MEDICINE - 01/12/2024 11:00 PM EDT All blood culture bottles with growth will be reported. Evan Mauricio MD MICROBIOLOGY - GENERAL ORDERA BLES Final Result [facility] DEPARTMENT OF LABORATORY MEDICINE [address] [place] [address], [facility] [phone] documented in this encounter Visit Diagnoses Diagnosis [...] documented as of this encounter Care Teams Metrology Technician Relationship Specialty Start Date End Date Clement Alaniz PA [address] [place] [address] [place] [phone] PCP - General 01/29/25 documented as of this encounter
--- OUTSIDE RECORDS SUMMARY | 2025-05-06 07:05 | XMS_ITS | Encounter Summary ---
Author Organization [facility] and [facility] Address [address] [place] [address] Care Team Providers Care Global Security Architect Name Role Phone Clement Alaniz Primary Care Provider + Encounter Details Date Type Department Care Team (Late st Contact Info) Description 06/08/2021 Transcribed Orders [address] [phone] Koko Wahl MD [address] [place] [phone] Other specified endocrine disorders (Primary Dx); Hypothyroidism [...] ORDERABLES Final Resul t Performing Organization Address [facility]/ZIP Co de Phone Number [facility] [address] [place] [address] * Estradiol (06/08/2021 9:02 AM EDT) Estradiol <11.8 =<39.8 pg/mL 06/08/2021 12:24 PM EDT [facility] Comment: Reference ranges (pg/mL): Females (normal menstruating): Folicular phase : 19.5-144.2 Midcycle : 63.9-356.7 Luteal phase : 55.8-214.2 Postmenopausal : 0.0-32.2 If the patient is taking Faslodex (fulvestrant), then this result will be falsely elevated due to the cross-reactivity. Order Estradiol, Ultrasensitive LC/MS instead. Males : 0.0-39.8 Blood Venipuncture / Unknown 06/08/2021 9:02 AM EDT 06/08/2021 9:04 AM EDT us Koko Wahl MD LAB BLOOD ORDERABLES Final Resul t Performing Organization Address [facility] Co de Phone Number [facility] [address] [place] [address] * (ABNORMAL) DHEA-sulfate (06/08/2021 9:02 AM EDT) DHEA-SO4 46.6(L) 80.0 - 560.0 ug/dL 06/08/2021 5:08 PM EDT [facility] MEDICINE Comment: Oscar Stage [...] MD LAB BLOOD ORDERABLES Final Resul t [facility]AT[facility] MEDICINE [address] [place] [id number] [phone] * TSH (06/08/2021 9:02 AM EDT) TSH 3.21 0.36 - 3.74 uIU/mL 06/08/2021 10:20 AM EDT [facility] Blood Venipuncture / Unknown 06/08/2021 9:02 AM EDT 06/08/2021 9:04 AM EDT us Koko Wahl MD LAB BLOOD ORDERABLES Final Resul t Performing Organization Address City/[facility]/ZIP Co de Phone Number [address] [phone] * (ABNORMAL) Testosterone, free,bio and total, LC/MS/MS ([facility]) (06/08/2021 9:02 AM EDT) Testosterone Total LC/MS/MS 79(L) 250 - 1100 ng/dL 06/12/2021 12:37 PM EDT [facility] Comment: Men with clinically significant hypogonadal symptoms and testosterone values repeatedly in the range of the 200-300 ng/dL or less, may benefit from testosterone treatment after adequate risk and benefits counseling. For additional information, please refer to http://education.[employer]/faq/ VtddqOjjoyrcygcjoXQSQPJUIX603 (This link is being provided for informational/ educational purposes only.) This test was developed and its analytical performance characteristics have been determined by [facility] [place], [place]. It has not been cleared or approved by the U.S. Food and Drug Administration. This assay has been validated pursuant to the CLIA regulations and is used for clinical purposes. Testosterone, Free 5.4(L) 6.0 - 73.0 pg/mL 06/12/2021 12:37 PM EDT [facility] Testosterone, Bioavailable 10.4(L) 15.0 - 150.0 ng/dL 06/12/2021 12:37 PM EDT [facility] Sex Hormone Binding Globulin 65 22 - 77 nmol/L 06/12/2021 12:37 PM EDT [facility] Albumin 4.2 3.6 - 5.1 g/dL 06/12/2021 12:37 PM EDT [facility] Comment: Test Performed at: [facility] [address] [phone] Srikanth Grande M.D., Ph.D.,Director of Laboratories Blood Venipuncture / Unknown 06/08/2021 9:02 AM EDT 06/08/2021 9:04 AM EDT us Koko Wahl MD LAB BLOOD ORDERABLES Final Resul t [facility] * T4, free (06/08/2021 9:02 AM EDT) Free T4 0.80 0.76 - 1.46 ng/dL 06/08/2021 10:20 AM EDT [facility] Blood Venipuncture / Unknown 06/08/2021 9:02 AM EDT 06/08/2021 9:04 AM EDT us Koko Wahl MD LAB BLOOD ORDERABLES Final Resul t Performing Organization Address City/[facility] Co de Phone Number [address] [phone] documented in this encounter Visit Diagnoses Diagnosis [...] documented as of this encounter Care Teams Global Security Architect Relationship Specialty Start Date End Date Clement Alaniz PA [address] [facility] [place] [phone] PCP - General 01/29/25 documented as of this encounter
--- OUTSIDE RECORDS SUMMARY | 2025-05-06 07:05 | XMS_ITS | Encounter Summary ---
Author Organization [facility] and [facility] Address [address] [place] [phone] Care Team Providers Care Seasonal Package Handler Name Role Phone Clement Alaniz Primary Care Provider + Encounter Details Date Type Department Care Team (Latest Contact Info) Description 02/16/2022 Transcribed Orders [address] [phone] Geovanni Haq MD [address] [place] [phone] Mitral stenosis (Primary Dx) Social History [...] 9.3 - 11.6 seconds 02/16/2022 10:23 AM [facility] PTT 25.2 21.0 - 32.0 seconds 02/16/2022 10:23 AM [facility] Comment: RECOMMENDED THERAPEUTIC RANGE: 40-80 SECONDS INR 0.99 0.87 - 1.14 02/16/2022 10:23 AM EDT [facility] Comment: RECOMMENDED INR THERAPEUTIC RANGES: STANDARD INTENSITY......2.0-3.0 HIGH INTENSITY..........2.5-3.5 Blood Venipuncture / Unknown 02/16/2022 8:56 AM EDT 02/16/2022 8:57 AM EDT Geovanni Haq MD LAB BLOOD [place] [address], [facility] [phone] documented in this encounter Visit Diagnoses Diagnosis [...] documented as of this encounter Care Teams Seasonal Package Handler Relationship Specialty Start Date End Date Clement Alaniz PA [address] [place] [address] [place], [place] [phone] PCP - General 01/29/25 documented as of this encounter
--- OUTSIDE RECORDS SUMMARY | 2025-05-06 07:05 | XMS_ITS | Encounter Summary ---
Author Organization [facility] and [facility] Address [address] [place] [phone] Care Team Providers Care Program Manager Name Role Phone Clement Alaniz Primary Care Provider + Encounter Details Date Type Department Care Team (Late st Contact Info) Description 06/08/2021 Orders Only [place] [phone] Evan Mauricio MD [address] [place] [address] Screening examination for poliomyelitis; Post-COVID syndrome resolved [...] Positive( A) Negative 06/08/2021 5:36 PM EDT [facility] DEPART[facility] OF [facility]ORATORY MEDICINE SARS-CoV-2 (COVID-19) Jakub-RBD Ab, Total >2,500.00 (H) <0.80 U/mL 06/08/2021 5:36 PM EDT [facility]IC[facility] Blood Venipuncture / Unknown 06/08/2021 9:02 AM EDT 06/08/2021 9:54 AM EDT Evan Mauricio MD LAB BLOOD ORDERABLES Final Re sult Performing Organization Address City/State/[facility] Co de Phone Number [facility] DEPARTMENT OF [facility]ORATORY MEDICINE [address] [place] [address] documented in this encounter Visit Diagnoses Diagnosis [...] documented as of this encounter Care Teams Program Manager Relationship Specialty Start Date End Date Clement Alaniz PA [address] [place] [address] [place] [phone] PCP - General 01/29/25 documented as of this encounter
--- OUTSIDE RECORDS SUMMARY | 2025-05-06 07:05 | XMS_ITS | Encounter Summary ---
Author Organization [facility] and [facility] Address [address] [place] [phone] Care Team Providers Care Installation Technician Name Role Phone Clement Alaniz Primary Care Provider + Encounter Details Date Type Department Care Team (Late st Contact Info) Description 08/01/2024 Transcribed Orders [address] [phone] Evan Mauricio MD [address] [place] [address] Diabetes mellitus (HC Code) (Primary Dx) Social [...] 4.5 - 12.1 ug/dL 08/03/2024 12:43 PM [facility] Blood Venipuncture / Unknown 08/03/2024 11:10 AM EST 08/03/2024 11:10 AM EST Evan Mauricio MD LAB BLOOD ORDERABLES Final Re sult Performing Organization Address [facility] [place] [address], [facility] [[email or web address]] [phone] * (ABNORMAL) TSH (08/03/2024 11:10 AM EST) TSH 9.26(H) 0.36 - 3.74 uIU/mL 08/03/2024 12:43 PM [facility] Comment:As TSH is known to n aturally increase in winter, with age and due to certain non-thyroidal illnesses, please consider retesting adults with mild abnormalities (ie, TSH <10 IU/mL) after 2-3 months prior to initiating therapy. Blood Venipuncture / Unknown 08/03/2024 11:10 AM EST 08/03/2024 11:10 AM EST Evan Mauricio MD LAB BLOOD ORDERABLES [facility] Per[facility] Organization Address [facility] Co de Phone Number [address] [phone] * (ABNORMAL) Hemoglobin A1c (08/03/2024 11:10 AM EST) Hemoglobin A1c 8.0(H) 4.2 - 6.3 % 08/03/2024 12:53 PM [facility] Comment: >=6.5% Diabetes* 5.7-6.4% Pre-Diabetes *These [...] in A1c values. Blood Venipuncture / Unknown 08/03/2024 11:10 AM EST 08/03/2024 11:10 AM EST us Evan Mauricio MD LAB BLOOD ORDERABLES Final Re sult Performing Organization Address City/State/[facility] Co de Phone Number [address] [phone] documented in this encounter Visit Diagnoses Diagnosis Diabetes mellitus (HC Code)- Primary Type II or unspecified type diabetes mellitus without mention of complication, not stated as uncontrolled documented in this encounter Additional Health Concerns Assessment Noted Time PHQ-9 Depression Total Score: 0 12/22/19 24 5:57 PM EDT documented as of this encounter Care Teams Installation Technician Relationship Specialty Start Date End Date Clement Alaniz PA [address] [place] [address] [place] [phone] PCP - General 01/29/25 documented as of this encounter
--- OUTSIDE RECORDS SUMMARY | 2025-05-06 07:05 | XMS_ITS | Encounter Summary ---
Author Organization [facility] and [facility] Address [address] [place] [phone] Care Team Providers Care Food And Beverage Outlets Manager Name Role Phone Clement Alaniz Primary Care Provider + Encounter Details Date Type Department Care Team (Latest Contact Info) Description 09/28/2021 Transcribed Orders [address] [phone] Clement Alaniz PA [address] [place] [address] [place] [phone] Coronary atherosclerosis of [place] coronary artery (Primary Dx); Special screening for [...] <0.010 <4.000 ng/mL 09/28/2021 9:47 AM EST [facility] Comment: This test was performed using the Siemens [place] assay. Results obtained with different assay methods cannot be used interchangeably. A total PSA value of 4ng/mL may not be an appropriate actionable threshold in all clinical situations. For healthcare providers, see institutional care pathway via Epic Tools > Integrated Care Models > Abnormal Prostate http://webhs.[facility].org/uploads/abnormal%20Prostate%20stewardship%20ICM%20algorith m.pdf Blood Venipuncture / Unknown 09/28/2021 8:24 AM EST 09/28/2021 8:24 AM EST Clement BERTRAND LAB BLOOD ORDERABLES Fin al Result Performing Organization Address City/[facility] [place] [address], [facility] [phone] * TSH (09/28/2021 8:24 AM EST) TSH 3.15 0.36 - 3.74 uIU/mL 09/28/2021 9:47 AM EST [facility] Blood Venipuncture / Unknown 09/28/2021 8:24 AM EST 09/28/2021 8:24 AM EST Clement BERTRAND LAB BLOOD ORDERABLES Fin al Result Performing Organization Address [facility] de Phone Number [address] [phone] documented in this encounter Visit Diagnoses Diagnosis Coronary atherosclerosis of [place] coronary artery- Primary Special screening for malignant [...] documented as of this encounter Care Teams Food And Beverage Outlets Manager Relationship Specialty Start Date End Date Clement Alaniz PA [address] [place] [address] [place] [phone] PCP - General 01/29/25 documented as of this encounter
--- OUTSIDE RECORDS SUMMARY | 2025-05-06 07:05 | XMS_ITS | Encounter Summary ---
Author Organization [facility] and [facility] Address [address] [place] [phone] Care Team Providers Care Blade Balancer Name Role Phone Clement Alaniz Primary Care Provider + Encounter Details Date Type Department Care Team (Late st Contact Info) Description 02/06/2024 Transcribed Orders [facility] [address] [place] [phone] Evan Mauricio MD [address] [place] [address] Diabetes mellitus without complication (HC Code) (Primary [...] Random 48.9(H) <30.0 mg/L 08/03/2024 1:37 PM [facility] Creatinine, Urine, Random 94 No reference range established mg/dL 08/03/2024 1:37 PM [facility] Microalbumin/Cr eatinine Ratio, Urine, Random 52.2(H) <30.0 mg/g Cr 08/03/2024 1:37 PM [facility] Comment: Moderately increased albuminuria (formerly microalbuminuria): 30-300 mg/g Cr Significantly increased albuminuria (overt albuminuria): >300 mg/g Cr Urine Collection / Unknown 08/03/2024 11:15 AM EST 08/03/2024 11:15 AM EST Evan Mauricio MD URINE ORDERABLES Final Result [address] [phone] * (ABNORMAL) Lipid panel (08/03/2024 11:10 AM EST) Cholesterol 187 See Comment mg/dL 08/03/2024 12:43 PM [facility] Comment: Cholesterol Reference Range: Desirable: <200 mg/dL Borderline: 200-240 mg/dL High Risk: >240 mg/dL HDL 86(H) See Comment mg/dL 08/03/2024 12:43 PM [facility] Comment: HDL Reference Range: Low: <40 High: > or = 60 Triglycerides 386(H) See Comment mg/dL 08/03/2024 12:43 PM [facility] Comment: Triglyceride Reference Range: Normal: <150 mg/dL Borderline High: 150-199 mg/dL High: 200-499 mg/dL Very High: >or= 500 mg/dL LDL Calculated 45 See Comment mg/dL 08/03/2024 12:43 PM [facility] Comment: Effective 01/17/2022, LDL is calculated using the Abdi-NIH equation, which is more accurate than the Friedewald and Lucio-Patel equations. LDL Reference Range: Optimal: <100 mg/dL Near/Above Optimal: 100-129 mg/dL Borderline High: 130-159 mg/dL High: 160-189 mg/dL Very High: >or= 190 mg/dL Blood Venipuncture / Unknown 08/03/2024 11:10 AM EST 08/03/2024 11:10 AM EST us Evan Mauricio MD LAB BLOOD ORDERABLES Final Re sult Performing Organization Address City/State/[facility] Co de Phone Number [address] [phone] documented in this encounter Visit Diagnoses Diagnosis Diabetes mellitus without complication- Primary Type II or unspecified type diabetes mellitus without mention of complication, not stated as uncontrolled documented in this encounter Additional Health Concerns Assessment Noted Time PHQ-9 Depression Total Score: 0 12/22/19 24 5:57 PM EDT documented as of this encounter Care Teams Blade Balancer Relationship Specialty Start Date End Date Clement Alaniz PA [address] [place] [address] [place] [phone] PCP - General 01/29/25 documented as of this encounter
--- OUTSIDE RECORDS SUMMARY | 2025-05-06 07:05 | XMS_ITS | Encounter Summary ---
Author Organization [facility] and [facility] Address [address] [place] [phone] Care Team Providers Care Global Ceo Name Role Phone Clement Alaniz Primary Care Provider + Encounter Details Date Type Department Care Team (Latest Contact Info) Description 08/26/2021 Transcribed Orders [address] [phone] Jonah Nieto MD [address] [place] [phone] Other diseases of mediastinum, not elsewhere [...] 0.70 - 1.30 mg/dL 08/26/2021 10:29 AM [facility] eGFR (Afr Amer) >60 >60 mL/min/1.7 3m2 08/26/2021 10:29 AM [facility] Comment: Values under 60mL/min/1.73m2 may indicate CKD if noted for more than 3 months. eGFR is only valid if creatinine is at steady state. eGFR (NON -Hollie n) >60 >60 mL/min/1.7 3m2 08/26/2021 10:29 AM [facility] Comment: Values under 60mL/min/1.73m2 may indicate CKD if noted for more than 3 months. eGFR is only valid if creatinine is at steady state. Blood Venipuncture / Unknown 08/26/2021 9:34 AM EST 08/26/2021 9:37 AM EST us Jonah Nieto MD LAB BLOOD ORDERABLES Fi nal Result Performing Organization Address City/State/[facility] [place] [address], [facility] [phone] documented in this encounter Visit Diagnoses Diagnosis [...] as of this encounter Care Teams Global Ceo Relationship Specialty Start Date End Date Clement Alaniz PA [address] [place] [address] [place] [phone] PCP - General 01/29/25 documented as of this encounter
--- OUTSIDE RECORDS SUMMARY | 2025-05-06 07:05 | XMS_ITS | Encounter Summary ---
Author Organization [facility] Address [address] [place] [phone] Care Team Providers Care Cloth Classer Name Role Phone Clement Alaniz Primary Care Provider + Encounter Details Date Type Department Care Team (Latest Contact Info) Description 11/07/2020 Transcribed Orders [place] [phone] Evan Mauricio MD [address] [place] [address] Edema (Primary Dx); History of 2019 novel [...] - 4.2 pg/mL 11/07/2020 3:46 PM EDT [facility] Blood Venipuncture / Unknown 11/07/2020 12:24 PM EDT 11/07/2020 12:24 PM EDT Evan Mauricio MD LAB BLOOD ORDERABLES Final Re sult Performing Organization Address City/[facility]/ZIP Co de Phone Number [facility] [address] [place] [address] * T4, free (11/07/2020 12:24 PM EDT) Free T4 0.90 0.76 - 1.46 ng/dL 11/07/2020 1:46 PM EDT [facility] Blood Venipuncture / Unknown 11/07/2020 12:24 PM EDT 11/07/2020 12:24 PM EDT Evan Mauricio MD LAB BLOOD ORDERABLES Final Re sult Performing Organization Address [facility] [place] [address], [facility] [phone] * NT-proBrain natriuretic peptide (11/07/2020 12:24 PM EDT) NT-proBNP 94.0 <125.0 pg/mL 11/07/2020 1:46 PM EDT [facility] Blood Venipuncture / Unknown 11/07/2020 12:24 PM EDT 11/07/2020 12:24 PM EDT us Evan Mauricio MD LAB BLOOD ORDERABLES Final Re sult Performing Organization Address [facility] Co de Phone Number [address] [phone] * (ABNORMAL) Lipid panel (11/07/2020 12:24 PM EDT) Cholesterol 192 See Comment mg/dL 11/07/2020 1:46 PM [facility] Comment: Cholesterol Reference Range: Desirable: <200 mg/dL Borderline: 200-240 mg/dL High Risk: >240 mg/dL HDL 71(H) See Comment mg/dL 11/07/2020 1:46 PM [facility] Comment: HDL Reference Range: Low: <40 High: > or = 60 Triglycerides 238(H) See Comment mg/dL 11/07/2020 1:46 PM [facility] Comment: Triglyceride Reference Range: Normal: <150 mg/dL Borderline High: 150-199 mg/dL High: 200-499 mg/dL Very High: >or= 500 mg/dL LDL Calculated 73 See Comment mg/dL 11/07/2020 1:46 PM [facility] Comment: LDL Reference Range: Optimal: <100 mg/dL Near/Above Optimal: 100-129 mg/dL Borderline High: 130-159 mg/dL High: 160-189 mg/dL Very High: >or= 190 mg/dL Blood Venipuncture / Unknown 11/07/2020 12:24 PM EDT 11/07/2020 12:24 PM EDT Evan Mauricio MD LAB BLOOD ORDERABLES [place] [address], [facility] [phone] * Protime and INR (11/07/2020 12:24 PM EDT) Prothrombin Time 10.3 9.9 - 11.8 seconds 11/07/2020 1:28 PM [facility] INR 1.0 0.9 - 1.1 11/07/2020 1:28 PM [facility] Comment: RECOMMENDED INR THERAPEUTIC RANGES: STANDARD INTENSITY......2.0-3.0 HIGH INTENSITY..........2.5-3.5 Blood Venipuncture / Unknown 11/07/2020 12:24 PM EDT 11/07/2020 12:24 PM EDT [facility] - 11/07/2020 1:28 PM EDT As of September 29, 2019 this assay is being performed on new instrumentation. Please note that the reference ranges may have changed. us Evan Mauricio MD LAB BLOOD ORDERABLES [place] [address], [facility] [phone] documented in this encounter Visit Diagnoses Diagnosis [...] documented as of this encounter Care Teams Cloth Classer Relationship Specialty Start Date End Date Clement Alaniz PA [address] [place] [address] Dr [place], KATE [phone] PCP - General 01/29/25 documented as of this encounter
--- OUTSIDE RECORDS SUMMARY | 2025-05-06 07:05 | XMS_ITS | Encounter Summary ---
Author Organization [facility] and [facility] Address [address] [place] [phone] Care Team Providers Care Control Supervisor Name Role Phone Clement Alaniz Primary Care Provider + Encounter Details Date Type Department Care Team (Late st Contact Info) Description 10/20/2020 Transcribed Orders [facility] Specimens [address] [place] [address] Evan Mauricio MD [address] [place] [address] Encntr for obs for susp expsr to [...] this encounter Results * SARS CoV-2 (COVID-19) RNA-[facility] ([facility] LMW [facility]) (10/22/2020 10:31 AM EST) SARS-CoV-2 RNA (COVID-19) Negative Negative 10/22/2020 3:21 PM EST [facility] Comment: A negative result does not preclude SARS-CoV-2 infections and should not be used as the sole basis for treatment or other management decisions. This assay is a Nucleic Acid Amplification Test (NAAT)/RT-PCR or TMA ([employer]her System). This is run on the [employer] system. It has been validated for clinical use by the [facility] (CLIA #: [id number]). It has been granted Emergency Use Authorization by the [place] FDA. Note that falsely negative results can be due to poor sample quality, suboptimal sample type, low viral load, and viral genome variability. This test has not been evaluated for use in asymptomatic individuals. Test ordering and interpretation is at the discretion of the ordering provider. Patient Information: https://www.fda.gov/media/570571/download Provider Information: https://www.fda.gov/media/584528/download Test performance has not been evaluated in asymptomatic patients. Test ordering and result interpretation is at the discretion of the ordering provider. Viral NASOPHARYNGEAL STRUCTURE / Unknown Collection / Unknown 10/22/2020 10:31 AM EST 10/22/2020 10:58 AM EST Evan Mauricio MD MICROBIOLOGY - GENERAL ORDERA BLES Final Result [address] [phone] documented in this encounter Visit Diagnoses Diagnosis Encntr for obs for susp expsr to [facility] biol agents ruled out- Primary Acute respiratory [...] documented as of this encounter Care Teams Control Supervisor Relationship Specialty Start Date End Date Clement Alaniz PA [address] [place] [address] [place] [phone] PCP - General 01/29/25 documented as of this encounter
--- OUTSIDE RECORDS SUMMARY | 2025-05-06 07:05 | XMS_ITS | Clinical Summary ---
Author Organization [address] Address [address] [place] [phone] Phone Care Team Providers Care Fourth Hand Name Role Phone Clement Alaniz Primary Care Provider + Allergies Active Allergy Reactions Criticality Noted Date [...] activi ties of daily living 03/05/2023 05/23/2023 Social History Tobacco Use Types Packs/Day Years Used Date Smoking Tobacco: Never Alcohol Use Standard Drinks/Week Comments Not Currently 0 (1 standard drink = 0.6 oz pur e alcohol) PHQ-2 Answer Date Recorded PHQ-2 Total Score 0 01/29/2025 Interpersonal Safety Answer Date Record ed Is there anyone in your life that is hurting or threatening you in anyway? no 01/29/2025 Physical Indicators of Abuse No evidence of phys ical abuse 01/29/2025 Sex and Gender Information Value Date Recorded Sex Assigned at Male 07/04/2022 1:37 AM EST Legal Sex Male 11:31 AM EST Gender Identity Male 07/04/2022 1:37 AM EST Sexual Orientation Not on file Last Filed Vital Signs Vital Sign Reading Time Taken Comments Blood Pressure 134/91 01/29/2025 10:27 AM EDT Pulse 64 01/29/2025 10:30 AM EDT Temperature 36.7 C (98.1 F) 01/29/2025 8:24 AM EDT Respiratory Rate 20 01/29/2025 10:30 AM EDT Oxygen Saturation 94% 01/29/2025 10:30 AM EDT Inhaled Oxygen Concentration - - Weight 70.3 kg (155 lb) 01/29/2025 8:24 AM EDT Height 170.2 cm (5' 7 ) 01/29/2025 8:24 AM EDT Body Mass Index 24.28 01/29/2025 8:24 AM EDT Plan of Treatment Health Maintenance Due Date Last Done Comments HIV screening 1961 Hepatitis C screening 1966 Tetanus adult (Td q 10,TDAP once) 1968 Shingles vaccine (Shingrix) (1 of 2 - Shingrix (RZV) 2 Dose Standard Series) 1998 Pneumococcal Vaccine (50+ years) (2 of 2 - PCV) 12/20/2013 12/20/2012 RSV Immunization (1 - 1-dose 75+ series) 11/29/2023 Influenza vaccine 03/12/2025 05/31/2021, 04/13/2021 Covid-19 vaccine series ( season) 2025 07/10/2021, 07/06/2021, 11/16/2020 Diabetes screening 08/03/2027 08/03/2024, 0 12/22/2023, 12/13/2023, Additional history exists Lipid disorder screening 08/03/2029 024, 06/08/2021, 11/07/2020 Colon cancer screening, Colonoscopy Discontinued Meningococcal B Vaccine Aged Out No l onger eligible based on patient's age to complete this topic Meningococcal Vaccine Aged Out No ahsan mikayla eligible based on patient's age to complete this topic Procedures Procedure Name Priority Date/Time Associated Diagnosis Comments HEMOGLOBIN A1C Routine 08/03/2024 11:10 AM EST Diabetes mellitus (HC Code) LIPID PANEL Routine 08/03/2024 11:10 AM EST Diabetes mellitus without complication (HC Code) from Last 3 Months or Most Recently Relevant to Health Maintenance Results * (ABNORMAL) Hemoglobin A1c (08/03/2024 11:10 AM EST) Hemoglobin A1c 8.0(H) 4.2 - 6.3 % 08/03/2024 12:53 PM [facility] Comment: >=6.5% Diabetes* 5.7-6.4% Pre-Diabetes *These [...] ORDERABLES Final Re sult Performing Organization Address City/State/[facility] Co de Phone Number [address] [phone] * (ABNORMAL) Lipid panel (08/03/2024 11:10 AM EST) Cholesterol 187 See Comment mg/dL 08/03/2024 12:43 PM [facility] Comment: Cholesterol Reference Range: Desirable: <200 mg/dL Borderline: 200-240 mg/dL High Risk: >240 mg/dL HDL 86(H) See Comment mg/dL 08/03/2024 12:43 PM [facility] Comment: HDL Reference Range: Low: <40 High: > or = 60 Triglycerides 386(H) See Comment mg/dL 08/03/2024 12:43 PM EST [facility] Comment: Triglyceride Reference Range: Normal: <150 mg/dL Borderline High: 150-199 mg/dL High: 200-499 mg/dL Very High: >or= 500 mg/dL LDL Calculated 45 See Comment mg/dL 08/03/2024 12:43 PM EST [facility] Comment: Effective 01/17/2022, [...] MD LAB BLOOD [place]AB[place] [address], [facility] [phone] from Last 3 Months or Most Recently Relevant to Health Maintenance Insurance MEDICARE [facility] MEDICARE [facility] MEDICARE [facility] Advance Directives * Full ACLS (Latest Code Status on File) Date Activated Date Inactivated Comments 09/13/2020 4:47 PM 09/29/2020 6:59 PM Question Answer Comments With Whom was the Code Status Discussed? Patient Care Teams Fourth Hand Relationship Specialty Start Date End Date Clement Alaniz PA [address] [place] [address] [place] [phone] PCP - General 01/29/25
--- OUTSIDE RECORDS SUMMARY | 2025-05-06 07:05 | XMS_ITS | Encounter Summary ---
Author Organization [facility] Address [address] [place] [phone] Care Team Providers Care Telecine Operator Name Role Phone Clement Alaniz Primary Care Provider + Encounter Details Date Type Department Care Team (Latest Contact Info) Description 06/08/2021 Transcribed Orders [address] [phone] System, Provider Not In Pure hypercholesterolemia (Primary [...] 215(H) See Comment mg/dL 06/08/2021 10:20 AM [facility] Comment: Cholesterol Reference Range: Desirable: <200 mg/dL Borderline: 200-240 mg/dL High Risk: >240 mg/dL HDL 66(H) See Comment mg/dL 06/08/2021 10:20 AM [facility] Comment: HDL Reference Range: Low: <40 High: > or = 60 Triglycerides 229(H) See Comment mg/dL 06/08/2021 10:20 AM [facility] Comment: Triglyceride Reference Range: Normal: <150 mg/dL Borderline High: 150-199 mg/dL High: 200-499 mg/dL Very High: >or= 500 mg/dL LDL Calculated 103(H) See Comment mg/dL 06/08/2021 10:20 AM EDT [facility] Comment: LDL Reference Range: Optimal: <100 mg/dL Near/Above Optimal: 100-129 mg/dL Borderline High: 130-159 mg/dL High: 160-189 mg/dL Very High: >or= 190 mg/dL Blood Venipuncture / Unknown 06/08/2021 9:02 AM EDT 06/08/2021 9:04 AM EDT us Provider Not In System LAB BLOOD ORDERABLES Elvia pittman Result Performing Organization Address City/State/[facility] Co de Phone Number [address] [phone] documented in this encounter Visit Diagnoses Diagnosis [...] documented as of this encounter Care Teams Telecine Operator Relationship Specialty Start Date End Date Clement Alaniz PA [address] [place] [address] [place] [phone] PCP - General 01/29/25 documented as of this encounter
--- OUTSIDE RECORDS SUMMARY | 2025-05-06 07:05 | XMS_ITS | Encounter Summary ---
Author Organization [facility] Address [address] [place] [phone] Care Team Providers Care Sourcing Intern Name Role Phone Clement Alaniz Primary Care Provider + Encounter Details Date Type Department Care Team (Late st Contact Info) Description 06/08/2021 Transcribed Orders [place] [phone] Evan Mauricio MD [address] [place] [address] Screening examination for poliomyelitis (Primary Dx); Post-COVID [...] (COVID-19) Jakub-RBD Antibody (Total Ig), Semi- Quantitative ([facility] LMW ) (06/08/2021 9:02 AM EDT) SARS-CoV-2 (COVID-19) Jakub-RBD Ab, Total Interpretation Positive( A) Negative 06/08/2021 5:36 PM EDT [facility] DEPARTMENT OF LABORATORY MEDICINE SARS-CoV-2 (COVID-19) Jakub-RBD Ab, Total >2,500.00 (H) <0.80 U/mL 06/08/2021 5:36 PM EDT [facility] DEPARTMENT OF LABORATORY MEDICINE Blood Venipuncture / Unknown 06/08/2021 9:02 AM EDT 06/08/2021 9:54 AM EDT us Evan Mauricio MD LAB BLOOD ORDERABLES Final Re sult Performing Organization Address City/State/[facility] Co de Phone Number [facility] DEPARTMENT OF LABORATORY MEDICINE [address] [place] [address] documented in this encounter Visit Diagnoses Diagnosis [...] documented as of this encounter Care Teams Sourcing Intern Relationship Specialty Start Date End Date Clement Alaniz PA [address] [place] [address] Dr [place], [place] [phone] PCP - General 01/29/25 documented as of this encounter
--- OUTSIDE RECORDS SUMMARY | 2025-05-06 07:05 | XMS_ITS | Encounter Summary ---
Author Organization [facility] and [facility] Address [address] [place] [phone] Care Team Providers Care Employment Manager Name Role Phone Clement Alaniz Primary Care Provider + Encounter Details Date Type Department Care Team (Late st Contact Info) Description 10/09/2021 Transcribed Orders [address] [phone] Evan Mauricio MD [address] [place] [phone] Shortness of breath (Primary Dx); Edema Social [...] 201.0(H) <125.0 pg/mL 10/09/2021 12:55 PM EST [facility] Blood Venipuncture / Unknown 10/09/2021 11:52 AM EST 10/09/2021 11:52 AM EST us Evan Mauricio MD LAB BLOOD ORDERABLES Final Re sult [address] [phone] documented in this encounter Visit Diagnoses Diagnosis Shortness of breath- Primary Edema documented in this encounter Additional Health Concerns Infection Onset Date Last Indicated Resolved Time R/O COVID-19 07/19/2022 07/19/2022 07/19/2022 1:10 PM EST R/O Influenza 07/19/2022 07/19/2022 07/19/2022 1: 10 PM EST Influenza A 07/19/2022 07/19/2022 07/20/2022 [...] documented as of this encounter Care Teams Employment Manager Relationship Specialty Start Date End Date Clement Alaniz PA [address] [place] [address] [place] [phone] PCP - General 01/29/25 documented as of this encounter
--- OUTSIDE RECORDS SUMMARY | 2025-05-06 07:05 | XMS_ITS | Clinical Summary ---
Author Organization [facility] Address [address] [place] [phone] Phone Care Team Providers Care Chief [facility] Name Role Phone Marleen Tompkins MD Primary Care Provider [phone]- [phone] Allergies Active Allergy Reactions Criticality Noted Date Comments Codeine Nausea Only,Vomiting Medium 09/09/2013 Medications amlodipine bes/olmesartan med (ALON ORAL) Take by mouth. Active atorvastatin calcium (ATORVASTATIN ORAL) Take by mouth. Active levothyroxine sodium (LEVOTHROID ORAL) Take by mouth. Active cyclosporine (RESTASIS) 0.05 % suspension Place 1 drop into each eye 2 (two) times a day. Active travoprost (TRAVATAN Z) 0.004 % Drop Place 1 drop into each eye. Active clopidogrel bisulfate (PLAVIX ORAL) Take by mouth. Active cyanocobalamin, vitamin B-12, (VITAMIN B-12 INJ) Inject as directed. Active Active Problems Problem Noted Date Diagnosed Date Degenerative joint disease of shoulder 3 Overview (10/02/2014): OA - Osteoarthritis of shoulder Osteoarthritis of knee 08/25/2012 Overview (10/02/2014): Osteoarthritis of knee - 715.15 Immunizations Immunization Administration Dates Next Due Influenza, Unspecified Formulation 09/06/2012(De ferred: Other) Pneumococcal polysaccharide PPSV23 12/20/2012,(Deferred: Other) Family History Medical History Relation Comments Coronary artery disease Father Coronary Artery Disease Coronary artery disease Mother Coronary Artery Disease Relation Status Comments Father Mother Social History Tobacco Use Types Packs/Day Years Used Date Smoking Tobacco: Never Education Answer Date Recorded Are you interested in more education? Not on alex e 12/10/2022 Are you concerned about learning? Not on file 12/10/2022 No 12/10/2022 No 12/10/2022 Digital Access Answer Date Recorded No 01/06/2023 No 01/06/2023 No 01/06/2023 Reliable internet access at home? Not on file 01/06/2023 Device with a working camera? Not on file Sex and Gender Information Value Date Recorded Sex Assigned at Not on file Legal Sex Male 6:40 PM EST Gender Identity Not on file Sexual Orientation Not on file Last Filed Vital Signs Vital Sign Reading Time Taken Comments Blood Pressure 141/86 04/30/2013 2:51 PM EDT Pulse - - Temperature 36.7 C (98.1 F) 2017 10:01 AM EDT Respiratory Rate - - Oxygen Saturation - - Inhaled Oxygen Concentration - - Weight 83 kg (183 lb) 2017 10:01 AM EDT Height 165.1 cm (5' 5 ) 2017 10:01 AM EDT Body Mass Index 30.45 2017 10:01 AM EDT Plan of Treatment Health Maintenance Due Date Last Done Comments Adult Td,Tdap Booster 1948 LIPID PANEL 1948 TSH LEVEL 1948 DEPRESSION SCREENING 1960 SMOKING Hx and SMOKELESS TOBACCO SCREENING 1961 HEPATITIS C SCREENING 1966 ZOSTER VACCINES (1 of 2) 1998 RSV VACCINE (1 - 1-dose 75+ series) 11/29/2023 PNEUMOCOCCAL VACCINES (50+ years) (3 of 3 - PCV20 or PCV21) 05/06/2024 05/06/2019, 12/20/2012 INFLUENZA VACCINE (#1) 2025 9, 05/05/2018, 05/22/2017, Additional history exists COVID-19 VACCINE ( - season) 2025 HEPATITIS A VACCINES Aged Out No long er eligible based on patient's age to complete this topic HIB VACCINES Aged Out No longer eligi ble based on patient's age to complete this topic MENINGOCOCCAL VACCINES (ACWY) Aged Out No longer eligible based on patient's age to complete this topic MENINGOCOCCAL VACCINES (B) Aged Out N o longer eligible based on patient's age to complete this topic Medical Devices Not on file Insurance MULTIPLAN MULTIPLAN MULTIPLAN MULTIPLAN MULTIPLAN MULTIPLAN MULTIPLAN MULTIPLAN Care Teams Chief General Pediatric [facility] Relationship Specialty Start Date End Date Marleen Tompkins MD [address] [place] [phone] PCP - General 02/09/14 Additional Source Comments The information contained in this document represents components of the legal health record. It is not the complete legal health record[facility]
[2025-05-06 10:28] LABS: Hematocrit 35.0 % (42.0-52.0); Hemoglobin 11.7 g/dl (14.0-18.0); Mean Corpuscular HGB Conc 33.4 g/dl (31.0-36.0); Mean Corpuscular Hemoglobin 28.5 pg (27.0-33.0); Mean Corpuscular Volume 85.4 fL (80.0-98.0); NRBC Abs Auto 0.000 X10*3/uL (0.0-0.012); NRBC Pct Auto 0.0 /100WBC (0.0-0.2); Platelet Count 239 X10*3/uL (160-400); Red Blood Count 4.10 X10*6/uL (4.60-5.80); White Blood Count 8.3 X10*3/uL (4.8-10.8)
[2025-05-06 11:17] LABS: Alanine Aminotransferase 20 U/L (0-40); Albumin Level 4.0 g/dL (3.5-5.0); Alkaline Phosphatase 72 U/L (39-117); Anion Gap 11 (12-20); Aspartate Amino Transferase 21 U/L (5-37); Blood Urea Nitrogen 25 mg/dL (9-16); Calcium 9.0 mg/dL (8.4-10.2); Carbon Dioxide 28 mmol/L (22-29); Chloride 110 mmol/L (96-108); Cholesterol 253 mg/dL (<200); Estimated Glomerular Filt Rate > 60; HDL Cholesterol 64 mg/dL (>40); Potassium 4.1 mmol/L (3.3-5.1); Sodium 145 mmol/L (135-145); Total Protein 6.1 g/dL (6.5-8.0); Triglycerides 212 mg/dL (<150)
== END 2025-05-06 07:03 | disposition home or self-care (01) ==
LOC: HO.HMGCLDS 07:02
PROVIDERS: PCP Physician Assistant; Visit Provider Physician Assistant
DX: I10 Essential (primary) hypertension (principal); E78.2 Mixed hyperlipidemia; E03.9 Hypothyroidism, unspecified
CPT/HCPCS: 36415; 80053; 80061; 84443; 85027

== ENCOUNTER 2025-06-09 11:29 | Outpatient (AMB) | payer MEDICARE, OTHER, SELFPAY ==
[2025-06-09 11:41] VITALS: BP 112/64; PULSE 68; TEMP 36.3; O2SAT 99; BMI 24.7
--- NOTE | 2025-06-09 11:41 | A.OFFPC_ITS ---
Vital Signs 06/09/25 11:41 Height 5 ft 7 in Weight 158 lb BMI 24.7 BP 112/64 Blood Pressure Location Lt brachial Position Sitting Pulse 68 Pulse Source Pulse Oximeter Temp 97.3 F Temp Source Temporal Artery Scan Pulse Oximetry (%) 99 Oxygen Delivery Method Room Air Intake Visit Reasons: f/u DMII Allergies codeine (CODEINE) Allergy (Intermediate, Verified 06/09/25 11:57) VOMITING Medication List - Last Reconciled 06/09/25 by Clement Alaniz PA-C albuterol sulfate 90 mcg/actuation 2 puffs inhalation QID PRN 30 days amlodipine 5 mg PO QPM 90 days aspirin 81 mg PO DAILY atorvastatin 80 mg PO DAILY blood sugar diagnostic (FreeStyle Lite Strips) As directed blood-glucose meter (FreeStyle Lite Meter kit) As directed blood-glucose sensor (FreeStyle Frieda 3 Sensor device) As directed blood-glucose,auto body repairman,cont (FreeStyle Frieda 3 [place]) As directed cholecalciferol (vitamin D3) 50 mcg PO DAILY 90 days dulaglutide (Trulicity) 0.75 mg (0.5 mL) subcut QWEEK 4 weeks ezetimibe 10 mg PO DAILY ferrous sulfate 325 mg PO DAILY fluticasone propionate 50 mcg/actuation (Flonase Allergy Relief) 1 spray intranasal BID 30 days furosemide 20 mg PO DAILY lancets (FreeStyle Lancets) As directed levothyroxine 50 mcg PO DAILY 30 days Held on 12/23/24. Instructions: Doctor's Order levothyroxine 75 mcg PO DAILY metformin 500 mg (1/2 x 1,000 mg) PO BID 90 days metoprolol succinate ER 25 mg PO DAILY 30 days pyridostigmine bromide 60 mg PO TID spirometers and accessories As directed Tobacco use date assessed: 06/09/25 Fall risk assessment: 2 + Falls in past year Last assessed Fall Risk: 06/09/25 Dental Screening Dental Screen Date: 06/09/25 Did you have a dental visit in the last 12 months?: Yes Did you have a dental problem in the last 6 months where you did not have access to dental care?: No Was dental information given to patient?: Patient has dentist HPI f/u DMII HPI Details Patient is a 74 year-old male here today for follow-up visit. ? Patient has a past medical history significant for hypertension, hyperlipidemia, CVA, BARRY, ocular myasthenia, carotid stenosis, type 2 diabetes,, , CAD. ----Concern-> several-month history of malodorous flatus and watery diarrhea. He reports the flatus has an odor like something inside, and the diarrhea occurs five to six times a day, particularly after his initial morning bowel movement. The stool is described as watery and dark, like coffee or black, which is concerning for a gastrointestinal bleed. CAD :? He is status post coronary artery bypass in 2022. He is followed by a mental health professional now in [place] Most recent echocardiogram stable Recently underwent cardiac stress testing which was essentially normal. He also does have mitral valve stenosis to which he is having monitor with regular echocardiogram .. Type 2 diabetes: Has been on Mounjaro 2.5 mg though feels it is ineffective for his blood sugars are 180s to 200. He would like to return back to Trulicity 0.75 weekly which he was managing better glycemic control.. Most recent A1c is 6.5 Hypertension:? Kareem continues on amlodipine 5 mg daily with good effect on his blood pressure..? Today blood pressure acceptable in office. .. 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.? CONTINUES ON PREDNISONE 5 MG multiple times a day without any acute ocular myasthenia gravis flares. Also Continues pyridostigmine with good effect on reducing his ptosis. .. Hyperlipidemia:? Patient continues on high potency statin and Zetia. .? Most recent LDL slightly above 100. Will continue working on lifestyle modifications to reduce his cholesterol .. BARRY: IS followed by pulmonology, uses CPAP on a nightly basis with good effect. .. Hypothyroid:? Most recent TSH elevated at 5.6, we have increased his levothyroxine back to 75 mcg. Laboratory Tests 11/13/23 12/18/23 02/26/24 09:08 10:46 06:24 WBC RBC Hgb Creatinine Fasting Glucose 94 Hgb A1c (Clinic) 9.6 H Hemoglobin A1c % Triglycerides Cholesterol LDL Cholesterol, C alc TSH 0.04 L 0.05 L 04/10/24 07/13/24 10/24/24 08:07 13:21 08:38 WBC RBC Hgb 13.3 L 11.2 L Creatinine 0.89 0.88 Fasting Glucose 92 110 H Hgb A1c (Clinic) 7.1 H Hemoglobin A1c % 7.3 H Triglycerides Cholesterol LDL Cholesterol, C alc 59 TSH 0.16 L 01/21/25 05/06/25 09:50 07:10 WBC 11.4 H RBC 4.10 L Hgb 13.1 L 11.7 L Creatinine Fasting Glucose 100 H 106 H Hgb A1c (Clinic) Hemoglobin A1c % 7.0 H Triglycerides 212 H Cholesterol 253 H LDL Cholesterol, C alc 62 147 H TSH PFSH Medical History (Reviewed 06/09/25 @ 11:46 by Rekha Del Cid [facility]) Osteoarthritis of left shoulder Hypokalemia Mitral stenosis Atherosclerosis of coronary artery Personal history of COVID-19 Constipation by delayed colonic transit BARRY (obstructive sleep apnea) Carotid stenosis BARRY (obstructive sleep apnea) Obesity (BMI 30.0-34.9) Pernicious anemia Surgical History S/P CABG x 4 Hx of colonoscopy History of appendectomy History of cholecystectomy Total knee replacement status History of shoulder surgery History of tonsillectomy and adenoidectomy Family History Father No problems noted. Mother No problems noted. Maternal Grandmother Medical history unknown Brother AA (aortic aneurysm) Maternal Grandmother No problems noted. Mother AA (aortic aneurysm) Sister Primary cancer of shoulder Other Family history of hypercholesterolemia Family history of hypertension Social History Household Members: Significant Other Housing: House Alcohol intake: never Patient Tobacco Use Status: Never used Tobacco e-Cigarette/Vaping Use: Never Used Second Hand Smoke Exposure: No service: Yes Current occupational status: retired Cognitive needs: No Hearing needs: No Vision needs: No Questionnaire PHQ-9 Over the last 2 weeks, how often have you been bothered by any of the following problems? 1. Little interest or pleasure in doing things: not at all 2. Feeling down, depressed, or hopeless: not at all 3. Trouble falling or staying asleep, or sleeping too much: nearly every day 4. Feeling tired or having little energy: more than half the days 5. Poor appetite or overeating: several days 6. Feeling bad about yourself - or that you are a failure or have let yourself or your family down: nearly every day 7. Trouble concentrating on things, such as reading the newspaper or watching television: several days 8. Moving or speaking so slowly that other people could have noticed. Or the opposite - being so fidgety or restless that you have been moving around a lot more than usual: not at all 9. Thoughts that you would be better off or of hurting yourself in some way: not at all Total score: 10 Depression Screening Interpretation: Positive Depression Screening Follow-up: Existing condition Depression Screening Done: Yes Source: Developed by Drs. Ken Bagley, Tarsha Grant, Maikel Nation and colleagues, with an educational kellie from [employer]. Thrive Questionnaire Date Thrive assessed: 02/17/25 I am a: Patient What is your living situation today?: I have a steady place to live Within the past 12 months, did the food you bought not last and you didn't have the money to get more?: Never true Within the past 12 months, did you worry whether your food would run out before you got money to buy more?: Never true Do you have trouble paying for medicines?: Yes Do you have trouble getting transportation to medical appointments?: No Do you have trouble paying your heating and electricity bill?: No Do you have trouble taking care of your child, family member or friend?: No Do you have trouble with day-to-day activities such as bathing, preparing meals, shopping, managing finances, etc.?: No Are you currently unemployed and looking for a job?: No Are you interested in more education?: No Please select the resources that you would like help with: None Currently or been in a relationship where the following occur: No concerns reported THRIVE Score: 0 AUDIT C Alcohol Use Questionnaire (AUDIT-C) 1. How often do you have a drink containing alcohol?: Monthly or less 2. How many drinks containing alcohol do you have on a typical day when you are drinking?: 1 or 2 3. How often do you have six or more drinks on one occasion?: Never Total Score: 1 DISHA-7 AMB Questionnaire DISHA-7 Date DISHA - 7 assessed: 11/18/24 Feeling nervous, anxious, or on edge: 0 = Not at all Not being able to stop or control worryin = Not at all Worrying too much about different things: 0 = Not at all Trouble relaxin = Several days Being so restless that it is hard to sit still: 1 = Several days Becoming easily annoyed or irritable: 0 = Not at all Feeling afraid as if something awful might happen: 0 = Not at all Total DISHA-7 score (0-4 normal; 5-9 mild; 10-14 moderate; 15-21 severe): 2 Source: Developed by Drs. Ken Bagley, Tarsha Grant, Maikel Nation and colleagues, with an educational kellie from [employer]. Physical exam (Primary Care) Vital Signs: Last Vital Signs Temp 97.3 F 06/09/25 11:41 Pulse 68 06/09/25 11:41 BP 112/64 06/09/25 11:41 Pulse Ox 99 06/09/25 11:41 Oxygen Delivery Method Room Air 06/09/25 11:41 BMI result Body Mass Index 24.7 Tobacco/Smoking Status: Tobacco use Status Tobacco use date assessed 06/09/25 06/09/25 11:47 Patient Tobacco Use Status Never used Tobacco 06/09/25 11:47 e-Cigarette/Vaping Use Never Used 06/09/25 11:47 PHQ-9: PHQ-9 Score PHQ-9: Total score 06/09/25 12:02 Depression Screening Interpretation: Positive Depression Screening Follow-up: Existing condition Thrive Assessment: Date of Thrive Assessment Date Thrive assessed 02/17/25 06/09/25 11:47 Currently or been in a relationship where the following occur: No concerns reported Results AMB Hemoglobin A1c AMB Hemoglobin A1c 6.5 % Last Edit by Rekha Del Cid CMA on 06/09/25 12:34 AMB Hemoglobin A1c AMB Hemoglobin A1c 6.5 % Last Edit by Rekha Del Cid CMA on 06/09/25 12:34 Results Reviewed Results Reviewed: Laboratory Last Values Hgb A1c (Clinic) 6.5 % (4.0-6.0) H 06/09/25 11:47 Hgb A1c (Clinic) 6.5 % (4.0-6.0) H 06/09/25 11:47 Coding Level of Care Code Est Pt Level 4 (98117) Diagnoses Type 2 diabetes mellitus without complication, without long-term current use of insulin E11.9 Diabetes mellitus complication status: without complication 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 He continues on Trulicity and metformin with decent affect. \ Goal A1c is to be below 7.0 (2) Coronary artery disease: Code(s): I25.10 - Atherosclerotic heart disease of [place] coronary artery without angina pectoris Category: Medical Qualifiers: Associated angina: with stable angina Coronary Disease-Associated Artery/Lesion type: [place] artery [place] vs. transplanted heart: [place] heart Qualified Code(s): I25.118 - Atherosclerotic heart disease of [place] coronary artery with other forms of angina pectoris Plan: He is now followed by mental health professional in [place]. Continues on statin therapy with good effect. Most recent lipid panel showing excellent control of his total cholesterol and LDL. Goal LDL to be optimally below 70 (3) Ocular myasthenia: Code(s): G70.00 - Myasthenia gravis without (acute) exacerbation Category: Medical Plan: Continues to follow Neurology. Continues on medication for his ocular myasthenia/. He does continue on prednisone multiple times a day and reports sleeping issues in the afternoons due to the medication prednisone. He will try to use his prednisone more in the morning and earlier afternoon. (4) HTN (hypertension): Code(s): I10 - Essential (primary) hypertension Category: Medical Qualifiers: Hypertension type: essential hypertension Qualified Code(s): I10 - Essential (primary) hypertension Plan: Patient's blood pressure acceptable today in office. Will continue his current dose of antihypertensive medication with goal blood pressure to be below 140/90 (5) HLD (hyperlipidemia): Code(s): E78.5 - Hyperlipidemia, unspecified Category: Medical Qualifiers: Hyperlipidemia type: mixed hyperlipidemia Qualified Code(s): E78.2 - Mixed hyperlipidemia Plan: As above goal LDL to be optimally below 70 due to his coronary artery disease. (6) Hypothyroid: Code(s): E03.9 - Hypothyroidism, unspecified Category: Medical Qualifiers: Hypothyroidism type: unspecified Qualified Code(s): E03.9 - Hypothyroidism, unspecified Plan: Most recent TSH high at 5.6. We have increased his levothyroxine to 75 mcg will recheck TSH to assure normal (7) Loose stools: Code(s): R19.5 - Other fecal abnormalities Category: Medical Plan: The patient's primary issue is chronic watery diarrhea with dark, coffee-like stools and malodorous flatus. Given the dark stool, chronic anemia, and aspirin use, there is a significant concern for a gastrointestinal bleed. To investigate this, stool studies, including a GI panel, and blood tests will be ordered. A referral to a sleeve tailor will be placed for further evaluation, likely including a colonoscopy. The patient will identify a provider in his local area and provide the office with their contact information to facilitate the referral. For symptomatic relief, loperamide will be prescribed for the loose stools. (8) Black stools: Code(s): K92.1 - Melena Category: Medical Plan: As above Orders: Orders AMB Hemoglobin A1c 06/09/25 Z13.9 - Encounter for screening, unspecified GI Panel 06/09/25 R19.5 - Other fecal abnormalities Routine Culture w Gram Stain 06/09/25 R19.5 - Other fecal abnormalities CDiff Gene PCR 06/09/25 R19.5 - Other fecal abnormalities, R19.7 - Diarrhea, unspecified H pylori Ag Stool 06/09/25 R19.5 - Other fecal abnormalities Giardia Ag Stool EIA 06/09/25 R19.5 - Other fecal abnormalities Medications: New loperamide 2 mg PO BID PRN 30 caps 0RF loose stool 15 days R19.5 - Other fecal abnormalities, R19.7 - Diarrhea, unspecified Refilled atorvastatin 80 mg PO DAILY 90 tabs 2RF R19.5 - Other fecal abnormalities Patient Instructions: Goal: A1c to remain below 7.0, LDL to remain below 100 Barriers: Adherence to physical activity and healthy eating habits
--- OUTSIDE RECORDS SUMMARY | 2025-06-09 14:51 | XMS_ITS | Patient Health Record ---
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, Chronic Plan Of Treatment Pending Test Test Name Order Date X ray : Foot, left 3V 06/08/2016 [id number] NAIL, 6 OR MORE 07/08/2018 10060-LKQDDTX NAIL, 6 OR MORE 09/09/2018 43950-AVCIMQO NAIL, 6 OR MORE 11/11/2018 92138-BTRUTHJ NAIL, 6 OR MORE 01/13/2019 76682-JSPTUQB NAIL, 6 OR MORE 03/17/2019 23500-KARQVXS NAIL, 6 OR MORE 05/19/2019 45638-UJWZKMG NAIL, 6 OR MORE 07/28/2019 77167-PYZHDYR NAIL, 6 OR MORE 09/29/2019 16492-GAVHGIQ NAIL, 6 OR MORE 12/01/2019 59390-SSXKNKK NAIL, 6 OR MORE 02/02/2020 86312-KJTJVPV NAIL, 6 OR MORE 04/05/2020 51989-ZWFATMR NAIL, 6 OR MORE 06/14/2020 18629-RMOWUNU NAIL, 6 OR MORE 08/16/2020 38737-OITNSIT NAIL, 6 OR MORE 11/22/2020 58290-QNAPQBX NAIL, 6 OR MORE 01/31/2021 54426-WPZEILN NAIL, 6 OR MORE 04/25/2021 00170-GXGEQTV NAIL, 6 OR MORE 06/30/2021 55699-LMNASTT NAIL, 6 OR MORE 10/31/2021 90857-Qrhz Destruction, 1-14 12/28/2011 28174-Prve Destruction, 1-14 02/29/2012 79754-Bsbsogla Plate 02/29/2012 65353-Dhfwykzk Plate 05/09/2012 80489-Wpkwlrmi Plate 07/18/2012 61082-Ndbosvin Plate 05/04/2011 79580-Znifneyi Plate 06/29/2011 84227-Tdsgdtbo Plate 08/24/2011 81256-Uqvqflik Plate 10/30/2011 50250-Kqasnija Plate 12/28/2011 80326-Drzuaght Plate 10/10/2012 37152-Hpghxmfp Plate 01/16/2013 08799-Xyibefde Plate 04/24/2013 80125-Iaznbgzq Plate 07/24/2013 44127-Qzuiurqa Plate 10/06/2013 31566-Morivkys Plate 01/12/2014 41747-Qqwrmcke Plate 04/16/2014 02440-Nuviqmpy Plate 07/16/2014 29691-Awxnjhvx Plate 08/17/2016 64477-Fjpawqjh Plate 10/19/2016 95900-Mlgvnipc Plate 03/27/2016 65147-Wkyghcua Plate 06/08/2016 95922-Bpahebkk Plate 01/08/2017 14234-Mytpxvpo Plate 03/26/2017 58390-Zhrbaioy Plate 05/28/2017 33973-Wmqxvhph Plate 07/30/2017 23905-Fnleykzb Plate 07/20/2014 09876-Bezkipit Plate 09/21/2014 21446-Fejfruay Plate 11/26/2014 28187-Cziuvuju Plate 02/04/2015 96161-Kjbzxpdl Plate 04/15/2015 49297-Wqaucrod Plate 06/24/2015 01421-Uzrfcemv Plate 09/16/2015 69458-Zrdmkyis Plate 11/18/2015 39246-Uxygzeff Plate 01/20/2016 18093-Nponzjas Plate 10/31/2021 62118-Gcemdsxo Plate 06/30/2021 39484-Mooxycuk Plate 04/25/2021 11084-Cemvfdus Plate 01/31/2021 07626-Diakaelr Plate 11/22/2020 93168-Zyhxplpf Plate 08/16/2020 11452-Zcwtutrn Plate 06/14/2020 09741-Llbqhttw Plate 04/05/2020 74340-Cszfjqex Plate 02/02/2020 67997-Ktewocdf Plate 12/01/2019 02724-Apdfwvbj Plate 09/29/2019 74604-Ehqrekjt Plate 07/28/2019 53537-Atfmtslb Plate 05/19/2019 40064-Tsufuvxo Plate 03/17/2019 63310-Divohrdi Plate 01/13/2019 54134-Vqsjiiwb Plate 07/08/2018 82201-Nmcfurlg Plate 11/11/2018 50947-Gmdqrxua Plate 09/09/2018 66260-Uxehzuag Plate 05/13/2018 98633-Dcouhhqr Plate 10/01/2017 57912-Emdbbich Plate 12/17/2017 54019-Mdjxjcwl Plate 02/18/2018 93005-Vtmrftmf Plate Each Additional 09/2017 36674-Zzabcjlj Plate Each Additional 05/2018 35535-Bgszmrqw Plate Each Additional 03/2018 66668-Xmnzbmxa Plate Each Additional 12896-Kzemlwly Plate Each Additional 84282-Cwogjgay Plate Each Additional 48731-Zhxxldcr Plate Each Additional 36179-Untwqcvu Plate Each Additional 09/2018 28930-Whvaizuz Plate Each Additional 11/2018 73384-Aatovbak Plate Each Additional 01/2019 43225-Ojkgvhde Plate Each Additional 03/2019 12964-Zwapkvzg Plate Each Additional 40032-Shjtkcsg Plate Each Additional 67165-Sfnqyhww Plate Each Additional 39360-Jicxurly Plate Each Additional 15475-Xmciblke Plate Each Additional 16019-Knuupkqj Plate Each Additional 10/2019 40514-Uvdjvnvs Plate Each Additional 12/2020 77508-Xzzpxkla Plate Each Additional 25281-Seqskpjd Plate Each Additional 54302-Amfhbmhj Plate Each Additional 50672-Cweawzlg Plate Each Additional 83546-Tihtjehx Plate Each Additional 46727-Bidinxgi Plate Each Additional 05/2016 51249-Tufbbapw Plate Each Additional 03/2016 45118-Avekkuyl Plate Each Additional 12/2015 15844-Dsfhblwx Plate Each Additional 56600-Kkgvlxhe Plate Each Additional 11/2014 84708-Vwdsfqhq Plate Each Additional 19561-Nsrscuxi Plate Each Additional 55406-Osanrotk Plate Each Additional 05/2015 02034-Badlabck Plate Each Additional 27632-Qfpetppl Plate Each Additional 55632-Nmngmnqi Plate Each Additional 37986-Onxsupfg Plate Each Additional 94727-Bhjdmgbq Plate Each Additional 30763-Glrdweaz Plate Each Additional 05/2017 90304-Uqsvvnra Plate Each Additional 84867-Aihxmqzk Plate Each Additional 01/2017 28100-Arkvskgv Plate Each Additional 12/2013 40966-[place] Plate Each Additional 12/2013 96570-Yoayfydb Plate Each Additional 10/2013 33247-Naxcrwyl Plate Each Additional 57478-Hhzelsdh Plate Each Additional 84874-Ycdsdetx Plate Each Additional 25915-Sxgbttcc Plate Each Additional 02/2013 47223-Yxlmlpfz Plate Each Additional 08/2012 90014-Dglcweog Plate Each Additional 92085-Llrzxnbx Plate Each Additional 75512-Epfapvkq Plate Each Additional 61941-Pbjtgmah Plate Each Additional 32458-Lufiixxn Plate Each Additional 02/2012 87864-Zyivyvnc Plate Each Additional 04582-Qeprnwiw Plate Each Additional 99546, D2524-XTRJU/INJECT, JOINT/BURSA 0 10/01/2017 96990,S3434-UDT TENDON SHEATH/LIGAMENT 1 Insurance Providers Payer Name Payer Address Payer Phone Subscriber Number Group Number Insured Name Patient Relationship to Insured Coverage Start Date Coverage End Date Medicare [facility] [address] [place] [address] [id number] Kareem Fletcher Self - patient is the insured [employer] [address] [place] [phone] [id number] Kareem Fletcher Self - patient is the [...] 09/05/2012 MRI 01/27/21 Hospitalization History Reason Date(Month/Year) [facility] pneumonia/ MG 09/12- [facility] ER - heachache 04/24/2021
--- OUTSIDE RECORDS SUMMARY | 2025-06-09 14:51 | XMS_ITS | Data Portability ---
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 Patient TargetsNo targets recorded. Patient InstructionsNo instructions recorded. Reason for Referral None Reported. Results Created Date Observation Date Name Description Value Unit Range Abnormal Flag Note LastModifiedBy Organization Detail LastModifiedTime 06/25/20 24 06/25/2024 elect rocar diogr am No observ ation record ed. jeanna [address], [address], 06/25/2024 12:34:39 06/29/20 24 06/25/2024 elect rocar diogr am No observ ation record ed. [email or web address] [address], [address], 06/29/2024 12:54:03 08/21/19 25 08/21/2024 elect rocar diogr am No observ ation record ed. jeanna [address], [address], 08/21/2024 11:55:25 08/28/19 25 08/21/2024 elect rocar diogr am No observ ation record ed. [email or web address], [address], 08/28/2024 10:42:19 10/30/19 25 08/03/2024 US, vianca ortiz s, jake extre mity No observ ation record ed. Not Available 2024 14:46:15 12/22/19 25 11/13/2024 CT, angio gram, chest , w/o contr ast No observ ation record ed. [email or web address] Not Available 2024 09:23:02 02/02/20 25 02/01/2025 cereb rovas cular repor t No observ ation record ed. [email or web address] Cardiovascula r [facility] ([facility] [address] [place], [address], 02/02/2025 08:45:21 02/02/20 25 02/01/2025 US, duple x, carot id arter y No observ ation record ed. [address], [address], 02/01/2025 15:20:59 02/03/20 25 01/29/2025 CT, head + brain , w/o contr ast No observ ation record ed. [email or web address] Not Available 2024 16:01:39 02/03/20 25 11/13/2024 CT, angio gram, chest , w/o contr ast No observ ation record ed. [email or web address] Not Available 2024 16:02:32 02/03/20 25 01/29/2025 CT, cervi andrez spine , w/o contr ast No observ ation record ed. [email or web address] Not Available 2024 16:04:34 Result Notes None [...] /min 120/80 mm[Hg] Charly Sims MD [address] [facility] [address], [place], [address], [facility] 08/21/2024 10:51:16 Date Recorded Body weight Provider Name an d Address Organization Details Last Updated DateTime 08/21/2024 82832.78 g Jocelyn Frank [facility] 08/21/2024 10:31:55 Date Recorded Heart rate Respiratory rate Systolic And Diastolic Provider Name and Address Organization Details Last Updated DateTime 11/05/2024 68 /min 12 /min 130/80 mm[Hg] Charly Sims MD [address] [facility] [address], [place], [address], [facility] 11/05/2024 12:45:56 Date Recorded Body weight Provider Name an d Address Organization Details Last Updated DateTime 11/05/2024 66699.19 g Jocelyn Frank [facility] 11/05/2024 10:37:04 Date Recorded Respiratory rate Heart rate Systolic And Diastolic Provider Name and Address Organization Details Last Updated DateTime 12/25/2024 12 /min 60 /min 120/80 mm[Hg] Charly Sims MD [address] [facility],[address], [place], [address], [facility] 12/25/2024 11:17:00 Date Recorded Body height Body mass index (BMI) Body weight Provider Name and Address Organization Details Last Updated DateTime 12/25/2024 170.18 cm 24.7 kg/m2 43683.59 g [facility] 12/25/2024 10:31:21 Date Recorded Heart rate Respiratory rate Systolic And Diastolic Provider Name and Address Organization Details Last Updated DateTime 02/05/2025 68 /min 12 /min 120/80 mm[Hg] Charly Sims MD [address] [place] [address],[facility] [address], [place], [address] 02/05/2025 13:19:43 Date Recorded Body height Body mass index (BMI) Body weight Provider Name and Address Organization Details Last Updated DateTime 02/05/2025 170.18 cm 24.7 kg/m2 00849.59 g Jocelyn Frank [facility] 02/05/2025 13:05:45 Date Recorded Respiratory rate Heart rate Systolic And Diastolic Provider Name and Address Organization Details Last Updated DateTime 06/25/2024 12 /min 60 /min 120/70 mm[Hg] Charly Sims MD [address] [place] [address],[facility] [address], [place], [address], [facility] 06/25/2024 12:03:46 Social History None recorded. Functional [...] Diagnosis SNOMED-CT Code Diagnosis ICD10 Code Diagnosis IMO Codes Diagnosis Note [id number] Charly Sims MD [address] [address] 06/25/2024 11:24:23 06/25/2024 14:11:54 Preoperative cardiovascular examination 815092560 Z01.810 Atheroscle rosis of coronary artery without angina pectoris 4245254498 15172 I25.10 Aortic valve stenosis 60 627710 I35.0 Non-rheuma tic mitral valve stenosis 919132012 I34.2 [id number] Charly Sims MD [address] [address] 08/21/2024 10:22:16 08/21/2024 11:09:25 Edema of lower extremity 118912653 R60.0 Atheroscle rosis of coronary artery without angina pectoris 0191949675 55332 I25.10 Essential hypertension 07958100 I10 [id number] Charly Sims MD [address] [address] 11/05/2024 10:17:35 11/05/2024 14:45:27 Edema of lower extremity 791805484 R60.0 Atheroscle rosis of coronary artery without angina pectoris 2564180765 20149 I25.10 Essential hypertension 14110542 I10 Aortic valve stenosis 60 417865 I35.0 [id number] Charly Sims MD [address] [address] 12/25/2024 10:27:00 01/15/2025 11:16:39 Coronary arteriosclerosis 12246251 I25.10 41654309 Essential hypertension 54702170 I10 33085 Pure hypercholesterolemia 854702583 E78.00 76722 Bilateral stenosis of carotid arteries 270027355 I65.23 458920 [id number] Charly Sims MD [address] [address] 02/05/2025 12:56:26 02/05/2025 13:41:18 Coronary arteriosclerosis 32437222 I25.10 94982180 Mild aorti c valve stenosis 337611472 I35.0 515818 Mild javier l valve stenosis 916367581 I05.0 7763508 Bilateral stenosis of carotid arteries 314737290 I65.23 118862 Health Concerns Section Related Observation LastModified by Organization Detai ls LastModified Time None Recorded Concern Status LastModified by Organization Details LastModified Time None Recorded Advance Directives Directive None Recorded Payers Insurance Date Sequence Insurance Name Policy Number Policy Dai Covered Member ID Dai Member ID Guarantor Name 02/04/2025 2 [facility] (MEDICARE SUPPLEMENT) Kareem Fletcher [id number] Kareem Fletcher 01/29/2025 1 MEDICARE [place]: MEDICARE SERVICES - NATIONAL GOVERNMENT SERVICES Kareem Fletcher [id number] Kareem Fletcher Notes Date Note Type Note Provider Name and Address Organization Details Recorded Time 4 text/html ROS as noted in the HPI Patient is referred for cardiac assessment prior to elective hip replacement surgery. As you are aware he is a 73-year-old gentleman we have most of his care in [place] [facility] [place] where he underwent a four-vessel bypass in [...] quite active volunteering his time at the [facility]. He offers are somewhat limited to hip pain and is scheduled for hip replacement on July 22. For that reason were asked to see him from a cardiac standpoint. He reports no chest pains palpitations or dyspnea. He denies any paroxysmal internal dyspnea lower extremity edema. Charly Sims MD [address] [facility],[address], [place], [address], [facility] - [facility] 06/25/2024 12:07:51 5 text/html ROS as noted in the HPI Patient comes in as a sick visit. [...] had any angina. Charly Sims MD [address] [facility],[address], [place], [address], [facility] 08/21/2024 11:04:18 5 text/html ROS as noted in the HPI Patient returns in follow-up for his history [...] pains or dyspnea. Charly Sims MD [address] [facility],[address], [place], [address], [facility] 11/05/2024 12:53:12 5 text/html ROS as noted in the [facility] Patient returns in follow-up for his coronary [...] every 2 weeks. Charly Sims MD [address] [facility],[address], [place], [address], [facility] 12/25/2024 11:19:52 5 text/html ROS as noted in the [facility] Patient returns in follow-up for his coronary disease with history of CABG he has mild aortic and mitral stenosis and apparently some carotid disease. He continues without any concerning cardio or neurologic symptoms. Unfortunately suffered a nonsyncopal fall from flight of stairs and hit his head resulting in a hematoma. He did not lose consciousness. Charly Sims MD [address] [facility],[address], [place], [address], [facility] 02/05/2025 13:22:03
--- OUTSIDE RECORDS SUMMARY | 2025-06-09 14:51 | XMS_ITS | Encounter Summary ---
Author Organization [facility] Address [address] [place] [address] Care Team Providers Care Toy Electric Train Repairer Name Role Phone Clement Alaniz Primary Care Provider + Encounter Details Date Type Department Care Team (Late st Contact Info) Description 12/13/2023 Transcribed Orders [place] [phone] Evan Mauricio MD [address] [place] [address] Disease of thyroid gland (Primary Dx); Abnormal [...] - 12.1 ug/dL 12/13/2023 2:50 PM EDT [facility] Blood Venipuncture / Unknown 12/13/2023 1:36 PM EDT 12/13/2023 1:36 PM EDT Evan Mauricio MD LAB BLOOD ORDERABLES Final Re sult Performing Organization Address City/[facility]/[place] [address], [facility] [phone] * TSH, 3rd generation w/reflex to FT4 ([facility] LMW Q YH) (12/13/2023 1:36 PM EDT) TSH 0.40 0.36 - 3.74 uIU/mL 12/13/2023 2:50 PM EDT [facility] Blood Venipuncture / Unknown 12/13/2023 1:36 PM EDT 12/13/2023 1:36 PM EDT Evan Mauricio MD LAB BLOOD ORDERABLES Final Re sult Performing Organization Address [facility] [place] [address], [facility] [phone] * PSA, total (screening) ([facility] L LMW YH) (12/13/2023 1:36 PM EDT) Prostate Specific Antigen, Screening <0.010 <4.000 ng/mL 12/13/2023 2:50 PM EDT [facility] Comment: Results cannot be interpreted as absolute evidence of presence or absence of malignant disease. Values obtained from different instruments cannot be used interchangeably. This test was performed on the Siemens Dimension Mccarley using an electrochemiluminescence immunoassay. A total PSA value of 4ng/mL may not be an appropriate actionable threshold in all clinical situations. For healthcare providers, see institutional care pathway via [employer] Tools > Integrated Care Models > Abnormal Prostate http://webhs.[facility].org/uploads/abnormal%20Prostate%20stewardship%20ICM%20algorith m.pdf Blood Venipuncture / Unknown 12/13/2023 1:36 PM EDT 12/13/2023 1:36 PM EDT Evan Mauricio MD LAB BLOOD ORDERABLES Final Re sult Performing Organization Address [facility] de Phone Number [address] [phone] * (ABNORMAL) NT-proBrain natriuretic peptide (12/13/2023 1:36 PM EDT) NT-proBNP 645.0(H) <450.0 pg/mL 12/13/2023 2:50 PM EDT [facility] Blood Venipuncture / Unknown 12/13/2023 1:36 PM EDT 12/13/2023 1:36 PM EDT Evan Mauricio MD LAB BLOOD ORDERABLES Final Re sult Performing Organization Address [facility] de Phone Number [address] [phone] * (ABNORMAL) Hemoglobin A1c (12/13/2023 1:36 PM EDT) Hemoglobin A1c 9.8(H) 4.2 - 6.3 % 12/13/2023 2:37 PM EDT [facility] Comment: >=6.5% Diabetes* 5.7-6.4% Pre-Diabetes [...] MD LAB BLOOD [place] [address], [facility] [phone] documented in this encounter Visit Diagnoses Diagnosis Disease of thyroid gland- Primary Unspecified disorder of thyroid Abnormal respiratory rate Other dyspnea and respiratory abnormality Special screening for malignant neoplasm of prostate Diabetes mellitus (HC CODE) Type II or unspecified type diabetes mellitus [...] documented as of this encounter Care Teams Toy Electric Train Repairer Relationship Specialty Start Date End Date Clement Alaniz PA [address] [place] [address] [place] [address] PCP - General 01/29/25 documented as of this encounter
--- OUTSIDE RECORDS SUMMARY | 2025-06-09 14:51 | XMS_ITS | Encounter Summary ---
Author Organization [facility] Address [address] [place] [address] Care Team Providers Care Pediatric Speech Language Pathologist Name Role Phone Clement Alaniz Primary Care Provider + Encounter Details Date Type Department Care Team (Late st Contact Info) Description 12/24/2023 Transcribed Orders [place] [phone] Evan Mauricio MD [address] [place] [address] Social History Tobacco Use Types Packs/Day Years [...] documented as of this encounter Care Teams Pediatric Speech Language Pathologist Relationship Specialty Start Date End Date Clement Alaniz PA [address] [place] [address] [place] [address] PCP - General 01/29/25 documented as of this encounter
--- OUTSIDE RECORDS SUMMARY | 2025-06-09 14:53 | XMS_ITS | Encounter Summary ---
Author Organization [facility] Address [address] [place] [address] Care Team Providers Care Trestle Mechanic Name Role Phone Clement Alaniz Primary Care Provider + Encounter Details Date Type Department Care Team (Late st Contact Info) Description 12/13/2023 Scanned Document [address] [address] Evan Mauricio MD [address] [place] [address] Social History Tobacco Use Types Packs/Day Years [...] documented as of this encounter Care Teams Trestle Mechanic Relationship Specialty Start Date End Date Clement Alaniz PA [address] [place] [address] [place] [address] PCP - General 01/29/25 documented as of this encounter
--- OUTSIDE RECORDS SUMMARY | 2025-06-09 14:53 | XMS_ITS | Encounter Summary ---
Author Organization [facility] Address [address] [place] [address] Care Team Providers Care Core Winder Machine Operator Name Role Phone Clement Alaniz Primary Care Provider + Encounter Details Date Type Department Care Team (Late st Contact Info) Description 10/20/2020 Transcribed Orders [facility] Specimens [address] [place] [address] Evan Mauricio MD [address] [place] [address] Encntr for obs for susp expsr to [...] this encounter Results * SARS CoV-2 (COVID-19) RNA-[facility] ([facility] LMW Y[facility]) (10/22/2020 10:31 AM EST) SARS-CoV-2 RNA (COVID-19) Negative Negative 10/22/2020 3:21 PM EST [facility] Comment: A negative result does not preclude SARS-CoV-2 infections and should not be used as the sole basis for treatment or other management decisions. This assay is a Nucleic Acid Amplification Test (NAAT)/RT-PCR or TMA ([employer]her System). This is run on the madvertise system. It has been validated for clinical use by the [facility] (CLIA #: [id number]). It has been granted Emergency Use Authorization by the [place] FDA. Note that falsely negative results can be due to poor sample quality, suboptimal sample type, low viral load, and viral genome variability. This test has not been evaluated for use in asymptomatic individuals. Test ordering and interpretation is at the discretion of the ordering provider. Patient Information: https://www.fda.gov/media/504644/download Provider Information: https://www.fda.gov/media/690252/download Test performance has not been evaluated in asymptomatic patients. Test ordering and result interpretation is at the discretion of the ordering provider. Viral NASOPHARYNGEAL STRUCTURE / Unknown Collection / Unknown 10/22/2020 10:31 AM EST 10/22/2020 10:58 AM EST Evan Mauricio MD MICROBIOLOGY - GENERAL ORDERA BLES Final Result [address] [phone] documented in this encounter Visit Diagnoses Diagnosis Encntr for obs for susp [facility] bi[facility] agents ruled out- Primary Acute respiratory [...] documented as of this encounter Care Teams Core Winder Machine Operator Relationship Specialty Start Date End Date Clement Alaniz PA [address] [place] [address] [place] [phone] PCP - General 01/29/25 documented as of this encounter
--- OUTSIDE RECORDS SUMMARY | 2025-06-09 14:53 | XMS_ITS | Encounter Summary ---
Author Organization [facility] Address [address] [place] [address] Care Team Providers Care Hot Wound Spring Production Supervisor Name Role Phone Clement Alaniz Primary Care Provider + Encounter Details Date Type Department Care Team (Latest Contact Info) Description 11/07/2020 Transcribed Orders [place] [phone] Evan Mauricio MD [address] [place] [address] Edema (Primary Dx); History of 2019 novel [...] - 4.2 pg/mL 11/07/2020 3:46 PM EDT [facility] Blood Venipuncture / Unknown 11/07/2020 12:24 PM EDT 11/07/2020 12:24 PM EDT Evan Mauricio MD LAB BLOOD ORDERABLES Final Re sult Performing Organization Address City/[facility]/ZIP Co de Phone Number [facility] [address] [place] [address] * T4, free (11/07/2020 12:24 PM EDT) Free T4 0.90 0.76 - 1.46 ng/dL 11/07/2020 1:46 PM EDT [facility] Blood Venipuncture / Unknown 11/07/2020 12:24 PM EDT 11/07/2020 12:24 PM EDT Evan Mauricio MD LAB BLOOD ORDERABLES Final Re sult Performing Organization Address [facility] [place] [address], [facility] [phone] * NT-proBrain natriuretic peptide (11/07/2020 12:24 PM EDT) NT-proBNP 94.0 <125.0 pg/mL 11/07/2020 1:46 PM EDT [facility] Blood Venipuncture / Unknown 11/07/2020 12:24 PM EDT 11/07/2020 12:24 PM EDT us Evan Mauricio MD LAB BLOOD ORDERABLES Final Re sult Performing Organization Address [facility] Co de Phone Number [address] [phone] * (ABNORMAL) Lipid panel (11/07/2020 12:24 PM EDT) Cholesterol 192 See Comment mg/dL 11/07/2020 1:46 PM [facility] Comment: Cholesterol Reference Range: Desirable: <200 mg/dL Borderline: 200-240 mg/dL High Risk: >240 mg/dL HDL 71(H) See Comment mg/dL 11/07/2020 1:46 PM [facility] Comment: HDL Reference Range: Low: <40 High: > or = 60 Triglycerides 238(H) See Comment mg/dL 11/07/2020 1:46 PM [facility] Comment: Triglyceride Reference Range: Normal: <150 mg/dL Borderline High: 150-199 mg/dL High: 200-499 mg/dL Very High: >or= 500 mg/dL LDL Calculated 73 See Comment mg/dL 11/07/2020 1:46 PM [facility] Comment: LDL Reference Range: Optimal: <100 mg/dL Near/Above Optimal: 100-129 mg/dL Borderline High: 130-159 mg/dL High: 160-189 mg/dL Very High: >or= 190 mg/dL Blood Venipuncture / Unknown 11/07/2020 12:24 PM EDT 11/07/2020 12:24 PM EDT Evan Mauricio MD LAB BLOOD [place] [address], [facility] [phone] * Protime and INR (11/07/2020 12:24 PM EDT) Prothrombin Time 10.3 9.9 - 11.8 seconds 11/07/2020 1:28 PM [facility] INR 1.0 0.9 - 1.1 11/07/2020 1:28 PM [facility] Comment: RECOMMENDED INR THERAPEUTIC RANGES: STANDARD INTENSITY......2.0-3.0 HIGH INTENSITY..........2.5-3.5 Blood Venipuncture / Unknown 11/07/2020 12:24 PM EDT 11/07/2020 12:24 PM EDT [facility] - 11/07/2020 1:28 PM EDT As of September 29, 2019 this assay is being performed on new instrumentation. Please note that the reference ranges may have changed. us Evan Mauricio MD LAB BLOOD [place] [address], [facility] [phone] documented in this encounter Visit Diagnoses Diagnosis Edema- Primary History of 2019 novel coronavirus disease (COVID-19) Essential hypertension, malignant Myxedema heart disease Unspecified hypothyroidism Impending cerebrovascular accident (HC Code) (HC CODE) Unspecified transient cerebral ischemia Myasthenia gravis without exacerbation (HC Code) (HC CODE) Myasthenia gravis without exacerbation documented in this [...] documented as of this encounter Care Teams Hot Wound Spring Production Supervisor Relationship Specialty Start Date End Date Clement Alaniz PA [address] [place] [address] [place] [phone] PCP - General 01/29/25 documented as of this encounter
--- OUTSIDE RECORDS SUMMARY | 2025-06-09 14:53 | XMS_ITS | Encounter Summary ---
Author Organization [facility] and [facility] Address [address] [place] [phone] Care Team Providers Care Deck Lid Fitter Name Role Phone Clement Alaniz Primary Care Provider + Encounter Details Date Type Department Care Team (Late st Contact Info) Description 12/24/2023 Transcribed Orders [place] [phone] Evan Mauricio MD [address] [place] [address] Hyperthermia-induce d defect (Primary Dx); Acute cough [...] days of incubation 12/30/2023 12:00 AM EDT [facility] Blood PERIPHERAL BLOOD SPECIMEN / Unknown Venipuncture / Unknown 12/24/2023 1:48 PM EDT 12/24/2023 1:52 PM EDT Narrative [facility] - 12/30/2023 12:00 AM EDT All blood culture bottles with growth will be reported. Evan Mauricio MD MICROBIOLOGY - GENERAL ORDERA BLES Final Result Performing Organization Address [facility] Co de Phone Number [facility] [address] [place] [address] * Blood culture (12/24/2023 1:48 PM EDT) Pathologist [facility] Blood Culture No Growth after 5 days of incubation 12/30/2023 12:00 AM EDT [facility] Blood PERIPHERAL BLOOD SPECIMEN / Unknown Venipuncture / Unknown 12/24/2023 1:48 PM EDT 12/24/2023 1:52 PM EDT [facility] DEPARTMENT OF LABORATORY MEDICINE - 12/30/2023 12:00 AM EDT All blood culture bottles with growth will be reported. Evan Mauricio MD MICROBIOLOGY - GENERAL ORDERA BLES Final Result Performing Organization Address City/[facility]/ZIP Co de Phone Number [facility]ICINE [address] [place] [address] * SARS-CoV-2 (COVID-19)/Influenza A+B/RSV by RT-PCR ([facility]) (12/24/2023 1:14 PM EDT) Pathologist [facility] Influenza A Negative Negative 12/24/2023 2:26 PM T [facility] Comment:Negative results do not preclude infection [...] B Negative Negative 12/24/2023 2:26 PM EDT [facility] Respiratory Syncytial Virus Negative Negative 12/24/2023 [...] for Healthcare Providers: Cepheid Xpert Xpress SARS-CoV-2: https://www.fda.gov/media/567382/download Cepheid Xpert Xpress CoV-2 plus: https://www.fda.gov/media/759244/download Cepheid Xpert Xpress SARS-CoV-2/Flu/RSV plus: https://www.fda.gov/media/858469/download Fact Sheet for Patients: Cepheid Xpert Xpress SARS-CoV-2: https://www.fda.gov/media/268009/download Cepheid Xpert Xpress CoV-2 plus: https://www.fda.gov/media/320814/download Cepheid Xpert Xpress SARS-CoV-2/Flu/RSV plus: https://www.fda.gov/media/249242/download Test performed using the GeneXpert real-time RT-PCR assay. Test performance has not been evaluated in asymptomatic patients. Test ordering and result interpretation is at the discretion of the ordering provider. Test performed at: [place] [address] Director: Naomi Pack MD CLIA: [id number] Viral NASOPHARYNGEAL STRUCTURE / Unknown Collection / Unknown 12/24/2023 1:14 PM EDT 12/24/2023 1:15 PM EDT Evan Mauricio MD MICROBIOLOGY - GENERAL ORDERA BLES Final Result Performing Organization Address City/State/[facility] [place] [address], [facility] [phone] documented in this encounter Visit Diagnoses Diagnosis [...] documented as of this encounter Care Teams Deck Lid Fitter Relationship Specialty Start Date End Date Clement Alaniz PA [address] [place] [address] [place] [phone] PCP - General 01/29/25 documented as of this encounter
--- OUTSIDE RECORDS SUMMARY | 2025-06-09 14:53 | XMS_ITS | Clinical Summary ---
Author Organization [facility] Address [address] [place] [address] Phone Care Team Providers Care Veterinarian Helper Name Role Phone Marleen Tompkins MD Primary Care Provider [phone]- [phone] Allergies Active Allergy Reactions Criticality Noted Date [...] 05/05/2018, 05/22/2017, Additional history exists COVID-19 VACCINE (1 - 2024- season) 2025 HEPATITIS A VACCINES Aged Out [...] MULTIPLAN MULTIPLAN MULTIPLAN MULTIPLAN MULTIPLAN Care Teams Veterinarian Helper Relationship Specialty Start Date End Date Marleen Tompkins MD [address] [place] [phone] PCP - General 02/09/14 Additional Source Comments The information contained in this document represents components of the legal health record. It is not the complete legal health record.[facility]
--- OUTSIDE RECORDS SUMMARY | 2025-06-09 14:53 | XMS_ITS | Encounter Summary ---
Author Organization [facility] and [facility] Address [address] [place] [phone] Care Team Providers Care Rotary Soil Stabilizer Operator Name Role Phone Clement Alaniz Primary Care Provider + Encounter Details Date Type Department Care Team (Latest Contact Info) Description 08/26/2021 Transcribed Orders [address] [phone] Jonah Nieto MD [address] [place] [phone] Other diseases of mediastinum, not elsewhere [...] 0.70 - 1.30 mg/dL 08/26/2021 10:29 AM [facility] eGFR (Afr Amer) >60 >60 mL/min/1.7 3m2 08/26/2021 10:29 AM [facility] Comment: Values under 60mL/min/1.73m2 may indicate CKD if noted for more than 3 months. eGFR is only valid if creatinine is at steady state. eGFR (NON -Hollie n) >60 >60 mL/min/1.7 3m2 08/26/2021 10:29 AM [facility] Comment: Values under 60mL/min/1.73m2 may indicate CKD if noted for more than 3 months. eGFR is only valid if creatinine is at steady state. Blood Venipuncture / Unknown 08/26/2021 9:34 AM EST 08/26/2021 9:37 AM EST us Jonah Nieto MD LAB BLOOD ORDERABLES Fi nal Result Performing Organization Address City/State/[facility] [place] [address], [facility] [phone] documented in this encounter Visit Diagnoses Diagnosis [...] documented as of this encounter Care Teams Rotary Soil Stabilizer Operator Relationship Specialty Start Date End Date Clement Alaniz PA [address] [place] [address] [place] [phone] PCP - General 01/29/25 documented as of this encounter
--- OUTSIDE RECORDS SUMMARY | 2025-06-09 14:53 | XMS_ITS | Encounter Summary ---
Author Organization [facility] and [facility] Address [address] [place] [phone] Care Team Providers Care Party Bus Driver Name Role Phone Clement Alaniz Primary Care Provider + Encounter Details Date Type Department Care Team (Late st Contact Info) Description 02/06/2024 Transcribed Orders [facility] [address] [place] [phone] Evan Mauricio MD [address] [facility] [place] [address] Diabetes mellitus without complication (HC Code) (Primary [...] Random 48.9(H) <30.0 mg/L 08/03/2024 1:37 PM [facility] Creatinine, Urine, Random 94 No reference range established mg/dL 08/03/2024 1:37 PM [facility] Microalbumin/Cr eatinine Ratio, Urine, Random 52.2(H) <30.0 mg/g Cr 08/03/2024 1:37 PM [facility] Comment: Moderately increased albuminuria (formerly microalbuminuria): 30-300 mg/g Cr Significantly increased albuminuria (overt albuminuria): >300 mg/g Cr Urine Collection / Unknown 08/03/2024 11:15 AM EST 08/03/2024 11:15 AM EST Evan Mauricio MD URINE ORDERABLES Final Result [address] [phone] * (ABNORMAL) Lipid panel (08/03/2024 11:10 AM EST) Cholesterol 187 See Comment mg/dL 08/03/2024 12:43 PM [facility] Comment: Cholesterol Reference Range: Desirable: <200 mg/dL Borderline: 200-240 mg/dL High Risk: >240 mg/dL HDL 86(H) See Comment mg/dL 08/03/2024 12:43 PM [facility] Comment: HDL Reference Range: Low: <40 High: > or = 60 Triglycerides 386(H) See Comment mg/dL 08/03/2024 12:43 PM [facility] Comment: Triglyceride Reference Range: Normal: <150 mg/dL Borderline High: 150-199 mg/dL High: 200-499 mg/dL Very High: >or= 500 mg/dL LDL Calculated 45 See Comment mg/dL 08/03/2024 12:43 PM [facility] Comment: Effective 01/17/2022, LDL is calculated [...] [facility] Co de Phone Number [address] [phone] documented in this encounter Visit Diagnoses Diagnosis Diabetes mellitus without complication (HC CODE)- Primary Type II or unspecified type diabetes mellitus without mention of complication, not stated as uncontrolled documented in this encounter Additional Health Concerns Assessment Noted Time PHQ-9 Depression Total Score: 0 12/22/19 24 5:57 PM EDT documented as of this encounter Care Teams Party Bus Driver Relationship Specialty Start Date End Date Clement Alaniz PA [address] [place] [address] [place] [phone] PCP - General 01/29/25 documented as of this encounter
--- OUTSIDE RECORDS SUMMARY | 2025-06-09 14:53 | XMS_ITS | Encounter Summary ---
Author Organization [facility] and [facility] Address [address] [place] [phone] Care Team Providers Care Windsurfing Instructor Name Role Phone Clement Alaniz Primary Care Provider + Encounter Details Date Type Department Care Team (Late st Contact Info) Description 10/09/2021 Transcribed Orders [address] [phone] Evan Mauricio MD [address] [place] [phone] Shortness of breath (Primary Dx); Edema Social [...] 201.0(H) <125.0 pg/mL 10/09/2021 12:55 PM EST [facility] Blood Venipuncture / Unknown 10/09/2021 11:52 AM EST 10/09/2021 11:52 AM EST us Evan Mauricio MD LAB BLOOD ORDERABLES Final Re sult [address] [phone] documented in this encounter Visit Diagnoses Diagnosis [...] documented as of this encounter Care Teams Windsurfing Instructor Relationship Specialty Start Date End Date Clement Alaniz PA [address] [place] [address] [place] [phone] PCP - General 01/29/25 documented as of this encounter
--- OUTSIDE RECORDS SUMMARY | 2025-06-09 14:53 | XMS_ITS | Encounter Summary ---
Author Organization [facility] and [facility] Address [address] [place] [phone] Care Team Providers Care Filter Changing Technician Name Role Phone Clement Alaniz Primary Care Provider + Encounter Details Date Type Department Care Team (Late st Contact Info) Description 08/01/2024 Transcribed Orders [address] [phone] Evan Mauricio MD [address] [place] [address] Diabetes mellitus (HC Code) (Primary Dx) Social [...] 4.5 - 12.1 ug/dL 08/03/2024 12:43 PM [facility] Blood Venipuncture / Unknown 08/03/2024 11:10 AM EST 08/03/2024 11:10 AM EST Evan Mauricio MD LAB BLOOD ORDERABLES Final Re sult Performing Organization Address [facility] [place] [address], [facility] [phone] * (ABNORMAL) TSH (08/03/2024 11:10 AM EST) TSH 9.26(H) 0.36 - 3.74 uIU/mL 08/03/2024 12:43 PM [facility] Comment:As TSH is known to n aturally increase in winter, with age and due to certain non-thyroidal illnesses, please consider retesting adults with mild abnormalities (ie, TSH <10 IU/mL) after 2-3 months prior to initiating therapy. Blood Venipuncture / Unknown 08/03/2024 11:10 AM EST 08/03/2024 11:10 AM EST Evan Mauricio MD LAB BLOOD ORDERABLES Final [facility] Performing Organization Address [facility] Co de Phone Number [address] [phone] * (ABNORMAL) Hemoglobin A1c (08/03/2024 11:10 AM EST) Hemoglobin A1c 8.0(H) 4.2 - 6.3 % 08/03/2024 12:53 PM [facility] Comment: >=6.5% Diabetes* 5.7-6.4% Pre-Diabetes *These results [...] City/State/[facility] Co de Phone Number [address] [phone] documented in this encounter Visit Diagnoses Diagnosis Diabetes mellitus (HC CODE)- Primary Type II or unspecified type diabetes mellitus without mention of complication, not stated as uncontrolled documented in this encounter Additional Health Concerns Assessment Noted Time PHQ-9 Depression Total Score: 0 12/22/19 24 5:57 PM EDT documented as of this encounter Care Teams Filter Changing Technician Relationship Specialty Start Date End Date Clement Alaniz PA [address] [place] [address] [place] [phone] PCP - General 01/29/25 documented as of this encounter
--- OUTSIDE RECORDS SUMMARY | 2025-06-09 14:53 | XMS_ITS | Clinical Summary ---
Author Organization [address] Address [address] [place] [phone] Phone Care Team Providers Care Expeditionary Fighting Vehicle Crewman Name Role Phone Clement Alaniz Primary Care [...] Encounters Date Type Department Care Team Description 06/01/2025 7:58 AM EDT - 06/01/2025 11:59 PM EDT Hospital Encounter [facility] Ultrasound [address] [place] [address] Bunny Chamorro MD Thyroid nodule Discharge Disposition: Home or Self Care [...] 03/12/2025 05/31/2021, 04/13/2021 Covid-19 vaccine series ( - season) 2025 07/10/2021, 07/06/2021, 11/16/2020 Diabetes screening [...] Procedure Name Priority Date/Time Associated Diagnosis Comments US THYROID Routine 06/01/2025 8:35 AM EDT Thyroid nodule HEMOGLOBIN A1C Routine 08/03/2024 11:10 AM EST Diabetes mellitus (HC Code) LIPID PANEL Routine 08/03/2024 11:10 AM EST Diabetes mellitus without complication (HC Code) from Last 3 Months or Most Recently Relevant to Health Maintenance Results * US Thyroid (06/01/2025 8:35 AM EDT) Anatomical Region Laterality Modality Neck, Ortho Neck Ultrasound 06/01/2025 10:3 2 AM EDT Impressions 06/01/2025 10:33 AM EDT Small heterogeneous thyroid gland without discrete nodule identifiable. Reported and signed by: Chacho Garcia MD Narrative 06/01/2025 10:33 AM EDT US THYROID HISTORY: thyroid nodule. COMPARISON: None. TECHNIQUE: Thyroid ultrasound was performed using 2D marks-scale and color Doppler imaging. FINDINGS: Size right lobe: 2.7 cm craniocaudal, 1.4 cm transverse, 1.1 cm anterior- posterior Size left lobe: 2.6 cm craniocaudal, 1.5 cm transverse, 1.2 cm anterior-posterior Size isthmus: 0.4 cm anterior-posterior Texture: Heterogeneous. No discrete nodule identifiable given parenchymal heterogeneity. Procedure Note Chacho Garcia MD - 06/01/2025 US THYROID HISTORY: thyroid nodule. COMPARISON: None. TECHNIQUE: Thyroid ultrasound was performed using 2D marks-scale and colorDoppler imaging. FINDINGS: Size right lobe: 2.7 cm craniocaudal, 1.4 cm transverse, 1.1 cmanterior- posterior Size left lobe: 2.6 cm craniocaudal, 1.5 cm transverse, 1.2 cmanterior-posterior Size isthmus: 0.4 cm anterior-posterior Texture: Heterogeneous. No discrete nodule identifiable given parenchymalheterogeneity. IMPRESSION: Small heterogeneous thyroid gland without discrete nodule identifiable. Reported and signed by: Chacho Garcia MD uBnny Chamorro MD IMG US ORDERABLES Final Resul t * (ABNORMAL) Hemoglobin A1c (08/03/2024 11:10 AM EST) Hemoglobin A1c 8.0(H) 4.2 - 6.3 % 08/03/2024 12:53 PM [facility] Comment: >=6.5% Diabetes* 5.7-6.4% Pre-Diabetes *These [...] MD LAB BLOOD ORDERABLES [place] [address], [facility] [phone] * (ABNORMAL) Lipid panel (08/03/2024 11:10 AM EST) Cholesterol 187 See Comment mg/dL 08/03/2024 12:43 PM [facility] Comment: Cholesterol Reference Range: Desirable: <200 mg/dL Borderline: 200-240 mg/dL High Risk: >240 mg/dL HDL 86(H) See Comment mg/dL 08/03/2024 12:43 PM [facility] Comment: HDL Reference Range: Low: <40 High: > or = 60 Triglycerides 386(H) See Comment mg/dL 08/03/2024 12:43 PM [facility] Comment: Triglyceride Reference Range: Normal: <150 mg/dL Borderline High: 150-199 mg/dL High: 200-499 mg/dL Very High: >or= 500 mg/dL LDL Calculated 45 See Comment mg/dL 08/03/2024 12:43 PM [facility] Comment: Effective 01/17/2022, LDL is calculated [...] MD LAB BLOOD ORDERABLES [place] [address], [facility] [phone] from Last 3 Months or Most Recently Relevant to Health Maintenance Insurance MEDICARE [facility] MEDICARE [facility] MEDICARE [facility] Advance Directives * Full ACLS (Latest Code Status on File) Date Activated Date Inactivated Comments 09/13/2020 4:47 PM 09/29/2020 6:59 PM Question Answer Comments With Whom was the Code Status Discussed? Patient Care Teams Expeditionary Fighting Vehicle Crewman Relationship Specialty Start Date End Date Clement Alaniz PA [address] [place] [address] [place] [phone] PCP - General 01/29/25
--- OUTSIDE RECORDS SUMMARY | 2025-06-09 14:53 | XMS_ITS | Encounter Summary ---
Author Organization [facility] and [facility] Address [address] [place] [phone] Care Team Providers Care Window Cleaner Name Role Phone Clement Alaniz Primary Care Provider + Encounter Details Date Type Department Care Team (Late st Contact Info) Description 01/07/2024 Transcribed Orders [place] [phone] Evan Mauricio MD [address] [place] [address] Hyperthermia-induce d defect (Primary Dx); Acute cough; [...] pneumonia LEGIONELLA AND S. PNEUMONIAE ANTIGEN, URINE ([facility]) Routine 01/07/2024 3:15 PM EDT Hyperthermia-induce d defect Acute cough Unresolved pneumonia BLOOD CULTURE Routine 01/07/2024 3:15 PM EDT Hyperthermia-induce d defect Acute cough Unresolved pneumonia BLOOD CULTURE Routine 01/07/2024 3:14 PM EDT Hyperthermia-induce d defect Acute cough Unresolved pneumonia documented in this encounter Results * Legionella and S. pneumoniae antigen, urine ([facility]) (01/07/2024 3:15 PM EDT) Legionella Antigen Negative Negative 01/07/2024 10:55 PM EDT [facility] DEPARTMENT OF LABORATORY MEDICINE S. pneumoniae Urine Antigen Negative Negative 01/07/2024 10:55 PM EDT [facility] DEPARTMENT OF LABORATORY MEDICINE Urine URINE SPECIMEN OBTAINED BY CLEAN CATCH PROCEDURE / Unknown Collection / Unknown 01/07/2024 3:15 PM EDT 01/07/2024 3:31 PM EDT Narrative [facility] DEPARTMENT OF LABORATORY MEDICINE - 01/07/2024 10:55 [...] - GENERAL ORDERA BLES Final Result [facility] DEPARTMENT OF LABORATORY MEDICINE [address] [place] [address], [facility] [phone] * Blood culture (01/07/2024 3:15 PM EDT) Blood Culture No Growth after 5 days of incubation 01/12/2024 11:00 PM EDT [facility] DEPARTMENT OF LABORATORY MEDICINE Blood PERIPHERAL BLOOD SPECIMEN / Unknown Venipuncture / Unknown 01/07/2024 3:15 PM EDT 01/07/2024 3:31 PM EDT Narrative [facility] DEPARTMENT OF LABORATORY MEDICINE - 01/12/2024 11:00 PM EDT All blood culture bottles with growth will be reported. Evan Mauricio MD MICROBIOLOGY - GENERAL ORDERA BLES Final Result [facility] DEPARTMENT OF LABORATORY MEDICINE [address] [place] [address], [facility] [phone] * SARS-CoV-2 (COVID-19)/Influenza A+B/RSV by RT-PCR ([facility]) (01/07/2024 3:15 PM EDT) Pathologist [facility] Influenza A Negative Negative 01/07/2024 4:07 PM EDT [facility] Comment:Negative results do not preclude infection [...] B Negative Negative 01/07/2024 4:07 PM EDT [facility] Respiratory Syncytial Virus Negative Negative 01/07/2024 4:07 PM T [facility] SARS-CoV-2 RNA (COVID-19) Negative Negative 01/07/2024 4:07 PM T [facility] Comment: SARS-CoV-2 target nucleic acids not detected. Depending on assay used, testing was performed using one of the following tests. Contact the laboratory if the specific assay used impacts clinical care. Fact Sheet for Healthcare Providers: [employer] Xpert Xpress SARS-CoV-2: https://www.fda.gov/media/270809/download Cepheid Xpert Xpress CoV-2 plus: https://www.fda.gov/media/044060/download Cepheid Xpert Xpress SARS-CoV-2/Flu/RSV plus: https://www.fda.gov/media/752202/download Fact Sheet for Patients: Cepheid Xpert Xpress SARS-CoV-2: https://www.fda.gov/media/149465/download Cepheid Xpert Xpress CoV-2 plus: https://www.fda.gov/media/881073/download Cepheid Xpert Xpress SARS-CoV-2/Flu/RSV plus: https://www.fda.gov/media/238628/download Test performed using the GeneXpert real-time RT-PCR assay. Test performance has not been evaluated in asymptomatic patients. Test ordering and result interpretation is at the discretion of the ordering provider. Test performed at: [place] [address] Director: Naomi Pack MD CLIA: [id number] Viral NASOPHARYNGEAL STRUCTURE / Unknown Collection / Unknown 01/07/2024 3:15 PM EDT 01/07/2024 3:18 PM EDT Evan Mauricio MD MICROBIOLOGY - GENERAL [place] [address], [facility] [phone] * Blood culture (01/07/2024 3:14 PM EDT) Blood Culture No Growth after 5 days of incubation 01/12/2024 11:00 PM EDT [facility] DEPARTMENT OF LABORATORY MEDICINE Blood PERIPHERAL BLOOD SPECIMEN / Unknown Venipuncture / Unknown 01/07/2024 3:14 PM EDT 01/07/2024 3:15 PM EDT Narrative [facility] DEPARTMENT OF LABORATORY MEDICINE - 01/12/2024 11:00 PM EDT All blood culture bottles with growth will be reported. Evan Mauricio MD MICROBIOLOGY - GENERAL ORDERA BLES Final Result [facility] DEPARTMENT OF LABORATORY MEDICINE [address] [place] [address], [facility] [phone] documented in this encounter Visit Diagnoses Diagnosis [...] documented as of this encounter Care Teams Window Cleaner Relationship Specialty Start Date End Date Clement Alaniz PA [address] [place] [address] [place] [phone] PCP - General 01/29/25 documented as of this encounter
--- OUTSIDE RECORDS SUMMARY | 2025-06-09 14:53 | XMS_ITS | Encounter Summary ---
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 Results obtained with different assay methods cannot be used interchangeably. A total PSA value of 4ng/mL may not be an appropriate actionable threshold in all clinical situations. For healthcare providers, see institutional care pathway via Epic Tools > Integrated Care Models > Abnormal Prostate [email or web address] [email or web address] Blood Venipuncture / Unknown 09/28/2021 8:24 AM EST 09/28/2021 8:24 AM EST Clement BERTRAND LAB BLOOD ORDERABLES Fin al Result Performing Organization Address City/[facility] [place] [address], [facility] [phone] * TSH (09/28/2021 8:24 AM EST) TSH 3.15 0.36 - 3.74 uIU/mL 09/28/2021 9:47 AM EST [facility] Blood Venipuncture / Unknown 09/28/2021 8:24 AM EST 09/28/2021 8:24 AM EST Clement BERTRAND LAB BLOOD ORDERABLES Fin al Result Performing Organization Address [facility] de Phone Number [address] [phone] documented in this encounter Visit Diagnoses Diagnosis Coronary atherosclerosis of choctaw coronary artery- Primary Special screening for malignant [...] documented as of this encounter Care Teams Sales Operations Coordinator Relationship Specialty Start Date End Date Clement Alaniz PA [address] [place] [address] [place] [phone] PCP - General 01/29/25 documented as of this encounter
--- OUTSIDE RECORDS SUMMARY | 2025-06-09 14:53 | XMS_ITS | Encounter Summary ---
Author Organization [facility] and [facility] Address [address] [place] [phone] Care Team Providers Care Bike Shop Manager Name Role Phone Clement Alaniz Primary Care Provider + Encounter Details Date Type Department Care Team (Late st Contact Info) Description 06/08/2021 Transcribed Orders [place] [phone] Evan Mauricio MD [address] [place] [address] Screening examination for poliomyelitis (Primary Dx); Post-COVID [...] Antibody (Total Ig), Semi- Quantitative ([facility] ) (06/08/2021 9:02 AM EDT) SARS-CoV-2 (COVID-19) Jakub-RBD Ab, Total Interpretation Positive( A) Negative 06/08/2021 5:36 PM EDT [facility] SARS-CoV-2 (COVID-19) Jakub-RBD Ab, Total >2,500.00 (H) <0.80 U/mL 06/08/2021 5:36 PM EDT [facility] Blood Venipuncture / Unknown 06/08/2021 9:02 AM EDT 06/08/2021 9:54 AM EDT us Evan Mauricio MD LAB BLOOD ORDERABLES Final Re sult Performing Organization Address City/State/[facility] [[email or web address]] Co de Phone Number [facility] [address] [place] [address] documented in this encounter Visit Diagnoses Diagnosis [...] documented as of this encounter Care Teams Bike Shop Manager Relationship Specialty Start Date End Date Clement Alaniz PA [address] [place] [address] [place], [place] [phone] PCP - General 01/29/25 documented as of this encounter
--- OUTSIDE RECORDS SUMMARY | 2025-06-09 14:53 | XMS_ITS | Encounter Summary ---
Author Organization [facility] and [facility] Address [address] [place] [phone] Care Team Providers Care Engineering Technician Parking Name Role Phone Clement Alaniz Primary Care Provider + Encounter Details Date Type Department Care Team (Latest Contact Info) Description 02/16/2022 Transcribed Orders [address] [phone] Geovanni Haq MD [address] [place] [phone] Mitral stenosis (Primary Dx) Social History [...] 9.3 - 11.6 seconds 02/16/2022 10:23 AM [facility] PTT 25.2 21.0 - 32.0 seconds 02/16/2022 10:23 AM [facility] Comment: RECOMMENDED THERAPEUTIC RANGE: 40-80 SECONDS INR 0.99 0.87 - 1.14 02/16/2022 10:23 AM EDT [facility] Comment: RECOMMENDED INR THERAPEUTIC RANGES: STANDARD INTENSITY......2.0-3.0 HIGH INTENSITY..........2.5-3.5 Blood Venipuncture / Unknown 02/16/2022 8:56 AM EDT 02/16/2022 8:57 AM EDT Geovanni Haq MD LAB BLOOD [place] [address], [facility] [phone] documented in this encounter Visit Diagnoses Diagnosis [...] documented as of this encounter Care Teams Engineering Technician Parking Relationship Specialty Start Date End Date Clement Alaniz PA [address] [place] [address] Dr [place], [place] [phone] PCP - General 01/29/25 documented as of this encounter
--- OUTSIDE RECORDS SUMMARY | 2025-06-09 14:53 | XMS_ITS | Encounter Summary ---
Author Organization [facility] and [facility] Address [address] [place] [phone] Care Team Providers Care Deep Submergence Vehicle Crewmember Name Role Phone Clement Alaniz Primary Care Provider + Encounter Details Date Type Department Care Team (Latest Contact Info) Description 06/08/2021 Transcribed Orders [address] [phone] System, Provider Not In Pure hypercholesterolemia (Primary [...] 215(H) See Comment mg/dL 06/08/2021 10:20 AM [facility] Comment: Cholesterol Reference Range: Desirable: <200 mg/dL Borderline: 200-240 mg/dL High Risk: >240 mg/dL HDL 66(H) See Comment mg/dL 06/08/2021 10:20 AM [facility] Comment: HDL Reference Range: Low: <40 High: > or = 60 Triglycerides 229(H) See Comment mg/dL 06/08/2021 10:20 AM [facility] Comment: Triglyceride Reference Range: Normal: <150 mg/dL Borderline High: 150-199 mg/dL High: 200-499 mg/dL Very High: >or= 500 mg/dL LDL Calculated 103(H) See Comment mg/dL 06/08/2021 10:20 AM EDT [facility] Comment: LDL Reference Range: Optimal: <100 mg/dL Near/Above Optimal: 100-129 mg/dL Borderline High: 130-159 mg/dL High: 160-189 mg/dL Very High: >or= 190 mg/dL Blood Venipuncture / Unknown 06/08/2021 9:02 AM EDT 06/08/2021 9:04 AM EDT us Provider Not In System LAB BLOOD ORDERABLES Elvia pittman Result Performing Organization Address City/State/[facility] Co de Phone Number [address] [phone] documented in this encounter Visit Diagnoses Diagnosis [...] documented as of this encounter Care Teams Deep Submergence Vehicle Crewmember Relationship Specialty Start Date End Date Clement Alaniz PA [address] [place] [address] [place] [phone] PCP - General 01/29/25 documented as of this encounter
--- OUTSIDE RECORDS SUMMARY | 2025-06-09 14:53 | XMS_ITS | Encounter Summary ---
Author Organization [facility] and [facility] Address [address] [place] [phone] Care Team Providers Care Technical Sourcing Recruiter Name Role Phone Clement Alaniz Primary Care Provider + Encounter Details Date Type Department Care Team (Late st Contact Info) Description 06/08/2021 Orders Only [place] [phone] Evan Mauricio MD [address] [place] [address] Screening examination for poliomyelitis; Post-COVID syndrome resolved [...] (COVID-19) Jakub-RBD Antibody (Total Ig), Semi- Quantitative ([facility]) (06/08/2021 9:02 AM EDT) SARS-CoV-2 (COVID-19) Jakub-RBD Ab, Total Interpretation Positive( A) Negative 06/08/2021 5:36 PM EDT [facility] DEPARTMENT OF LABORATORY MEDICINE SARS-CoV-2 (COVID-19) Jakub-RBD Ab, Total >2,500.00 (H) <0.80 U/mL 06/08/2021 5:36 PM EDT [facility] DEPARTMENT [facility]ORATORY MEDICINE Blood Venipuncture / Unknown 06/08/2021 9:02 AM EDT 06/08/2021 9:54 AM EDT Evan Mauricio MD LAB BLOOD ORDERABLES Final Re sult Performing Organization Address City/State/[facility] Co de Phone Number [facility] DEPARTMENT OF LABORATORY MEDICINE [address] [place] [address] documented in this encounter Visit Diagnoses Diagnosis [...] documented as of this encounter Care Teams Technical Sourcing Recruiter Relationship Specialty Start Date End Date Clement Alaniz PA [address] [place] [address] [place] [phone] PCP - General 01/29/25 documented as of this encounter
--- OUTSIDE RECORDS SUMMARY | 2025-06-09 14:53 | XMS_ITS | Encounter Summary ---
Author Organization [facility] and [facility] Address [address] [place] [phone] Care Team Providers Care Archivist Military History Name Role Phone Clement Alaniz Primary Care Provider + Encounter Details Date Type Department Care Team (Late st Contact Info) Description 06/08/2021 Transcribed Orders [address] [phone] Koko Wahl MD [address] [place] [phone] Other specified endocrine disorders (Primary Dx); [...] ORDERABLES Final Resul t Performing Organization Address [facility]/ZIP Co de Phone Number [facility] [address] [place] [address] * Estradiol (06/08/2021 9:02 AM EDT) Estradiol <11.8 =<39.8 pg/mL 06/08/2021 12:24 PM EDT [facility] Comment: Reference ranges (pg/mL): Females [...] ORDERABLES Final Resul t Performing Organization Address [facility] Co de Phone Number [facility] [address] [place] [address] * (ABNORMAL) DHEA-sulfate (06/08/2021 9:02 AM EDT) DHEA-SO4 46.6(L) 80.0 - 560.0 ug/dL 06/08/2021 5:08 PM EDT [facility] DEPARTMENT OF LABORATORY MEDICINE Comment: Oscar Stage [...] MD LAB BLOOD ORDERABLES Final Resul t [facility] DEPARTMENT OF LABORATORY MEDICINE [address] [place] [id number] [phone] * TSH (06/08/2021 9:02 AM EDT) TSH 3.21 0.36 - 3.74 uIU/mL 06/08/2021 10:20 AM EDT [facility] Blood Venipuncture / Unknown 06/08/2021 9:02 AM EDT 06/08/2021 9:04 AM EDT us Koko Wahl MD LAB BLOOD ORDERABLES Final Resul t Performing Organization Address City/[facility]/ZIP Co de Phone Number [address] [phone] * (ABNORMAL) Testosterone, free,bio and total, LC/MS/MS ([facility]) (06/08/2021 9:02 AM EDT) Testosterone Total LC/MS/MS 79(L) 250 - 1100 ng/dL 06/12/2021 12:37 PM EDT [email or web address] Comment: Men with clinically significant hypogonadal symptoms and testosterone values repeatedly in the range of the 200-300 ng/dL or less, may benefit from testosterone treatment after adequate risk and benefits counseling. For additional information, please refer to http://education.Cloud[employer].Plated/faq/ [email or web address] (This link is being provided for informational/ educational purposes only.) This test was developed and its analytical performance characteristics have been determined by [employer] [facility] [place], [place]. It has not been cleared or approved by the U.S. Food and Drug Administration. This assay has been validated pursuant to the CLIA regulations and is used for clinical purposes. Testosterone, Free 5.4(L) 6.0 - 73.0 pg/mL 06/12/2021 12:37 PM EDT [facility] Testosterone, Bioavailable 10.4(L) 15.0 - 150.0 ng/dL 06/12/2021 12:37 PM EDT [facility] Sex Hormone Binding Globulin 65 22 - 77 nmol/L 06/12/2021 12:37 PM EDT [facility] Albumin 4.2 3.6 - 5.1 g/dL 06/12/2021 12:37 PM EDT [facility] Comment: Test Performed at: [facility] [facility] [address] [phone] Srikanth Grande M.D., Ph.D.,Director of Laboratories Blood Venipuncture / Unknown 06/08/2021 9:02 AM EDT 06/08/2021 9:04 AM EDT us Koko Wahl MD LAB BLOOD ORDERABLES Final Resul t [facility] * T4, free (06/08/2021 9:02 AM EDT) Free T4 0.80 0.76 - 1.46 ng/dL 06/08/2021 10:20 AM EDT [facility] Blood Venipuncture / Unknown 06/08/2021 9:02 AM EDT 06/08/2021 9:04 AM EDT us Koko Wahl MD LAB BLOOD ORDERABLES Final Resul t Performing Organization Address City/[facility] Co de Phone Number [address] [phone] documented in this encounter Visit Diagnoses Diagnosis [...] documented as of this encounter Care Teams Archivist Military History Relationship Specialty Start Date End Date Clement Alaniz PA [address] [facility] [place] [phone] PCP - General 01/29/25 documented as of this encounter
== END 2025-06-09 12:26 | disposition home or self-care (01) ==
LOC: HO.HMCH 11:30
PROVIDERS: PCP Physician Assistant; Visit Provider Physician Assistant
DX: Z13.9 Encounter for screening, unspecified (principal)

== ENCOUNTER → 2025-06-09 11:29 | Outpatient (BNVA) | payer MEDICARE, OTHER, SELFPAY | PROVIDERS: PCP Physician Assistant; Visit Provider Physician Assistant | DX: E11.9 Type 2 diabetes mellitus without complications (principal); I25.118 Atherosclerotic heart disease of native coronary artery with other forms of angina pectoris; G70.00 Myasthenia gravis without (acute) exacerbation; I10 Essential (primary) hypertension; E78.2 Mixed hyperlipidemia; E03.9 Hypothyroidism, unspecified; K92.1 Melena | CPT/HCPCS: 83036; 99212 ==